=== PATIENT | female | born 1980 | race African-American/Black ===

== ENCOUNTER 2016-12-04 18:33 | Observation (INO) | payer SELFPAY ==
[~2016-12-04] VITALS: Ht 167.6 cm; Wt 74.4 kg
[~2016-12-04 18:33] MED LIST: ALPR1TAB2 PO; ARIP15TA2 PO; BUPR100T6 PO; DOXE50CA PO; Erythromycin Base PO; GABA-585 PO; GABA-587 PO; GABA400C PO; HYDR25TA PO; HYDR50TA6 PO; Oxycodone Hcl/Acetaminophen PO; PANT40TA3 PO; POTA10TA31 PO
[2016-12-04 19:22] LABS: BILIRUBIN,URINE NEGATIVE (NEG); GLUCOSE,URINE 500 mg/dL (NEG); NITRITE,URINE NEGATIVE (NEG); PROTEIN,URINE NEGATIVE (NEG-TRACE); UROBILINOGEN,URINE 0.2 mg/dL (0.2 mg/dL)
[2016-12-04 19:30] LABS: BACTERIA,URINE 0 /HPF (0-FEW); RBC,URINE 0 /HPF (0-2); SQUAMOUS EPITHELIAL CELL,UR FEW /LPF; WBC,URINE 0 /HPF (0-4)
[2016-12-04] MEDS ORDERED: HYDROMORPHONE 2 MG/ML VIAL. IM ONE (19:30)
[2016-12-04] MEDS ORDERED: FAMOTIDINE 20 MG/2 ML VIAL IVP ONE (19:30)
[2016-12-04] MEDS ORDERED: ONDANSETRON PF 4 MG/2 ML VIAL. IV ONE (19:30)
[2016-12-04] MEDS ORDERED: IV NORMAL SALINE 1000ML BAG 1,000 ML IV ONE (19:30)
[2016-12-04 19:34] LABS: NEG OBC FOB NEG; POS OBC FOB POS
--- NOTE | 2016-12-04 19:55 | RAD ---
PROCEDURE Ultrasound limited abdomen HISTORY Left upper quadrant pain and hernia TECHNIQUE Sonographic examination was performed of the area of interest in the left upper quadrant and multiple static images were obtained. FINDINGS There is a small 2.4 millimeter abdominal wall defect with herniated material that measures 7 x 7 x 5 millimeters. There is no peristalsis or air to suggest bowel. IMPRESSION Herniated small at the time of the examination. This does not appear to be a bowel containing hernia. Clinical correlation is suggested. Electronically signed by: Gilberto Moreno MD (Dec 04, 2016 19:54:14)
[2016-12-04 19:58] LABS: BASO % 1 % (0-3); EOS % 1 % (0-3); HEMATOCRIT 28.8 % (36.0-47.0); HEMOGLOBIN 9.4 g/dL (12.0-15.5); LYMPH # 2.6 x10^3/uL (1.0-4.8); LYMPH % 32 % (24-48); MEAN CORPUSCULAR HEMOGLOBIN 26 pg (25-35); MEAN CORPUSCULAR HGB CONC 33 g/dL (31-37); MEAN CORPUSCULAR VOLUME 80 fL (79-100); MONO % 8 % (0-9); NEUT % 58 % (31-73); PLATELET COUNT 241 x10^3/uL (140-400); RED BLOOD COUNT 3.58 x10^6/uL (3.50-5.40); RED CELL DISTRIBUTION WIDTH 18.2 % (11.5-14.5); WHITE BLOOD COUNT 7.9 x10^3/uL (4.0-11.0)
[2016-12-04 20:06] LABS: CALCIUM 9.5 mg/dL (8.5-10.1); CREATININE 0.8 mg/dL (0.6-1.0); GFR 98.2; POTASSIUM 4.7 mmol/L (3.5-5.1)
[2016-12-04 20:12] LABS: ALBUMIN 3.4 g/dL (3.4-5.0); ALBUMIN/GLOBULIN RATIO 0.9 (1.0-1.7); TOTAL BILIRUBIN 0.4 mg/dL (0.2-1.0); TOTAL PROTEIN 7.4 g/dL (6.4-8.2)
[2016-12-04] MEDS ORDERED: HYDROCODONE/APAP 5/325MG TABLET. PO ONE (20:15)
[2016-12-04] MEDS ORDERED: ONDANSETRON PF 4 MG/2 ML VIAL. IV PRN (20:30)
--- NOTE | 2016-12-04 22:05 | PHYS DOC ---
Past Medical History Past Medical History: CHF, GERD Additional Past Medical Histor: panic attacks, schizophrenia w/suicidal ideation, ulcer Past Surgical History: , Other Additional Past Surgical Histo: ulcer Alcohol Use: None Drug Use: None Adult General Chief Complaint Chief Complaint: ABDOMINAL PAIN HPI HPI 36-year-old female presenting to the emergency department today with left sided abdominal pain around her hernia site. She states she has a hernia from her history of a PEG tube in the past. She reports her hernia comes in and out. She describes her pain is sharp nonradiating mild to moderate and not associated with nausea or vomiting. She denies any fevers or chills. The patient's second chief complaint is black tarry stools over the past 2 days. She reports large volumes of dark black tarry stools. She reports having greater than 4 to 5 of these large bowel movements. She has a history of gastric ulcers in the past. Review of systems is negative for chest pain shortness of breath fevers chills nausea or vomiting. All other review of systems is negative unless otherwise noted in history of present illness. Review of Systems Review of Systems SEE ABOVE. Current Medications Current Medications Current Medications Medications (Trade) Dose Ordered Sig/Chung Start Time Stop Time Status Last Admin Dose Admin Acetaminophen/ Hydrocodone Bitart (Lortab 5/325) 2 tab 1X ONCE 12/04/16 20:15 12/04/16 20:47 DC 12/04/16 20:26 2 TAB Famotidine (Pepcid) 20 mg 1X ONCE 12/04/16 19:30 12/04/16 19:31 DC 12/04/16 19:57 20 MG Hydromorphone HCl (Dilaudid) 0.5 mg 1X ONCE 12/04/16 19:30 12/04/16 20:03 DC Ondansetron HCl 4 mg 4 mg 1X ONCE 12/04/16 19:30 12/04/16 19:31 DC 12/04/16 19:57 4 MG Sodium Chloride (Iv Sodium Chloride 0.9% 1000ml Bag) 1,000 ml @ 1,000 mls/hr 1X ONCE 12/04/16 19:30 12/04/16 20:29 DC 12/04/16 19:57 1,000 MLS/HR Allergies Allergies Allergies Coded Allergies Type Severity Reaction Last Updated Verified Metronidazole HCl Allergy Intermediate Hives 11/17/14 Yes codeine Allergy Intermediate 11/17/14 Yes fentanyl Allergy Intermediate itching 11/17/14 Yes ketorolac Allergy Intermediate Rash 11/17/14 Yes metronidazole Allergy Intermediate Hives 11/17/14 Yes morphine Allergy Intermediate 11/17/14 Yes ibuprofen Adverse Reaction Intermediate patient does not take due to having history of ulcers 11/17/14 Yes Physical Exam Physical Exam Constitutional: Well developed, well nourished, no acute distress, non-toxic appearance. HENT: Normocephalic, atraumatic, bilateral external ears normal, oropharynx moist, no oral exudates, nose normal. [] Eyes: PERRLA, EOMI, conjunctiva normal, no discharge. [] Neck: Normal range of motion, no tenderness, supple, no stridor. Cardiovascular:Heart rate regular rhythm, no murmur [] Lungs & Thorax: Bilateral breath sounds clear to auscultation Abdomen: Patient's abdomen is soft and mildly tender to palpation in the left upper quadrant. No rebound tenderness or guarding present. The patient's hernia is easily reducible. Not consistent with strangulation or incarceration. Rectal exam performed in the presence of a female nurse was unable to obtain stool. No stool in the rectal vault. Skin: Warm, dry, no erythema, no rash. [] Back: No tenderness, no CVA tenderness. [] Extremities: No tenderness, no cyanosis, no clubbing, ROM intact, no edema. Neurologic: Alert and oriented X 3, normal motor function, normal sensory function, no focal deficits noted. [] Psychologic: Affect normal, judgement normal, mood normal. Current Patient Data Vital Signs Vital Signs Date Time Temp Pulse Resp B/P Pulse Ox O2 Delivery O2 Flow Rate FiO2 12/04/16 18:49 98.5 82 14 111/65 99 Room Air 98.5 Lab Values Laboratory Tests Test 12/04/16 18:45 12/04/16 19:16 12/04/16 19:50 Urine Collection Type Unknown Urine Color Yellow Urine Clarity Clear Urine pH 6.0 Urine Specific [place] 1.015 Urine Protein Negativemg/dL (NEG-TRACE) Urine Glucose (UA) 500mg/dL (NEG) Urine Ketones (Stick) Negativemg/dL (NEG) Urine Blood Negative (NEG) Urine Nitrite Negative (NEG) Urine Bilirubin Negative (NEG) Urine Urobilinogen Dipstick 0.2mg/dL (0.2 mg/dL) Urine Leukocyte Esterase Negative (NEG) Urine RBC 0/HPF (0-2) Urine WBC 0/HPF (0-4) Urine Squamous Epithelial Cells Few/LPF Urine Bacteria 0/HPF (0-FEW) POC Urine HCG, Qualitative Hcg negative (Negative) Stool Occult Blood Negative (NEG) White Blood Count 7.9x10^3/uL (4.0-11.0) Red Blood Count 3.58x10^6/uL (3.50-5.40) Hemoglobin 9.4g/dL (12.0-15.5) L Hematocrit 28.8% (36.0-47.0) L Mean Corpuscular Volume 80fL (79-100) Mean Corpuscular Hemoglobin 26pg (25-35) Mean Corpuscular Hemoglobin Concent 33g/dL (31-37) Red Cell Distribution Width 18.2% (11.5-14.5) H Platelet Count 241x10^3/uL (140-400) Neutrophils (%) (Auto) 58% (31-73) Lymphocytes (%) (Auto) 32% (24-48) Monocytes (%) (Auto) 8% (0-9) Eosinophils (%) (Auto) 1% (0-3) Basophils (%) (Auto) 1% (0-3) Neutrophils # (Auto) 4.6x10^3uL (1.8-7.7) Lymphocytes # (Auto) 2.6x10^3/uL (1.0-4.8) Monocytes # (Auto) 0.6x10^3/uL (0.0-1.1) Eosinophils # (Auto) 0.1x10^3/uL (0.0-0.7) Basophils # (Auto) 0.0x10^3/uL (0.0-0.2) Sodium Level 142mmol/L (136-145) Potassium Level 4.7mmol/L (3.5-5.1) Chloride Level 106mmol/L (98-107) Carbon Dioxide Level 27mmol/L (21-32) Anion Gap 9 (6-14) Blood Urea Nitrogen 21mg/dL (7-20) H Creatinine 0.8mg/dL (0.6-1.0) Estimated GFR (Cockcroft-Gault) 98.2 BUN/Creatinine Ratio 26 (6-20) H Glucose Level 78mg/dL (70-99) Calcium Level 9.5mg/dL (8.5-10.1) Total Bilirubin 0.4mg/dL (0.2-1.0) Aspartate Amino Transferase (AST) 34U/L (15-37) Alanine Aminotransferase (ALT) 40U/L (14-59) Alkaline Phosphatase 79U/L (46-116) Total Protein 7.4g/dL (6.4-8.2) Albumin 3.4g/dL (3.4-5.0) Albumin/Globulin Ratio 0.9 (1.0-1.7) L Lipase 222U/L (73-393) Laboratory Tests 12/04/16 19:50 Laboratory Tests 12/04/16 19:50 EKG EKG [] Radiology/Procedures Radiology/Procedures [] Course & Med Decision Making Course & Med Decision Making Pertinent Labs and Imaging studies reviewed. (See chart for details) [] 36-year-old female presenting to the emergency department with left upper quadrant abdominal pain also reporting many bowel movements with black tarry stools. Her vital signs afebrile. Heart rate within normal limits. Blood pressure within normal limits. On physical exam showed a mildly tender abdomen without rebound tenderness or guarding. Nonsurgical abdomen. Hernia easily reducible and not consistent with strangulation or incarceration. Rectal exam was performed however unfortunately we're unable to get any stool. Fecal occult test likely a false negative as there was no stool in the rectal vault. The patient's hemoglobin came back at 9.4 without recent previous for comparison. Urinalysis not suggestive of infection. Hemodynamically the patient was stable. Chemistry panel showed mild uremia suggestive of an upper GI bleed. Otherwise testing negative. The patient's pain was treated with hydromorphone and Zofran fluids and famotidine. Given the amount of blood the patient reports in her stools, she was admitted for further monitoring and evaluation workup and care. GI consultation placed. [place] Disclaimer Dragon Disclaimer This electronic medical record was generated, in whole or in part, using a voice recognition dictation system. Departure Departure Impression: Primary Impression: Dark stools Additional Impressions: Abdominal pain Epigastric abdominal pain Disposition: 09 ADMITTED INPATIENT Admitting Physician: Anna Reddy Condition: STABLE Referrals: ADOLPH REDDING APRN (PCP) Problem Qualifiers SHANDRA DANIELSON MD Dec 04, 2016 22:05
[2016-12-04] MEDS ORDERED: CLON2TAB PO (22:28)
[2016-12-04] MEDS ORDERED: PANT40TA3 PO (22:28)
[2016-12-04] MEDS ORDERED: CLON1TAB PO (22:28)
[2016-12-04] MEDS ORDERED: GABA-586 PO (22:28)
[2016-12-04] MEDS ORDERED: ONDA4TAB10 PO (22:28)
[2016-12-04] MEDS ORDERED: ACETAMINOPHEN 325 MG TABLET. PO PRN (22:45)
[2016-12-04] MEDS ORDERED: ONDANSETRON ODT 4 MG TAB.RAPDIS PO PRN (22:45)
[2016-12-04] MEDS: CLONAZEPAM 1 MG TABLET PO SCH (22:56)
[2016-12-04] MEDS: GABAPENTIN 300 MG CAPSULE. PO SCH (22:57)
[2016-12-04 23:00] VITALS: BP 111/73
[2016-12-05] VITALS (12 sets, daily range): BP systolic 90–125; BP diastolic 56–79
[2016-12-05 04:53] LABS: BASO % 1 % (0-3); EOS % 2 % (0-3); HEMATOCRIT 26.4 % (36.0-47.0); HEMOGLOBIN 8.4 g/dL (12.0-15.5); LYMPH # 2.6 x10^3/uL (1.0-4.8); LYMPH % 43 % (24-48); MEAN CORPUSCULAR HEMOGLOBIN 26 pg (25-35); MEAN CORPUSCULAR HGB CONC 32 g/dL (31-37); MEAN CORPUSCULAR VOLUME 81 fL (79-100); MONO % 9 % (0-9); NEUT % 46 % (31-73); PLATELET COUNT 216 x10^3/uL (140-400); RED BLOOD COUNT 3.25 x10^6/uL (3.50-5.40); WHITE BLOOD COUNT 6.1 x10^3/uL (4.0-11.0)
[2016-12-05 05:04] LABS: CALCIUM 8.6 mg/dL (8.5-10.1); CREATININE 0.7 mg/dL (0.6-1.0); GFR 114.6; POTASSIUM 4.5 mmol/L (3.5-5.1)
[2016-12-05] MEDS ORDERED: PANTOPRAZOLE 40 MG TABLET. PO SCH (07:30)
[2016-12-05] MEDS: CLONAZEPAM 1 MG TABLET PO PRN ×2 (08:27→16:22)
[2016-12-05] MEDS: GABAPENTIN 300 MG CAPSULE. PO SCH ×3 (08:27→20:45)
--- NOTE | 2016-12-05 08:31 | PDOC2 ---
GI CONSULT Reason For Consult: Melena HPI: HPI: 36 y/o female w/ h/o PUD s/p antrectomy w/ Billroth II anastomosis and previous J-tube placement/removal (for gastroparesis/malnutrition) admitted through ER where she was evaluated for left-sided abdominal pain and hernia along w/ tarry stools. She reports pain related to hernia from previous J-tube placement x 3 months, worse x 1 month. At times it gets "stuck out" for 45 minutes at a time. Surgery asked to see re: this. Additionally, she says she has been vomiting red and black blood 4-5 times daily and has also been having black tarry stools 4 times daily. Symptoms began 4 days ago. She also has some epigastric discomfort. She reports h/o fluctuating weight w/ perhaps weight loss recently. Other records show EGD on 12/12/[address] Marshall at [facility] revealing anastomotic ulcer w/ oozing which was injected w/ epinephrine. Reports previously normal colonoscopy. Takes Protonix 40mg BID at home and denies NSAID use. Previous biopsies of esophagus, stomach, and duodenum were unrevealing. RN concerned w/ drug-seeking behavior reported overnight. Labs: Hgb 9.4 to 8.4 w/ heme neg stool, BUN 21 to 17. Last dark stool last night. Abd US as below. She ate two boiled eggs for breakfast. PMH: PMH: PUD s/p antrectomy w/ antecolic Billroth II, cholecystectomy, partial thyroidectomy for goiter, x 3, hysterectomy, eye surgery w/ plate placed, previous J-tube placement (removed), adhesiolysis, anxiety/depression, endometriosis FH: Family History: Other (father had "a colon problem") Social History: ALCOHOL: none Drugs: None ROS: GEN: Denies fevers, chills, sweats HEENT: Denies blurred vision, sore throat CV: Denies chest pain RESP: Denies shortness of air, cough GI: Per HPI : Denies hematuria, dysuria ENDO: fluctuating weight, believes had lost recently NEURO: Denies confusion, dizziness MSK: Denies weakness, joint pain/swelling SKIN: Denies jaundice, pruritus VItals: Vitals: Vital Signs Date Time Temp Pulse Resp B/P Pulse Ox O2 Delivery O2 Flow Rate FiO2 12/05/16 07:35 98.4 71 18 94/56 100 Room Air 98.4 Labs: Labs: Laboratory Tests Test 12/04/16 18:45 12/04/16 19:16 12/04/16 19:50 12/05/16 04:29 Urine Collection Type Unknown Urine Color Yellow Urine Clarity Clear Urine pH 6.0 Urine Specific [place] 1.015 Urine Protein Negativemg/dL (NEG-TRACE) Urine Glucose (UA) 500mg/dL (NEG) Urine Ketones (Stick) Negativemg/dL (NEG) Urine Blood Negative (NEG) Urine Nitrite Negative (NEG) Urine Bilirubin Negative (NEG) Urine Urobilinogen Dipstick 0.2mg/dL (0.2 mg/dL) Urine Leukocyte Esterase Negative (NEG) Urine RBC 0/HPF (0-2) Urine WBC 0/HPF (0-4) Urine Squamous Epithelial Cells Few/LPF Urine Bacteria 0/HPF (0-FEW) Bedside Urine HCG, Qualitative Hcg negative (Negative) Stool Occult Blood Negative (NEG) White Blood Count 7.9x10^3/uL (4.0-11.0) 6.1x10^3/uL (4.0-11.0) Red Blood Count 3.58x10^6/uL (3.50-5.40) 3.25x10^6/uL (3.50-5.40) Hemoglobin 9.4g/dL (12.0-15.5) 8.4g/dL (12.0-15.5) Hematocrit 28.8% (36.0-47.0) 26.4% (36.0-47.0) Mean Corpuscular Volume 80fL (79-100) 81fL (79-100) Mean Corpuscular Hemoglobin 26pg (25-35) 26pg (25-35) Mean Corpuscular Hemoglobin Concent 33g/dL (31-37) 32g/dL (31-37) Red Cell Distribution Width 18.2% (11.5-14.5) 18.0% (11.5-14.5) Platelet Count 241x10^3/uL (140-400) 216x10^3/uL (140-400) Neutrophils (%) (Auto) 58% (31-73) 46% (31-73) Lymphocytes (%) (Auto) 32% (24-48) 43% (24-48) Monocytes (%) (Auto) 8% (0-9) 9% (0-9) Eosinophils (%) (Auto) 1% (0-3) 2% (0-3) Basophils (%) (Auto) 1% (0-3) 1% (0-3) Neutrophils # (Auto) 4.6x10^3uL (1.8-7.7) 2.8x10^3uL (1.8-7.7) Lymphocytes # (Auto) 2.6x10^3/uL (1.0-4.8) 2.6x10^3/uL (1.0-4.8) Monocytes # (Auto) 0.6x10^3/uL (0.0-1.1) 0.6x10^3/uL (0.0-1.1) Eosinophils # (Auto) 0.1x10^3/uL (0.0-0.7) 0.1x10^3/uL (0.0-0.7) Basophils # (Auto) 0.0x10^3/uL (0.0-0.2) 0.0x10^3/uL (0.0-0.2) Sodium Level 142mmol/L (136-145) 147mmol/L (136-145) Potassium Level 4.7mmol/L (3.5-5.1) 4.5mmol/L (3.5-5.1) Chloride Level 106mmol/L (98-107) 112mmol/L (98-107) Carbon Dioxide Level 27mmol/L (21-32) 27mmol/L (21-32) Anion Gap 9 (6-14) 8 (6-14) Blood Urea Nitrogen 21mg/dL (7-20) 17mg/dL (7-20) Creatinine 0.8mg/dL (0.6-1.0) 0.7mg/dL (0.6-1.0) Estimated GFR (Cockcroft-Gault) 98.2 114.6 BUN/Creatinine Ratio 26 (6-20) Glucose Level 78mg/dL (70-99) 94mg/dL (70-99) Calcium Level 9.5mg/dL (8.5-10.1) 8.6mg/dL (8.5-10.1) Total Bilirubin 0.4mg/dL (0.2-1.0) Aspartate Amino Transf (AST/SGOT) 34U/L (15-37) Alanine Aminotransferase (ALT/SGPT) 40U/L (14-59) Alkaline Phosphatase 79U/L (46-116) Total Protein 7.4g/dL (6.4-8.2) Albumin 3.4g/dL (3.4-5.0) Albumin/Globulin Ratio 0.9 (1.0-1.7) Lipase 222U/L (73-393) Allergies: Coded Allergies: Metronidazole HCl (Verified Allergy, Intermediate, Hives, 11/17/14) codeine (Verified Allergy, Intermediate, 11/17/14) fentanyl (Verified Allergy, Intermediate, itching, 11/17/14) ketorolac (Verified Allergy, Intermediate, Rash, 11/17/14) hives metronidazole (Verified Allergy, Intermediate, Hives, 11/17/14) morphine (Verified Allergy, Intermediate, 11/17/14) 11/08/14 PT REPORTS TOLERATING OXYCODONE/APAP UPON LAST ADMISSION ibuprofen (Verified Adverse Reaction, Intermediate, patient does not take due to having history of ulcers, 11/17/14) Medications: Current Medications Medications (Trade) Dose Ordered Sig/Chung Route PRN Reason Start Time Stop Time Status Last Admin Dose Admin Ondansetron HCl 4 mg 4 mg 1X ONCE IV 12/04/16 19:30 12/04/16 19:31 DC 12/04/16 19:57 Sodium Chloride (Iv Sodium Chloride 0.9% 1000ml Bag) 1,000 ml @ 1,000 mls/hr 1X ONCE IV 12/04/16 19:30 12/04/16 20:29 DC 12/04/16 19:57 Famotidine (Pepcid) 20 mg 1X ONCE IVP 12/04/16 19:30 12/04/16 19:31 DC 12/04/16 19:57 Acetaminophen/ Hydrocodone Bitart (Lortab 5/325) 2 tab 1X ONCE PO 12/04/16 20:15 12/04/16 20:47 DC 12/04/16 20:26 Gabapentin (Neurontin) 300 mg TID PO 12/04/16 22:45 12/04/16 22:57 Clonazepam (Klonopin) 2 mg HS PO 12/04/16 22:45 12/04/16 22:56 Imaging: Imaging: US 12/04/16 IMPRESSION Herniated small at the time of the examination. This does not appear to be a bowel containing hernia. Clinical correlation is suggested. PE: GEN: NAD HEENT: Atraumatic, PERRL LUNGS: CTAB HEART: RRR ABD: BS+, midline and previous J tube scar, mild left-sided discomfort and epigastric tenderness EXTREMITY: No edema SKIN: No rashes, no jaundice NEURO/PSYCH: A & O 3 A/P: A/P: Hematemesis, melena, anemia -onset 4-5 days ago -red and black emesis w/ black tarry stools -Hgb 8.4 w/ normal BUN today H/o PUD w/ antrectomy, Billroth II -on PPI BID, denies NSAIDs H/o J tube placement/removal -concerned w/ hernia at this site currently -- D/w Dr. Vicente. EGD this afternoon r/o anastomotic ulcer. NPO now. D/w RN, GI lab. D/w surgery - CT planned. TYRONE JONES Dec 05, 2016 08:31
--- NOTE | 2016-12-05 08:57 | PDOC2 ---
EBONIE CARPENTER R[employer]TE [employer] DRIVER 12/05/16 0857: CONSULT Date of Consult Date of Consult DATE: 12/05/16 TIME: 08:45 Reason for Consult Reason for Consult: abdominal pain Referring Physician Referring Physician: ER Identification/Chief Complaint Chief Complaint abdominal pain Source Source: Chart review, Patient History of Present Illness Reason for Visit: Patient known to our service, history of Mick en y at in 2008 for ulcer disease. She then was evaluated by Dr Natarajan for surgical induced gastroparesis in 2014 and had a j tube placed. She had this for a short time, it was removed and currently has been eating without supplement. She reports a hernia to her previous j tube site, it has been causing pain for 3 months and worsening over the last month. Last two days has had black tarry stools and hematemesis Past Medical History GI: GERD Psych: Depression Past Surgical History Past Surgical History: Hysterectomy, Other (mick en y, j tube) Family History Family History: No Significant Social History ALCOHOL: none Drugs: None Lives: Alone Current Problem List Problem List Problems Medical Problems: (1) Dark stools Status: Acute (2) Epigastric abdominal pain Status: Acute Current Medications Current Medications Current Medications Hydromorphone HCl (Dilaudid) 0.5 mg 1X ONCE IM ; Start 12/04/16 at 19:30; Stop 12/04/16 at 20:03; Status DC Ondansetron HCl 4 mg 4 mg 1X ONCE IV Last administered on 12/04/16 19:57; Start 12/04/16 at 19:30; Stop 12/04/16 at 19:31; Status DC Sodium Chloride (Iv Sodium Chloride 0.9% 1000ml Bag) 1,000 ml @ 1,000 mls/hr 1X ONCE IV Last administered on 12/04/16 19:57; Start 12/04/16 at 19:30; Stop 12/04/16 at 20:29; Status DC Famotidine (Pepcid) 20 mg 1X ONCE IVP Last administered on 12/04/16 19:57; Start 12/04/16 at 19:30; Stop 12/04/16 at 19:31; Status DC Acetaminophen/ Hydrocodone Bitart (Lortab 5/325) 2 tab 1X ONCE PO Last administered on 12/04/16 20:26; Start 12/04/16 at 20:15; Stop 12/04/16 at 20:47 ; Status DC Ondansetron HCl (Zofran) 4 mg PRN Q8HRS PRN IV NAUSEA/VOMITING; Start 12/04/16 at 20:30; Stop 12/05/16 at 20:29 Acetaminophen (Tylenol) 650 mg PRN Q6HRS PRN PO MILD PAIN / TEMP; Start at 22:45 Clonazepam (Klonopin) 1 mg PRN TID PRN PO ANXIETY / AGITATION Last administered on 12/05/16 08:27; Start 12/04/16 at 22:45 Gabapentin (Neurontin) 300 mg TID PO Last administered on 12/05/16 08:27; Start 12/04/16 at 22:45 Ondansetron HCl (Zofran Odt) 4 mg PRN BID PRN PO NAUSEA/VOMITING; Start at 22:45 Pantoprazole Sodium (Protonix) 40 mg BIDAC PO Last administered on 12/05/16 08 :27; Start 12/05/16 at 07:30 Clonazepam (Klonopin) 2 mg HS PO Last administered on 12/04/16 22:56; Start at 22:45 Active Scripts Active Reported Klonopin (Clonazepam) 2 Mg Tablet 2 Mg PO HS Klonopin (Clonazepam) 1 Mg Tablet 1 Mg PO TID PRN Gabapentin 300 Mg Capsule 300 Mg PO TID Protonix (Pantoprazole Sodium) 40 Mg Tablet.dr 40 Mg PO BID Zofran Odt (Ondansetron) 4 Mg Tab.rapdis 4 Mg PO BID PRN Allergies Allergies: Coded Allergies: Metronidazole HCl (Verified Allergy, Intermediate, Hives, 11/17/14) codeine (Verified Allergy, Intermediate, 11/17/14) fentanyl (Verified Allergy, Intermediate, itching, 11/17/14) ketorolac (Verified Allergy, Intermediate, Rash, 11/17/14) hives metronidazole (Verified Allergy, Intermediate, Hives, 11/17/14) morphine (Verified Allergy, Intermediate, 11/17/14) 11/08/14 PT REPORTS TOLERATING OXYCODONE/APAP UPON LAST ADMISSION ibuprofen (Verified Adverse Reaction, Intermediate, patient does not take due to having history of ulcers, 11/17/14) ROS General: YES: Chills, Other (feverish) PSYCHOLOGICAL ROS: YES: Anxiety, Depression Eyes: No Blurry vision, No Double vision HEENT: No: Heacaches, Sore Throat Hematological and Lymphatic: YES: Bleeding Problems, No: Blood Clots Respiratory: YES: Cough, Shortness of breath Cardiovascular: yes Chest Pain, No Palpitations Gastrointestinal: Yes Other (see hpi) Genitourinary: No Dysuria, No Hematuria Musculoskeletal: No Joint Pain, No Muscle Pain Neurological: No Impaired Coord/balance, No Numbness/Tingling Skin: Yes Other (skin lesions to body(dark pigemented circular lesions)), No Pruritus Physical Exam General: Alert, Oriented X3, Cooperative, No acute distress HEENT: PERRLA, Mucous membr. moist/pink Lungs: Clear to auscultation, Normal air movement Heart: Regular rate, Normal S1, Normal S2, No murmurs Abdomen: Soft, Other (No palpable hernia, midline scar, mild tenderness upper abdomen ) Extremities: No clubbing, No cyanosis Skin: No breakdown, Other (circular lesions over body(dark, no drainage)) Neuro: Normal speech, Sensation intact Psych/Mental Status: Mental status NL, Mood NL Vitals VITALS Vital Signs Date Time Temp Pulse Resp B/P Pulse Ox O2 Delivery O2 Flow Rate FiO2 12/05/16 07:35 98.4 71 18 94/56 100 Room Air 98.4 Labs Labs Laboratory Tests Test 12/04/16 18:45 12/04/16 19:16 12/04/16 19:50 12/05/16 04:29 Urine Collection Type Unknown Urine Color Yellow Urine Clarity Clear Urine pH 6.0 Urine Specific [place] 1.015 Urine Protein Negativemg/dL (NEG-TRACE) Urine Glucose (UA) 500mg/dL (NEG) Urine Ketones (Stick) Negativemg/dL (NEG) Urine Blood Negative (NEG) Urine Nitrite Negative (NEG) Urine Bilirubin Negative (NEG) Urine Urobilinogen Dipstick 0.2mg/dL (0.2 mg/dL) Urine Leukocyte Esterase Negative (NEG) Urine RBC 0/HPF (0-2) Urine WBC 0/HPF (0-4) Urine Squamous Epithelial Cells Few/LPF Urine Bacteria 0/HPF (0-FEW) Bedside Urine HCG, Qualitative Hcg negative (Negative) Stool Occult Blood Negative (NEG) White Blood Count 7.9x10^3/uL (4.0-11.0) 6.1x10^3/uL (4.0-11.0) Red Blood Count 3.58x10^6/uL (3.50-5.40) 3.25x10^6/uL (3.50-5.40) Hemoglobin 9.4g/dL (12.0-15.5) 8.4g/dL (12.0-15.5) Hematocrit 28.8% (36.0-47.0) 26.4% (36.0-47.0) Mean Corpuscular Volume 80fL (79-100) 81fL (79-100) Mean Corpuscular Hemoglobin 26pg (25-35) 26pg (25-35) Mean Corpuscular Hemoglobin Concent 33g/dL (31-37) 32g/dL (31-37) Red Cell Distribution Width 18.2% (11.5-14.5) 18.0% (11.5-14.5) Platelet Count 241x10^3/uL (140-400) 216x10^3/uL (140-400) Neutrophils (%) (Auto) 58% (31-73) 46% (31-73) Lymphocytes (%) (Auto) 32% (24-48) 43% (24-48) Monocytes (%) (Auto) 8% (0-9) 9% (0-9) Eosinophils (%) (Auto) 1% (0-3) 2% (0-3) Basophils (%) (Auto) 1% (0-3) 1% (0-3) Neutrophils # (Auto) 4.6x10^3uL (1.8-7.7) 2.8x10^3uL (1.8-7.7) Lymphocytes # (Auto) 2.6x10^3/uL (1.0-4.8) 2.6x10^3/uL (1.0-4.8) Monocytes # (Auto) 0.6x10^3/uL (0.0-1.1) 0.6x10^3/uL (0.0-1.1) Eosinophils # (Auto) 0.1x10^3/uL (0.0-0.7) 0.1x10^3/uL (0.0-0.7) Basophils # (Auto) 0.0x10^3/uL (0.0-0.2) 0.0x10^3/uL (0.0-0.2) Sodium Level 142mmol/L (136-145) 147mmol/L (136-145) Potassium Level 4.7mmol/L (3.5-5.1) 4.5mmol/L (3.5-5.1) Chloride Level 106mmol/L (98-107) 112mmol/L (98-107) Carbon Dioxide Level 27mmol/L (21-32) 27mmol/L (21-32) Anion Gap 9 (6-14) 8 (6-14) Blood Urea Nitrogen 21mg/dL (7-20) 17mg/dL (7-20) Creatinine 0.8mg/dL (0.6-1.0) 0.7mg/dL (0.6-1.0) Estimated GFR (Cockcroft-Gault) 98.2 114.6 BUN/Creatinine Ratio 26 (6-20) Glucose Level 78mg/dL (70-99) 94mg/dL (70-99) Calcium Level 9.5mg/dL (8.5-10.1) 8.6mg/dL (8.5-10.1) Total Bilirubin 0.4mg/dL (0.2-1.0) Aspartate Amino Transf (AST/SGOT) 34U/L (15-37) Alanine Aminotransferase (ALT/SGPT) 40U/L (14-59) Alkaline Phosphatase 79U/L (46-116) Total Protein 7.4g/dL (6.4-8.2) Albumin 3.4g/dL (3.4-5.0) Albumin/Globulin Ratio 0.9 (1.0-1.7) Lipase 222U/L (73-393) Laboratory Tests Test 12/04/16 18:45 12/04/16 19:16 12/04/16 19:50 12/05/16 04:29 Urine Collection Type Unknown Urine Color Yellow Urine Clarity Clear Urine pH 6.0 Urine Specific [place] 1.015 Urine Protein Negativemg/dL (NEG-TRACE) Urine Glucose (UA) 500mg/dL (NEG) Urine Ketones (Stick) Negativemg/dL (NEG) Urine Blood Negative (NEG) Urine Nitrite Negative (NEG) Urine Bilirubin Negative (NEG) Urine Urobilinogen Dipstick 0.2mg/dL (0.2 mg/dL) Urine Leukocyte Esterase Negative (NEG) Urine RBC 0/HPF (0-2) Urine WBC 0/HPF (0-4) Urine Squamous Epithelial Cells Few/LPF Urine Bacteria 0/HPF (0-FEW) Bedside Urine HCG, Qualitative Hcg negative (Negative) Stool Occult Blood Negative (NEG) White Blood Count 7.9x10^3/uL (4.0-11.0) 6.1x10^3/uL (4.0-11.0) Red Blood Count 3.58x10^6/uL (3.50-5.40) 3.25x10^6/uL (3.50-5.40) Hemoglobin 9.4g/dL (12.0-15.5) 8.4g/dL (12.0-15.5) Hematocrit 28.8% (36.0-47.0) 26.4% (36.0-47.0) Mean Corpuscular Volume 80fL (79-100) 81fL (79-100) Mean Corpuscular Hemoglobin 26pg (25-35) 26pg (25-35) Mean Corpuscular Hemoglobin Concent 33g/dL (31-37) 32g/dL (31-37) Red Cell Distribution Width 18.2% (11.5-14.5) 18.0% (11.5-14.5) Platelet Count 241x10^3/uL (140-400) 216x10^3/uL (140-400) Neutrophils (%) (Auto) 58% (31-73) 46% (31-73) Lymphocytes (%) (Auto) 32% (24-48) 43% (24-48) Monocytes (%) (Auto) 8% (0-9) 9% (0-9) Eosinophils (%) (Auto) 1% (0-3) 2% (0-3) Basophils (%) (Auto) 1% (0-3) 1% (0-3) Neutrophils # (Auto) 4.6x10^3uL (1.8-7.7) 2.8x10^3uL (1.8-7.7) Lymphocytes # (Auto) 2.6x10^3/uL (1.0-4.8) 2.6x10^3/uL (1.0-4.8) Monocytes # (Auto) 0.6x10^3/uL (0.0-1.1) 0.6x10^3/uL (0.0-1.1) Eosinophils # (Auto) 0.1x10^3/uL (0.0-0.7) 0.1x10^3/uL (0.0-0.7) Basophils # (Auto) 0.0x10^3/uL (0.0-0.2) 0.0x10^3/uL (0.0-0.2) Sodium Level 142mmol/L (136-145) 147mmol/L (136-145) Potassium Level 4.7mmol/L (3.5-5.1) 4.5mmol/L (3.5-5.1) Chloride Level 106mmol/L (98-107) 112mmol/L (98-107) Carbon Dioxide Level 27mmol/L (21-32) 27mmol/L (21-32) Anion Gap 9 (6-14) 8 (6-14) Blood Urea Nitrogen 21mg/dL (7-20) 17mg/dL (7-20) Creatinine 0.8mg/dL (0.6-1.0) 0.7mg/dL (0.6-1.0) Estimated GFR (Cockcroft-Gault) 98.2 114.6 BUN/Creatinine Ratio 26 (6-20) Glucose Level 78mg/dL (70-99) 94mg/dL (70-99) Calcium Level 9.5mg/dL (8.5-10.1) 8.6mg/dL (8.5-10.1) Total Bilirubin 0.4mg/dL (0.2-1.0) Aspartate Amino Transf (AST/SGOT) 34U/L (15-37) Alanine Aminotransferase (ALT/SGPT) 40U/L (14-59) Alkaline Phosphatase 79U/L (46-116) Total Protein 7.4g/dL (6.4-8.2) Albumin 3.4g/dL (3.4-5.0) Albumin/Globulin Ratio 0.9 (1.0-1.7) Lipase 222U/L (73-393) Assessment/Plan Assessment/Plan abdominal pain, possible gi bleed, hx of ulcer disease, mick en y possible hernia to abdomen(US discusses a defect) hgb drop from 9.4 to 8.4 d/w GI plans for scope this afternoon CT once GI issues stable to evaluate for possible hernia will have ANAHI Mcqueen MD 12/05/16 1738: CONSULT Allergies Allergies: Coded Allergies: Metronidazole HCl (Verified Allergy, Intermediate, Hives, 11/17/14) codeine (Verified Allergy, Intermediate, 11/17/14) fentanyl (Verified Allergy, Intermediate, itching, 11/17/14) ketorolac (Verified Allergy, Intermediate, Rash, 11/17/14) hives metronidazole (Verified Allergy, Intermediate, Hives, 11/17/14) morphine (Verified Allergy, Intermediate, 11/17/14) 11/08/14 PT REPORTS TOLERATING OXYCODONE/APAP UPON LAST ADMISSION ibuprofen (Verified Adverse Reaction, Intermediate, patient does not take due to having history of ulcers, 11/17/14) Assessment/Plan Assessment/Plan Pt seen and examined. Agree with Ms. Carpenter's note Pt with c/o epigastric pain and melana abd TTP epigastric agree with GI w/u consider imaging of abd to consider hernia repair Thanks for consult! EBONIE CARPENTER APRN Dec 05, 2016 08:57 ANHAI NATARAJAN MD Dec 05, 2016 17:38
[2016-12-05] MEDS ORDERED: ONDANSETRON PF 4 MG/2 ML VIAL. IV PRN (09:31)
[2016-12-05] MEDS: IV NORMAL SALINE 1000ML BAG 1,000 ML IV SCH (10:50)
[2016-12-05] MEDS: HYDROMORPHONE 2 MG/ML VIAL. IVP PRN ×3 (11:32→20:45)
--- NOTE | 2016-12-05 13:26 | PDOC1 ---
History and Physical Date of Admission Date of Admission DATE: 12/05/16 TIME: 13:19 Identification/Chief Complaint Chief Complaint abd pain Source Source: Caregiver, Chart review, Patient History of Present Illness History of Present Illness 36 y./o AA female who at a young age of 36 already has had multiple past medical hx, abd sx including J tube for gastroparesis (refer to GI note and GS note for full deatils), comes in bec of abd pain on site of her left known hernia, emesis and black tarry stools, Her hgb at ER was 9, dropped today at 8 and hx of gstruc ukcers? etc so GI and GS consulted and plan for EGD later today , GS consulted for hernia but clearly is not incarcerated or strangulated, She wants sx done to her hernia but after my education and counselling hopefully she will not push the issue anymore, Lots of time discussing about her "non emergent issues" which she decided to focus on in today's visit including her post inflammatory hyperpigmentation on her face, chest, abd, extremities from what sounds like severe inflammatory type of acne,' Hgb 8 today, EGD later, requests for iV dilaudid given at ER, documented narc seeking behavior - calls last night I agreed to 0.4 mg IV dilaudid given fundings of possible ulcer (GI bleed) q4 prn Past Medical History GI: GERD Psych: Depression Past Surgical History Past Surgical History: Hysterectomy, Other (scott en y, j tube) Family History Family History: No Significant Social History Smoke: No ALCOHOL: none Drugs: None Current Problem List Problem List Problems Medical Problems: (1) Dark stools Status: Acute (2) Epigastric abdominal pain Status: Acute Problems: Current Medications Current Medications Current Medications Hydromorphone HCl (Dilaudid) 0.5 mg 1X ONCE IM ; Start 12/04/16 at 19:30; Stop 12/04/16 at 20:03; Status DC Ondansetron HCl 4 mg 4 mg 1X ONCE IV Last administered on 12/04/16 19:57; Start 12/04/16 at 19:30; Stop 12/04/16 at 19:31; Status DC Sodium Chloride (Iv Sodium Chloride 0.9% 1000ml Bag) 1,000 ml @ 1,000 mls/hr 1X ONCE IV Last administered on 12/04/16 19:57; Start 12/04/16 at 19:30; Stop 12/04/16 at 20:29; Status DC Famotidine (Pepcid) 20 mg 1X ONCE IVP Last administered on 12/04/16 19:57; Start 12/04/16 at 19:30; Stop 12/04/16 at 19:31; Status DC Acetaminophen/ Hydrocodone Bitart (Lortab 5/325) 2 tab 1X ONCE PO Last administered on 12/04/16 20:26; Start 12/04/16 at 20:15; Stop 12/04/16 at 20:47 ; Status DC Ondansetron HCl (Zofran) 4 mg PRN Q8HRS PRN IV NAUSEA/VOMITING; Start 12/04/16 at 20:30; Stop 12/05/16 at 09:32; Status DC Acetaminophen (Tylenol) 650 mg PRN Q6HRS PRN PO MILD PAIN / TEMP; Start at 22:45 Clonazepam (Klonopin) 1 mg PRN TID PRN PO ANXIETY / AGITATION Last administered on 12/05/16 08:27; Start 12/04/16 at 22:45 Gabapentin (Neurontin) 300 mg TID PO Last administered on 12/05/16 08:27; Start 12/04/16 at 22:45 Ondansetron HCl (Zofran Odt) 4 mg PRN BID PRN PO NAUSEA/VOMITING; Start at 22:45 Pantoprazole Sodium (Protonix) 40 mg BIDAC PO Last administered on 12/05/16 08 :27; Start 12/05/16 at 07:30; Stop 12/05/16 at 09:18; Status DC Clonazepam (Klonopin) 2 mg HS PO Last administered on 12/04/16 22:56; Start at 22:45 Pantoprazole Sodium (Protonix Vial) 40 mg BID IVP ; Start 12/05/16 at 21:00 Ondansetron HCl 4 mg 4 mg PRN Q6HRS PRN IV NAUSEA/VOMITING; Start 12/05/16 at 09:31 Sodium Chloride (Iv Sodium Chloride 0.9% 1000ml Bag) 1,000 ml @ 100 mls/hr Q10H IV Last administered on 12/05/16 10:50; Start 12/05/16 at 09:45 Hydromorphone HCl (Dilaudid) 0.4 mg PRN Q4HRS PRN IVP PAIN Last administered on 12/05/16 11:32; Start 12/05/16 at 11:15 Active Scripts Active Reported Klonopin (Clonazepam) 2 Mg Tablet 2 Mg PO HS Klonopin (Clonazepam) 1 Mg Tablet 1 Mg PO TID PRN Gabapentin 300 Mg Capsule 300 Mg PO TID Protonix (Pantoprazole Sodium) 40 Mg Tablet.dr 40 Mg PO BID Zofran Odt (Ondansetron) 4 Mg Tab.rapdis 4 Mg PO BID PRN Allergies Allergies: Coded Allergies: Metronidazole HCl (Verified Allergy, Intermediate, Hives, 11/17/14) codeine (Verified Allergy, Intermediate, 11/17/14) fentanyl (Verified Allergy, Intermediate, itching, 11/17/14) ketorolac (Verified Allergy, Intermediate, Rash, 11/17/14) hives metronidazole (Verified Allergy, Intermediate, Hives, 11/17/14) morphine (Verified Allergy, Intermediate, 11/17/14) 11/08/14 PT REPORTS TOLERATING OXYCODONE/APAP UPON LAST ADMISSION ibuprofen (Verified Adverse Reaction, Intermediate, patient does not take due to having history of ulcers, 11/17/14) ROS Review of System black tarry stools, abd pain, emesis Physical Exam Physical Exam multiple post inflammatory type acne on face, ext, chest, trunk, abd Tatooes on both UE General: Alert, Oriented X3, Cooperative, No acute distress HEENT: PERRLA Lungs: Clear to auscultation Heart: S1S2, RRR, no thrills, no rubs Cardiovascular: S1, S2 Breasts: Normal Rectal Exam: not examined PELVIC: Nml ext genitalia Extremities: No clubbing, No cyanosis, No edema, Normal pulses, No tenderness/ swelling Skin: No rashes, No breakdown, No significant lesion, Other (see above) Vitals Vitals Vital Signs Date Time Temp Pulse Resp B/P Pulse Ox O2 Delivery O2 Flow Rate FiO2 12/05/16 12:15 Room Air 12/05/16 10:57 98.5 71 18 96/61 100 98.5 Labs Labs Laboratory Tests Test 12/04/16 18:45 2/22/17 19:16 12/04/16 19:50 12/05/16 04:29 Urine Collection Type Unknown Urine Color Yellow Urine Clarity Clear Urine pH 6.0 Urine Specific [place] 1.015 Urine Protein Negativemg/dL (NEG-TRACE) Urine Glucose (UA) 500mg/dL (NEG) Urine Ketones (Stick) Negativemg/dL (NEG) Urine Blood Negative (NEG) Urine Nitrite Negative (NEG) Urine Bilirubin Negative (NEG) Urine Urobilinogen Dipstick 0.2mg/dL (0.2 mg/dL) Urine Leukocyte Esterase Negative (NEG) Urine RBC 0/HPF (0-2) Urine WBC 0/HPF (0-4) Urine Squamous Epithelial Cells Few/LPF Urine Bacteria 0/HPF (0-FEW) Bedside Urine HCG, Qualitative Hcg negative (Negative) Stool Occult Blood Negative (NEG) White Blood Count 7.9x10^3/uL (4.0-11.0) 6.1x10^3/uL (4.0-11.0) Red Blood Count 3.58x10^6/uL (3.50-5.40) 3.25x10^6/uL (3.50-5.40) Hemoglobin 9.4g/dL (12.0-15.5) 8.4g/dL (12.0-15.5) Hematocrit 28.8% (36.0-47.0) 26.4% (36.0-47.0) Mean Corpuscular Volume 80fL (79-100) 81fL (79-100) Mean Corpuscular Hemoglobin 26pg (25-35) 26pg (25-35) Mean Corpuscular Hemoglobin Concent 33g/dL (31-37) 32g/dL (31-37) Red Cell Distribution Width 18.2% (11.5-14.5) 18.0% (11.5-14.5) Platelet Count 241x10^3/uL (140-400) 216x10^3/uL (140-400) Neutrophils (%) (Auto) 58% (31-73) 46% (31-73) Lymphocytes (%) (Auto) 32% (24-48) 43% (24-48) Monocytes (%) (Auto) 8% (0-9) 9% (0-9) Eosinophils (%) (Auto) 1% (0-3) 2% (0-3) Basophils (%) (Auto) 1% (0-3) 1% (0-3) Neutrophils # (Auto) 4.6x10^3uL (1.8-7.7) 2.8x10^3uL (1.8-7.7) Lymphocytes # (Auto) 2.6x10^3/uL (1.0-4.8) 2.6x10^3/uL (1.0-4.8) Monocytes # (Auto) 0.6x10^3/uL (0.0-1.1) 0.6x10^3/uL (0.0-1.1) Eosinophils # (Auto) 0.1x10^3/uL (0.0-0.7) 0.1x10^3/uL (0.0-0.7) Basophils # (Auto) 0.0x10^3/uL (0.0-0.2) 0.0x10^3/uL (0.0-0.2) Sodium Level 142mmol/L (136-145) 147mmol/L (136-145) Potassium Level 4.7mmol/L (3.5-5.1) 4.5mmol/L (3.5-5.1) Chloride Level 106mmol/L (98-107) 112mmol/L (98-107) Carbon Dioxide Level 27mmol/L (21-32) 27mmol/L (21-32) Anion Gap 9 (6-14) 8 (6-14) Blood Urea Nitrogen 21mg/dL (7-20) 17mg/dL (7-20) Creatinine 0.8mg/dL (0.6-1.0) 0.7mg/dL (0.6-1.0) Estimated GFR (Cockcroft-Gault) 98.2 114.6 BUN/Creatinine Ratio 26 (6-20) Glucose Level 78mg/dL (70-99) 94mg/dL (70-99) Calcium Level 9.5mg/dL (8.5-10.1) 8.6mg/dL (8.5-10.1) Total Bilirubin 0.4mg/dL (0.2-1.0) Aspartate Amino Transf (AST/SGOT) 34U/L (15-37) Alanine Aminotransferase (ALT/SGPT) 40U/L (14-59) Alkaline Phosphatase 79U/L (46-116) Total Protein 7.4g/dL (6.4-8.2) Albumin 3.4g/dL (3.4-5.0) Albumin/Globulin Ratio 0.9 (1.0-1.7) Lipase 222U/L (73-393) Laboratory Tests Test 12/04/16 18:45 12/04/16 19:16 12/04/16 19:50 12/05/16 04:29 Urine Collection Type Unknown Urine Color Yellow Urine Clarity Clear Urine pH 6.0 Urine Specific [place] 1.015 Urine Protein Negativemg/dL (NEG-TRACE) Urine Glucose (UA) 500mg/dL (NEG) Urine Ketones (Stick) Negativemg/dL (NEG) Urine Blood Negative (NEG) Urine Nitrite Negative (NEG) Urine Bilirubin Negative (NEG) Urine Urobilinogen Dipstick 0.2mg/dL (0.2 mg/dL) Urine Leukocyte Esterase Negative (NEG) Urine RBC 0/HPF (0-2) Urine WBC 0/HPF (0-4) Urine Squamous Epithelial Cells Few/LPF Urine Bacteria 0/HPF (0-FEW) Bedside Urine HCG, Qualitative Hcg negative (Negative) Stool Occult Blood Negative (NEG) White Blood Count 7.9x10^3/uL (4.0-11.0) 6.1x10^3/uL (4.0-11.0) Red Blood Count 3.58x10^6/uL (3.50-5.40) 3.25x10^6/uL (3.50-5.40) Hemoglobin 9.4g/dL (12.0-15.5) 8.4g/dL (12.0-15.5) Hematocrit 28.8% (36.0-47.0) 26.4% (36.0-47.0) Mean Corpuscular Volume 80fL (79-100) 81fL (79-100) Mean Corpuscular Hemoglobin 26pg (25-35) 26pg (25-35) Mean Corpuscular Hemoglobin Concent 33g/dL (31-37) 32g/dL (31-37) Red Cell Distribution Width 18.2% (11.5-14.5) 18.0% (11.5-14.5) Platelet Count 241x10^3/uL (140-400) 216x10^3/uL (140-400) Neutrophils (%) (Auto) 58% (31-73) 46% (31-73) Lymphocytes (%) (Auto) 32% (24-48) 43% (24-48) Monocytes (%) (Auto) 8% (0-9) 9% (0-9) Eosinophils (%) (Auto) 1% (0-3) 2% (0-3) Basophils (%) (Auto) 1% (0-3) 1% (0-3) Neutrophils # (Auto) 4.6x10^3uL (1.8-7.7) 2.8x10^3uL (1.8-7.7) Lymphocytes # (Auto) 2.6x10^3/uL (1.0-4.8) 2.6x10^3/uL (1.0-4.8) Monocytes # (Auto) 0.6x10^3/uL (0.0-1.1) 0.6x10^3/uL (0.0-1.1) Eosinophils # (Auto) 0.1x10^3/uL (0.0-0.7) 0.1x10^3/uL (0.0-0.7) Basophils # (Auto) 0.0x10^3/uL (0.0-0.2) 0.0x10^3/uL (0.0-0.2) Sodium Level 142mmol/L (136-145) 147mmol/L (136-145) Potassium Level 4.7mmol/L (3.5-5.1) 4.5mmol/L (3.5-5.1) Chloride Level 106mmol/L (98-107) 112mmol/L (98-107) Carbon Dioxide Level 27mmol/L (21-32) 27mmol/L (21-32) Anion Gap 9 (6-14) 8 (6-14) Blood Urea Nitrogen 21mg/dL (7-20) 17mg/dL (7-20) Creatinine 0.8mg/dL (0.6-1.0) 0.7mg/dL (0.6-1.0) Estimated GFR (Cockcroft-Gault) 98.2 114.6 BUN/Creatinine Ratio 26 (6-20) Glucose Level 78mg/dL (70-99) 94mg/dL (70-99) Calcium Level 9.5mg/dL (8.5-10.1) 8.6mg/dL (8.5-10.1) Total Bilirubin 0.4mg/dL (0.2-1.0) Aspartate Amino Transf (AST/SGOT) 34U/L (15-37) Alanine Aminotransferase (ALT/SGPT) 40U/L (14-59) Alkaline Phosphatase 79U/L (46-116) Total Protein 7.4g/dL (6.4-8.2) Albumin 3.4g/dL (3.4-5.0) Albumin/Globulin Ratio 0.9 (1.0-1.7) Lipase 222U/L (73-393) VTE Prophylaxis Ordered VTE Prophylaxis Devices: Contraindicated VTE Pharmacological Prophylaxi: Contraindicated Assessment/Plan Assessment/Plan 1. Acute blood loss anemia/acute precipitous drop in hgb 2. Hx PUD? GERD 3. Hx multiple abd sx including J tube for gastroparesis 4. Multiple tattoes 5. NArc seeking behavior 6. MIld PCM 7. Post inflammatory hyperpigmentation face, neck, chest, trunk, ext PLAn: EGD later Resume hoem meds Low dose dilaudid If EGD neg and HH gali stable, home gali - I DISCUSSED THAT WITH HER MARCIE MICHELLE MD Dec 05, 2016 13:26
[2016-12-05] MEDS: IV RINGERS,LACTATED 1000ML 1,000 ML IV SCH ×2 (15:09→23:07)
[2016-12-05] MEDS ORDERED: LIDOCAINE 2% PF Vial for OR 5 ML VIAL. ONE (15:13)
[2016-12-05] MEDS ORDERED: PROPOFOL 20 ML IV ONE (15:13)
--- NOTE | 2016-12-05 15:34 | PDOC4 ---
PROCEDURE Procedure EGD Ind: "melena" Meds: per anesthesia Findings: E--normal; gej at 40cm. G--s/p subtotal gastrectomy with relatively small pouch and BII anastomosis. D--Both A and E limbs inspected, A limb to it's origin. No lesions noted. Papilla seen. Tolerated well. IMP: no lesions seen to account for any bleeding. S/p vagotomy, subtotal gastrectomy with BII anastomosis. REC: OK to feed. Will check gastrin re: retained antrum, but doubtful this is the issue. Some of the anemia may be iron malabsorption due to post-op anatomy, excluding the duodenum from the nutrient stream. Would give iron chronically. DARION GUSMAN MD Dec 05, 2016 15:34
[2016-12-05] MEDS: PANTOPRAZOLE IV PUSH 40 MG VIAL. IVP SCH (20:44)
[2016-12-05] MEDS: CLONAZEPAM 1 MG TABLET PO SCH (20:45)
[2016-12-06] MEDS: IV NORMAL SALINE 1000ML BAG 1,000 ML IV SCH ×3 (00:28→21:13)
[2016-12-06] MEDS: HYDROMORPHONE 2 MG/ML VIAL. IVP PRN ×6 (00:50→21:11)
[2016-12-06 03:00] VITALS: BP 107/69
[2016-12-06] MEDS: CLONAZEPAM 1 MG TABLET PO PRN ×3 (04:37→17:00)
[2016-12-06 05:30] LABS: HEMATOCRIT 28.6 % (36.0-47.0)
[2016-12-06 07:30] VITALS: BP 94/63
--- NOTE | 2016-12-06 08:33 | PDOC ---
EBONIE SEALS SALES LEADER 12/06/16 0833: SURGICAL PROGRESS NOTE Subjective continued abdominal pain, could not sleep last night concerned about hernia, asking about surgery had three breakfast trays this AM nausea at times Vital Signs Vital Signs Date Time Temp Pulse Resp B/P Pulse Ox O2 Delivery O2 Flow Rate FiO2 12/06/16 04:37 20 Room Air 12/06/16 03:00 98.2 75 107/69 100 98.2 12/05/16 15:32 2 I&O Intake and Output 12/06/16 07:00 Intake Total 1020 ml Balance 1020 ml Intake Oral 820 ml IV Total 200 ml # Voids 3 General: Alert, Oriented X3, Cooperative, No acute distress Abdomen: Soft, Other (tender to upper abdomen , no hernia palpated ) Labs Laboratory Tests Test 12/04/16 18:45 12/04/16 19:16 12/04/16 19:50 12/05/16 04:29 Urine Collection Type Unknown Urine Color Yellow Urine Clarity Clear Urine pH 6.0 Urine Specific Roxie 1.015 Urine Protein Negativemg/dL (NEG-TRACE) Urine Glucose (UA) 500mg/dL (NEG) Urine Ketones (Stick) Negativemg/dL (NEG) Urine Blood Negative (NEG) Urine Nitrite Negative (NEG) Urine Bilirubin Negative (NEG) Urine Urobilinogen Dipstick 0.2mg/dL (0.2 mg/dL) Urine Leukocyte Esterase Negative (NEG) Urine RBC 0/HPF (0-2) Urine WBC 0/HPF (0-4) Urine Squamous Epithelial Cells Few/LPF Urine Bacteria 0/HPF (0-FEW) Bedside Urine HCG, Qualitative Hcg negative (Negative) Stool Occult Blood Negative (NEG) White Blood Count 7.9x10^3/uL (4.0-11.0) 6.1x10^3/uL (4.0-11.0) Red Blood Count 3.58x10^6/uL (3.50-5.40) 3.25x10^6/uL (3.50-5.40) Hemoglobin 9.4g/dL (12.0-15.5) 8.4g/dL (12.0-15.5) Hematocrit 28.8% (36.0-47.0) 26.4% (36.0-47.0) Mean Corpuscular Volume 80fL (79-100) 81fL (79-100) Mean Corpuscular Hemoglobin 26pg (25-35) 26pg (25-35) Mean Corpuscular Hemoglobin Concent 33g/dL (31-37) 32g/dL (31-37) Red Cell Distribution Width 18.2% (11.5-14.5) 18.0% (11.5-14.5) Platelet Count 241x10^3/uL (140-400) 216x10^3/uL (140-400) Neutrophils (%) (Auto) 58% (31-73) 46% (31-73) Lymphocytes (%) (Auto) 32% (24-48) 43% (24-48) Monocytes (%) (Auto) 8% (0-9) 9% (0-9) Eosinophils (%) (Auto) 1% (0-3) 2% (0-3) Basophils (%) (Auto) 1% (0-3) 1% (0-3) Neutrophils # (Auto) 4.6x10^3uL (1.8-7.7) 2.8x10^3uL (1.8-7.7) Lymphocytes # (Auto) 2.6x10^3/uL (1.0-4.8) 2.6x10^3/uL (1.0-4.8) Monocytes # (Auto) 0.6x10^3/uL (0.0-1.1) 0.6x10^3/uL (0.0-1.1) Eosinophils # (Auto) 0.1x10^3/uL (0.0-0.7) 0.1x10^3/uL (0.0-0.7) Basophils # (Auto) 0.0x10^3/uL (0.0-0.2) 0.0x10^3/uL (0.0-0.2) Sodium Level 142mmol/L (136-145) 147mmol/L (136-145) Potassium Level 4.7mmol/L (3.5-5.1) 4.5mmol/L (3.5-5.1) Chloride Level 106mmol/L (98-107) 112mmol/L (98-107) Carbon Dioxide Level 27mmol/L (21-32) 27mmol/L (21-32) Anion Gap 9 (6-14) 8 (6-14) Blood Urea Nitrogen 21mg/dL (7-20) 17mg/dL (7-20) Creatinine 0.8mg/dL (0.6-1.0) 0.7mg/dL (0.6-1.0) Estimated GFR (Cockcroft-Gault) 98.2 114.6 BUN/Creatinine Ratio 26 (6-20) Glucose Level 78mg/dL (70-99) 94mg/dL (70-99) Calcium Level 9.5mg/dL (8.5-10.1) 8.6mg/dL (8.5-10.1) Total Bilirubin 0.4mg/dL (0.2-1.0) Aspartate Amino Transf (AST/SGOT) 34U/L (15-37) Alanine Aminotransferase (ALT/SGPT) 40U/L (14-59) Alkaline Phosphatase 79U/L (46-116) Total Protein 7.4g/dL (6.4-8.2) Albumin 3.4g/dL (3.4-5.0) Albumin/Globulin Ratio 0.9 (1.0-1.7) Lipase 222U/L (73-393) Test 12/06/16 04:50 Hemoglobin 9.0g/dL (12.0-15.5) Hematocrit 28.6% (36.0-47.0) Mean Corpuscular Hemoglobin Concent 32g/dL (31-37) Laboratory Tests Test 12/06/16 04:50 Hemoglobin 9.0g/dL (12.0-15.5) Hematocrit 28.6% (36.0-47.0) Mean Corpuscular Hemoglobin Concent 32g/dL (31-37) Problem List Problems Medical Problems: (1) Dark stools Status: Acute (2) Epigastric abdominal pain Status: Acute Assessment/Plan EGD no acute findings , no bleeding hgb stable will check CT Problems: ANAHI HERNANDES MD 12/06/16 9129: SURGICAL PROGRESS NOTE Subjective Pt seen and examined. Agree with Ms. Seals's note Pt with c/o bulge in LUQ that she is concerned will cause her mild TTP LUQ CT unremarkable will plan lap exploration to eval pain R/B/A d/w pt including risk of not finding issues EBONIE SEALS APRN Dec 06, 2016 08:33 ANAHI HERNANDES MD Dec 06, 2016 17:52
[2016-12-06] MEDS: GABAPENTIN 300 MG CAPSULE. PO SCH ×3 (08:45→21:12)
[2016-12-06] MEDS ORDERED: IOHEXOL 300 MG/ML 75 ML VIAL IV ONE (08:45)
[2016-12-06] MEDS ORDERED: CONTRAST GIVEN MC PRN (08:45)
[2016-12-06] MEDS ORDERED: IOHEXOL 240 MG/ML 50ML VIAL. PO ONE (08:45)
[2016-12-06] MEDS: PANTOPRAZOLE IV PUSH 40 MG VIAL. IVP SCH (08:46)
--- NOTE | 2016-12-06 10:25 | PDOC ---
PROGRESS NOTES Chief Complaint Chief Complaint Abd pain ASSESSMENT AND PLAN: 1. Abd Pain: unclear etiology. not affecting PO intake... 2. 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 IV iron here, chronic PO repletion 3. Melena: EGD on 12/[address] Vicente. no evidence on recent or ongoing bleed. S/p vagotomy, subtotal gastrectomy with BII anastomosis. 4. Hernia: <1 cm, not containing bowel. surgery following. CT abd pending for eval. 5. Dispo: home once cleared by surgery Vitals Vitals Vital Signs Date Time Temp Pulse Resp B/P Pulse Ox O2 Delivery O2 Flow Rate FiO2 12/06/16 08:45 20 93 Room Air 12/06/16 07:30 98.1 71 94/63 98.1 12/05/16 15:32 2 Physical Exam General: Alert, Oriented X3, Cooperative, No acute distress Heart: Regular rate, Normal S1, Normal S2, No murmurs Abdomen: Soft, Other (tender to upper abdomen , no hernia palpated ) Extremities: No clubbing, No cyanosis, No edema, Normal pulses, No tenderness/ swelling Skin: No rashes, No breakdown, No significant lesion, Other (see above) Labs LABS Laboratory Tests Test 12/06/16 04:50 Hemoglobin 9.0g/dL (12.0-15.5) Hematocrit 28.6% (36.0-47.0) Mean Corpuscular Hemoglobin Concent 32g/dL (31-37) Review of Systems Review of Systems LUQ pain, mild, able to move w/o difficulties SHIRLEY SINGH MD Dec 06, 2016 10:25
[2016-12-06 11:10] VITALS: BP 90/51
--- NOTE | 2016-12-06 11:36 | RAD ---
CT of the abdomen and pelvis with contrast, 12/06/2016: History: Abdominal pain Multidetector CT imaging was performed following oral and IV administration of contrast. Comparison is made to a study from 09/04/2015. There appears to be a trace amount of pleural fluid in the posterior gutters bilaterally. The gallbladder is surgically absent. No hepatic abnormality is detected. The pancreas is unremarkable. The spleen is within normal limits in size. No renal abnormality is detected. The abdominal aorta is of normal caliber. No abdominal or pelvic adenopathy is seen. The uterus appears to be surgically absent. There are multiple surgical clips and sutures in the upper abdomen. There is a moderate amount of stool throughout the colon. The small bowel loops are unremarkable. No free fluid or free air is evident in the abdomen or pelvis. IMPRESSION: 1. Postsurgical changes in the upper abdomen. 2. Increased stool throughout the colon. 3. Otherwise no acute abdominal or pelvic abnormality is detected. PQRS Compliance Statement: One or more of the following individualized dose reduction techniques were utilized for this examination: 1. Automated exposure control 2. Adjustment of the mA and/or kV according to patient size 3. Use of iterative reconstruction technique
--- NOTE | 2016-12-06 14:48 | PDOC ---
Subjective: Subjective: Tolerating diet. Reports dark emesis and dark stools. Objective: Vital Signs: Vital Signs Date Time Temp Pulse Resp B/P Pulse Ox O2 Delivery O2 Flow Rate FiO2 12/06/16 12:38 20 93 Room Air 12/06/16 11:10 98.7 88 90/51 98.7 12/05/16 15:32 2 Labs: Laboratory Tests Test 12/06/16 04:50 Hemoglobin 9.0g/dL Hematocrit 28.6% Mean Corpuscular Hemoglobin Concent 32g/dL Imaging: CT A/P 12/06/16 IMPRESSION: 1. Postsurgical changes in the upper abdomen. 2. Increased stool throughout the colon. 3. Otherwise no acute abdominal or pelvic abnormality is detected. EGD 12/05/16 E--normal; gej at 40cm. G--s/p subtotal gastrectomy with relatively small pouch and BII anastomosis. D--Both A and E limbs inspected, A limb to it's origin. No lesions noted. Papilla seen. IMP: no lesions seen to account for any bleeding. S/p vagotomy, subtotal gastrectomy with BII anastomosis. PE: GEN: NAD LUNGS: CTAB HEART: RRR ABD: BS+, tender LUQ and LLQ NEURO/PSYCH: A & O 3 A/P: Hematemesis, melena, anemia -continues to report dark emesis and dark stool, Hgb stable -notes indicate eating well Abd pain -CT as above CRC screen -reports previous exam at [facility] -- Will change to PO PPI and add iron. Gastrin pending. Requested records from [facility]. TYRONE JONES Dec 06, 2016 14:48
[2016-12-06 15:00] VITALS: BP 107/69
[2016-12-06] MEDS: FERROUS SULFATE ORAL 300 MG/5 ML SOLUTION. PO SCH (17:00)
[2016-12-06] MEDS ORDERED: CEFAZOLIN 2GM PREMIX 50 ML IV SCH (18:00)
[2016-12-06] MEDS: CLONAZEPAM 1 MG TABLET PO SCH (21:11)
[2016-12-06 23:59] VITALS: BP 114/77
[2016-12-07] VITALS (13 sets, daily range): BP systolic 86–114; BP diastolic 50–84
[2016-12-07] MEDS: IV NORMAL SALINE 1000ML BAG 1,000 ML IV SCH ×3 (01:09→21:45)
[2016-12-07] MEDS: CLONAZEPAM 1 MG TABLET PO PRN ×2 (01:13→13:04)
[2016-12-07] MEDS: HYDROMORPHONE 2 MG/ML VIAL. IVP PRN ×5 (01:15→21:36)
[2016-12-07] MEDS ORDERED: BUPIVAC MPF-EPI 0.5%-1:200000 30 ML VIAL. ONE (07:19)
[2016-12-07] MEDS ORDERED: ROCURONIUM 50 MG/5 ML VIAL. ONE (07:29)
[2016-12-07] MEDS ORDERED: ONDANSETRON PF 4 MG/2 ML VIAL. ONE (07:30)
[2016-12-07] MEDS ORDERED: LIDOCAINE 2% PF Vial for OR 5 ML VIAL. ONE (07:30)
[2016-12-07] MEDS ORDERED: PROPOFOL 20 ML IV ONE (07:30)
[2016-12-07] MEDS ORDERED: DEXAMETHASONE SOD PHOS 20 MG/5 ML VIAL. ONE (07:30)
[2016-12-07] MEDS ORDERED: FENTANYL PF 100 MCG/2 ML VIAL. ONE (07:33)
[2016-12-07] MEDS ORDERED: SUCCINYLCHOLINE 200 MG/10 ML VIAL. ONE (07:48)
--- NOTE | 2016-12-07 08:00 | PDOC ---
SURGICAL PROGRESS NOTE Subjective Pre-Op Note 36 yo F with LUQ pain TO OR for Lap vs open exploration R/B/A d/w pt Vital Signs Vital Signs Date Time Temp Pulse Resp B/P Pulse Ox O2 Delivery O2 Flow Rate FiO2 12/07/16 07:46 18 99 Room Air 12/07/16 03:59 98.2 75 91/54 98.2 I&O Intake and Output 12/07/16 07:00 Intake Total 2110 ml Balance 2110 ml Intake Oral 910 ml IV Total 1200 ml # Voids 2 Labs Laboratory Tests Test 12/06/16 04:50 Hemoglobin 9.0g/dL (12.0-15.5) Hematocrit 28.6% (36.0-47.0) Mean Corpuscular Hemoglobin Concent 32g/dL (31-37) Problem List Problems Medical Problems: (1) Dark stools Status: Acute (2) Epigastric abdominal pain Status: Acute Problems: ANAHI HERNANDES MD Dec 07, 2016 08:00
[2016-12-07] MEDS ORDERED: IV RINGERS,LACTATED 1000ML 1,000 ML IV SCH (08:04)
[2016-12-07] MEDS ORDERED: PROCHLORPERAZINE 10 MG/2 ML VIAL. IV PRN (08:15)
[2016-12-07] MEDS ORDERED: FENTANYL PF 100 MCG/2 ML VIAL. IV PRN ×2 (08:15)
[2016-12-07] MEDS ORDERED: HYDROMORPHONE 2 MG/ML VIAL. IV PRN (08:15)
[2016-12-07] MEDS ORDERED: ONDANSETRON PF 4 MG/2 ML VIAL. IV PRN ×2 (08:15→09:00)
[2016-12-07] MEDS ORDERED: LIDOCAINE 1% 1 ML SYRINGE. ID PRN (08:15)
[2016-12-07] MEDS ORDERED: DESFLURANE 31 TO 60 MINUTES IH ONE (08:29)
[2016-12-07] MEDS ORDERED: PHENYLEPHRINE in 0.9% NACL PF 1 MG/10 ML DISP.SYRIN. IV ONE (08:29)
[2016-12-07] MEDS ORDERED: GLYCOPYRROLATE 1 MG/5 ML VIAL. ONE (08:37)
[2016-12-07] MEDS ORDERED: NEOSTIGMINE METHYLSULFATE 5 MG/5 ML SYRINGE. ONE (08:37)
[2016-12-07] MEDS: GABAPENTIN 300 MG CAPSULE. PO SCH ×3 (09:00→19:59)
[2016-12-07] MEDS ORDERED: ENOXAPARIN 40 MG/0.4 ML DISP.SYRIN. SQ SCH (09:00)
[2016-12-07] MEDS ORDERED: 0.9 % SODIUM CHLORIDE 10 ML DISP.SYRIN. IV PRN (09:00)
--- NOTE | 2016-12-07 09:01 | PDOC ---
BRIEF OPERATIVE NOTE Pre-Op Diagnosis LUQ pain Post-Op Diagnosis same Procedure Performed Lap exploration Surgeon Delgado Anesthesia Type: General, Local Blood Loss 10 IV Fluid 300 Specimens Obtained none Findings benign adhesions, no pathology identified Complications none Additional Remarks [id number] ANAHI HERNANDES MD Dec 07, 2016 09:01
[2016-12-07] MEDS: IV RINGERS,LACTATED 1000ML 1,000 ML IV SCH ×2 (10:53→21:37)
--- NOTE | 2016-12-07 12:55 | OP ---
DATE OF SURGERY: 12/07/2016 REFERRING PHYSICIANS: Dr. Freedom Brewster; Dr. Anna Reddy; Dr. Brad Ramirez; Ms. Adolph Campbell. Thank you for the consult. PREOPERATIVE DIAGNOSIS: Left upper quadrant epigastric pain. POSTOPERATIVE DIAGNOSIS: Left upper quadrant epigastric pain. PROCEDURE: Laparoscopic exploration. SURGEON: Preston Natarajan MD ESTIMATED BLOOD LOSS: 5 mL. FLUIDS: 300 mL. COMPLICATIONS: None. INDICATIONS: A 36-year-old female who has previous antrectomy and J-tube placement with complaints of left upper quadrant pain and bulge. Endoscopic workup has been unremarkable. Imaging has been unremarkable. Subsequently, it was felt patient best be served by laparoscopic exploration. The patient was informed of the risks, benefits, alternatives to procedure, risks including but not limited to bleeding, infection, damage to surrounding structures, risk of anesthesia, risk of an open procedure. She is also mainly informed of the significant risks of not being able to identify any source of her pain; however, she remains adamantly interested in surgical exploration. She appears to understand and her questions were answered and she agrees to proceed. DESCRIPTION OF PROCEDURE: After obtaining informed consent, the patient was taken to the operating room, induced under general endotracheal anesthetic. The patient was prepped and draped in usual fashion in the anterior abdominal wall. A 0.5% Marcaine with epinephrine was injected in left lower quadrant abdominal wall. Incision was made using 15 blade scalpel. A 5 mm nonbladed trocar was introduced in the abdominal cavity under direct vision of laparoscope. Pneumoperitoneum was established. Additional 5 mm port was placed in the left upper quadrant under direct laparoscopic guidance. The abdominal cavity was laparoscopically explored and there was extensive adhesions in the upper abdomen consistent with the patient's history of partial gastrectomy and J-tube placement, but these were all benign adhesions, no evidence of hernia or abdominal wall abnormality. Multiple pictures were obtained. The stomach was seen in the upper abdomen and appeared to be unremarkable. The right edge of the liver was visualized and found to be unremarkable. Visualized portion of small bowel were normal in appearance throughout. No evidence of obstruction. She hernia or compromise of the bowel. Gynecological structures were surgically absent without evidence of complication. The abdominal wall was extensively reviewed, no evidence of hernia was identified or other abdominal wall pathology. Given these negative findings, it was felt that the procedure could be terminated. All ports removed under direct vision of laparoscope. There was no evidence of port site bleeding. All skin incisions were approximated using multiple interrupted 4-0 Monocryl in subcuticular fashion. Sterile dressing was placed over all wounds. The patient tolerated procedure well and was discharged to recovery room in stable condition. All counts correct. There were no immediate complications. PRESTON NATARAJAN MD DR: FAN/bud JOB#: [id number] / [id number] ADOLPH Casarez APRN, [place] MD PROPECK, SCOTT MD TERMULO, CHERRIE MD
[2016-12-07] MEDS: FERROUS SULFATE ORAL 300 MG/5 ML SOLUTION. PO SCH ×2 (13:04→16:55)
[2016-12-07] MEDS: PANTOPRAZOLE 40 MG TABLET. PO SCH (13:04)
[2016-12-07] MEDS: DOCUSATE SODIUM 100 MG CAPSULE PO SCH ×2 (13:04→20:00)
--- NOTE | 2016-12-07 15:53 | PDOC ---
PROGRESS NOTES Chief Complaint Chief Complaint Abd pain ASSESSMENT AND PLAN: 1. Abd Pain: unclear etiology. s/p ex lap today by Dr Natarajan w/o significant pathology. 2. 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 IV iron here, chronic PO repletion 3. Melena: EGD on 12/[address] Vicente. no evidence on recent or ongoing bleed. S/p vagotomy, subtotal gastrectomy with BII anastomosis. 4. Hernia: <1 cm, not containing bowel. CT a/p with evidence of previous UGI surgeries, FOS 5. Dispo: home once cleared by surgery Vitals Vitals Vital Signs Date Time Temp Pulse Resp B/P Pulse Ox O2 Delivery O2 Flow Rate FiO2 12/07/16 15:14 98.1 62 16 94/57 96 Room Air 98.1 12/07/16 13:40 2.0 Physical Exam General: Alert, Oriented X3, Cooperative, No acute distress Heart: Regular rate, Normal S1, Normal S2, No murmurs Abdomen: Soft, Other (tender to upper abdomen , no hernia palpated ) Extremities: No clubbing, No cyanosis, No edema, Normal pulses, No tenderness/ swelling Skin: No rashes, No breakdown, No significant lesion, Other (see above) Review of Systems Review of Systems post op with mild nausea, not hungry. no pain currently SHIRLEY SINGH MD Dec 07, 2016 15:53
[2016-12-07] MEDS: CLONAZEPAM 1 MG TABLET PO SCH (20:00)
[2016-12-07] MEDS: ENOXAPARIN 40 MG/0.4 ML DISP.SYRIN. SQ SCH (21:00)
[2016-12-07] MEDS ORDERED: HYDROMORPHONE 2 MG/ML VIAL. IV ONE (23:30)
[2016-12-08] MEDS: HYDROMORPHONE 2 MG/ML VIAL. IVP PRN ×5 (02:43→20:19)
[2016-12-08 03:00] VITALS: BP 119/75
[2016-12-08] MEDS: CLONAZEPAM 1 MG TABLET PO PRN ×2 (04:18→11:10)
[2016-12-08 05:24] LABS: BASO % 0 % (0-3); EOS % 0 % (0-3); HEMATOCRIT 29.3 % (36.0-47.0); HEMOGLOBIN 9.4 g/dL (12.0-15.5); LYMPH # 2.2 x10^3/uL (1.0-4.8); LYMPH % 22 % (24-48); MEAN CORPUSCULAR HEMOGLOBIN 26 pg (25-35); MEAN CORPUSCULAR HGB CONC 32 g/dL (31-37); MEAN CORPUSCULAR VOLUME 80 fL (79-100); MONO % 8 % (0-9); NEUT % 69 % (31-73); PLATELET COUNT 244 x10^3/uL (140-400); RED BLOOD COUNT 3.65 x10^6/uL (3.50-5.40); RED CELL DISTRIBUTION WIDTH 18.2 % (11.5-14.5)
[2016-12-08 05:48] LABS: ALBUMIN 3.6 g/dL (3.4-5.0); ALBUMIN/GLOBULIN RATIO 0.8 (1.0-1.7); CALCIUM 9.3 mg/dL (8.5-10.1); CREATININE 0.7 mg/dL (0.6-1.0); GFR 114.6; POTASSIUM 4.4 mmol/L (3.5-5.1); TOTAL BILIRUBIN 0.5 mg/dL (0.2-1.0)
[2016-12-08 07:00] VITALS: BP 91/47
[2016-12-08] MEDS: IV NORMAL SALINE 1000ML BAG 1,000 ML IV SCH (07:37)
[2016-12-08] MEDS: IV RINGERS,LACTATED 1000ML 1,000 ML IV SCH (07:43)
[2016-12-08] MEDS: FERROUS SULFATE ORAL 300 MG/5 ML SOLUTION. PO SCH ×2 (07:43→16:41)
[2016-12-08] MEDS: PANTOPRAZOLE 40 MG TABLET. PO SCH (07:43)
[2016-12-08] MEDS: DOCUSATE SODIUM 100 MG CAPSULE PO SCH ×3 (07:44→20:20)
[2016-12-08] MEDS: GABAPENTIN 300 MG CAPSULE. PO SCH ×3 (07:44→20:20)
--- NOTE | 2016-12-08 09:24 | PDOC ---
EBONIE SEALS TOUR DIRECTOR 12/08/16 0924: SURGICAL PROGRESS NOTE Subjective tolerating diet no nausea pain continues to abdomen Vital Signs Vital Signs Date Time Temp Pulse Resp B/P Pulse Ox O2 Delivery O2 Flow Rate FiO2 12/08/16 07:52 Room Air 12/08/16 07:00 97.7 89 18 91/47 100 97.7 12/07/16 20:00 2.0 I&O Intake and Output 12/08/16 07:00 Intake Total 1990 ml Output Total 105 ml Balance 1885 ml Intake Oral 1540 ml IV Total 450 ml Output Urine Total 100 ml Estimated Blood Loss 5 ml # Voids 6 General: Alert, Oriented X3, Cooperative, No acute distress Abdomen: Soft, Other (lap sites dry ) Labs Laboratory Tests Test 12/08/16 04:00 White Blood Count 10.0x10^3/uL (4.0-11.0) Red Blood Count 3.65x10^6/uL (3.50-5.40) Hemoglobin 9.4g/dL (12.0-15.5) Hematocrit 29.3% (36.0-47.0) Mean Corpuscular Volume 80fL (79-100) Mean Corpuscular Hemoglobin 26pg (25-35) Mean Corpuscular Hemoglobin Concent 32g/dL (31-37) Red Cell Distribution Width 18.2% (11.5-14.5) Platelet Count 244x10^3/uL (140-400) Neutrophils (%) (Auto) 69% (31-73) Lymphocytes (%) (Auto) 22% (24-48) Monocytes (%) (Auto) 8% (0-9) Eosinophils (%) (Auto) 0% (0-3) Basophils (%) (Auto) 0% (0-3) Neutrophils # (Auto) 6.9x10^3uL (1.8-7.7) Lymphocytes # (Auto) 2.2x10^3/uL (1.0-4.8) Monocytes # (Auto) 0.8x10^3/uL (0.0-1.1) Eosinophils # (Auto) 0.0x10^3/uL (0.0-0.7) Basophils # (Auto) 0.0x10^3/uL (0.0-0.2) Sodium Level 143mmol/L (136-145) Potassium Level 4.4mmol/L (3.5-5.1) Chloride Level 106mmol/L (98-107) Carbon Dioxide Level 30mmol/L (21-32) Anion Gap 7 (6-14) Blood Urea Nitrogen 19mg/dL (7-20) Creatinine 0.7mg/dL (0.6-1.0) Estimated GFR (Cockcroft-Gault) 114.6 BUN/Creatinine Ratio 27 (6-20) Glucose Level 105mg/dL (70-99) Calcium Level 9.3mg/dL (8.5-10.1) Total Bilirubin 0.5mg/dL (0.2-1.0) Aspartate Amino Transf (AST/SGOT) 92U/L (15-37) Alanine Aminotransferase (ALT/SGPT) 95U/L (14-59) Alkaline Phosphatase 83U/L (46-116) Total Protein 8.0g/dL (6.4-8.2) Albumin 3.6g/dL (3.4-5.0) Albumin/Globulin Ratio 0.8 (1.0-1.7) Laboratory Tests Test 12/08/16 04:00 White Blood Count 10.0x10^3/uL (4.0-11.0) Red Blood Count 3.65x10^6/uL (3.50-5.40) Hemoglobin 9.4g/dL (12.0-15.5) Hematocrit 29.3% (36.0-47.0) Mean Corpuscular Volume 80fL (79-100) Mean Corpuscular Hemoglobin 26pg (25-35) Mean Corpuscular Hemoglobin Concent 32g/dL (31-37) Red Cell Distribution Width 18.2% (11.5-14.5) Platelet Count 244x10^3/uL (140-400) Neutrophils (%) (Auto) 69% (31-73) Lymphocytes (%) (Auto) 22% (24-48) Monocytes (%) (Auto) 8% (0-9) Eosinophils (%) (Auto) 0% (0-3) Basophils (%) (Auto) 0% (0-3) Neutrophils # (Auto) 6.9x10^3uL (1.8-7.7) Lymphocytes # (Auto) 2.2x10^3/uL (1.0-4.8) Monocytes # (Auto) 0.8x10^3/uL (0.0-1.1) Eosinophils # (Auto) 0.0x10^3/uL (0.0-0.7) Basophils # (Auto) 0.0x10^3/uL (0.0-0.2) Sodium Level 143mmol/L (136-145) Potassium Level 4.4mmol/L (3.5-5.1) Chloride Level 106mmol/L (98-107) Carbon Dioxide Level 30mmol/L (21-32) Anion Gap 7 (6-14) Blood Urea Nitrogen 19mg/dL (7-20) Creatinine 0.7mg/dL (0.6-1.0) Estimated GFR (Cockcroft-Gault) 114.6 BUN/Creatinine Ratio 27 (6-20) Glucose Level 105mg/dL (70-99) Calcium Level 9.3mg/dL (8.5-10.1) Total Bilirubin 0.5mg/dL (0.2-1.0) Aspartate Amino Transf (AST/SGOT) 92U/L (15-37) Alanine Aminotransferase (ALT/SGPT) 95U/L (14-59) Alkaline Phosphatase 83U/L (46-116) Total Protein 8.0g/dL (6.4-8.2) Albumin 3.6g/dL (3.4-5.0) Albumin/Globulin Ratio 0.8 (1.0-1.7) Problem List Problems Medical Problems: (1) Dark stools Status: Acute (2) Epigastric abdominal pain Status: Acute Assessment/Plan s/p lap exploration, only findings adhesions pain control work toward dc Problems: ANAHI HERNANDES MD 12/08/16 1152: SURGICAL PROGRESS NOTE Assessment/Plan pt interested in colonoscopy will defer timing to GI Problems: EBONIE SEALS APRN Dec 08, 2016 09:24 ANAHI HERNANDES MD Dec 08, 2016 11:52
[2016-12-08 11:14] VITALS: BP 102/67
--- NOTE | 2016-12-08 14:36 | PDOC ---
PROGRESS NOTES Chief Complaint Chief Complaint Abd pain ASSESSMENT AND PLAN: 1. Abd Pain: unclear etiology, most likely related to previous surgeries (see below). s/p ex lap 12/[address] Natarajan w/o significant pathology. sanjana Veliz scope - had done in 2011 for bleeding, thinks there were polyps found. GI following 2. 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 IV iron here, chronic PO repletion 3. Melena: EGD on 12/[address] Vicente. no evidence on recent or ongoing bleed. S/p vagotomy, subtotal gastrectomy with BII anastomosis. 4. Hernia: <1 cm, not containing bowel. CT a/p with evidence of previous UGI surgeries, FOS 5. Anxiety/Depression: under care of Gerald Eisenberg . suspect bipolar. gigi discussion about choice of benzo: prefers Xanax for sleep, klonopin for day anxiety. on latter as per Psych. trial of Xanax 1x tonight instead of klonopin. will not change home regimen 6. Urinary incontinence: has been getting worse in past few months, bud at night. check UA to r/o UTI. start detrol, stop IFV while not NPO 7. Dispo: home once cleared by surgery, GI Vitals Vitals Vital Signs Date Time Temp Pulse Resp B/P Pulse Ox O2 Delivery O2 Flow Rate FiO2 12/08/16 11:17 18 100 Room Air 12/08/16 11:14 97.7 81 102/67 97.7 12/08/16 10:47 2.0 Physical Exam General: Alert, Oriented X3, Cooperative, No acute distress Heart: Regular rate, Normal S1, Normal S2, No murmurs Abdomen: Soft, Other (lap sites dry ) Extremities: No edema, No tenderness/swelling Skin: No rashes, Other (see above) Labs LABS Laboratory Tests Test 12/08/16 04:00 White Blood Count 10.0x10^3/uL (4.0-11.0) Red Blood Count 3.65x10^6/uL (3.50-5.40) Hemoglobin 9.4g/dL (12.0-15.5) Hematocrit 29.3% (36.0-47.0) Mean Corpuscular Volume 80fL (79-100) Mean Corpuscular Hemoglobin 26pg (25-35) Mean Corpuscular Hemoglobin Concent 32g/dL (31-37) Red Cell Distribution Width 18.2% (11.5-14.5) Platelet Count 244x10^3/uL (140-400) Neutrophils (%) (Auto) 69% (31-73) Lymphocytes (%) (Auto) 22% (24-48) Monocytes (%) (Auto) 8% (0-9) Eosinophils (%) (Auto) 0% (0-3) Basophils (%) (Auto) 0% (0-3) Neutrophils # (Auto) 6.9x10^3uL (1.8-7.7) Lymphocytes # (Auto) 2.2x10^3/uL (1.0-4.8) Monocytes # (Auto) 0.8x10^3/uL (0.0-1.1) Eosinophils # (Auto) 0.0x10^3/uL (0.0-0.7) Basophils # (Auto) 0.0x10^3/uL (0.0-0.2) Sodium Level 143mmol/L (136-145) Potassium Level 4.4mmol/L (3.5-5.1) Chloride Level 106mmol/L (98-107) Carbon Dioxide Level 30mmol/L (21-32) Anion Gap 7 (6-14) Blood Urea Nitrogen 19mg/dL (7-20) Creatinine 0.7mg/dL (0.6-1.0) Estimated GFR (Cockcroft-Gault) 114.6 BUN/Creatinine Ratio 27 (6-20) Glucose Level 105mg/dL (70-99) Calcium Level 9.3mg/dL (8.5-10.1) Total Bilirubin 0.5mg/dL (0.2-1.0) Aspartate Amino Transf (AST/SGOT) 92U/L (15-37) Alanine Aminotransferase (ALT/SGPT) 95U/L (14-59) Alkaline Phosphatase 83U/L (46-116) Total Protein 8.0g/dL (6.4-8.2) Albumin 3.6g/dL (3.4-5.0) Albumin/Globulin Ratio 0.8 (1.0-1.7) Review of Systems Review of Systems discomfort in LUQ persisting. c/o urinary incontinence. c/o insomnia, requesting xanax Comment Review of Relevant SHIRLEY SINGH MD Dec 08, 2016 14:36
[2016-12-08 15:13] VITALS: BP 104/65
[2016-12-08] MEDS: OXYBUTYNIN CHLORIDE 5 MG TABLET PO SCH ×2 (15:19→20:20)
[2016-12-08 19:00] VITALS: BP 111/70
[2016-12-08] MEDS: ENOXAPARIN 40 MG/0.4 ML DISP.SYRIN. SQ SCH (20:21)
[2016-12-08] MEDS ORDERED: ALPRAZOLAM 1 MG TABLET PO ONE (21:00)
[2016-12-08 23:00] VITALS: BP 112/77
[2016-12-09] MEDS: HYDROMORPHONE 2 MG/ML VIAL. IVP PRN ×6 (01:37→20:52)
[2016-12-09] MEDS: CLONAZEPAM 1 MG TABLET PO PRN ×3 (01:38→12:30)
[2016-12-09 03:00] VITALS: BP 99/67
[2016-12-09 07:00] VITALS: BP 91/60
[2016-12-09] MEDS: FERROUS SULFATE ORAL 300 MG/5 ML SOLUTION. PO SCH ×2 (08:00→17:00)
--- NOTE | 2016-12-09 08:22 | PDOC ---
SURGICAL PROGRESS NOTE Subjective tolerating breakfast on the phone reports left sided pain + stools Vital Signs Vital Signs Date Time Temp Pulse Resp B/P Pulse Ox O2 Delivery O2 Flow Rate FiO2 12/09/16 07:00 97.7 78 18 91/60 99 Room Air 97.7 12/09/16 05:21 2.0 I&O Intake and Output 12/09/16 07:00 Intake Total 1730 ml Balance 1730 ml Intake Oral 1730 ml # Voids 7 General: Alert, Oriented X3, Cooperative, No acute distress Abdomen: Soft, Other (abdominal pain, LUQ) Labs Laboratory Tests Test 12/08/16 04:00 White Blood Count 10.0x10^3/uL (4.0-11.0) Red Blood Count 3.65x10^6/uL (3.50-5.40) Hemoglobin 9.4g/dL (12.0-15.5) Hematocrit 29.3% (36.0-47.0) Mean Corpuscular Volume 80fL (79-100) Mean Corpuscular Hemoglobin 26pg (25-35) Mean Corpuscular Hemoglobin Concent 32g/dL (31-37) Red Cell Distribution Width 18.2% (11.5-14.5) Platelet Count 244x10^3/uL (140-400) Neutrophils (%) (Auto) 69% (31-73) Lymphocytes (%) (Auto) 22% (24-48) Monocytes (%) (Auto) 8% (0-9) Eosinophils (%) (Auto) 0% (0-3) Basophils (%) (Auto) 0% (0-3) Neutrophils # (Auto) 6.9x10^3uL (1.8-7.7) Lymphocytes # (Auto) 2.2x10^3/uL (1.0-4.8) Monocytes # (Auto) 0.8x10^3/uL (0.0-1.1) Eosinophils # (Auto) 0.0x10^3/uL (0.0-0.7) Basophils # (Auto) 0.0x10^3/uL (0.0-0.2) Sodium Level 143mmol/L (136-145) Potassium Level 4.4mmol/L (3.5-5.1) Chloride Level 106mmol/L (98-107) Carbon Dioxide Level 30mmol/L (21-32) Anion Gap 7 (6-14) Blood Urea Nitrogen 19mg/dL (7-20) Creatinine 0.7mg/dL (0.6-1.0) Estimated GFR (Cockcroft-Gault) 114.6 BUN/Creatinine Ratio 27 (6-20) Glucose Level 105mg/dL (70-99) Calcium Level 9.3mg/dL (8.5-10.1) Total Bilirubin 0.5mg/dL (0.2-1.0) Aspartate Amino Transf (AST/SGOT) 92U/L (15-37) Alanine Aminotransferase (ALT/SGPT) 95U/L (14-59) Alkaline Phosphatase 83U/L (46-116) Total Protein 8.0g/dL (6.4-8.2) Albumin 3.6g/dL (3.4-5.0) Albumin/Globulin Ratio 0.8 (1.0-1.7) Problem List Problems Medical Problems: (1) Dark stools Status: Acute (2) Epigastric abdominal pain Status: Acute Assessment/Plan s/p lap exploration, no pathology interested in colonoscopy--defer timing to GI Problems: EBONIE SEALS APRN Dec 09, 2016 08:22
[2016-12-09] MEDS: GABAPENTIN 300 MG CAPSULE. PO SCH ×3 (08:47→20:53)
[2016-12-09] MEDS: PANTOPRAZOLE 40 MG TABLET. PO SCH (08:48)
[2016-12-09] MEDS: DOCUSATE SODIUM 100 MG CAPSULE PO SCH ×2 (08:49→19:55)
[2016-12-09 11:05] VITALS: BP 107/66
--- NOTE | 2016-12-09 11:29 | PDOC3 ---
Discharge Summary Visit Information Date of Admission: Dec 04, 2016 Date of Discharge: Dec 09, 2016 Admitting Diagnosis Comment: 1. Acute blood loss anemia/acute precipitous drop in hgb 2. Hx PUD? GERD 3. Hx multiple abd sx including J tube for gastroparesis 4. Multiple tattoes 5. NArc seeking behavior 6. MIld PCM 7. Post inflammatory hyperpigmentation face, neck, chest, trunk, ext Final Diagnosis Problems Medical Problems: (1) Abdominal pain Status: Acute (2) Dark stools Status: Acute (3) Epigastric abdominal pain Status: Acute Brief Hospital Course Allergies Allergies Coded Allergies Type Severity Reaction Last Updated Verified Metronidazole HCl Allergy Intermediate Hives 12/07/16 Yes codeine Allergy Intermediate 12/07/16 Yes fentanyl Allergy Intermediate itching 12/07/16 Yes ketorolac Allergy Intermediate Rash 12/07/16 Yes metronidazole Allergy Intermediate Hives 12/07/16 Yes morphine Allergy Intermediate 12/07/16 Yes ibuprofen Adverse Reaction Intermediate patient does not take due to having history of ulcers 12/07/16 Yes Vital Signs Vital Signs Date Time Temp Pulse Resp B/P Pulse Ox O2 Delivery O2 Flow Rate FiO2 12/09/16 11:05 97.7 90 18 107/66 98 Room Air 97.7 12/09/16 05:21 2.0 Lab Results Laboratory Tests Test 12/08/16 04:00 White Blood Count 10.0x10^3/uL (4.0-11.0) Red Blood Count 3.65x10^6/uL (3.50-5.40) Hemoglobin 9.4g/dL (12.0-15.5) Hematocrit 29.3% (36.0-47.0) Mean Corpuscular Volume 80fL (79-100) Mean Corpuscular Hemoglobin 26pg (25-35) Mean Corpuscular Hemoglobin Concent 32g/dL (31-37) Red Cell Distribution Width 18.2% (11.5-14.5) Platelet Count 244x10^3/uL (140-400) Neutrophils (%) (Auto) 69% (31-73) Lymphocytes (%) (Auto) 22% (24-48) Monocytes (%) (Auto) 8% (0-9) Eosinophils (%) (Auto) 0% (0-3) Basophils (%) (Auto) 0% (0-3) Neutrophils # (Auto) 6.9x10^3uL (1.8-7.7) Lymphocytes # (Auto) 2.2x10^3/uL (1.0-4.8) Monocytes # (Auto) 0.8x10^3/uL (0.0-1.1) Eosinophils # (Auto) 0.0x10^3/uL (0.0-0.7) Basophils # (Auto) 0.0x10^3/uL (0.0-0.2) Sodium Level 143mmol/L (136-145) Potassium Level 4.4mmol/L (3.5-5.1) Chloride Level 106mmol/L (98-107) Carbon Dioxide Level 30mmol/L (21-32) Anion Gap 7 (6-14) Blood Urea Nitrogen 19mg/dL (7-20) Creatinine 0.7mg/dL (0.6-1.0) Estimated GFR (Cockcroft-Gault) 114.6 BUN/Creatinine Ratio 27 (6-20) Glucose Level 105mg/dL (70-99) Calcium Level 9.3mg/dL (8.5-10.1) Total Bilirubin 0.5mg/dL (0.2-1.0) Aspartate Amino Transf (AST/SGOT) 92U/L (15-37) Alanine Aminotransferase (ALT/SGPT) 95U/L (14-59) Alkaline Phosphatase 83U/L (46-116) Total Protein 8.0g/dL (6.4-8.2) Albumin 3.6g/dL (3.4-5.0) Albumin/Globulin Ratio 0.8 (1.0-1.7) Brief Hospital Course Ms. Ghosh is a 36 old AA female who was admitted for melena, GI consulted, hgb stable. Pt cont to complain of pain, eventually underwent exlap which showed benign adhesions. Pt loves her narcs. Requested anxiety and pain Rx - gave some, Wants a EGD but GI not planning on that, Pt dcd to home, eventful dc Dw RN COnsulst; GS and GI Proc: exlap, benign adhesions Discharge Information Condition at Discharge: Improved, Stable Disposition/Orders: D/C to Home Scheduled Clonazepam (Klonopin) 2 MG PO HS (Reported) Gabapentin (Gabapentin) 300 MG PO TID (Reported) Pantoprazole Sodium (Protonix) 40 MG PO BID (Reported) Scheduled PRN Clonazepam (Klonopin) 1 MG PO TID PRN PRN ANXIETY / AGITATION (Reported) Ondansetron (Zofran Odt) 4 MG PO BID PRN PRN NAUSEA/VOMITING (Reported) Discontinued Medications Alprazolam (Xanax) 1 TAB PO TID (Reported) MARCIE MICHELLE MD Dec 09, 2016 11:29
[2016-12-09] MEDS: OXYBUTYNIN CHLORIDE 5 MG TABLET PO SCH ×2 (12:30→20:53)
--- NOTE | 2016-12-09 14:22 | PDOC ---
Subjective: Subjective: Really wants a colonoscopy due to transportation issues. Still pain. Reports dark stools. Objective: Objective: D/w RN earlier - ok to DC. Vital Signs: Vital Signs Date Time Temp Pulse Resp B/P Pulse Ox O2 Delivery O2 Flow Rate FiO2 12/09/16 12:31 94 Room Air 12/09/16 11:05 97.7 90 18 107/66 97.7 12/09/16 05:21 2.0 PE: GEN: NAD, sitting up in bed LUNGS: clear anteriorly HEART: RRR ABD: tender - mostly incisional it seems NEURO/PSYCH: A & O 3 OTHER: family/friends present A/P: Dark stool, anemia, abd pain -Hgb stable (last checked 12/08), on iron -EGD last week unrevealing for bleeding (s/p vagotomy, subtotal gastrectomy with BII anastomosis), exp lap unrevealing CRC screen -reports previous exam at [facility] [place] -- Discharge orders in, pt asking about inpt colonoscopy. TYRONE JONES Dec 09, 2016 14:22
[2016-12-09 14:45] VITALS: BP 116/73
[2016-12-09 19:00] VITALS: BP 111/69
[2016-12-09] MEDS ORDERED: ALPRAZOLAM 1 MG TABLET PO ONE (20:30)
[2016-12-09 23:00] VITALS: BP 118/78
[2016-12-10] MEDS: CLONAZEPAM 1 MG TABLET PO PRN ×4 (00:38→22:33)
[2016-12-10] MEDS: HYDROMORPHONE 2 MG/ML VIAL. IVP PRN ×6 (00:40→22:34)
[2016-12-10 03:00] VITALS: BP 114/76
[2016-12-10 07:00] VITALS: BP 97/68
[2016-12-10] MEDS: FERROUS SULFATE ORAL 300 MG/5 ML SOLUTION. PO SCH ×2 (07:42→17:00)
[2016-12-10] MEDS: GABAPENTIN 300 MG CAPSULE. PO SCH ×3 (07:43→22:33)
[2016-12-10] MEDS: PANTOPRAZOLE 40 MG TABLET. PO SCH (07:43)
[2016-12-10] MEDS: OXYBUTYNIN CHLORIDE 5 MG TABLET PO SCH ×3 (07:43→22:33)
[2016-12-10] MEDS: DOCUSATE SODIUM 100 MG CAPSULE PO SCH ×2 (07:44→07:48)
--- NOTE | 2016-12-10 10:06 | PDOC ---
SURGICAL PROGRESS NOTE Subjective she is asking for a higher strength of pain medication and more tablets at discharge--she was given a percocet 5mg/325 mg script with 10 tabs by IPC yesterday waiting to talk with Dr Vicente Vital Signs Vital Signs Date Time Temp Pulse Resp B/P Pulse Ox O2 Delivery O2 Flow Rate FiO2 12/10/16 08:03 Room Air 12/10/16 07:00 97.7 79 97/68 100 97.7 12/10/16 05:18 18 12/09/16 08:10 2.0 I&O Intake and Output 12/10/16 07:00 Intake Total 1920 ml Balance 1920 ml Intake Oral 1920 ml # Voids 8 # Bowel Movements 1 General: Alert, Oriented X3, Cooperative, No acute distress Abdomen: Soft, Other (tender upper abdomen ) Problem List Problems Medical Problems: (1) Abdominal pain Status: Acute (2) Dark stools Status: Acute (3) Epigastric abdominal pain Status: Acute Assessment/Plan s/p lap exploration I am not comfortable giving her an increased dose or amount of pain medication-- I will defer to what IPC has already given her DC when ok with GI and IPC FU [address] Natarajan Problems: EBONIE SEALS APRN Dec 10, 2016 10:06
--- NOTE | 2016-12-10 10:17 | PDOC ---
G I PROGRESS NOTE Subjective Now relates h/o "polyps" and last colonoscopy in 2008 at . Objective I'm unable to confirm this quickly. Physical Exam Lungs clear. RRR Abdomen soft, not distended. Review of Relevant I have reviewed the following items vero (where applicable) has been applied. Medications Current Medications Hydromorphone HCl (Dilaudid) 0.5 mg 1X ONCE IM ; Start 12/04/16 at 19:30; Stop 12/04/16 at 20:03; Status DC Ondansetron HCl 4 mg 4 mg 1X ONCE IV Last administered on 12/04/16 19:57; Start 12/04/16 at 19:30; Stop 12/04/16 at 19:31; Status DC Sodium Chloride (Iv Sodium Chloride 0.9% 1000ml Bag) 1,000 ml @ 1,000 mls/hr 1X ONCE IV Last administered on 12/04/16 19:57; Start 12/04/16 at 19:30; Stop 12/04/16 at 20:29; Status DC Famotidine (Pepcid) 20 mg 1X ONCE IVP Last administered on 12/04/16 19:57; Start 12/04/16 at 19:30; Stop 12/04/16 at 19:31; Status DC Acetaminophen/ Hydrocodone Bitart (Lortab 5/325) 2 tab 1X ONCE PO Last administered on 12/04/16 20:26; Start 12/04/16 at 20:15; Stop 12/04/16 at 20:47 ; Status DC Ondansetron HCl (Zofran) 4 mg PRN Q8HRS PRN IV NAUSEA/VOMITING; Start 12/04/16 at 20:30; Stop 12/05/16 at 09:32; Status DC Acetaminophen (Tylenol) 650 mg PRN Q6HRS PRN PO MILD PAIN / TEMP; Start at 22:45 Clonazepam (Klonopin) 1 mg PRN TID PRN PO ANXIETY / AGITATION Last administered on 12/10/16 09:18; Start 12/04/16 at 22:45 Gabapentin (Neurontin) 300 mg TID PO Last administered on 12/10/16 07:43; Start 12/04/16 at 22:45 Ondansetron HCl (Zofran Odt) 4 mg PRN BID PRN PO NAUSEA/VOMITING; Start at 22:45 Pantoprazole Sodium (Protonix) 40 mg BIDAC PO Last administered on 12/05/16 08 :27; Start 12/05/16 at 07:30; Stop 12/05/16 at 09:18; Status DC Clonazepam (Klonopin) 2 mg HS PO Last administered on 12/07/16 20:00; Start at 22:45; Stop 12/08/16 at 14:38; Status DC Pantoprazole Sodium (Protonix Vial) 40 mg BID IVP Last administered on 08:46; Start 12/05/16 at 21:00; Stop 12/06/16 at 14:44; Status DC Ondansetron HCl 4 mg 4 mg PRN Q6HRS PRN IV NAUSEA/VOMITING; Start 12/05/16 at 09:31 Sodium Chloride (Iv Sodium Chloride 0.9% 1000ml Bag) 1,000 ml @ 100 mls/hr Q10H IV Last administered on 12/07/16 01:09; Start 12/05/16 at 09:45; Stop at 15:53; Status DC Hydromorphone HCl 0.4 mg 0.4 mg PRN Q4HRS PRN IVP PAIN Last administered on 04:43; Start 12/05/16 at 11:15 Lactated Ringer's 1,000 ml @ 125 mls/hr Q8H IV Last administered on 12/05/16 15:09; Start 12/05/16 at 15:07; Stop 12/06/16 at 03:06; Status DC Propofol (Diprivan) 20 ml @ As Directed STK-MED ONCE IV ; Start 12/05/16 at 15: 13; Stop 12/05/16 at 15:14; Status DC Lidocaine HCl (Lidocaine Pf 2% Vial) 5 ml STK-MED ONCE .ROUTE ; Start 12/05/16 at 15:13; Stop 12/05/16 at 15:14; Status DC Iohexol (Omnipaque 300 Mg/ml) 75 ml 1X ONCE IV Last administered on 12/06/16 10:47; Start 12/06/16 at 08:45; Stop 12/06/16 at 08:46; Status DC Iohexol (Omnipaque 240 Mg/ml) 50 ml 1X ONCE PO Last administered on 12/06/16 08:45; Start 12/06/16 at 08:45; Stop 12/06/16 at 08:46; Status DC Info (Do NOT chart on this entry -- for MONITORING) 1 each PRN DAILY PRN MC SEE COMMENTS; Start 12/06/16 at 08:45; Stop 12/08/16 at 08:44; Status DC Pantoprazole Sodium (Protonix) 40 mg DAILYAC PO Last administered on 12/10/16 07:43; Start 12/07/16 at 07:30 Ferrous Sulfate 300 mg 300 mg BIDWMEALS PO Last administered on 12/10/16 07:42 ; Start 12/06/16 at 17:00 Cefazolin Sodium/ Dextrose (Ancef 2gm Premix) 50 ml @ 100 mls/hr 1X PREOP IV Last administered on 12/07/16 08:27; Start 12/06/16 at 18:00; Stop 12/07/16 at 18:00; Status DC Bupivacaine HCl/ Epinephrine Bitart (Sensorcain-Mpf Epi 0.5%-[id number]) 30 ml STK -MED ONCE .ROUTE Last administered on 12/07/16 08:43; Start 12/07/16 at 07:19 ; Stop 12/07/16 at 07:20; Status DC Rocuronium [place] (Zemuron) 50 mg STK-MED ONCE .ROUTE ; Start 12/07/16 at 07:29 ; Stop 12/07/16 at 07:30; Status DC Dexamethasone Sodium Phosphate (Decadron) 20 mg STK-MED ONCE .ROUTE ; Start at 07:30; Stop 12/07/16 at 07:31; Status DC Ondansetron HCl 4 mg 4 mg STK-MED ONCE .ROUTE ; Start 12/07/16 at 07:30; Stop at 07:31; Status DC Propofol (Diprivan) 20 ml @ As Directed STK-MED ONCE IV ; Start 12/07/16 at 07: 30; Stop 12/07/16 at 07:31; Status DC Lidocaine HCl (Lidocaine Pf 2% Vial) 5 ml STK-MED ONCE .ROUTE ; Start 12/07/16 at 07:30; Stop 12/07/16 at 07:31; Status DC Fentanyl Citrate (Fentanyl 2ml Vial) 100 mcg STK-MED ONCE .ROUTE ; Start at 07:33; Stop 12/07/16 at 07:34; Status DC Succinylcholine Chloride (Anectine) 200 mg STK-MED ONCE .ROUTE ; Start 12/07/16 at 07:48; Stop 12/07/16 at 07:49; Status DC Ondansetron HCl (Zofran) 4 mg PRN Q6HRS PRN IV Nausea; Start 12/07/16 at 08:15 ; Stop 12/07/16 at 18:00; Status DC Fentanyl Citrate (Fentanyl 2ml Vial) 25 mcg PRN Q5MIN PRN IV MILD PAIN; Start 12/07/16 at 08:15; Stop 12/07/16 at 18:00; Status DC Fentanyl Citrate 50 mcg 50 mcg PRN Q5MIN PRN IV MODERATE PAIN; Start 12/07/16 at 08:15; Stop 12/07/16 at 18:00; Status DC Lactated Ringer's (Iv Lactated Ringers) 1,000 ml @ 30 mls/hr Q24H IV Last administered on 12/07/16 09:07; Start 12/07/16 at 08:04; Stop 12/07/16 at 20:03 ; Status DC Lidocaine HCl 2 ml 1X PRN PRN ID IV START; Start 12/07/16 at 08:15; Stop at 18:00; Status DC Hydromorphone HCl (Dilaudid) 0.5 mg PRN Q10MIN PRN IV SEV PAIN,Second choice Last administered on 12/07/16 09:30; Start 12/07/16 at 08:15; Stop 12/07/16 at 18:00; Status DC Prochlorperazine Edisylate (Compazine) 5 mg PACU PRN PRN IV NAUSEA Last administered on 12/07/16 09:29; Start 12/07/16 at 08:15; Stop 12/07/16 at 18:00 ; Status DC Phenylephrine HCl 1 mg STK-MED ONCE IV ; Start 12/07/16 at 08:29; Stop 12/07/16 at 08:30; Status DC Desflurane (Suprane) 30 ml STK-MED ONCE IH ; Start 12/07/16 at 08:29; Stop 12/07 at 08:30; Status DC Glycopyrrolate (Robinul) 1 mg STK-MED ONCE .ROUTE ; Start 12/07/16 at 08:37; Stop 12/07/16 at 08:38; Status DC Neostigmine Methylsulfate 5 mg STK-MED ONCE .ROUTE ; Start 12/07/16 at 08:37; Stop 12/07/16 at 08:38; Status DC Enoxaparin Sodium (Lovenox 40mg Syringe) 40 mg Q24H SQ ; Start 12/07/16 at 09:00 ; Stop 12/07/16 at 10:09; Status DC Sodium Chloride 3 ml 3 ml QSHIFT PRN IV AFTER MEDS AND BLOOD DRAWS; Start 12/07 at 09:00 Lactated Ringer's (Iv Lactated Ringers) 1,000 ml @ 100 mls/hr Q10H IV Last administered on 12/08/16 07:43; Start 12/07/16 at 08:53; Stop 12/08/16 at 14:38 ; Status DC Docusate Sodium (Colace) 100 mg BID PO Last administered on 12/10/16 07:44; Start 12/07/16 at 09:00 Ondansetron HCl (Zofran) 4 mg PRN Q6HRS PRN IV NAUESA, 1ST CHOICE; Start at 09:00 Enoxaparin Sodium (Lovenox 40mg Syringe) 40 mg Q24H SQ ; Start 12/07/16 at 21:00 ; Stop 12/09/16 at 09:04; Status DC Hydromorphone HCl (Dilaudid) 0.4 mg 1X ONCE IV Last administered on 12/07/16 23:41; Start 12/07/16 at 23:30; Stop 12/07/16 at 23:35; Status DC Alprazolam (Xanax) 2 mg 1X ONCE PO Last administered on 12/08/16 20:19; Start 12/08/16 at 21:00; Stop 12/08/16 at 21:01; Status DC Oxybutynin Chloride (Ditropan) 5 mg BID PO Last administered on 12/10/16 07:49 ; Start 12/08/16 at 15:00 Alprazolam (Xanax) 2 mg 1X ONCE PO Last administered on 12/09/16 20:53; Start 12/09/16 at 20:30; Stop 12/09/16 at 20:31; Status DC Active Scripts Active Reported Klonopin (Clonazepam) 2 Mg Tablet 2 Mg PO HS Klonopin (Clonazepam) 1 Mg Tablet 1 Mg PO TID PRN Gabapentin 300 Mg Capsule 300 Mg PO TID Protonix (Pantoprazole Sodium) 40 Mg Tablet.dr 40 Mg PO BID Zofran Odt (Ondansetron) 4 Mg Tab.rapdis 4 Mg PO BID PRN Vitals/I & O Vital Sign - Last 24 Hours 12/09/16 12/09/16 12/09/16 12/09/16 11:05 12:31 14:45 16:31 Temp 97.7 97.7 97.7 97.7 Pulse 90 93 Resp 18 18 20 B/P 107/66 116/73 Pulse Ox 98 94 100 94 O2 Delivery Room Air Room Air Room Air Room Air 12/09/16 12/09/16 12/09/16 12/09/16 19:00 20:02 20:52 23:00 Temp 98.5 98.6 98.5 98.6 Pulse 107 81 Resp 20 18 20 B/P 111/69 118/78 Pulse Ox 98 98 100 O2 Delivery Room Air Room Air Room Air Room Air 12/10/16 12/10/16 12/10/16 12/10/16 00:40 03:00 04:43 05:18 Temp 97.4 97.4 Pulse 72 Resp 18 20 18 18 B/P 114/76 Pulse Ox 100 99 99 99 O2 Delivery Room Air Room Air Room Air Room Air 12/10/16 12/10/16 07:00 08:03 Temp 97.7 97.7 Pulse 79 B/P 97/68 Pulse Ox 100 O2 Delivery Room Air Room Air Intake and Output 12/09/16 12/09/16 12/10/16 15:00 23:00 07:00 Intake Total 240 ml 1080 ml 600 ml Balance 240 ml 1080 ml 600 ml Problem List Problems Medical Problems: (1) Abdominal pain Status: Acute (2) Dark stools Status: Acute (3) Epigastric abdominal pain Status: Acute Assessment "Pseudomelena" with negative EGD. H/o polyps??? If so, is due for colonoscopy and difficult social issues. Plan of Care Note Will schedule colonoscopy tomorrow if you will be so kind as to delay discharge one more day. Thank you. DARION GUSMAN MD Dec 10, 2016 10:16
[2016-12-10 10:49] VITALS: BP 109/73
--- NOTE | 2016-12-10 12:24 | PDOC ---
PROGRESS NOTES Chief Complaint Chief Complaint Abd pain ASSESSMENT AND PLAN: 1. Abd Pain: unclear etiology, most likely related to previous surgeries (see below). s/p ex lap 12/[address] Natarajan w/o significant pathology. wants C scope - had done in 2011 for bleeding, thinks there were polyps found. GI following 2. 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 IV iron here, chronic PO repletion 3. Melena: EGD on 12/[address] Vicente. no evidence on recent or ongoing bleed. S/p vagotomy, subtotal gastrectomy with BII anastomosis. 4. Hernia: <1 cm, not containing bowel. CT a/p with evidence of previous UGI surgeries, FOS 5. Anxiety/Depression: under care of Gerald Eisenberg . suspect bipolar. gigi discussion about choice of benzo: prefers Xanax for sleep, klonopin for day anxiety. on latter as per Psych. trial of Xanax 1x tonight instead of klonopin. will not change home regimen 6. Urinary incontinence: has been getting worse in past few months, bud at night. check UA to r/o UTI. start detrol, stop IFV while not NPO 7. Dispo: home once cleared by surgery, GI History of Present Illness History of Present Illness CAlls for xanax last night No more melena per staff Pt adamant about getting c scope while her Dw GI - they will scope her gali, then home gali if nothing worrisome PLAN: Xanax again tonight C scope gali then home gali if c scope ok Vitals Vitals Vital Signs Date Time Temp Pulse Resp B/P Pulse Ox O2 Delivery O2 Flow Rate FiO2 12/10/16 11:00 20 93 Room Air 12/10/16 10:49 97.7 82 109/73 97.7 12/09/16 08:10 2.0 Physical Exam General: Alert, Oriented X3, Cooperative, No acute distress Heart: Regular rate, Normal S1, Normal S2, No murmurs Abdomen: Soft, Other (tender upper abdomen ) Extremities: No edema, No tenderness/swelling Skin: No rashes, Other (see above) Review of Systems Review of Systems pain, melena, abd pain Assessment and Plan Assessmemt and Plan Problems Medical Problems: (1) Abdominal pain Status: Acute (2) Dark stools Status: Acute (3) Epigastric abdominal pain Status: Acute Problems: Comment Review of Relevant I have reviewed the following items vero (where applicable) has been applied. Medications Current Medications Hydromorphone HCl (Dilaudid) 0.5 mg 1X ONCE IM ; Start 12/04/16 at 19:30; Stop 12/04/16 at 20:03; Status DC Ondansetron HCl 4 mg 4 mg 1X ONCE IV Last administered on 12/04/16 19:57; Start 12/04/16 at 19:30; Stop 12/04/16 at 19:31; Status DC Sodium Chloride (Iv Sodium Chloride 0.9% 1000ml Bag) 1,000 ml @ 1,000 mls/hr 1X ONCE IV Last administered on 12/04/16 19:57; Start 12/04/16 at 19:30; Stop 12/04/16 at 20:29; Status DC Famotidine (Pepcid) 20 mg 1X ONCE IVP Last administered on 12/04/16 19:57; Start 12/04/16 at 19:30; Stop 12/04/16 at 19:31; Status DC Acetaminophen/ Hydrocodone Bitart (Lortab 5/325) 2 tab 1X ONCE PO Last administered on 12/04/16 20:26; Start 12/04/16 at 20:15; Stop 12/04/16 at 20:47 ; Status DC Ondansetron HCl (Zofran) 4 mg PRN Q8HRS PRN IV NAUSEA/VOMITING; Start 12/04/16 at 20:30; Stop 12/05/16 at 09:32; Status DC Acetaminophen (Tylenol) 650 mg PRN Q6HRS PRN PO MILD PAIN / TEMP; Start at 22:45 Clonazepam (Klonopin) 1 mg PRN TID PRN PO ANXIETY / AGITATION Last administered on 12/10/16 09:18; Start 12/04/16 at 22:45 Gabapentin (Neurontin) 300 mg TID PO Last administered on 12/10/16 07:43; Start 12/04/16 at 22:45 Ondansetron HCl (Zofran Odt) 4 mg PRN BID PRN PO NAUSEA/VOMITING; Start at 22:45 Pantoprazole Sodium (Protonix) 40 mg BIDAC PO Last administered on 12/05/16 08 :27; Start 12/05/16 at 07:30; Stop 12/05/16 at 09:18; Status DC Clonazepam (Klonopin) 2 mg HS PO Last administered on 12/07/16 20:00; Start at 22:45; Stop 12/08/16 at 14:38; Status DC Pantoprazole Sodium (Protonix Vial) 40 mg BID IVP Last administered on 08:46; Start 12/05/16 at 21:00; Stop 12/06/16 at 14:44; Status DC Ondansetron HCl 4 mg 4 mg PRN Q6HRS PRN IV NAUSEA/VOMITING; Start 12/05/16 at 09:31 Sodium Chloride (Iv Sodium Chloride 0.9% 1000ml Bag) 1,000 ml @ 100 mls/hr Q10H IV Last administered on 12/07/16 01:09; Start 12/05/16 at 09:45; Stop at 15:53; Status DC Hydromorphone HCl 0.4 mg 0.4 mg PRN Q4HRS PRN IVP PAIN Last administered on 10:12; Start 12/05/16 at 11:15 Lactated Ringer's 1,000 ml @ 125 mls/hr Q8H IV Last administered on 12/05/16 15:09; Start 12/05/16 at 15:07; Stop 12/06/16 at 03:06; Status DC Propofol (Diprivan) 20 ml @ As Directed STK-MED ONCE IV ; Start 12/05/16 at 15: 13; Stop 12/05/16 at 15:14; Status DC Lidocaine HCl (Lidocaine Pf 2% Vial) 5 ml STK-MED ONCE .ROUTE ; Start 12/05/16 at 15:13; Stop 12/05/16 at 15:14; Status DC Iohexol (Omnipaque 300 Mg/ml) 75 ml 1X ONCE IV Last administered on 12/06/16 10:47; Start 12/06/16 at 08:45; Stop 12/06/16 at 08:46; Status DC Iohexol (Omnipaque 240 Mg/ml) 50 ml 1X ONCE PO Last administered on 12/06/16 08:45; Start 12/06/16 at 08:45; Stop 12/06/16 at 08:46; Status DC Info (Do NOT chart on this entry -- for MONITORING) 1 each PRN DAILY PRN MC SEE COMMENTS; Start 12/06/16 at 08:45; Stop 12/08/16 at 08:44; Status DC Pantoprazole Sodium (Protonix) 40 mg DAILYAC PO Last administered on 12/10/16 07:43; Start 12/07/16 at 07:30 Ferrous Sulfate 300 mg 300 mg BIDWMEALS PO Last administered on 12/10/16 07:42 ; Start 12/06/16 at 17:00 Cefazolin Sodium/ Dextrose (Ancef 2gm Premix) 50 ml @ 100 mls/hr 1X PREOP IV Last administered on 12/07/16 08:27; Start 12/06/16 at 18:00; Stop 12/07/16 at 18:00; Status DC Bupivacaine HCl/ Epinephrine Bitart (Sensorcain-Mpf Epi 0.5%-1:372288) 30 ml STK -MED ONCE .ROUTE Last administered on 12/07/16 08:43; Start 12/07/16 at 07:19 ; Stop 12/07/16 at 07:20; Status DC Rocuronium [place] (Zemuron) 50 mg STK-MED ONCE .ROUTE ; Start 12/07/16 at 07:29 ; Stop 12/07/16 at 07:30; Status DC Dexamethasone Sodium Phosphate (Decadron) 20 mg STK-MED ONCE .ROUTE ; Start at 07:30; Stop 12/07/16 at 07:31; Status DC Ondansetron HCl 4 mg 4 mg STK-MED ONCE .ROUTE ; Start 12/07/16 at 07:30; Stop at 07:31; Status DC Propofol (Diprivan) 20 ml @ As Directed STK-MED ONCE IV ; Start 12/07/16 at 07: 30; Stop 12/07/16 at 07:31; Status DC Lidocaine HCl (Lidocaine Pf 2% Vial) 5 ml STK-MED ONCE .ROUTE ; Start 12/07/16 at 07:30; Stop 12/07/16 at 07:31; Status DC Fentanyl Citrate (Fentanyl 2ml Vial) 100 mcg STK-MED ONCE .ROUTE ; Start at 07:33; Stop 12/07/16 at 07:34; Status DC Succinylcholine Chloride (Anectine) 200 mg STK-MED ONCE .ROUTE ; Start 12/07/16 at 07:48; Stop 12/07/16 at 07:49; Status DC Ondansetron HCl (Zofran) 4 mg PRN Q6HRS PRN IV Nausea; Start 12/07/16 at 08:15 ; Stop 12/07/16 at 18:00; Status DC Fentanyl Citrate (Fentanyl 2ml Vial) 25 mcg PRN Q5MIN PRN IV MILD PAIN; Start 12/07/16 at 08:15; Stop 12/07/16 at 18:00; Status DC Fentanyl Citrate 50 mcg 50 mcg PRN Q5MIN PRN IV MODERATE PAIN; Start 12/07/16 at 08:15; Stop 12/07/16 at 18:00; Status DC Lactated Ringer's (Iv Lactated Ringers) 1,000 ml @ 30 mls/hr Q24H IV Last administered on 12/07/16 09:07; Start 12/07/16 at 08:04; Stop 12/07/16 at 20:03 ; Status DC Lidocaine HCl 2 ml 1X PRN PRN ID IV START; Start 12/07/16 at 08:15; Stop at 18:00; Status DC Hydromorphone HCl (Dilaudid) 0.5 mg PRN Q10MIN PRN IV SEV PAIN,Second choice Last administered on 12/07/16 09:30; Start 12/07/16 at 08:15; Stop 12/07/16 at 18:00; Status DC Prochlorperazine Edisylate (Compazine) 5 mg PACU PRN PRN IV NAUSEA Last administered on 12/07/16 09:29; Start 12/07/16 at 08:15; Stop 12/07/16 at 18:00 ; Status DC Phenylephrine HCl 1 mg STK-MED ONCE IV ; Start 12/07/16 at 08:29; Stop 12/07/16 at 08:30; Status DC Desflurane (Suprane) 30 ml STK-MED ONCE IH ; Start 12/07/16 at 08:29; Stop 12/07 at 08:30; Status DC Glycopyrrolate (Robinul) 1 mg STK-MED ONCE .ROUTE ; Start 12/07/16 at 08:37; Stop 12/07/16 at 08:38; Status DC Neostigmine Methylsulfate 5 mg STK-MED ONCE .ROUTE ; Start 12/07/16 at 08:37; Stop 12/07/16 at 08:38; Status DC Enoxaparin Sodium (Lovenox 40mg Syringe) 40 mg Q24H SQ ; Start 12/07/16 at 09:00 ; Stop 12/07/16 at 10:09; Status DC Sodium Chloride 3 ml 3 ml QSHIFT PRN IV AFTER MEDS AND BLOOD DRAWS; Start 12/07 at 09:00 Lactated Ringer's (Iv Lactated Ringers) 1,000 ml @ 100 mls/hr Q10H IV Last administered on 12/08/16 07:43; Start 12/07/16 at 08:53; Stop 12/08/16 at 14:38 ; Status DC Docusate Sodium (Colace) 100 mg BID PO Last administered on 12/10/16 07:44; Start 12/07/16 at 09:00 Ondansetron HCl (Zofran) 4 mg PRN Q6HRS PRN IV NAUESA, 1ST CHOICE; Start at 09:00 Enoxaparin Sodium (Lovenox 40mg Syringe) 40 mg Q24H SQ ; Start 12/07/16 at 21:00 ; Stop 12/09/16 at 09:04; Status DC Hydromorphone HCl (Dilaudid) 0.4 mg 1X ONCE IV Last administered on 12/07/16 23:41; Start 12/07/16 at 23:30; Stop 12/07/16 at 23:35; Status DC Alprazolam (Xanax) 2 mg 1X ONCE PO Last administered on 12/08/16 20:19; Start 12/08/16 at 21:00; Stop 12/08/16 at 21:01; Status DC Oxybutynin Chloride (Ditropan) 5 mg BID PO Last administered on 12/10/16 07:49 ; Start 12/08/16 at 15:00 Alprazolam (Xanax) 2 mg 1X ONCE PO Last administered on 12/09/16t 20:53; Start 12/09/16 at 20:30; Stop 12/09/16 at 20:31; Status DC Active Scripts Active Reported Klonopin (Clonazepam) 2 Mg Tablet 2 Mg PO HS Klonopin (Clonazepam) 1 Mg Tablet 1 Mg PO TID PRN Gabapentin 300 Mg Capsule 300 Mg PO TID Protonix (Pantoprazole Sodium) 40 Mg Tablet.dr 40 Mg PO BID Zofran Odt (Ondansetron) 4 Mg Tab.rapdis 4 Mg PO BID PRN Vitals/I & O Vital Sign - Last 24 Hours 12/09/16 12/09/16 12/09/16 12/09/16 12:31 14:45 16:31 19:00 Temp 97.7 98.5 97.7 98.5 Pulse 93 107 Resp 18 20 20 B/P 116/73 111/69 Pulse Ox 94 100 94 98 O2 Delivery Room Air Room Air Room Air Room Air 12/09/16 12/09/16 12/09/16 12/10/16 20:02 20:52 23:00 00:40 Temp 98.6 98.6 Pulse 81 Resp 18 20 18 B/P 118/78 Pulse Ox 98 100 100 O2 Delivery Room Air Room Air Room Air Room Air 12/10/16 12/10/16 12/10/16 12/10/16 03:00 04:43 07:00 08:03 Temp 97.4 97.7 97.4 97.7 Pulse 72 79 Resp 20 18 B/P 114/76 97/68 Pulse Ox 99 99 100 O2 Delivery Room Air Room Air Room Air Room Air 12/10/16 12/10/16 12/10/16 10:12 10:49 11:00 Temp 97.7 97.7 Pulse 82 Resp 20 18 20 B/P 109/73 Pulse Ox 93 100 93 O2 Delivery Room Air Room Air Room Air Intake and Output 12/09/16 12/09/16 12/10/16 15:00 23:00 07:00 Intake Total 240 ml 1080 ml 600 ml Balance 240 ml 1080 ml 600 ml MARCIE MICHELLE MD Dec 10, 2016 12:24
[2016-12-10] MEDS ORDERED: ALPRAZOLAM 0.25 MG TABLET PO PRN (12:30)
[2016-12-10 15:00] VITALS: BP 110/70
[2016-12-10] MEDS ORDERED: BISACODYL 5 MG TABLET.DR. PO ONE (16:00)
[2016-12-10] MEDS ORDERED: POLYETHYLENE GLYCOL 3350 238 GM POWDER PO ONE ×2 (16:00)
[2016-12-10] MEDS ORDERED: MAGNESIUM CITRATE 296 ML SOLUTION. PO ONE (16:00)
[2016-12-10 19:00] VITALS: BP 119/81
[2016-12-10 23:00] VITALS: BP 111/69
[2016-12-11] MEDS: HYDROMORPHONE 2 MG/ML VIAL. IVP PRN ×4 (02:52→16:04)
[2016-12-11 07:00] VITALS: BP 122/79
[2016-12-11] MEDS ORDERED: LIDOCAINE 1% 1 ML SYRINGE. ID PRN (07:00)
[2016-12-11] MEDS ORDERED: IV RINGERS,LACTATED 1000ML 1,000 ML IV SCH (07:00)
[2016-12-11] MEDS ORDERED: PROCHLORPERAZINE 10 MG/2 ML VIAL. IV PRN (07:00)
[2016-12-11] MEDS ORDERED: ONDANSETRON PF 4 MG/2 ML VIAL. IV PRN (07:00)
[2016-12-11] MEDS: CLONAZEPAM 1 MG TABLET PO PRN ×3 (07:02→16:04)
[2016-12-11] MEDS: FERROUS SULFATE ORAL 300 MG/5 ML SOLUTION. PO SCH ×2 (07:24→16:04)
[2016-12-11] MEDS: DOCUSATE SODIUM 100 MG CAPSULE PO SCH (07:24)
[2016-12-11] MEDS: PANTOPRAZOLE 40 MG TABLET. PO SCH (07:24)
[2016-12-11] MEDS: OXYBUTYNIN CHLORIDE 5 MG TABLET PO SCH (07:24)
[2016-12-11] MEDS: GABAPENTIN 300 MG CAPSULE. PO SCH ×2 (07:24→11:50)
[2016-12-11] MEDS ORDERED: LIDOCAINE 2% PF Vial for OR 5 ML VIAL. ONE (09:38)
[2016-12-11] MEDS ORDERED: PROPOFOL 60 ML IV ONE (09:38)
--- NOTE | 2016-12-11 11:19 | PDOC4 ---
PROCEDURE Procedure Colonoscopy Indication: H/o polyps/>5 years since last colon? Med: per anesthesia Findings: RASHMI normal. Scattered stool thoughout the colon, mostly transverse and descending. Able to wash some and got fair visualization. Normal mucosa seen throughout w/o polyps , tics, etc. Normal retroflex. Tolerated well. IMP: normal exam w/in limits of prep. REC: Home at your discretion. PPI at home. F/u with me prn. Consider repeat exam in 5-10 years. DARION GUSMAN MD Dec 11, 2016 11:19
[2016-12-11 11:34] VITALS: BP 106/73
--- NOTE | 2016-12-11 12:52 | PDOC ---
PROGRESS NOTES Chief Complaint Chief Complaint Abd pain ASSESSMENT AND PLAN: 1. Abdominal Pain: unclear etiology, most likely related to previous surgeries (see below). s/p ex lap 12/[address] Natarjaan w/o significant pathology. s/p EGD 2. 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 IV iron here, chronic PO repletion 3. Melena: EGD on 12/[address] Vicente. no evidence on recent or ongoing bleed. S/p vagotomy, subtotal gastrectomy with BII anastomosis. 4. Hernia: <1 cm, not containing bowel. CT a/p with evidence of previous UGI surgeries, FOS 5. Anxiety/Depression: under care of Gerald Eisenberg . suspect bipolar. 6. Urinary incontinence: has been getting worse in past few months, bud at night. check UA to r/o UTI. start detrol, stop IFV while not NPO 7. Leg swellings: Pt thinks she has heart failure, exam not support any of her diagnosis, consulted cardiology, cxr ordered, d/w cardiology, spoke with pt in details, time spent total 35 min. anticipated dc today if CXR AND ECHO is normal. History of Present Illness History of Present Illness no new complaints she thinks she has CHF Vitals Vitals Vital Signs Date Time Temp Pulse Resp B/P Pulse Ox O2 Delivery O2 Flow Rate FiO2 12/11/16 12:10 20 95 Room Air 2.0 12/11/16 11:34 62 106/73 12/11/16 11:09 97.7 97.7 Physical Exam General: Alert, Oriented X3, Cooperative, No acute distress Heart: Regular rate, Normal S1, Normal S2, No murmurs Lungs: Clear Abdomen: Normal bowel sounds, Soft, Other Extremities: No edema, No tenderness/swelling Skin: Other (see above) Assessment and Plan Assessmemt and Plan Problems Medical Problems: (1) Abdominal pain Status: Acute (2) Dark stools Status: Acute (3) Epigastric abdominal pain Status: Acute Problems: Comment Review of Relevant I have reviewed the following items vero (where applicable) has been applied. Medications Current Medications Hydromorphone HCl (Dilaudid) 0.5 mg 1X ONCE IM ; Start 12/04/16 at 19:30; Stop 12/04/16 at 20:03; Status DC Ondansetron HCl 4 mg 4 mg 1X ONCE IV Last administered on 12/04/16 19:57; Start 12/04/16 at 19:30; Stop 12/04/16 at 19:31; Status DC Sodium Chloride (Iv Sodium Chloride 0.9% 1000ml Bag) 1,000 ml @ 1,000 mls/hr 1X ONCE IV Last administered on 12/04/16 19:57; Start 12/04/16 at 19:30; Stop 12/04/16 at 20:29; Status DC Famotidine (Pepcid) 20 mg 1X ONCE IVP Last administered on 12/04/16 19:57; Start 12/04/16 at 19:30; Stop 12/04/16 at 19:31; Status DC Acetaminophen/ Hydrocodone Bitart (Lortab 5/325) 2 tab 1X ONCE PO Last administered on 12/04/16 20:26; Start 12/04/16 at 20:15; Stop 12/04/16 at 20:47 ; Status DC Ondansetron HCl (Zofran) 4 mg PRN Q8HRS PRN IV NAUSEA/VOMITING; Start 12/04/16 at 20:30; Stop 12/05/16 at 09:32; Status DC Acetaminophen (Tylenol) 650 mg PRN Q6HRS PRN PO MILD PAIN / TEMP; Start at 22:45 Clonazepam (Klonopin) 1 mg PRN TID PRN PO ANXIETY / AGITATION Last administered on 12/11/16 11:50; Start 12/04/16 at 22:45 Gabapentin (Neurontin) 300 mg TID PO Last administered on 12/11/16 11:50; Start 12/04/16 at 22:45 Ondansetron HCl (Zofran Odt) 4 mg PRN BID PRN PO NAUSEA/VOMITING; Start at 22:45 Pantoprazole Sodium (Protonix) 40 mg BIDAC PO Last administered on 12/05/16 08 :27; Start 12/05/16 at 07:30; Stop 12/05/16 at 09:18; Status DC Clonazepam (Klonopin) 2 mg HS PO Last administered on 12/07/16 20:00; Start at 22:45; Stop 12/08/16 at 14:38; Status DC Pantoprazole Sodium (Protonix Vial) 40 mg BID IVP Last administered on 08:46; Start 12/05/16 at 21:00; Stop 12/06/16 at 14:44; Status DC Ondansetron HCl 4 mg 4 mg PRN Q6HRS PRN IV NAUSEA/VOMITING; Start 12/05/16 at 09:31; Status Cancel Sodium Chloride (Iv Sodium Chloride 0.9% 1000ml Bag) 1,000 ml @ 100 mls/hr Q10H IV Last administered on 12/07/16 01:09; Start 12/05/16 at 09:45; Stop at 15:53; Status DC Hydromorphone HCl 0.4 mg 0.4 mg PRN Q4HRS PRN IVP PAIN Last administered on 12/11 11:50; Start 12/05/16 at 11:15 Lactated Ringer's 1,000 ml @ 125 mls/hr Q8H IV Last administered on 12/05/16 15:09; Start 12/05/16 at 15:07; Stop 12/06/16 at 03:06; Status DC Propofol (Diprivan) 20 ml @ As Directed STK-MED ONCE IV ; Start 12/05/16 at 15: 13; Stop 12/05/16 at 15:14; Status DC Lidocaine HCl (Lidocaine Pf 2% Vial) 5 ml STK-MED ONCE .ROUTE ; Start 12/05/16 at 15:13; Stop 12/05/16 at 15:14; Status DC Iohexol (Omnipaque 300 Mg/ml) 75 ml 1X ONCE IV Last administered on 12/06/16 10:47; Start 12/06/16 at 08:45; Stop 12/06/16 at 08:46; Status DC Iohexol (Omnipaque 240 Mg/ml) 50 ml 1X ONCE PO Last administered on 12/06/16 08:45; Start 12/06/16 at 08:45; Stop 12/06/16 at 08:46; Status DC Info (Do NOT chart on this entry -- for MONITORING) 1 each PRN DAILY PRN MC SEE COMMENTS; Start 12/06/16 at 08:45; Stop 12/08/16 at 08:44; Status DC Pantoprazole Sodium (Protonix) 40 mg DAILYAC PO Last administered on 12/10/16 07:43; Start 12/07/16 at 07:30 Ferrous Sulfate 300 mg 300 mg BIDWMEALS PO Last administered on 12/10/16 07:42 ; Start 12/06/16 at 17:00 Cefazolin Sodium/ Dextrose (Ancef 2gm Premix) 50 ml @ 100 mls/hr 1X PREOP IV Last administered on 12/07/16 08:27; Start 12/06/16 at 18:00; Stop 12/07/16 at 18:00; Status DC Bupivacaine HCl/ Epinephrine Bitart (Sensorcain-Mpf Epi 0.5%-1:722873) 30 ml STK -MED ONCE .ROUTE Last administered on 12/07/16 08:43; Start 12/07/16 at 07:19 ; Stop 12/07/16 at 07:20; Status DC Rocuronium [place] (Zemuron) 50 mg STK-MED ONCE .ROUTE ; Start 12/07/16 at 07:29 ; Stop 12/07/16 at 07:30; Status DC Dexamethasone Sodium Phosphate (Decadron) 20 mg STK-MED ONCE .ROUTE ; Start at 07:30; Stop 12/07/16 at 07:31; Status DC Ondansetron HCl 4 mg 4 mg STK-MED ONCE .ROUTE ; Start 12/07/16 at 07:30; Stop at 07:31; Status DC Propofol (Diprivan) 20 ml @ As Directed STK-MED ONCE IV ; Start 12/07/16 at 07: 30; Stop 12/07/16 at 07:31; Status DC Lidocaine HCl (Lidocaine Pf 2% Vial) 5 ml STK-MED ONCE .ROUTE ; Start 12/07/16 at 07:30; Stop 12/07/16 at 07:31; Status DC Fentanyl Citrate (Fentanyl 2ml Vial) 100 mcg STK-MED ONCE .ROUTE ; Start at 07:33; Stop 12/07/16 at 07:34; Status DC Succinylcholine Chloride (Anectine) 200 mg STK-MED ONCE .ROUTE ; Start 12/07/16 at 07:48; Stop 12/07/16 at 07:49; Status DC Ondansetron HCl (Zofran) 4 mg PRN Q6HRS PRN IV Nausea; Start 12/07/16 at 08:15 ; Stop 12/07/16 at 18:00; Status DC Fentanyl Citrate (Fentanyl 2ml Vial) 25 mcg PRN Q5MIN PRN IV MILD PAIN; Start 12/07/16 at 08:15; Stop 12/07/16 at 18:00; Status DC Fentanyl Citrate 50 mcg 50 mcg PRN Q5MIN PRN IV MODERATE PAIN; Start 12/07/16 at 08:15; Stop 12/07/16 at 18:00; Status DC Lactated Ringer's (Iv Lactated Ringers) 1,000 ml @ 30 mls/hr Q24H IV Last administered on 12/07/16 09:07; Start 12/07/16 at 08:04; Stop 12/07/16 at 20:03 ; Status DC Lidocaine HCl 2 ml 1X PRN PRN ID IV START; Start 12/07/16 at 08:15; Stop at 18:00; Status DC Hydromorphone HCl (Dilaudid) 0.5 mg PRN Q10MIN PRN IV SEV PAIN,Second choice Last administered on 12/07/16 09:30; Start 12/07/16 at 08:15; Stop 12/07/16 at 18:00; Status DC Prochlorperazine Edisylate (Compazine) 5 mg PACU PRN PRN IV NAUSEA Last administered on 12/07/16 09:29; Start 12/07/16 at 08:15; Stop 12/07/16 at 18:00 ; Status DC Phenylephrine HCl 1 mg STK-MED ONCE IV ; Start 12/07/16 at 08:29; Stop 12/07/16 at 08:30; Status DC Desflurane (Suprane) 30 ml STK-MED ONCE IH ; Start 12/07/16 at 08:29; Stop 12/07 at 08:30; Status DC Glycopyrrolate (Robinul) 1 mg STK-MED ONCE .ROUTE ; Start 12/07/16 at 08:37; Stop 12/07/16 at 08:38; Status DC Neostigmine Methylsulfate 5 mg STK-MED ONCE .ROUTE ; Start 12/07/16 at 08:37; Stop 12/07/16 at 08:38; Status DC Enoxaparin Sodium (Lovenox 40mg Syringe) 40 mg Q24H SQ ; Start 12/07/16 at 09:00 ; Stop 12/07/16 at 10:09; Status DC Sodium Chloride 3 ml 3 ml QSHIFT PRN IV AFTER MEDS AND BLOOD DRAWS Last administered on 12/10/16 14:30; Start 12/07/16 at 09:00 Lactated Ringer's (Iv Lactated Ringers) 1,000 ml @ 100 mls/hr Q10H IV Last administered on 12/08/16 07:43; Start 12/07/16 at 08:53; Stop 12/08/16 at 14:38 ; Status DC Docusate Sodium (Colace) 100 mg BID PO Last administered on 12/10/16 07:44; Start 12/07/16 at 09:00 Ondansetron HCl (Zofran) 4 mg PRN Q6HRS PRN IV NAUESA, 1ST CHOICE; Start at 09:00 Enoxaparin Sodium (Lovenox 40mg Syringe) 40 mg Q24H SQ ; Start 12/07/16 at 21:00 ; Stop 12/09/16 at 09:04; Status DC Hydromorphone HCl (Dilaudid) 0.4 mg 1X ONCE IV Last administered on 12/07/16 23:41; Start 12/07/16 at 23:30; Stop 12/07/16 at 23:35; Status DC Alprazolam (Xanax) 2 mg 1X ONCE PO Last administered on 12/08/16 20:19; Start 12/08/16 at 21:00; Stop 12/08/16 at 21:01; Status DC Oxybutynin Chloride (Ditropan) 5 mg BID PO Last administered on 12/10/16 22:33 ; Start 12/08/16 at 15:00 Alprazolam (Xanax) 2 mg 1X ONCE PO Last administered on 12/09/16 20:53; Start 12/09/16 at 20:30; Stop 12/09/16 at 20:31; Status DC Alprazolam (Xanax) 2 mg PRN QHS PRN PO ANXIETY / AGITATION Last administered on 12/10/16 19:43; Start 12/10/16 at 12:30 Magnesium Citrate (Citroma) 296 ml 1X ONCE PO Last administered on 12/10/16 16:35; Start 12/10/16 at 16:00; Stop 12/10/16 at 16:01; Status DC Polyethylene Glycol (miraLAX Powder BULK BOTTLE) 238 gm 1X ONCE PO ; Start at 16:00; Stop 12/10/16 at 16:01; Status UNV Bisacodyl (Dulcolax Tab) 5 mg 1X ONCE PO Last administered on 12/10/16 18:45 ; Start 12/10/16 at 16:00; Stop 12/10/16 at 16:01; Status DC Polyethylene Glycol (miraLAX Powder BULK BOTTLE) 238 gm 1X ONCE PO Last administered on 12/10/16 17:11; Start 12/10/16 at 16:00; Stop 12/10/16 at 16:02 ; Status DC Ondansetron HCl 4 mg 4 mg PRN Q6HRS PRN IV Nausea; Start 12/11/16 at 07:00; Stop 12/12/16 at 06:59 Lactated Ringer's (Iv Lactated Ringers) 1,000 ml @ 0 mls/hr Q0M IV Last administered on 12/11/16 10:37; Start 12/11/16 at 07:00; Stop 12/11/16 at 18:59 Lidocaine HCl 2 ml 1X PRN PRN ID IV START; Start 12/11/16 at 07:00; Stop at 06:59 Prochlorperazine Edisylate 5 mg 5 mg PACU PRN PRN IV NAUSEA; Start 12/11/16 at 07:00; Stop 12/12/16 at 06:59 Propofol (Diprivan) 60 ml @ As Directed STK-MED ONCE IV ; Start 12/11/16 at 09:38 ; Stop 12/11/16 at 09:39; Status DC Lidocaine HCl (Lidocaine Pf 2% Vial) 5 ml STK-MED ONCE .ROUTE ; Start 12/11/16 at 09:38; Stop 12/11/16 at 09:39; Status DC Active Scripts Active Reported Klonopin (Clonazepam) 2 Mg Tablet 2 Mg PO HS Klonopin (Clonazepam) 1 Mg Tablet 1 Mg PO TID PRN Gabapentin 300 Mg Capsule 300 Mg PO TID Protonix (Pantoprazole Sodium) 40 Mg Tablet.dr 40 Mg PO BID Zofran Odt (Ondansetron) 4 Mg Tab.rapdis 4 Mg PO BID PRN Vitals/I & O Vital Sign - Last 24 Hours 12/10/16 12/10/16 12/10/16 12/10/16 15:00 18:46 19:00 19:15 Temp 97.7 99.3 97.7 99.3 Pulse 83 89 Resp 18 20 18 B/P 110/70 119/81 Pulse Ox 100 93 100 O2 Delivery Room Air Room Air Room Air 12/10/16 12/10/16 12/11/16 12/11/16 22:34 23:00 02:52 03:00 Temp 98.7 98.7 Pulse 75 Resp 16 16 16 B/P 111/69 Pulse Ox 93 98 93 O2 Delivery Room Air Room Air 12/11/16 12/11/16 12/11/16 12/11/16 07:00 07:02 08:00 10:34 Temp 97.7 97.6 97.7 97.6 Pulse 76 71 Resp 18 14 18 B/P 122/79 Pulse Ox 98 93 100 O2 Delivery Room Air Room Air Room Air O2 Flow Rate 2.0 12/11/16 12/11/16 12/11/16 12/11/16 11:09 11:24 11:34 11:50 Temp 97.7 97.7 Pulse 73 58 62 Resp 18 20 20 18 B/P 100/66 108/73 106/73 Pulse Ox 99 99 95 95 O2 Delivery Room Air Room Air Room Air Room Air 12/11/16 12:10 Resp 20 Pulse Ox 95 O2 Delivery Room Air O2 Flow Rate 2.0 Intake and Output 12/10/16 12/10/16 12/11/16 15:00 23:00 07:00 Intake Total 240 ml 1947 ml 180 ml Balance 240 ml 1947 ml 180 ml SALLY MARIA MD Dec 11, 2016 12:52
--- NOTE | 2016-12-11 13:56 | PDOC ---
SURGICAL PROGRESS NOTE Subjective Pt with persistent pain Vital Signs Vital Signs Date Time Temp Pulse Resp B/P Pulse Ox O2 Delivery O2 Flow Rate FiO2 12/11/16 12:10 20 95 Room Air 2.0 12/11/16 11:34 62 106/73 12/11/16 11:09 97.7 97.7 I&O Intake and Output 12/11/16 07:00 Intake Total 2367 ml Balance 2367 ml Intake Oral 2367 ml # Voids 8 General: Alert, Oriented X3, Cooperative, mild distress Abdomen: Soft Problem List Problems Medical Problems: (1) Abdominal pain Status: Acute (2) Dark stools Status: Acute (3) Epigastric abdominal pain Status: Acute Assessment/Plan s/p lap exploration script given for protonix Problems: ANAHI HERNANDES MD Dec 11, 2016 13:56
--- NOTE | 2016-12-11 15:16 | PDOC2 ---
CARDIAC CONSULT DATE OF CONSULT Date of Consult DATE: 12/11/16 TIME: 14:57 REASON FOR CONSULT Reason for Consult: ? CHF REFERRING PHYSICIAN Referring Physician: Dr. Lynch SOURCE Source: Chart review, Patient HISTORY OF PRESENT ILLNESS HISTORY OF PRESENT ILLNESS This is a 36 yo female, with a history of PUD and multiple abdominal surgeries including J tube for gastroparesis, who presented with complaints of left sided abdominal pain. Abdominal CT with no acute findings. Underwent exploratory lap; no pathology. Underwent upper and lower GI scope; no acute findings. Was scheduled to be discharged today. Patient with complaints of LE edema that began this morning; insisted to hospitalist she was in CHF, which prompted this consult. Patient reports swelling began this morning upon awakening. Reports she has been very acitve throughout hospitalization. Additionally reports being diagnosed with CHF during previous hospitalization at [facility] approximately 2 years ago. No previous echocardiogram on file. Reports history of intermittent swelling. Two months ago, leg were "leaking fluid out". Refused to take water pill because she "pees all over herself". Expresses she is not willing to take. Denies any CP, palpitations, dizziness, diaphoresis. Reports orthopnea for the last 2 months; worse recently. PAST MEDICAL HISTORY Cardiovascular: CHF (?) Pulmonary: No pertinent hx GI: GERD, Peptic Ulcer disease, Other (gastroparesis ) Heme/Onc: Anemia NOS Hepatobiliary: No pertinent hx Psych: Anxiety, Depression, Schizophrenia Rheumatologic: No pertinent hx Infectious disease: No pertinent hx ENT: No pertinent hx Renal/: No pertinent hx Endocrine: No pertinent hx Dermatology: No pertinent hx PAST SURGICAL HISTORY Past Surgical History: Other (J tube placement with removal, partial thyroidectomy ) SOCIAL HISTORY ALCOHOL: none Lives: with Family CURRENT MEDICATIONS CURRENT MEDICATIONS Current Medications Medications (Trade) Dose Ordered Sig/Chung Route PRN Reason Start Time Stop Time Status Last Admin Dose Admin Magnesium Citrate (Citroma) 296 ml 1X ONCE PO 12/10/16 16:00 12/10/16 16:01 DC 12/10/16 16:35 Bisacodyl (Dulcolax Tab) 5 mg 1X ONCE PO 12/10/16 16:00 12/10/16 16:01 DC 12/10/16 18:45 Polyethylene Glycol 238 gm 238 gm 1X ONCE PO 12/10/16 16:00 12/10/16 16:02 DC 2/28/17 17:11 Lactated Ringer's (Iv Lactated Ringers) 1,000 ml @ 0 mls/hr Q0M IV 12/11/16 07:00 12/11/16 18:59 12/11/16 10:37 ALLERGIES ALLERGIES: Coded Allergies: Metronidazole HCl (Verified Allergy, Intermediate, Hives, 12/11/16) codeine (Verified Allergy, Intermediate, 12/11/16) fentanyl (Verified Allergy, Intermediate, itching, 12/11/16) ketorolac (Verified Allergy, Intermediate, Rash, 12/11/16) hives metronidazole (Verified Allergy, Intermediate, Hives, 12/11/16) morphine (Verified Allergy, Intermediate, 12/11/16) 11/08/14 PT REPORTS TOLERATING OXYCODONE/APAP UPON LAST ADMISSION ibuprofen (Verified Adverse Reaction, Intermediate, patient does not take due to having history of ulcers, 12/11/16) ROS Review of System 14 point ROS conducted with pertinent positives noted above in HPI PHYSICAL EXAM General: Alert, Oriented X3, Cooperative, No acute distress HEENT: Atraumatic, Mucous membr. moist/pink Lungs: Clear to auscultation, Normal air movement Heart: Regular rate, Normal S1, Normal S2 Abdomen: Soft, Other (left sided tenderness upon palpation) Extremities: Normal pulses, Other (trace LE edema ) Skin: No breakdown, No significant lesion Neuro: Normal speech, Sensation intact Psych/Mental Status: Other (anxious ) MUSCULOSKELETAL: Full range of motion without pain VITALS VITALS Vital Signs Date Time Temp Pulse Resp B/P Pulse Ox O2 Delivery O2 Flow Rate FiO2 12/11/16 12:10 20 95 Room Air 2.0 12/11/16 11:34 62 106/73 12/11/16 11:09 97.7 97.7 ASSESSMENT/PLAN ASSESSMENT/PLAN 1. LE edema clinical suspicion for acute CHF low will check echo to assess LV function obtain CXR if above WNL, may discharge from a CV standpoint 2. abdominal pain 3. PUD/GERD 4. depression/anxiety Problems: ADARSH RUBIN APRN Dec 11, 2016 15:16
--- NOTE | 2016-12-11 16:07 | RAD ---
Chest, 2 views, 12/11/2016: History: Leg swelling Comparison is made to a study from 09/04/2015. The heart is at the upper limits of normal in size. The pulmonary vascularity is normal. No pulmonary infiltrates are seen. There is no evidence of pleural fluid. Surgical clips are evident in the upper abdomen. IMPRESSION: No acute cardiopulmonary abnormality is detected.
--- NOTE | 2016-12-11 16:38 | CARD ---
APPROVED REPORT EXAM: Two-dimensional and M-mode echocardiogram with Doppler and color Doppler. Other Information Quality : Good Rhythm : NSR INDICATION Peripheral Edema Congestive Heart Failure 2D DIMENSIONS Left Atrium(2D)3.5 (1.6-4.0cm)IVSd1.0 (0.7-1.1cm) Aortic Root(2D)2.2 (2.0-3.7cm)LVDd4.6 (3.9-5.9cm) LVOT Diameter1.9 (1.8-2.4cm)PWd1.0 (0.7-1.1cm) LVDs2.7 (2.5-4.0cm)FS (%) 40.5 % SV69.3 mlLVEF(%)70.3 (>50%) Aortic Valve AoV Peak Rogelio.214.5cm/sAoV VTI42.9cm AO Peak GR.18.4mmHgLVOT Peak Rogelio.155.9cm/s AO Mean GR.10mmHgAVA (VMAX)2.00cm2 GIANNI (VTI)2.00cm2 Mitral Valve MV E Jurqxgpy769.3cm/sMV E Peak Gr.9mmHg MV DECEL IJJA311rmLT A Jfkxnkfe40.8cm/s MV E Mean Gr.4mmHgMV LNG12jb E/A Ratio1.7MV A Snzpryvu546qm MVA (PHT)5.96cm2 Tricuspid Valve TR P. Idydggoz641pm/sRAP FDYVPUSX1riPz TR Peak Gr.10teKtOYLD98aePw Pulmonary Vein S1 Vdhshmvg570.9cm/sD2 Hyvhvzyh66.6cm/s LEFT VENTRICLE The left ventricle is normal size. There is normal left ventricular wall thickness. Left ventricle sy stolic function is normal. The Ejection Fraction is 65-70%. There is normal LV segmental wall motion. The left ventricular diastolic function and filling is normal for age. RIGHT VENTRICLE The right ventricle is normal size. The right ventricular systolic function is normal. ATRIA The left atrium size is normal. The right atrium size is normal. The interatrial septum is intact wit h no evidence for an atrial septal defect or patent foramen ovale as noted on 2-D or Doppler imaging. AORTIC VALVE The aortic valve is normal in structure and function. The aortic valve is trileaflet. Doppler and Col or Flow revealed no significant aortic regurgitation. There is no significant aortic valvular stenosi s. MITRAL VALVE The mitral valve is normal in structure and function. There is no mitral valve stenosis. Doppler and Color Flow revealed trace mitral regurgitation. TRICUSPID VALVE The tricuspid valve is normal in structure. Doppler and Color Flow revealed mild tricuspid regurgitat ion. The PA pressure was estimated at 38 mmHg. There is no tricuspid valve stenosis. PULMONIC VALVE The pulmonic valve is not well visualized. Doppler and Color Flow revealed no pulmonic valvular regur gitation. There is no pulmonic valvular stenosis. GREAT VESSELS The aortic root is normal in size. Normal pulmonary venous flow (Doppler). The IVC is normal in size and collapses >50% with inspiration. PERICARDIAL EFFUSION There is no evidence of significant pericardial effusion. Critical Notification Critical Value: No <Conclusion> Left ventricle systolic function is normal. The Ejection Fraction is 65-70%. There is normal LV segmental wall motion. Trace mitral regurgitation. Mild tricuspid regurgitation. The PA pressure was estimated at 38 mmHg. There is no evidence of significant pericardial effusion.
--- NOTE | 2016-12-18 20:26 | DS ---
DATE OF DISCHARGE: 12/11/2016 DISCHARGE DIAGNOSES: 1. Abdominal pain, unclear etiology, possibly due to previous surgeries, status post exploratory laparotomy on 12/07/[address] Natarajan without any significant pathology, status post esophagogastroduodenoscopy. 2. Anemia, l 3. Melena, status post esophagogastroduodenoscopy, no evidence of acute bleeding, status post vagotomy and subtotal gastrectomy with anastomosis. 4. Anxiety, depression, currently on treatments at [facility]. 5. Urinary incontinence, resolved. 6. Questionable leg swelling, suspected by the patient, no evidence seen. Echocardiogram and chest x-ray clear. BRIEF HOSPITAL COURSE: This is a 36-year-old female patient admitted to the hospital on 12/05/2016 for acute blood loss anemia. She was evaluated by Gastroenterology and General Surgery. During hospitalization, she had several procedures such as exploratory laparotomy for left upper quadrant pain, no acute pathology found and also she had EGD by Dr. Vicente. No suspected lesion seen and also she had a colonoscopy with Dr. Vicente and reported normal exam. Echocardiogram showed normal LV ejection fraction. The patient has bipolar disorder, which made her hospital course complicated and her symptomatology is very vague and not able to find evidence for her symptoms. Today, she deemed clinically stable enough to go home and follow up with primary care doctor and [facility] for further workup and treatment. DISCHARGE EXAMINATION: Please see my progress note. DISCHARGE CONDITION: Stable. DISCHARGE MEDICATIONS: Reviewed and reconciled. Please see MRAD. Total time spent for discharge is 35 minutes for patient education, counseling, and coordination of care. Plan discussed with several pension consultant physicians and the patient and family members at bedside and also nursing staff. SALLY MARIA MD DR: MIMI/bud JOB#: [id number] / [id number] DANIEL
== END 2016-12-11 18:10 | disposition home or self-care (01) ==
LOC: ER 18:33 → 5 SOUTH 20:25
PROVIDERS: ADMIT Internal Medicine; ATTEND Internal Medicine
DX: K31.84 Gastroparesis (principal); D62 Acute posthemorrhagic anemia; E04.9 Nontoxic goiter, unspecified; E44.1 Mild protein-calorie malnutrition; F20.9 Schizophrenia, unspecified; F31.9 Bipolar disorder, unspecified; F41.0 Panic disorder [episodic paroxysmal anxiety]; I50.9 Heart failure, unspecified; K21.9 Gastro-esophageal reflux disease without esophagitis; K27.9 Peptic ulcer, site unspecified, unspecified as acute or chronic, without hemorrhage or perforation; K28.9 Gastrojejunal ulcer, unspecified as acute or chronic, without hemorrhage or perforation; K66.0 Peritoneal adhesions (postprocedural) (postinfection); K90.9 Intestinal malabsorption, unspecified; K92.0 Hematemesis; L81.0 Postinflammatory hyperpigmentation; R32 Unspecified urinary incontinence; Z72.89 Other problems related to lifestyle; Z90.3 Acquired absence of stomach [part of]
CPT/HCPCS: 36415; 43235; 45378; 49320; 71020; 74177; 76705; 80048; 80053; 81001; 81025; 82274; 83690; 85014; 85018; 85027; 93306; 96374; 96375; 96376; 99285; C9113; G0378; J0330; J0690; J0780; J1100; J1170; J2370; J2405; J2704; J2710; J3490; J7030; J7120; Q9966; Q9967; S0028; G0379; J3010

== ENCOUNTER 2016-12-27 10:29 | Emergency (ER) | payer SELFPAY ==
[~2016-12-27] VITALS: Ht 167.6 cm; Wt 61.2 kg
[~2016-12-27 10:29] MED LIST changes: +CLON1TAB PO; +CLON2TAB PO; +GABA-586 PO; +ONDA4TAB10 PO
[2016-12-27 11:01] VITALS: BP 128/78
[2016-12-27 12:55] LABS: BILIRUBIN,URINE NEGATIVE (NEG); GLUCOSE,URINE >=1000 mg/dL (NEG); NITRITE,URINE NEGATIVE (NEG); PROTEIN,URINE NEGATIVE (NEG-TRACE); UROBILINOGEN,URINE 0.2 mg/dL (0.2 mg/dL)
[2016-12-27] MEDS ORDERED: ONDANSETRON PF 4 MG/2 ML VIAL. IV ONE (13:00)
[2016-12-27] MEDS ORDERED: LORAZEPAM 2 MG/ML VIAL IV ONE (13:00)
[2016-12-27] MEDS ORDERED: IV NORMAL SALINE 1000ML BAG 1,000 ML IV SCH (13:00)
--- NOTE | 2016-12-27 13:08 | PHYS DOC ---
Past Medical History Past Medical History: CHF, GERD, P.U.D., Other Additional Past Medical Histor: panic attacks, schizophrenia w/suicidal ideation, ulcer Past Surgical History: , Hysterectomy, Other Additional Past Surgical Histo: ulcer,GOITER REMOVED FROM NECK Alcohol Use: None Drug Use: None Adult General Chief Complaint Chief Complaint: ABDOMINAL PAIN HPI HPI Patient is a 36 year old female who presents with complaint of abdominal pain for the past 3 days. Patient states that the pain is in the upper portion of her abdomen. The patient has history of bipolar disorder. The patient was admitted to the hospital last month for evaluation of GI bleeding. The patient underwent exploratory laparoscopy, EGD, and colonoscopy while in the hospital with no evidence of active bleeding. The patient states that she takes Xanax and gabapentin for treatment of anxiety and chronic pain. Patient states she ran out of her gabapentin 3 days ago. Patient states this took place prior to onset of symptoms. A shunt has not had any fevers. The patient states that she does have dark stools currently. Patient rates her pain currently is 10 out of 10. Patient states that she has not been able to eat or drink anything Review of Systems Review of Systems Constitutional: Denies fever or chills [] Eyes: Denies change in visual acuity, redness, or eye pain [] HENT: Denies nasal congestion or sore throat [] Respiratory: Denies cough or shortness of breath [] Cardiovascular: Denies chest pain or edema [] GI: Abdominal pain, nausea, vomiting, dark stools [] : Denies dysuria or hematuria [] Musculoskeletal: Denies back pain or joint pain [] Integument: Denies rash or skin lesions [] Neurologic: Denies headache, focal weakness or sensory changes [] Current Medications Current Medications Current Medications Medications (Trade) Dose Ordered Sig/Chung Start Time Stop Time Status Last Admin Dose Admin Lorazepam (Ativan) 2 mg 1X ONCE 12/27/16 13:00 12/27/16 13:01 DC Ondansetron HCl (Zofran) 4 mg 1X ONCE 12/27/16 13:00 12/27/16 13:01 DC Sodium Chloride (Iv Sodium Chloride 0.9% 1000ml Bag) 1,000 ml @ 1,000 mls/hr Q1H 12/27/16 13:00 12/27/16 13:59 Allergies Allergies Allergies Coded Allergies Type Severity Reaction Last Updated Verified Metronidazole HCl Allergy Intermediate Hives 12/11/16 Yes codeine Allergy Intermediate 12/11/16 Yes fentanyl Allergy Intermediate itching 12/11/16 Yes ketorolac Allergy Intermediate Rash 12/11/16 Yes metronidazole Allergy Intermediate Hives 12/11/16 Yes morphine Allergy Intermediate 12/11/16 Yes ibuprofen Adverse Reaction Intermediate patient does not take due to having history of ulcers 12/11/16 Yes Physical Exam Physical Exam Constitutional: Alert, afebrile, no acute distress. [] HENT: Normocephalic, atraumatic, bilateral external ears normal, oropharynx moist, no oral exudates, nose normal. [] Eyes: PERRLA, EOMI, conjunctiva normal, no discharge. [] Neck: Normal range of motion, no tenderness, supple, no stridor. [] Cardiovascular:Heart rate regular rhythm, no murmur [] Lungs & Thorax: Bilateral breath sounds clear to auscultation [] Abdomen: Bowel sounds normal, soft, epigastric tenderness to palpation with mild guarding, no rebound tenderness, no masses, no pulsatile masses. [] Skin: Warm, dry, no erythema, no rash. [] Back: No tenderness, no CVA tenderness. [] Extremities: No tenderness, no cyanosis, no clubbing, ROM intact, no edema. [] Neurologic: Alert and oriented X 3, normal motor function, normal sensory function, no focal deficits noted. [] Current Patient Data Vital Signs Vital Signs Date Time Temp Pulse Resp B/P Pulse Ox O2 Delivery O2 Flow Rate FiO2 12/27/16 11:01 98.3 82 18 128/78 99 Room Air 98.3 EKG EKG Not performed [] Radiology/Procedures Radiology/Procedures Not performed [] Course & Med Decision Making Course & Med Decision Making Pertinent Labs and Imaging studies reviewed. (See chart for details) Patient's vital signs are normal at this time. Recommended starting an IV to treat patient with IV fluids, Valium, and Zofran and recommended drawing blood and urine to check for any evidence of acute process. I was informed later by the patient's nurse that the patient was not present in her room and did not receive any treatments and no blood or urine was collected. The patient apparently eloped from the emergency department after my exam. Dragon Disclaimer Dragon Disclaimer This electronic medical record was generated, in whole or in part, using a voice recognition dictation system. Departure Departure Impression: Primary Impression: Abdominal pain Disposition: 07 AGAINST MEDICAL ADVICE Condition: STABLE Referrals: ADOLPH REDDING APRN (PCP) Problem Qualifiers Primary Impression: Abdominal pain Abdominal location: upper abdomen, unspecified Qualified Code: R10.10 - Upper abdominal pain, unspecified PAOLA GRESHAM MD Dec 27, 2016 13:08
[2016-12-27 13:32] LABS: BACTERIA,URINE 0 /HPF (0-FEW); RBC,URINE 0 /HPF (0-2); SQUAMOUS EPITHELIAL CELL,UR OCC /LPF; WBC,URINE 0 /HPF (0-4)
== END 2016-12-27 12:46 | disposition left against medical advice (07) ==
LOC: ER 10:29
DX: R10.10 Upper abdominal pain, unspecified (principal); K21.9 Gastro-esophageal reflux disease without esophagitis; F20.9 Schizophrenia, unspecified; F31.9 Bipolar disorder, unspecified; G89.29 Other chronic pain; I50.9 Heart failure, unspecified; F41.9 Anxiety disorder, unspecified; Z87.11 Personal history of peptic ulcer disease; Z90.710 Acquired absence of both cervix and uterus; Z88.5 Allergy status to narcotic agent; Z88.6 Allergy status to analgesic agent; Z88.8 Allergy status to other drugs, medicaments and biological substances
CPT/HCPCS: 81001; 99283

== ENCOUNTER 2017-03-05 16:45 | Observation (INO) | payer SELFPAY ==
[~2017-03-05] VITALS: Ht 167.6 cm; Wt 68.0 kg
[2017-03-05 17:29] LABS: BASO % 0 % (0-3); EOS % 1 % (0-3); HEMATOCRIT 27.4 % (36.0-47.0); HEMOGLOBIN 8.7 g/dL (12.0-15.5); LYMPH # 1.6 x10^3/uL (1.0-4.8); LYMPH % 26 % (24-48); MEAN CORPUSCULAR HEMOGLOBIN 24 pg (25-35); MEAN CORPUSCULAR HGB CONC 32 g/dL (31-37); MEAN CORPUSCULAR VOLUME 76 fL (79-100); MONO % 7 % (0-9); NEUT % 66 % (31-73); PLATELET COUNT 391 x10^3/uL (140-400); RED BLOOD COUNT 3.62 x10^6/uL (3.50-5.40); RED CELL DISTRIBUTION WIDTH 18.1 % (11.5-14.5); WHITE BLOOD COUNT 6.3 x10^3/uL (4.0-11.0)
[2017-03-05 17:29] LABS: BILIRUBIN,URINE NEGATIVE (NEG); GLUCOSE,URINE NEGATIVE (NEG); NITRITE,URINE NEGATIVE (NEG); PROTEIN,URINE NEGATIVE (NEG-TRACE); UROBILINOGEN,URINE 0.2 mg/dL (0.2 mg/dL)
[2017-03-05] MEDS ORDERED: ONDANSETRON PF 4 MG/2 ML VIAL. IV ONE (17:30)
[2017-03-05] MEDS ORDERED: HYDROmorphone 2 MG/ML VIAL IV ONE ×3 (17:30→20:00)
[2017-03-05] MEDS ORDERED: PANTOPRAZOLE IV PUSH 40 MG VIAL. IVP ONE (17:30)
[2017-03-05 17:37] LABS: NEG OBC FOB NEG; POS OBC FOB POS
--- NOTE | 2017-03-05 17:38 | PHYS DOC ---
Past Medical History Past Medical History: CHF, GERD, P.U.D., Other Additional Past Medical Histor: panic attacks, schizophrenia w/suicidal ideation, ulcer, GASTROPERESIS Past Surgical History: Cholecystectomy, , Hysterectomy, Other Additional Past Surgical Histo: ulcer,GOITER REMOVED FROM NECK Past Surgical History Partial gastrectomy with vagotomy, J-tube placement at one point in time. Alcohol Use: None Drug Use: None Adult General Chief Complaint Chief Complaint: RECTAL BLEED HPI HPI Patient is a 36 year old female who presents with three-day history of hematemesis intermittently and bloody stools and moderate epigastric pain. Pain is dull in the epigastric area does not radiate anywhere and is not worse with food. Patient reports history of bleeding ulcers, or shortness checked to me followed by a J-tube placement, and is supposed to be on Protonix but is questionably compliant. Denies history of NSAIDs, aspirin, or alcohol. Review of the previous medical record demonstrates patient was admitted to this hospital in November for the exact same symptoms she had an EGD and colonoscopy which showed no evidence of bleeding. She was readmitted several days after that and had an exploratory laparotomy done with the only finding of benign adhesions. There was discussion and suspicion that perhaps patient was drug- seeking on some level. Patient did not appear to require any blood transfusions and her hemoglobin baseline is around 9. Review of Systems Review of Systems Constitutional: Denies fever or chills [] Eyes: Denies change in visual acuity, redness, or eye pain [] HENT: Denies nasal congestion or sore throat [] Respiratory: Denies cough or shortness of breath [] Cardiovascular: No additional information not addressed in HPI [] GI: Denies abdominal pain, nausea, vomiting, bloody stools or diarrhea [] : Denies dysuria or hematuria [] Musculoskeletal: Denies back pain or joint pain [] Integument: Denies rash or skin lesions [] Neurologic: Denies headache, focal weakness or sensory changes [] Endocrine: Denies polyuria or polydipsia [] All review systems negative except as mentioned in history present illness. Current Medications Current Medications Current Medications Medications (Trade) Dose Ordered Sig/Chung Start Time Stop Time Status Last Admin Dose Admin Hydromorphone HCl (Dilaudid) 0.5 mg 1X ONCE 03/05/17 18:45 03/05/17 18:46 UNV Info (Do NOT chart on this entry -- for MONITORING) 1 each PRN DAILY PRN 03/05/17 18:00 03/07/17 17:59 Iohexol (Omnipaque 300 Mg/ml) 75 ml 1X ONCE 03/05/17 18:00 03/05/17 18:01 DC 03/05/17 18:01 75 ML Ondansetron HCl (Zofran) 4 mg 1X ONCE 03/05/17 17:30 03/05/17 17:33 DC 03/05/17 17:50 4 MG Pantoprazole Sodium (Protonix Vial) 40 mg 1X ONCE 03/05/17 17:30 03/05/17 17:33 DC 03/05/17 17:50 40 MG Allergies Allergies Allergies Coded Allergies Type Severity Reaction Last Updated Verified Metronidazole HCl Allergy Intermediate Hives 12/11/16 Yes codeine Allergy Intermediate 12/11/16 Yes fentanyl Allergy Intermediate itching 12/11/16 Yes ketorolac Allergy Intermediate Rash 12/11/16 Yes metronidazole Allergy Intermediate Hives 12/11/16 Yes morphine Allergy Intermediate 12/11/16 Yes ibuprofen Adverse Reaction Intermediate patient does not take due to having history of ulcers 12/11/16 Yes Physical Exam Physical Exam Constitutional: Well developed, well nourished, no acute distress, non-toxic appearance. [] HENT: Normocephalic, atraumatic, bilateral external ears normal, oropharynx moist, no oral exudates, nose normal. [] Eyes: PERRLA, EOMI, conjunctiva normal, no discharge. [] Neck: Normal range of motion, no tenderness, supple, no stridor. [] Cardiovascular:Heart rate regular rhythm, no murmur [] Lungs & Thorax: Bilateral breath sounds clear to auscultation [] Abdomen: Bowel sounds normal, soft, epigastric mild tenderness, no masses, no pulsatile masses. [] Skin: Warm, dry, no erythema, no rash. [] Back: No tenderness, no CVA tenderness. [ Rectal exam: Normal tone no masses palpable not grossly bloody guaiac pending] Extremities: No tenderness, no cyanosis, no clubbing, ROM intact, no edema. [] Neurologic: Alert and oriented X 3, normal motor function, normal sensory function, no focal deficits noted. [] Psychologic: Affect normal, judgement normal, mood normal. [] Current Patient Data Vital Signs Vital Signs Date Time Temp Pulse Resp B/P (MAP) Pulse Ox O2 Delivery O2 Flow Rate FiO2 03/05/17 17:14 98.5 65 16 147/82 (103) 100 Room Air 98.5 Lab Values Laboratory Tests Test 03/05/17 16:55 03/05/17 17:13 03/05/17 17:25 Urine Collection Type Unknown Urine Color Yellow Urine Clarity Clear Urine pH 7.0 Urine Specific Carman <=1.005 Urine Protein Negative mg/dL (NEG-TRACE) Urine Glucose (UA) Negative mg/dL (NEG) Urine Ketones (Stick) Negative mg/dL (NEG) Urine Blood Negative (NEG) Urine Nitrite Negative (NEG) Urine Bilirubin Negative (NEG) Urine Urobilinogen Dipstick 0.2 mg/dL (0.2 mg/dL) Urine Leukocyte Esterase Negative (NEG) Urine RBC 0 /HPF (0-2) Urine WBC 0 /HPF (0-4) Urine Squamous Epithelial Cells None /LPF Urine Bacteria 0 /HPF (0-FEW) White Blood Count 6.3 x10^3/uL (4.0-11.0) Red Blood Count 3.62 x10^6/uL (3.50-5.40) Hemoglobin 8.7 g/dL (12.0-15.5) L Hematocrit 27.4 % (36.0-47.0) L Mean Corpuscular Volume 76 fL (79-100) L Mean Corpuscular Hemoglobin 24 pg (25-35) L Mean Corpuscular Hemoglobin Concent 32 g/dL (31-37) Red Cell Distribution Width 18.1 % (11.5-14.5) H Platelet Count 391 x10^3/uL (140-400) Neutrophils (%) (Auto) 66 % (31-73) Lymphocytes (%) (Auto) 26 % (24-48) Monocytes (%) (Auto) 7 % (0-9) Eosinophils (%) (Auto) 1 % (0-3) Basophils (%) (Auto) 0 % (0-3) Neutrophils # (Auto) 4.2 x10^3uL (1.8-7.7) Lymphocytes # (Auto) 1.6 x10^3/uL (1.0-4.8) Monocytes # (Auto) 0.4 x10^3/uL (0.0-1.1) Eosinophils # (Auto) 0.1 x10^3/uL (0.0-0.7) Basophils # (Auto) 0.0 x10^3/uL (0.0-0.2) Prothrombin Time 13.1 SEC (11.7-14.0) Prothrombin Time INR 1.1 (0.8-1.1) PTT 29 SEC (24-38) Sodium Level 143 mmol/L (136-145) Potassium Level 4.1 mmol/L (3.5-5.1) Chloride Level 105 mmol/L (98-107) Carbon Dioxide Level 27 mmol/L (21-32) Anion Gap 11 (6-14) Blood Urea Nitrogen 7 mg/dL (7-20) Creatinine 0.8 mg/dL (0.6-1.0) Estimated GFR (Cockcroft-Gault) 98.2 BUN/Creatinine Ratio 9 (6-20) Glucose Level 102 mg/dL (70-99) H Calcium Level 9.5 mg/dL (8.5-10.1) Total Bilirubin 0.6 mg/dL (0.2-1.0) Aspartate Amino Transferase (AST) 32 U/L (15-37) Alanine Aminotransferase (ALT) 46 U/L (14-59) Alkaline Phosphatase 101 U/L (46-116) Total Protein 8.0 g/dL (6.4-8.2) Albumin 3.6 g/dL (3.4-5.0) Albumin/Globulin Ratio 0.8 (1.0-1.7) L Lipase 122 U/L (73-393) Stool Occult Blood Positive (NEG) Laboratory Tests 03/05/17 17:13 Laboratory Tests 03/05/17 17:13 EKG EKG [] Radiology/Procedures Radiology/Procedures CT scan of abdomen and pelvis negative per radiology report which I reviewed [] Course & Med Decision Making Course & Med Decision Making Pertinent Labs and Imaging studies reviewed. (See chart for details) [Plan of care will include symptomatic treatment with IV fluids Protonix Zofran and Dilaudid. Multiple abdominal labs will be obtained and a CT scan of the abdomen and pelvis are pending at this time. Dragon Disclaimer Dragon Disclaimer This electronic medical record was generated, in whole or in part, using a voice recognition dictation system. Departure Departure Referrals: UNKNOWN PCP NAME (PCP) PAOLA BURNETT MD March 05, 2017 17:38
[2017-03-05 17:39] LABS: BACTERIA,URINE 0 /HPF (0-FEW); RBC,URINE 0 /HPF (0-2); WBC,URINE 0 /HPF (0-4)
[2017-03-05 17:40] LABS: INR 1.1 (0.8-1.1); PROTHROMBIN TIME PATIENT 13.1 SEC (11.7-14.0)
[2017-03-05 17:43] LABS: CALCIUM 9.5 mg/dL (8.5-10.1); CREATININE 0.8 mg/dL (0.6-1.0); GFR 98.2; POTASSIUM 4.1 mmol/L (3.5-5.1)
[2017-03-05 17:50] LABS: ALBUMIN 3.6 g/dL (3.4-5.0); ALBUMIN/GLOBULIN RATIO 0.8 (1.0-1.7); TOTAL BILIRUBIN 0.6 mg/dL (0.2-1.0)
[2017-03-05] MEDS ORDERED: CONTRAST GIVEN MC PRN (18:00)
[2017-03-05] MEDS ORDERED: IOHEXOL 300 MG/ML 75 ML VIAL IV ONE (18:00)
--- NOTE | 2017-03-05 18:33 | RAD ---
Exam performed: CT scan of the abdomen and pelvis with contrast Indication: Epigastric pain and rectal bleeding. History of hysterectomy, partial thyroidectomy and stomach surgery Date of Service: 03/05/2017. Comparison: CT abdomen and pelvis from 12/06/2016 Technique: Contiguous helical acquisitions are obtained through the abdomen and pelvis during intravenous administration of 75 cc of Omnipaque 300. In addition sagittal and coronal reformatted images are obtained and reviewed. CT scan abdomen and pelvis findings: The lung bases are clear. Visualized heart is normal. The liver, spleen and pancreas appear normal. Tiny subcentimeter cyst in the subdiaphragmatic right hepatic lobe. Sutures around the stomach from previous gastric surgery. Cholecystectomy. Dilation of the common bile duct may be related to reservoir effect secondary to previous cholecystectomy. Both adrenal glands and bilateral kidneys appear normal with symmetric excretion of contrast via both kidneys. No hydronephrosis or nephrolithiasis The aorta is normal in caliber without aneurysm. No retroperitoneal or mesenteric lymphadenopathy seen.. No retroperitoneal lymphadenopathy is identified. The small bowel loops are nondilated and unremarkable . Scattered stool in the colon. No bowel related stranding or mesenteric lymphadenopathy seen. The pelvic small bowel loops are nondilated and unremarkable .The urinary bladder is well distended and unremarkable. Hysterectomy. No adnexal masses are identified. No pelvic side wall lymphadenopathy or free fluid seen. Bones unremarkable. Impression CT Abdomen and pelvis: 1. No acute findings seen in the abdomen and pelvis. 2. Scattered stool in the colon. Correlate clinically for constipation. Electronically signed by: Kendal Martinez MD (03/05/2017 6:29 PM)
[2017-03-05] MEDS ORDERED: ONDANSETRON PF 4 MG/2 ML VIAL. IV PRN (19:30)
[2017-03-05 21:10] VITALS: BP 138/85
[2017-03-05] MEDS ORDERED: ACETAMINOPHEN 325 MG TABLET. PO PRN (22:00)
[2017-03-05] MEDS ORDERED: hydrALAZINE 20 MG/ML VIAL. IVP PRN (22:00)
[2017-03-05] MEDS ORDERED: ALBUTEROL SULFATE 2.5 MG/3 ML NEBU. NEB PRN (22:00)
[2017-03-05] MEDS: IV NORMAL SALINE 1000ML BAG 1,000 ML IV SCH (22:18)
[2017-03-05] MEDS: HYDROmorphone 2 MG/ML VIAL IVP PRN (22:19)
[2017-03-05] MEDS: TEMAZEPAM 15 MG CAPSULE PO PRN (22:30)
[2017-03-05 23:00] VITALS: BP 126/91
[2017-03-06] MEDS: HYDROmorphone 2 MG/ML VIAL IVP PRN ×3 (01:29→08:19)
[2017-03-06 03:00] VITALS: BP 132/83
[2017-03-06 05:25] LABS: BASO % 1 % (0-3); EOS % 2 % (0-3); HEMATOCRIT 29.4 % (36.0-47.0); HEMOGLOBIN 9.5 g/dL (12.0-15.5); LYMPH # 2.2 x10^3/uL (1.0-4.8); LYMPH % 33 % (24-48); MEAN CORPUSCULAR HEMOGLOBIN 24 pg (25-35); MEAN CORPUSCULAR HGB CONC 32 g/dL (31-37); MEAN CORPUSCULAR VOLUME 75 fL (79-100); MONO % 6 % (0-9); NEUT % 59 % (31-73); PLATELET COUNT 414 x10^3/uL (140-400); RED BLOOD COUNT 3.92 x10^6/uL (3.50-5.40); RED CELL DISTRIBUTION WIDTH 18.2 % (11.5-14.5); WHITE BLOOD COUNT 6.5 x10^3/uL (4.0-11.0)
[2017-03-06] MEDS: ONDANSETRON PF 4 MG/2 ML VIAL. IV PRN ×2 (05:35→15:24)
[2017-03-06 05:41] LABS: CALCIUM 9.9 mg/dL (8.5-10.1); CREATININE 0.8 mg/dL (0.6-1.0); GFR 98.2; POTASSIUM 4.1 mmol/L (3.5-5.1)
[2017-03-06 07:00] VITALS: BP 115/70
[2017-03-06] MEDS: PANTOPRAZOLE 40 MG TABLET.DR. PO SCH ×2 (08:00→16:55)
[2017-03-06] MEDS: GABAPENTIN 400 MG CAPSULE. PO SCH ×2 (08:51→13:10)
[2017-03-06] MEDS: DULoxetine HCL 20 MG CAPSULE.DR PO SCH (08:51)
--- NOTE | 2017-03-06 09:28 | PDOC2 ---
GI CONSULT Reason For Consult: GI Bleed HPI: HPI: 36 y/o female admitted through ER for hematemesis, abd pain, and hematochezia which she says started 3 days ago. She was admitted here in 11/2016 for same and underwent the following workup: EGD: s/p vagotomy, subtotal gastrectomy, BII anastomosis. Colonoscopy: stool throughout the colon w/ fair visualization, normal mucosa. Expl lap: adhesions. H/o anastomotic ulcer (inj. w/ epi) on EGD by Dr. Marshall at [facility] in 12/2014. Able to view more recent records from [facility] where she was recently evaluated by GI for anemia, hematemesis, abdominal pain, and rectal bleeding. She had an EGD w/ Dr. Ej Saucedo on 02/27/17 which showed normal esophagus and BII gastrojejunostomy; suggestion was made that symptoms are likely related to drug and alcohol abuse. Last admission here, concern for drug-seeking behavior voiced by staff. She has told the nurse she had bloody stools overnight; unfortunately, this was not witnessed by staff. Hgb is 9.5 today, which is actually better than it has been. Takes PPI BID, denies NSAIDs. She would like to have an EGD and a colonoscopy and has concerns re: bleeding. I asked her about her recent EGD at [facility]; she denied this. I showed her the EGD report/date; she said this was a mistake and voiced her dissatisfaction with me, saying I wasn't listening to her. I was asked to leave her room. PMH: PMH: PUD s/p vagotomy, subtotal gastrectomy, Billroth II; cholecystectomy, partial thyroidectomy for goiter, x 3, hysterectomy, eye surgery w/ plate placed, previous J-tube placement (removed), adhesiolysis, anxiety/depression, endometriosis FH: Family History: Other ("colon problem" - father) Social History: Drugs: Cocaine (+ here in the past) ROS: GEN: Denies fevers, chills, sweats HEENT: Denies blurred vision, sore throat CV: Denies chest pain RESP: Denies shortness of air, cough GI: Per HPI : Denies hematuria, dysuria ENDO: Denies weight changes NEURO: Denies confusion, dizziness MSK: Denies weakness, joint pain/swelling SKIN: Denies jaundice, pruritus Vitals: Vitals: Vital Signs Date Time Temp Pulse Resp B/P (MAP) Pulse Ox O2 Delivery O2 Flow Rate FiO2 03/06/17 08:50 Room Air 03/06/17 07:00 97.7 65 18 115/70 (85) 100 97.7 Labs: Labs: Laboratory Tests Test 03/05/17 16:55 03/05/17 17:13 03/05/17 17:25 03/06/17 04:35 Urine Collection Type Unknown Urine Color Yellow Urine Clarity Clear Urine pH 7.0 Urine Specific [place] <=1.005 Urine Protein Negative mg/dL (NEG-TRACE) Urine Glucose (UA) Negative mg/dL (NEG) Urine Ketones (Stick) Negative mg/dL (NEG) Urine Blood Negative (NEG) Urine Nitrite Negative (NEG) Urine Bilirubin Negative (NEG) Urine Urobilinogen Dipstick 0.2 mg/dL (0.2 mg/dL) Urine Leukocyte Esterase Negative (NEG) Urine RBC 0 /HPF (0-2) Urine WBC 0 /HPF (0-4) Urine Squamous Epithelial Cells None /LPF Urine Bacteria 0 /HPF (0-FEW) White Blood Count 6.3 x10^3/uL (4.0-11.0) 6.5 x10^3/uL (4.0-11.0) Red Blood Count 3.62 x10^6/uL (3.50-5.40) 3.92 x10^6/uL (3.50-5.40) Hemoglobin 8.7 g/dL (12.0-15.5) 9.5 g/dL (12.0-15.5) Hematocrit 27.4 % (36.0-47.0) 29.4 % (36.0-47.0) Mean Corpuscular Volume 76 fL (79-100) 75 fL (79-100) Mean Corpuscular Hemoglobin 24 pg (25-35) 24 pg (25-35) Mean Corpuscular Hemoglobin Concent 32 g/dL (31-37) 32 g/dL (31-37) Red Cell Distribution Width 18.1 % (11.5-14.5) 18.2 % (11.5-14.5) Platelet Count 391 x10^3/uL (140-400) 414 x10^3/uL (140-400) Neutrophils (%) (Auto) 66 % (31-73) 59 % (31-73) Lymphocytes (%) (Auto) 26 % (24-48) 33 % (24-48) Monocytes (%) (Auto) 7 % (0-9) 6 % (0-9) Eosinophils (%) (Auto) 1 % (0-3) 2 % (0-3) Basophils (%) (Auto) 0 % (0-3) 1 % (0-3) Neutrophils # (Auto) 4.2 x10^3uL (1.8-7.7) 3.9 x10^3uL (1.8-7.7) Lymphocytes # (Auto) 1.6 x10^3/uL (1.0-4.8) 2.2 x10^3/uL (1.0-4.8) Monocytes # (Auto) 0.4 x10^3/uL (0.0-1.1) 0.4 x10^3/uL (0.0-1.1) Eosinophils # (Auto) 0.1 x10^3/uL (0.0-0.7) 0.1 x10^3/uL (0.0-0.7) Basophils # (Auto) 0.0 x10^3/uL (0.0-0.2) 0.0 x10^3/uL (0.0-0.2) Prothrombin Time 13.1 SEC (11.7-14.0) Prothromb Time International Ratio 1.1 (0.8-1.1) Activated Partial Thromboplast Time 29 SEC (24-38) Sodium Level 143 mmol/L (136-145) 141 mmol/L (136-145) Potassium Level 4.1 mmol/L (3.5-5.1) 4.1 mmol/L (3.5-5.1) Chloride Level 105 mmol/L (98-107) 102 mmol/L (98-107) Carbon Dioxide Level 27 mmol/L (21-32) 27 mmol/L (21-32) Anion Gap 11 (6-14) 12 (6-14) Blood Urea Nitrogen 7 mg/dL (7-20) 8 mg/dL (7-20) Creatinine 0.8 mg/dL (0.6-1.0) 0.8 mg/dL (0.6-1.0) Estimated GFR (Cockcroft-Gault) 98.2 98.2 BUN/Creatinine Ratio 9 (6-20) Glucose Level 102 mg/dL (70-99) 88 mg/dL (70-99) Calcium Level 9.5 mg/dL (8.5-10.1) 9.9 mg/dL (8.5-10.1) Total Bilirubin 0.6 mg/dL (0.2-1.0) Aspartate Amino Transf (AST/SGOT) 32 U/L (15-37) Alanine Aminotransferase (ALT/SGPT) 46 U/L (14-59) Alkaline Phosphatase 101 U/L (46-116) Total Protein 8.0 g/dL (6.4-8.2) Albumin 3.6 g/dL (3.4-5.0) Albumin/Globulin Ratio 0.8 (1.0-1.7) Lipase 122 U/L (73-393) Stool Occult Blood Positive (NEG) Allergies: Coded Allergies: Metronidazole HCl (Verified Allergy, Intermediate, Hives, 12/11/16) codeine (Verified Allergy, Intermediate, 12/11/16) fentanyl (Verified Allergy, Intermediate, itching, 12/11/16) ketorolac (Verified Allergy, Intermediate, Rash, 12/11/16) hives metronidazole (Verified Allergy, Intermediate, Hives, 12/11/16) morphine (Verified Allergy, Intermediate, 12/11/16) 11/08/14 PT REPORTS TOLERATING OXYCODONE/APAP UPON LAST ADMISSION ibuprofen (Verified Adverse Reaction, Intermediate, patient does not take due to having history of ulcers, 12/11/16) Medications: Current Medications Medications (Trade) Dose Ordered Sig/Chung Route PRN Reason Start Time Stop Time Status Last Admin Dose Admin Hydromorphone HCl (Dilaudid) 0.5 mg 1X ONCE IV 03/05/17 17:30 03/05/17 17:44 DC 03/05/17 17:50 Ondansetron HCl (Zofran) 4 mg 1X ONCE IV 03/05/17 17:30 03/05/17 17:33 DC 03/05/17 17:50 Pantoprazole Sodium (Protonix Vial) 40 mg 1X ONCE IVP 03/05/17 17:30 03/05/17 17:33 DC 03/05/17 17:50 Iohexol (Omnipaque 300 Mg/ml) 75 ml 1X ONCE IV 03/05/17 18:00 03/05/17 18:01 DC 03/05/17 18:01 Hydromorphone HCl (Dilaudid) 0.5 mg 1X ONCE IV 03/05/17 18:45 03/05/17 18:46 DC 03/05/17 18:45 Ondansetron HCl (Zofran) 4 mg PRN Q8HRS PRN IV NAUSEA/VOMITING 03/05/17 19:30 03/05/17 22:02 DC 03/05/17 20:08 Sodium Chloride 1,000 ml @ 50 mls/hr Q20H IV 03/05/17 19:30 03/06/17 19:29 03/05/17 22:18 Hydromorphone HCl (Dilaudid) 0.5 mg 1X ONCE IV 03/05/17 20:00 03/05/17 20:03 DC 03/05/17 20:08 Ondansetron HCl (Zofran) 4 mg PRN Q8HRS PRN IV NAUSEA/VOMITING 03/05/17 22:00 03/06/17 05:35 Temazepam (Restoril) 30 mg PRN QHS PRN PO INSOMNIA 03/05/17 22:00 03/05/17 22:30 Hydromorphone HCl (Dilaudid) 0.5 mg PRN Q3HRS PRN IVP severe pain 03/05/17 22:00 03/06/17 08:19 PE: GEN: NAD HEENT: Atraumatic, PERRL LUNGS: CTAB HEART: RRR ABD: NABS, S/ND, actually doesn't seem too tender EXTREMITY: No edema SKIN: No rashes, no jaundice NEURO/PSYCH: A & O 3 A/P: A/P: Hematemesis, hematochezia, abdominal pain -had EGD, colonoscopy, and exp lap here in 11/2016 Anemia, hemoccult positive stool H/o PUD s/p vagotomy, subtotal gastrectomy, BII anastomosis -anastomotic ulcer in 2014 at [facility] -last EGD on 02/27/17 at [facility], normal -on PPI BID at home -- D/w RN. Hgb is better than is has been, no bleeding witnessed by staff. Considering this, along w/ recent EGD (1 week ago) at [facility], probably no reason to consider repeating 'scopes at this point. Other per Dr. Vicente. TYRONE JONES March 06, 2017 09:28
[2017-03-06] MEDS: ALPRAZolam 1 MG TABLET PO PRN ×2 (09:52→18:07)
[2017-03-06] MEDS: IV NORMAL SALINE 1000ML BAG 1,000 ML IV SCH (10:30)
[2017-03-06 11:00] VITALS: BP 113/77
[2017-03-06] MEDS ORDERED: BUTORPHANOL 2 MG/ML VIAL. IV PRN (12:00)
[2017-03-06] MEDS ORDERED: diphenhydrAMINE 50 MG/ML VIAL IVP PRN (12:45)
[2017-03-06] MEDS ORDERED: fentaNYL PF VIAL 100 MCG/2 ML VIAL IV PRN (12:45)
--- NOTE | 2017-03-06 14:34 | HP ---
ADMIT DATE: 03/06/2017 CHIEF COMPLAINT: Rectal bleeding. HISTORY OF PRESENT ILLNESS: The patient is a pleasant 36-year-old female with multiple medical issues. Basically, she presented with hematochezia and some hematemesis as well. It has been occurring for several days. She has got epigastric pain. She rates it 7 out of 10. Pain medications seemed to make it worse. I discussed the case with ER physician. We are admitting her for consultation with Gastroenterology. PAST MEDICAL HISTORY: GERD, CHF, and peptic ulcer disease. She has had several surgeries on her abdomen at . Panic attacks, schizophrenia, suicidal ideation and suicidal attempt, and respiratory failure. She states she was on the ventilator at ____, gastroparesis, cholecystectomy, , hysterectomy, ____ excision and vagotomy, partial gastrectomy, and J-tube placement, but that has been removed. ALLERGIES: METRONIDAZOLE, CODEINE, AND IBUPROFEN, CHICORIC ACID, AND MORPHINE. FAMILY HISTORY: Diabetes. SOCIAL HISTORY: She does not drink, smoke, or take drugs at this time. MEDICATIONS: Reviewed. Please refer to the MRAD. REVIEW OF SYSTEMS: GENERAL: No history of weight change, weakness, or fevers. SKIN: No bruising, hair changes, or rashes. EYES: No blurred, double, or loss of vision. NOSE AND THROAT: No history of nosebleeds, hoarseness, or sore throat. HEART: No history of palpitations, chest pain, or shortness of breath on exertion. LUNGS: Denies cough, hemoptysis, wheezing, or shortness of breath. GASTROINTESTINAL: She complains of abdominal pain. GENITOURINARY: No history of frequency, urgency, hesitancy, or nocturia. NEUROLOGIC: Denies history of numbness, tingling, tremor, or weakness. PSYCHIATRIC: No history of panic, anxiety, or depression. ENDOCRINE: No history of heat or cold intolerance, polyuria, or polydipsia. EXTREMITIES: Denies muscle weakness, joint pain, pain on walking, or stiffness. PHYSICAL EXAMINATION: VITAL SIGNS: Temperature afebrile, pulse 92, respirations 18, and blood pressure 144/90. GENERAL: She is alert, cooperative. HEART: Normal S1, S2. LUNGS: Clear. ABDOMEN: Soft, tender. EXTREMITIES: Trace edema. SKIN: She got multiple tattoos and some hyperpigmented spots. ENDOCRINE: No thyromegaly. LYMPHATICS: No cervical nodes. HEMATOPOIETIC: No bruising. LABORATORY DATA: White count 6, hemoglobin 8.7, and platelets 391. Electrolytes are normal. INR is 1.1. Urinalysis is negative. ASSESSMENT AND PLAN: Gastrointestinal bleed. The patient has been admitted. We are checking serial hemoglobin levels. We will transfuse if less than 8. IV proton pump inhibitors. Consult Dr. Brewster. Continue home medicines, avoid nonsteroidal antiinflammatory drugs. PT, OT, and p.r.n. narcotics. MARTHA FOY DO DR: LUIS ANTONIO/bud JOB#: [id number] / [id number]
[2017-03-06 15:00] VITALS: BP 119/79
[2017-03-06] MEDS: FERROUS SULFATE ORAL 300 MG/5 ML SOLUTION. PO SCH (16:58)
[2017-03-06] MEDS ORDERED: clonazePAM 1 MG TABLET PO PRN (17:30)
[2017-03-06] MEDS ORDERED: ONDANSETRON ODT 4 MG TAB.RAPDIS. PO PRN (17:30)
[2017-03-06] MEDS: fentaNYL PF VIAL 100 MCG/2 ML VIAL IV PRN ×2 (18:07→21:12)
[2017-03-06 19:00] VITALS: BP 110/71
[2017-03-06] MEDS ORDERED: clonazePAM 1 MG TABLET PO SCH (21:00)
[2017-03-06] MEDS: GABAPENTIN 300 MG CAPSULE. PO SCH (21:16)
[2017-03-06] MEDS: TEMAZEPAM 15 MG CAPSULE PO PRN (22:32)
[2017-03-06 23:00] VITALS: BP 110/72
[2017-03-07] MEDS: fentaNYL PF VIAL 100 MCG/2 ML VIAL IV PRN ×3 (00:48→08:07)
[2017-03-07 03:00] VITALS: BP 100/66
[2017-03-07 04:34] LABS: CALCIUM 8.9 mg/dL (8.5-10.1); CREATININE 0.8 mg/dL (0.6-1.0); GFR 98.2; POTASSIUM 4.5 mmol/L (3.5-5.1)
[2017-03-07] MEDS: ALPRAZolam 1 MG TABLET PO PRN (05:11)
[2017-03-07 07:00] VITALS: BP 98/60
[2017-03-07] MEDS: DULoxetine HCL 20 MG CAPSULE.DR PO SCH (07:58)
[2017-03-07] MEDS: PANTOPRAZOLE 40 MG TABLET.DR. PO SCH (07:58)
[2017-03-07] MEDS: FERROUS SULFATE ORAL 300 MG/5 ML SOLUTION. PO SCH (07:58)
[2017-03-07] MEDS: GABAPENTIN 300 MG CAPSULE. PO SCH (07:58)
[2017-03-07 09:07] LABS: HEMATOCRIT 26.8 % (36.0-47.0); HEMOGLOBIN 8.8 g/dL (12.0-15.5)
--- NOTE | 2017-03-07 10:02 | PDOC3 ---
Discharge Summary Visit Information Date of Admission: March 05, 2017 Date of Discharge: March 07, 2017 Admitting Diagnosis Comment: Hematemesis, hematochezia, abdominal pain -had EGD, colonoscopy, and exp lap here in 11/2016 Anemia, hemoccult positive stool H/o PUD s/p vagotomy, subtotal gastrectomy, BII anastomosis -anastomotic ulcer in 2014 at [facility] -last EGD on 02/27/17 at [facility], normal Final Diagnosis Problems Medical Problems: (1) GI bleed Status: Acute Brief Hospital Course Allergies Allergies Coded Allergies Type Severity Reaction Last Updated Verified Metronidazole HCl Allergy Intermediate Hives 12/11/16 Yes butorphanol Allergy Intermediate Itching 03/06/17 No codeine Allergy Intermediate 12/11/16 Yes ketorolac Allergy Intermediate Rash 12/11/16 Yes metronidazole Allergy Intermediate Hives 12/11/16 Yes morphine Allergy Intermediate 12/11/16 Yes ibuprofen Adverse Reaction Intermediate patient does not take due to having history of ulcers 12/11/16 Yes Vital Signs Vital Signs Date Time Temp Pulse Resp B/P (MAP) Pulse Ox O2 Delivery O2 Flow Rate FiO2 03/07/17 08:40 Room Air 03/07/17 07:00 98.5 73 20 98/60 (73) 95 98.5 Lab Results Laboratory Tests Test 03/05/17 16:55 03/05/17 17:13 03/05/17 17:25 03/06/17 04:35 Urine Collection Type Unknown Urine Color Yellow Urine Clarity Clear Urine pH 7.0 Urine Specific [place] <=1.005 Urine Protein Negative mg/dL (NEG-TRACE) Urine Glucose (UA) Negative mg/dL (NEG) Urine Ketones (Stick) Negative mg/dL (NEG) Urine Blood Negative (NEG) Urine Nitrite Negative (NEG) Urine Bilirubin Negative (NEG) Urine Urobilinogen Dipstick 0.2 mg/dL (0.2 mg/dL) Urine Leukocyte Esterase Negative (NEG) Urine RBC 0 /HPF (0-2) Urine WBC 0 /HPF (0-4) Urine Squamous Epithelial Cells None /LPF Urine Bacteria 0 /HPF (0-FEW) White Blood Count 6.3 x10^3/uL (4.0-11.0) 6.5 x10^3/uL (4.0-11.0) Red Blood Count 3.62 x10^6/uL (3.50-5.40) 3.92 x10^6/uL (3.50-5.40) Hemoglobin 8.7 g/dL (12.0-15.5) 9.5 g/dL (12.0-15.5) Hematocrit 27.4 % (36.0-47.0) 29.4 % (36.0-47.0) Mean Corpuscular Volume 76 fL (79-100) 75 fL (79-100) Mean Corpuscular Hemoglobin 24 pg (25-35) 24 pg (25-35) Mean Corpuscular Hemoglobin Concent 32 g/dL (31-37) 32 g/dL (31-37) Red Cell Distribution Width 18.1 % (11.5-14.5) 18.2 % (11.5-14.5) Platelet Count 391 x10^3/uL (140-400) 414 x10^3/uL (140-400) Neutrophils (%) (Auto) 66 % (31-73) 59 % (31-73) Lymphocytes (%) (Auto) 26 % (24-48) 33 % (24-48) Monocytes (%) (Auto) 7 % (0-9) 6 % (0-9) Eosinophils (%) (Auto) 1 % (0-3) 2 % (0-3) Basophils (%) (Auto) 0 % (0-3) 1 % (0-3) Neutrophils # (Auto) 4.2 x10^3uL (1.8-7.7) 3.9 x10^3uL (1.8-7.7) Lymphocytes # (Auto) 1.6 x10^3/uL (1.0-4.8) 2.2 x10^3/uL (1.0-4.8) Monocytes # (Auto) 0.4 x10^3/uL (0.0-1.1) 0.4 x10^3/uL (0.0-1.1) Eosinophils # (Auto) 0.1 x10^3/uL (0.0-0.7) 0.1 x10^3/uL (0.0-0.7) Basophils # (Auto) 0.0 x10^3/uL (0.0-0.2) 0.0 x10^3/uL (0.0-0.2) Prothrombin Time 13.1 SEC (11.7-14.0) Prothromb Time International Ratio 1.1 (0.8-1.1) Activated Partial Thromboplast Time 29 SEC (24-38) Sodium Level 143 mmol/L (136-145) 141 mmol/L (136-145) Potassium Level 4.1 mmol/L (3.5-5.1) 4.1 mmol/L (3.5-5.1) Chloride Level 105 mmol/L (98-107) 102 mmol/L (98-107) Carbon Dioxide Level 27 mmol/L (21-32) 27 mmol/L (21-32) Anion Gap 11 (6-14) 12 (6-14) Blood Urea Nitrogen 7 mg/dL (7-20) 8 mg/dL (7-20) Creatinine 0.8 mg/dL (0.6-1.0) 0.8 mg/dL (0.6-1.0) Estimated GFR (Cockcroft-Gault) 98.2 98.2 BUN/Creatinine Ratio 9 (6-20) Glucose Level 102 mg/dL (70-99) 88 mg/dL (70-99) Calcium Level 9.5 mg/dL (8.5-10.1) 9.9 mg/dL (8.5-10.1) Total Bilirubin 0.6 mg/dL (0.2-1.0) Aspartate Amino Transf (AST/SGOT) 32 U/L (15-37) Alanine Aminotransferase (ALT/SGPT) 46 U/L (14-59) Alkaline Phosphatase 101 U/L (46-116) Total Protein 8.0 g/dL (6.4-8.2) Albumin 3.6 g/dL (3.4-5.0) Albumin/Globulin Ratio 0.8 (1.0-1.7) Lipase 122 U/L (73-393) Stool Occult Blood Positive (NEG) Test 03/07/17 03:12 Hemoglobin 8.8 g/dL (12.0-15.5) Hematocrit 26.8 % (36.0-47.0) Mean Corpuscular Hemoglobin Concent 33 g/dL (31-37) Sodium Level 143 mmol/L (136-145) Potassium Level 4.5 mmol/L (3.5-5.1) Chloride Level 106 mmol/L (98-107) Carbon Dioxide Level 30 mmol/L (21-32) Anion Gap 7 (6-14) Blood Urea Nitrogen 21 mg/dL (7-20) Creatinine 0.8 mg/dL (0.6-1.0) Estimated GFR (Cockcroft-Gault) 98.2 Glucose Level 95 mg/dL (70-99) Calcium Level 8.9 mg/dL (8.5-10.1) Laboratory Tests Test 03/07/17 03:12 Hemoglobin 8.8 g/dL (12.0-15.5) Hematocrit 26.8 % (36.0-47.0) Mean Corpuscular Hemoglobin Concent 33 g/dL (31-37) Sodium Level 143 mmol/L (136-145) Potassium Level 4.5 mmol/L (3.5-5.1) Chloride Level 106 mmol/L (98-107) Carbon Dioxide Level 30 mmol/L (21-32) Anion Gap 7 (6-14) Blood Urea Nitrogen 21 mg/dL (7-20) Creatinine 0.8 mg/dL (0.6-1.0) Estimated GFR (Cockcroft-Gault) 98.2 Glucose Level 95 mg/dL (70-99) Calcium Level 8.9 mg/dL (8.5-10.1) Brief Hospital Course Ms. Ghosh is a 36 old AA female known to me, likes to be admitted, always claims abd pain, GI bleed but none that staff could see. Likes narcs, KNown to GI. Does have exetensive abd/GI hx but previous recent work ups including C scope etc here and at [facility] all neg, FOBT positive but not actively bleeding. Dc to home [facility] no reason to stay. She fired GI service [facility] did not like to hear her normal test results. Requested pain meds and anxiolytics from me PT seen and examined DispO; home COnsults; gi Proc: none time 32 mins Discharge Information Condition at Discharge: Improved, Stable Disposition/Orders: D/C to Home Scheduled Clonazepam (Klonopin), 2 MG PO HS, (Reported) Gabapentin (Gabapentin), 300 MG PO TID, (Reported) Pantoprazole Sodium (Protonix), 40 MG PO BID, (Reported) Scheduled PRN Clonazepam (Klonopin), 1 MG PO TID PRN for ANXIETY / AGITATION, (Reported) Ondansetron (Zofran Odt), 4 MG PO BID PRN for NAUSEA/VOMITING, (Reported) MARCIE MICHELLE MD March 07, 2017 10:02
[2017-03-07 11:00] VITALS: BP 104/66
[2017-03-07] MEDS ORDERED: oxyCODONE IR 5 MG TABLET PO PRN (11:00)
[2017-03-07] MEDS ORDERED: HYDROcodone/APAP 5/325MG 1 TAB TABLET PO PRN (11:15)
[2017-03-07] MEDS ORDERED: fentaNYL PF VIAL 100 MCG/2 ML VIAL IV PRN (12:45)
== END 2017-03-07 11:35 | disposition home or self-care (01) ==
LOC: ER 16:45 → ED HOLD 19:17 → 4 NORTH 21:28
PROVIDERS: ADMIT Internal Medicine; ATTEND Internal Medicine
DX: K92.2 Gastrointestinal hemorrhage, unspecified (principal); K92.1 Melena; K21.9 Gastro-esophageal reflux disease without esophagitis; I50.9 Heart failure, unspecified; F20.9 Schizophrenia, unspecified; Q05.9 Spina bifida, unspecified; D64.9 Anemia, unspecified; F41.0 Panic disorder [episodic paroxysmal anxiety]; Z90.3 Acquired absence of stomach [part of]; Z87.11 Personal history of peptic ulcer disease; Z83.3 Family history of diabetes mellitus
CPT/HCPCS: 36415; 74177; 80048; 80053; 81001; 82274; 83690; 85014; 85018; 85027; 85610; 85730; 86850; 86900; 86901; 96361; 96374; 96375; 96376; 99285; C9113; G0378; J0595; J1170; J1200; J2405; J3010; J7030; Q9967; G0379

== ENCOUNTER 2017-03-22 10:06 | Inpatient (IN) | payer SELFPAY ==
[~2017-03-22] VITALS: Ht 167.6 cm; Wt 68.0 kg
[~2017-03-22 10:06] MED LIST changes: -ARIP15TA2 PO; +ARIP15TA3 PO
--- NOTE | 2017-03-22 10:22 | PHYS DOC ---
Past Medical History Past Medical History: CHF, GERD, P.U.D., Other Additional Past Medical Histor: panic attacks, schizophrenia w/suicidal ideation, ulcer, GASTROPERESIS Past Surgical History: Cholecystectomy, , Hysterectomy, Other Additional Past Surgical Histo: ulcer,GOITER REMOVED FROM NECK Alcohol Use: None Drug Use: None Adult General Chief Complaint Chief Complaint: CHEST PAIN-CARDIAC NATURE HPI HPI Patient is a 36 year old female presenting to the emergency department for evaluation of multiple symptoms including chest pain abdominal pain back pain nausea vomiting and diarrhea and she says she has not been able to hold anything down for 2 days. Patient says the chest pain is in the center of her chest sharp stabbing and associated with the nausea and vomiting. She says that it feels similar to her peptic ulcer disease as she has had multiple endoscopes and GI consultations. She says that she has not been taking her Protonix recently. She says that she feels slight shortness of breath and wheezing and has a history of asthma but is not using any inhalers. She denies any cough or diaphoresis. The abdominal pain is diffuse and sharp and associated with nausea vomiting and diarrhea for the past 2 days. Patient has been seen multiple times here and gets admitted frequently and there has been some concern of opioid and benzodiazepine abuse. Patient says that she does not have a primary care provider despite having multiple medical problems and she says that she has congestive heart failure although I do not see a definitive diagnosis of that on quick chart review. Review of Systems Review of Systems Constitutional: Denies fever or chills [] Eyes: Denies change in visual acuity, redness, or eye pain [] HENT: Denies nasal congestion or sore throat [] Respiratory: Denies cough. + shortness of breath [] Cardiovascular: +CP GI: + abdominal pain, nausea, vomiting, diarrhea [] : Denies dysuria or hematuria [] Musculoskeletal: + back pain. No joint pain [] Integument: Denies rash or skin lesions [] Neurologic: Denies headache, focal weakness or sensory changes [] Current Medications Current Medications Current Medications Medications (Trade) Dose Ordered Sig/Chung Start Time Stop Time Status Last Admin Dose Admin Albuterol/ Ipratropium (Duoneb) 3 ml 1X ONCE 03/22/17 10:30 03/22/17 10:33 DC 03/22/17 10:49 3 ML Fentanyl Citrate (Fentanyl 2ml Vial) 100 mcg 1X ONCE 03/22/17 11:45 03/22/17 11:46 DC Multi-Ingredient Mouthwash/Gargle (Gi Cocktail Single Dose) 15 ml 1X ONCE 03/22/17 10:30 03/22/17 10:33 DC 03/22/17 10:48 15 ML Ondansetron HCl (Zofran) 8 mg 1X ONCE 03/22/17 10:30 03/22/17 10:33 DC 03/22/17 10:49 8 MG Pantoprazole Sodium (Protonix Vial) 40 mg 1X ONCE 03/22/17 10:30 03/22/17 10:33 DC 03/22/17 10:49 40 MG Sodium Chloride 1,000 ml @ 1,000 mls/hr 1X ONCE 03/22/17 10:30 03/22/17 11:29 DC 03/22/17 10:47 1,000 MLS/HR Allergies Allergies Allergies Coded Allergies Type Severity Reaction Last Updated Verified Metronidazole HCl Allergy Intermediate Hives 12/11/16 Yes butorphanol Allergy Intermediate Itching 03/06/17 No codeine Allergy Intermediate 12/11/16 Yes ketorolac Allergy Intermediate Rash 12/11/16 Yes metronidazole Allergy Intermediate Hives 12/11/16 Yes morphine Allergy Intermediate 12/11/16 Yes ibuprofen Adverse Reaction Intermediate patient does not take due to having history of ulcers 12/11/16 Yes Physical Exam Physical Exam Constitutional: Well developed, well nourished, no acute distress, non-toxic appearance. [] HENT: Normocephalic, atraumatic, bilateral external ears normal, oropharynx moist, no oral exudates, nose normal. [] Eyes: PERRLA, EOMI, conjunctiva normal, no discharge. [] Neck: Normal range of motion, no tenderness, supple, no stridor. [] Cardiovascular:Heart rate regular rhythm, no murmur [] Lungs & Thorax: Bilateral breath sounds with good aeration. Few wheezes in R lung field. Abdomen: Bowel sounds normal, soft, no tenderness, no masses, no pulsatile masses. [] Skin: Warm, dry, no erythema, no rash. [] Back: No tenderness, no CVA tenderness. [] Extremities: No tenderness, no cyanosis, no clubbing, ROM intact, no edema. [] Neurologic: Alert and oriented X 3, normal motor function, normal sensory function, no focal deficits noted. [] Current Patient Data Vital Signs Vital Signs Date Time Temp Pulse Resp B/P (MAP) Pulse Ox O2 Delivery O2 Flow Rate FiO2 03/22/17 11:19 18 96 Room Air 03/22/17 11:09 76 115/71 (86) 03/22/17 10:06 98.9 98.9 Lab Values Laboratory Tests Test 03/22/17 10:40 03/22/17 10:45 White Blood Count 6.2 x10^3/uL (4.0-11.0) Red Blood Count 3.81 x10^6/uL (3.50-5.40) Hemoglobin 9.6 g/dL (12.0-15.5) L Hematocrit 28.9 % (36.0-47.0) L Mean Corpuscular Volume 76 fL (79-100) L Mean Corpuscular Hemoglobin 25 pg (25-35) Mean Corpuscular Hemoglobin Concent 33 g/dL (31-37) Red Cell Distribution Width 21.5 % (11.5-14.5) H Platelet Count 385 x10^3/uL (140-400) Neutrophils (%) (Auto) 61 % (31-73) Lymphocytes (%) (Auto) 29 % (24-48) Monocytes (%) (Auto) 8 % (0-9) Eosinophils (%) (Auto) 2 % (0-3) Basophils (%) (Auto) 1 % (0-3) Neutrophils # (Auto) 3.8 x10^3uL (1.8-7.7) Lymphocytes # (Auto) 1.8 x10^3/uL (1.0-4.8) Monocytes # (Auto) 0.5 x10^3/uL (0.0-1.1) Eosinophils # (Auto) 0.1 x10^3/uL (0.0-0.7) Basophils # (Auto) 0.0 x10^3/uL (0.0-0.2) Platelet Estimate Pending Prothrombin Time 14.1 SEC (11.7-14.0) H Prothrombin Time INR 1.2 (0.8-1.1) H PTT 29 SEC (24-38) Sodium Level 143 mmol/L (136-145) Potassium Level 4.4 mmol/L (3.5-5.1) Chloride Level 105 mmol/L (98-107) Carbon Dioxide Level 26 mmol/L (21-32) Anion Gap 12 (6-14) Blood Urea Nitrogen 15 mg/dL (7-20) Creatinine 0.9 mg/dL (0.6-1.0) Estimated GFR (Cockcroft-Gault) 85.7 BUN/Creatinine Ratio 17 (6-20) Glucose Level 99 mg/dL (70-99) Calcium Level 9.5 mg/dL (8.5-10.1) Magnesium Level 2.3 mg/dL (1.8-2.4) Total Bilirubin 0.4 mg/dL (0.2-1.0) Aspartate Amino Transferase (AST) 26 U/L (15-37) Alanine Aminotransferase (ALT) 37 U/L (14-59) Alkaline Phosphatase 110 U/L (46-116) Creatine Kinase 45 U/L (26-192) Troponin I Quantitative < 0.017 ng/mL (0.000-0.055) XI-Wli-V-Type Natriuretic Peptide 6 pg/mL (0-124) Total Protein 8.2 g/dL (6.4-8.2) Albumin 3.4 g/dL (3.4-5.0) Albumin/Globulin Ratio 0.7 (1.0-1.7) L Lipase 852 U/L (73-393) H Ethyl Alcohol Level < 10 mg/dL (0-10) Urine Collection Type Unknown Urine Color Yellow Urine Clarity Clear Urine pH 7.0 Urine Specific [place] <=1.005 Urine Protein Negative mg/dL (NEG-TRACE) Urine Glucose (UA) 250 mg/dL (NEG) Urine Ketones (Stick) Negative mg/dL (NEG) Urine Blood Negative (NEG) Urine Nitrite Negative (NEG) Urine Bilirubin Negative (NEG) Urine Urobilinogen Dipstick 0.2 mg/dL (0.2 mg/dL) Urine Leukocyte Esterase Negative (NEG) Urine RBC 0 /HPF (0-2) Urine WBC 0 /HPF (0-4) Urine Squamous Epithelial Cells Occ /LPF Urine Bacteria 0 /HPF (0-FEW) Urine Opiates Screen Neg (NEG) Urine Methadone Screen Neg (NEG) Urine Barbiturates Neg (NEG) Urine Phencyclidine Screen Neg (NEG) Urine Amphetamine/Methamphetamine Neg (NEG) Urine Benzodiazepines Screen Neg (NEG) Urine Cocaine Screen Neg (NEG) Urine Cannabinoids Screen Neg (NEG) Urine Ethyl Alcohol Neg (NEG) Laboratory Tests 03/22/17 10:40 Laboratory Tests 03/22/17 10:40 EKG EKG Normal sinus rhythm with a 79 bpm with normal axis no obvious ST elevation or depression and normal T waves. Radiology/Procedures Radiology/Procedures Indication nausea vomiting diarrhea shortness of air wheezing mid sternal chest pain. Duration of symptoms 2 days. A single view of the chest was obtained and is compared to an examination 12/11/2016. The heart and pulmonary vessels appear normal. The lungs are clear. There is no pleural fluid or pneumothorax. There has not been significant change relative to the previous exam. IMPRESSION: No acute or focal process. No significant change DICTATED and SIGNED BY: YESI DOVE MD DATE: 03/22/17 1058 Course & Med Decision Making Course & Med Decision Making Will check screening labs treat symptoms and reassess. Patient with moderate lipase elevation which likely accounts for her pain given the location. She says that her pain is no better and she feels nauseated so will admit for pancreatitis with nothing by mouth status and IV hydration. Dragon Disclaimer Dragon Disclaimer This electronic medical record was generated, in whole or in part, using a voice recognition dictation system. Departure Departure Impression: Primary Impression: Pancreatitis Additional Impressions: Abdominal pain Nausea & vomiting Disposition: ADMITTED INPATIENT Admitting Physician: Daryn Lynch Condition: STABLE Referrals: UNKNOWN PCP NAME (PCP) Problem Qualifiers Primary Impression: Pancreatitis Chronicity: acute Pancreatitis type: unspecified pancreatitis type Acute pancreatitis complication: no infection or necrosis Qualified Codes: K85.90 - Acute pancreatitis without necrosis or infection, unspecified BRAVO DOBBINS DO Mar 22, 2017 10:22
[2017-03-22] MEDS ORDERED: PANTOPRAZOLE IV PUSH 40 MG VIAL. IVP ONE ×2 (10:30→18:00)
[2017-03-22] MEDS ORDERED: ONDANSETRON PF 4 MG/2 ML VIAL. IV ONE (10:30)
[2017-03-22] MEDS ORDERED: LIDO:MAALOX:DONNATAL 1:1:1 15 ML SINGLE DOSE SWSW ONE (10:30)
[2017-03-22] MEDS ORDERED: IPRATRPIUM/ALBUTEROL 0.5/2.5MG 3 ML NEBU. NEB ONE (10:30)
[2017-03-22] MEDS ORDERED: fentaNYL PF VIAL 100 MCG/2 ML VIAL IV ONE ×2 (10:30→11:45)
[2017-03-22] MEDS ORDERED: IV NORMAL SALINE 1000ML BAG 1,000 ML IV ONE (10:30)
[2017-03-22 10:56] LABS: BASO % 1 % (0-3); EOS % 2 % (0-3); HEMATOCRIT 28.9 % (36.0-47.0); HEMOGLOBIN 9.6 g/dL (12.0-15.5); LYMPH # 1.8 x10^3/uL (1.0-4.8); LYMPH % 29 % (24-48); MEAN CORPUSCULAR HEMOGLOBIN 25 pg (25-35); MEAN CORPUSCULAR HGB CONC 33 g/dL (31-37); MEAN CORPUSCULAR VOLUME 76 fL (79-100); MONO % 8 % (0-9); NEUT % 61 % (31-73); PLATELET COUNT 385 x10^3/uL (140-400); RED BLOOD COUNT 3.81 x10^6/uL (3.50-5.40); RED CELL DISTRIBUTION WIDTH 21.5 % (11.5-14.5); WHITE BLOOD COUNT 6.2 x10^3/uL (4.0-11.0)
--- NOTE | 2017-03-22 10:57 | EKG ---
[facility] [address] [place] [address] Test Date: 2017-03-22 Test Time: 10:14:26 Pat Name: JHONNY VILA Department: Room: Gender: F [employer]aptop [employer]ician: : 1980 Requested By: BRAVO DOBBINS Order Number: [id number] Reading MD: Marilin Boyle Measurements Intervals [place] Rate: 79 P: 0 ID: [id number] QRS: 26 QRSD: 80 T: 28 QT: 356 QTc: 409 Interpretive Statements SINUS RHYTHM NON SPECIFIC ST-T ABNORMALITY (ELEVATION) OTHERWISE NORMAL ECG Electronically Signed On 03-22-2017 19:46:23 CDT by Marilin Boyle
--- NOTE | 2017-03-22 11:02 | RAD ---
Indication nausea vomiting diarrhea shortness of air wheezing mid sternal chest pain. Duration of symptoms 2 days. A single view of the chest was obtained and is compared to an examination 12/11/2016. The heart and pulmonary vessels appear normal. The lungs are clear. There is no pleural fluid or pneumothorax. There has not been significant change relative to the previous exam. IMPRESSION: No acute or focal process. No significant change
[2017-03-22 11:14] LABS: BILIRUBIN,URINE NEGATIVE (NEG); GLUCOSE,URINE 250 mg/dL (NEG); NITRITE,URINE NEGATIVE (NEG); PROTEIN,URINE NEGATIVE (NEG-TRACE); UROBILINOGEN,URINE 0.2 mg/dL (0.2 mg/dL)
[2017-03-22 11:17] LABS: INR 1.2 (0.8-1.1); PROTHROMBIN TIME PATIENT 14.1 SEC (11.7-14.0)
[2017-03-22 11:22] LABS: CALCIUM 9.5 mg/dL (8.5-10.1); CREATININE 0.9 mg/dL (0.6-1.0); GFR 85.7; POTASSIUM 4.4 mmol/L (3.5-5.1)
[2017-03-22 11:22] LABS: BARBITURATES NEG (NEG); BENZODIAZEPINES NEG (NEG); CANNABINOIDS NEG (NEG); COCAINE NEG (NEG); METHADONE NEG (NEG); OPIATES NEG (NEG); PHENCYCLIDINE NEG (NEG)
[2017-03-22 11:28] LABS: ALBUMIN 3.4 g/dL (3.4-5.0); ALBUMIN/GLOBULIN RATIO 0.7 (1.0-1.7); MAGNESIUM 2.3 mg/dL (1.8-2.4); TOTAL BILIRUBIN 0.4 mg/dL (0.2-1.0); TOTAL PROTEIN 8.2 g/dL (6.4-8.2)
[2017-03-22 11:32] LABS: BACTERIA,URINE 0 /HPF (0-FEW); RBC,URINE 0 /HPF (0-2); SQUAMOUS EPITHELIAL CELL,UR OCC /LPF; WBC,URINE 0 /HPF (0-4)
[2017-03-22] MEDS ORDERED: ONDANSETRON PF 4 MG/2 ML VIAL. IV PRN ×2 (12:00→17:00)
[2017-03-22 12:14] LABS: ANISOCYTOSIS MOD; PLT ESTIMATE ADEQUATE (ADEQUATE)
--- NOTE | 2017-03-22 12:20 | ACF ---
Admission Forms Criteria ABDOMINAL PAIN Clinical Indications for Admission to Inpatient Care (Place 'X' for any and all applicable criteria): Admission is indicated for ANY ONE of the following(1)(2)(3)(4)(5): [X]I. Inpatient admission required rather than observation care (Also use Abdominal Pain: Observation Care, as appropriate) because of ANY ONE of the following: [ ]a) Severe pain requiring acute inpatient management [X]b) Identification of etiology/finding that requires inpatient care (eg, aortic dissection, free air) [ ]c) Absent bowel sounds with complete ileus(6) [ ]d) Suspected toxic megacolon [ ]e) Severe electrolyte abnormalities requiring inpatient care [ ]f) High fever or infection requiring inpatient admission as indicated by ANY ONE of following(7)(8): [ ] i) Appropriate outpatient or observational care antimicrobial treatment unavailable, not effective, or not feasible [ ] ii) Documented bacteremia [ ] iii) Temperature > 104.9 degrees F (oral) [ ] iv) T >103.1 F (oral) or < 96.8 F(rectal) that does not respond to all emergency treatment measures [ ]g) Signs of intestinal obstruction [B] [ ]h) Hemodynamic instability [ ]i) IV fluid to replace significant ongoing losses (greater than 3 L/m2 per day) (12)(13) [ ]j) Percutaneous or open drainage (eg, abscess, biliary tract ) procedures [ ]k) Parenteral nutrition regimen that must be implemented on inpatient basis [ ]l) Other condition,treatment or monitoring requiring inpatient admission. [ ]II. Peritoneal signs present [ ]III. Surgery needed that cannot be performed on an ambulatory basis. [ ]IV. Evaluation requires patient to not eat or drink for extended period ( eg, more than 24 hours). [ ]V. Contraindications and/or Inappropriate clinical situations for Observational Care in patients with abdominal pain, when ANY ONE of the following is required: [ ]a) Thorough evaluation is required to prevent catastrophic events due to delays in diagnosing (e.g.Mesenteric ischemia) 1,3 [ ]b) Patient with severe pathology or with chronic symptoms unlikely to improve in the ED stay (3) [ ]. General contraindications and/or Inappropriate clinical situations for Observational Care in patients with abdominal pain, when ANY ONE of the following is required: [ ]a) Prediction of prolongation of LOS based on ANY ONE of the following may be considered as a contraindication for observational care 2, 3, 4, 5, 6, 7, 8, 9, 10, 11 [ ]i) Age > 65 yrs. [ ]ii) Patient arriving by ambulance [ ]iii) Patient with high acuity [ ]iv) Patient requiring vital sign monitoring [ ]v) Patient on IV medication [ ]b) Systolic blood pressures 180mmHg 3,12 [ ]c) Patient with altered mental status including delirium and other alteration of consciousness, (3) [ ]d) Patient whose discharge disposition will be to a detention home or rehabilitation home should not be managed in Emergency Department Observation Unit. CMS rule requires 3 days hospital stay before such placement.3,13 [ ]e) Patient with failure to thrive due to broad array of etiologies 3,16,17 [ ]f) Inability to ambulate 3,14 Extended stay beyond goal length of stay may be needed for(2)(3): [ ]a) Persistent abdominal pain with suspected intra-abdominal process [ ]b) Diagnosed condition requiring continued stay (e.g., pancreatitis, complicated diverticulitis) [ ]c) Surgery (e.g., colectomy) The original [employer] [facility] [facility] [employer] content created by [employer] has been revised. The portions of the content which have been revised are identified through the use of italic text or in bold, and [employer] has neither reviewed nor approved the modified material.All other unmodified content is copyright [employer] [facility] [employer]. Please see references footnoted in the original [employer] [facility] [employer] edition 2016 Admission Criteria Met?: Yes PAUL ESCUDERO Mar 22, 2017 12:20
[2017-03-22] MEDS: fentaNYL PF VIAL 100 MCG/2 ML VIAL IV PRN ×4 (14:11→20:28)
[2017-03-22 14:54] VITALS: BP 121/75
--- NOTE | 2017-03-22 16:54 | PDOC1 ---
History and Physical Past Medical History Cardiovascular: CHF Pulmonary: No pertinent hx GI: GERD, Peptic Ulcer disease, Other Heme/Onc: Anemia NOS Hepatobiliary: No pertinent hx Psych: Anxiety, Depression, Schizophrenia Rheumatologic: No pertinent hx Infectious disease: No pertinent hx Renal/: No pertinent hx Endocrine: No pertinent hx Past Surgical History Past Surgical History: Other Family History Family History: No Significant Social History Drugs: Cocaine Current Problem List Problem List Problems Medical Problems: (1) Abdominal pain Status: Acute (2) Nausea & vomiting Status: Acute (3) Pancreatitis Status: Acute Current Medications Current Medications Current Medications Medications (Trade) Dose Ordered Sig/Chung Start Time Stop Time Status Last Admin Dose Admin Albuterol/ Ipratropium (Duoneb) 3 ml 1X ONCE 03/22/17 10:30 03/22/17 10:33 DC 03/22/17 10:49 3 ML Fentanyl Citrate (Fentanyl 2ml Vial) 50 mcg PRN Q2HR PRN 03/22/17 12:00 03/23/17 11:59 03/22/17 16:20 50 MCG Multi-Ingredient Mouthwash/Gargle (Gi Cocktail Single Dose) 15 ml 1X ONCE 03/22/17 10:30 03/22/17 10:33 DC 03/22/17 10:48 15 ML Ondansetron HCl (Zofran) 4 mg PRN Q8HRS PRN 03/22/17 12:00 03/23/17 11:59 Pantoprazole Sodium (Protonix Vial) 40 mg 1X ONCE 03/22/17 10:30 03/22/17 10:33 DC 03/22/17 10:49 40 MG Sodium Chloride 1,000 ml @ 1,000 mls/hr 1X ONCE 03/22/17 10:30 03/22/17 11:29 DC 03/22/17 10:47 1,000 MLS/HR Allergies Allergies Allergies Coded Allergies Type Severity Reaction Last Updated Verified Metronidazole HCl Allergy Intermediate Hives 12/11/16 Yes butorphanol Allergy Intermediate Itching 03/06/17 No codeine Allergy Intermediate 12/11/16 Yes ketorolac Allergy Intermediate Rash 12/11/16 Yes metronidazole Allergy Intermediate Hives 12/11/16 Yes morphine Allergy Intermediate 12/11/16 Yes ibuprofen Adverse Reaction Intermediate patient does not take due to having history of ulcers 12/11/16 Yes ROS Review of System CONSTITUTIONAL: No fever or chills EYES: No recent changes SKIN: No rash or itching CARDIOVASCULAR: No chest pain, syncope, palpitations, or edema RESPIRATORY: No SOB or cough GASTROINTESTINAL: No nausea, vomiting or abdominal pain NEUROLOGICAL: No headaches or weakness ENDOCRINE: No cold or heat intolerance GENITOURINARY: No urgency or frequency of urination MUSCULOSKELETAL: No back pain or joint pain LYMPHATICS: No enlarged lymph nodes PSYCHIATRIC: No anxiety or depression Physical Exam Physical Exam GEN.: No apparent distress. Alert and oriented. HEENT: Head is normocephalic, atraumatic NECK: Supple. LUNGS: Clear to auscultation. HEART: RRR, S1, S2 present. Peripheral pulses intact ABDOMEN: Soft, nontender. Positive bowel sounds. EXTREMITIES: Without any cyanosis. NEUROLOGIC: Normal speech, normal tone PSYCHIATRIC: Normal affect, normal mood. SKIN: No ulcerations Vitals Vitals Vital Signs Date Time Temp Pulse Resp B/P (MAP) Pulse Ox O2 Delivery O2 Flow Rate FiO2 03/22/17 16:20 Room Air 03/22/17 14:54 97.5 60 18 121/75 (90) 100 97.5 Labs Labs Laboratory Tests Test 03/22/17 10:40 03/22/17 10:45 White Blood Count 6.2 x10^3/uL (4.0-11.0) Red Blood Count 3.81 x10^6/uL (3.50-5.40) Hemoglobin 9.6 g/dL (12.0-15.5) Hematocrit 28.9 % (36.0-47.0) Mean Corpuscular Volume 76 fL (79-100) Mean Corpuscular Hemoglobin 25 pg (25-35) Mean Corpuscular Hemoglobin Concent 33 g/dL (31-37) Red Cell Distribution Width 21.5 % (11.5-14.5) Platelet Count 385 x10^3/uL (140-400) Neutrophils (%) (Auto) 61 % (31-73) Lymphocytes (%) (Auto) 29 % (24-48) Monocytes (%) (Auto) 8 % (0-9) Eosinophils (%) (Auto) 2 % (0-3) Basophils (%) (Auto) 1 % (0-3) Neutrophils # (Auto) 3.8 x10^3uL (1.8-7.7) Lymphocytes # (Auto) 1.8 x10^3/uL (1.0-4.8) Monocytes # (Auto) 0.5 x10^3/uL (0.0-1.1) Eosinophils # (Auto) 0.1 x10^3/uL (0.0-0.7) Basophils # (Auto) 0.0 x10^3/uL (0.0-0.2) Platelet Estimate Adequate (ADEQUATE) Anisocytosis Mod Prothrombin Time 14.1 SEC (11.7-14.0) Prothromb Time International Ratio 1.2 (0.8-1.1) Activated Partial Thromboplast Time 29 SEC (24-38) Sodium Level 143 mmol/L (136-145) Potassium Level 4.4 mmol/L (3.5-5.1) Chloride Level 105 mmol/L (98-107) Carbon Dioxide Level 26 mmol/L (21-32) Anion Gap 12 (6-14) Blood Urea Nitrogen 15 mg/dL (7-20) Creatinine 0.9 mg/dL (0.6-1.0) Estimated GFR (Cockcroft-Gault) 85.7 BUN/Creatinine Ratio 17 (6-20) Glucose Level 99 mg/dL (70-99) Calcium Level 9.5 mg/dL (8.5-10.1) Magnesium Level 2.3 mg/dL (1.8-2.4) Total Bilirubin 0.4 mg/dL (0.2-1.0) Aspartate Amino Transf (AST/SGOT) 26 U/L (15-37) Alanine Aminotransferase (ALT/SGPT) 37 U/L (14-59) Alkaline Phosphatase 110 U/L (46-116) Creatine Kinase 45 U/L (26-192) Troponin I Quantitative < 0.017 ng/mL (0.000-0.055) YM-Ydd-A-Type Natriuretic Peptide 6 pg/mL (0-124) Total Protein 8.2 g/dL (6.4-8.2) Albumin 3.4 g/dL (3.4-5.0) Albumin/Globulin Ratio 0.7 (1.0-1.7) Lipase 852 U/L (73-393) Ethyl Alcohol Level < 10 mg/dL (0-10) Urine Collection Type Unknown Urine Color Yellow Urine Clarity Clear Urine pH 7.0 Urine Specific [place] <=1.005 Urine Protein Negative mg/dL (NEG-TRACE) Urine Glucose (UA) 250 mg/dL (NEG) Urine Ketones (Stick) Negative mg/dL (NEG) Urine Blood Negative (NEG) Urine Nitrite Negative (NEG) Urine Bilirubin Negative (NEG) Urine Urobilinogen Dipstick 0.2 mg/dL (0.2 mg/dL) Urine Leukocyte Esterase Negative (NEG) Urine RBC 0 /HPF (0-2) Urine WBC 0 /HPF (0-4) Urine Squamous Epithelial Cells Occ /LPF Urine Bacteria 0 /HPF (0-FEW) Urine Opiates Screen Neg (NEG) Urine Methadone Screen Neg (NEG) Urine Barbiturates Neg (NEG) Urine Phencyclidine Screen Neg (NEG) Urine Amphetamine/Methamphetamine Neg (NEG) Urine Benzodiazepines Screen Neg (NEG) Urine Cocaine Screen Neg (NEG) Urine Cannabinoids Screen Neg (NEG) Urine Ethyl Alcohol Neg (NEG) Laboratory Tests Test 03/22/17 10:40 03/22/17 10:45 White Blood Count 6.2 x10^3/uL (4.0-11.0) Red Blood Count 3.81 x10^6/uL (3.50-5.40) Hemoglobin 9.6 g/dL (12.0-15.5) Hematocrit 28.9 % (36.0-47.0) Mean Corpuscular Volume 76 fL (79-100) Mean Corpuscular Hemoglobin 25 pg (25-35) Mean Corpuscular Hemoglobin Concent 33 g/dL (31-37) Red Cell Distribution Width 21.5 % (11.5-14.5) Platelet Count 385 x10^3/uL (140-400) Neutrophils (%) (Auto) 61 % (31-73) Lymphocytes (%) (Auto) 29 % (24-48) Monocytes (%) (Auto) 8 % (0-9) Eosinophils (%) (Auto) 2 % (0-3) Basophils (%) (Auto) 1 % (0-3) Neutrophils # (Auto) 3.8 x10^3uL (1.8-7.7) Lymphocytes # (Auto) 1.8 x10^3/uL (1.0-4.8) Monocytes # (Auto) 0.5 x10^3/uL (0.0-1.1) Eosinophils # (Auto) 0.1 x10^3/uL (0.0-0.7) Basophils # (Auto) 0.0 x10^3/uL (0.0-0.2) Platelet Estimate Adequate (ADEQUATE) Anisocytosis Mod Prothrombin Time 14.1 SEC (11.7-14.0) Prothromb Time International Ratio 1.2 (0.8-1.1) Activated Partial Thromboplast Time 29 SEC (24-38) Sodium Level 143 mmol/L (136-145) Potassium Level 4.4 mmol/L (3.5-5.1) Chloride Level 105 mmol/L (98-107) Carbon Dioxide Level 26 mmol/L (21-32) Anion Gap 12 (6-14) Blood Urea Nitrogen 15 mg/dL (7-20) Creatinine 0.9 mg/dL (0.6-1.0) Estimated GFR (Cockcroft-Gault) 85.7 BUN/Creatinine Ratio 17 (6-20) Glucose Level 99 mg/dL (70-99) Calcium Level 9.5 mg/dL (8.5-10.1) Magnesium Level 2.3 mg/dL (1.8-2.4) Total Bilirubin 0.4 mg/dL (0.2-1.0) Aspartate Amino Transf (AST/SGOT) 26 U/L (15-37) Alanine Aminotransferase (ALT/SGPT) 37 U/L (14-59) Alkaline Phosphatase 110 U/L (46-116) Creatine Kinase 45 U/L (26-192) Troponin I Quantitative < 0.017 ng/mL (0.000-0.055) FR-Ikk-B-Type Natriuretic Peptide 6 pg/mL (0-124) Total Protein 8.2 g/dL (6.4-8.2) Albumin 3.4 g/dL (3.4-5.0) Albumin/Globulin Ratio 0.7 (1.0-1.7) Lipase 852 U/L (73-393) Ethyl Alcohol Level < 10 mg/dL (0-10) Urine Collection Type Unknown Urine Color Yellow Urine Clarity Clear Urine pH 7.0 Urine Specific [place] <=1.005 Urine Protein Negative mg/dL (NEG-TRACE) Urine Glucose (UA) 250 mg/dL (NEG) Urine Ketones (Stick) Negative mg/dL (NEG) Urine Blood Negative (NEG) Urine Nitrite Negative (NEG) Urine Bilirubin Negative (NEG) Urine Urobilinogen Dipstick 0.2 mg/dL (0.2 mg/dL) Urine Leukocyte Esterase Negative (NEG) Urine RBC 0 /HPF (0-2) Urine WBC 0 /HPF (0-4) Urine Squamous Epithelial Cells Occ /LPF Urine Bacteria 0 /HPF (0-FEW) Urine Opiates Screen Neg (NEG) Urine Methadone Screen Neg (NEG) Urine Barbiturates Neg (NEG) Urine Phencyclidine Screen Neg (NEG) Urine Amphetamine/Methamphetamine Neg (NEG) Urine Benzodiazepines Screen Neg (NEG) Urine Cocaine Screen Neg (NEG) Urine Cannabinoids Screen Neg (NEG) Urine Ethyl Alcohol Neg (NEG) VTE Prophylaxis Ordered VTE Prophylaxis Devices: Contraindicated VTE Pharmacological Prophylaxi: Contraindicated SALLY MARIA MD Mar 22, 2017 16:54
[2017-03-22] MEDS ORDERED: ACETAMINOPHEN 325 MG TABLET. PO PRN (17:00)
[2017-03-22] MEDS ORDERED: hydrALAZINE 20 MG/ML VIAL. IVP PRN (17:00)
[2017-03-22] MEDS ORDERED: ALBUTEROL SULFATE 2.5 MG/3 ML NEBU. NEB PRN (17:00)
[2017-03-22] MEDS ORDERED: TEMA30CA PO (17:01)
[2017-03-22] MEDS ORDERED: ALPR1TAB2 PO (17:02)
[2017-03-22] MEDS: IV NORMAL SALINE 1000ML BAG 1,000 ML IV SCH (17:47)
[2017-03-22 19:00] VITALS: BP 113/72
[2017-03-22] MEDS: ALPRAZolam 1 MG TABLET PO SCH (20:28)
[2017-03-22] MEDS: TEMAZEPAM 15 MG CAPSULE PO SCH (20:28)
[2017-03-22 23:00] VITALS: BP 99/62
[2017-03-23] MEDS: IV NORMAL SALINE 1000ML BAG 1,000 ML IV SCH ×2 (00:32→08:07)
[2017-03-23] MEDS: fentaNYL PF VIAL 100 MCG/2 ML VIAL IV PRN ×11 (00:33→22:35)
[2017-03-23 05:40] LABS: BASO % 1 % (0-3); EOS % 3 % (0-3); HEMATOCRIT 25.2 % (36.0-47.0); HEMOGLOBIN 8.6 g/dL (12.0-15.5); LYMPH # 2.9 x10^3/uL (1.0-4.8); LYMPH % 46 % (24-48); MEAN CORPUSCULAR HEMOGLOBIN 26 pg (25-35); MEAN CORPUSCULAR HGB CONC 34 g/dL (31-37); MEAN CORPUSCULAR VOLUME 78 fL (79-100); MONO % 9 % (0-9); NEUT % 42 % (31-73); PLATELET COUNT 328 x10^3/uL (140-400); RED BLOOD COUNT 3.26 x10^6/uL (3.50-5.40); RED CELL DISTRIBUTION WIDTH 21.8 % (11.5-14.5); WHITE BLOOD COUNT 6.2 x10^3/uL (4.0-11.0)
[2017-03-23 06:05] LABS: ALBUMIN/GLOBULIN RATIO 0.7 (1.0-1.7); CREATININE 0.7 mg/dL (0.6-1.0); GFR 114.6; POTASSIUM 3.5 mmol/L (3.5-5.1); TOTAL BILIRUBIN 0.4 mg/dL (0.2-1.0); TOTAL PROTEIN 7.4 g/dL (6.4-8.2)
--- NOTE | 2017-03-23 06:22 | HP ---
ADMIT DATE: 03/22/2017 CHIEF COMPLAINT: Abdominal pain, chest pain. HISTORY OF PRESENT ILLNESS: A 36-year-old female patient with prior history of several comorbid conditions present to the ER with complaints of abdominal pain, nausea, vomiting and diarrhea for nearly 2 days. The patient also complains of some chest pain located in the center of the chest associated with nausea, vomiting and she states she has had major surgeries in the past such as peptic ulcer disease and EGD. Her symptoms are intractable in nature and she is not able to keep anything down for which she needs to be admitted to the hospital for symptomatic relief and consultations from Gastroenterology. The patient states the pain has been controlled with current medications; however, she is requesting more frequent pain medications. PAST MEDICAL HISTORY: CHF, GERD, PUD, panic attack, schizophrenia with suicidal ideation, ulcers, gastroparesis. PAST SURGICAL HISTORY: Cholecystectomy, , hysterectomy and gastric ulcer __ SOCIAL HISTORY: No smoking, no alcohol, no drug abuse. ALLERGIES: IBUPROFEN, KETOROLAC, MORPHINE, METRONIDAZOLE, CODEINE, BUTORPHANOL. REVIEW OF SYSTEMS AND PHYSICAL EXAMINATION: Please see my electronic H and P. LABORATORY FINDINGS: Hemoglobin 9.6, MCV 76, platelet 385. Chemistry: Sodium 143, potassium 4.3, chloride 105, carbon dioxide 23, ____. Troponin is less than 0.01. Toxicology negative. Urine, nitrites negative, leukoesterase negative. IMAGING STUDIES: Chest x-ray, no acute process seen. Abdomen and pelvis CT from 03/05/2017, no acute findings seen. ASSESSMENT AND PLAN: 1. Intractable abdominal pain with prior history of peptic ulcer disease and surgeries. 2. Chest pain, unclear etiology. EKG was personally reviewed. No acute ST-T wave elevation seen and normal sinus rhythm. 3. Prior history of peptic ulcer disease. 4. History of congestive heart failure. 5. History of anxiety and depression and schizophrenia. PLAN: 1. The patient has been admitted to the surgical floor. Currently, we will keep her n.p.o. and continue IV hydration 75 mL per hour and pain control with IV fentanyl 25 q. 2 hours. 2. Consult gastroenterology for further recommendation. 3. We will order two more sets of troponins for chest pain if the patient's symptoms are consistent with I will also consult Cardiology. 4. IV Protonix for suspected ulcer disease. 5. Home medications reviewed and reconciled. 6. Overall, prognosis is guarded. The patient does have a history of narcotic seeking behaviour. SALLY MARIA MD DR: MIMI/bud JOB#: [id number] / [id number] DANIEL
[2017-03-23 07:00] VITALS: BP 99/61
[2017-03-23] MEDS: ALPRAZolam 1 MG TABLET PO SCH ×2 (08:07→20:30)
[2017-03-23] MEDS: PANTOPRAZOLE 40 MG TABLET.DR. PO SCH ×2 (08:07→16:08)
[2017-03-23 11:00] VITALS: BP 110/64
--- NOTE | 2017-03-23 12:58 | PDOC ---
G I PROGRESS NOTE Reason for Follow-up Acute pancreatitis/hx pud Subjective Pain unchanged Physical Exam Lungs clear CV S1 S2 ABd +BS, soft, +epigastric tenderness to palpation Review of Relevant I have reviewed the following items vero (where applicable) has been applied. Labs Laboratory Tests Test 03/22/17 10:40 03/22/17 10:45 03/22/17 19:00 03/23/17 02:00 White Blood Count 6.2 x10^3/uL (4.0-11.0) 6.2 x10^3/uL (4.0-11.0) Red Blood Count 3.81 x10^6/uL (3.50-5.40) 3.26 x10^6/uL (3.50-5.40) Hemoglobin 9.6 g/dL (12.0-15.5) 8.6 g/dL (12.0-15.5) Hematocrit 28.9 % (36.0-47.0) 25.2 % (36.0-47.0) Mean Corpuscular Volume 76 fL (79-100) 78 fL (79-100) Mean Corpuscular Hemoglobin 25 pg (25-35) 26 pg (25-35) Mean Corpuscular Hemoglobin Concent 33 g/dL (31-37) 34 g/dL (31-37) Red Cell Distribution Width 21.5 % (11.5-14.5) 21.8 % (11.5-14.5) Platelet Count 385 x10^3/uL (140-400) 328 x10^3/uL (140-400) Neutrophils (%) (Auto) 61 % (31-73) 42 % (31-73) Lymphocytes (%) (Auto) 29 % (24-48) 46 % (24-48) Monocytes (%) (Auto) 8 % (0-9) 9 % (0-9) Eosinophils (%) (Auto) 2 % (0-3) 3 % (0-3) Basophils (%) (Auto) 1 % (0-3) 1 % (0-3) Neutrophils # (Auto) 3.8 x10^3uL (1.8-7.7) 2.6 x10^3uL (1.8-7.7) Lymphocytes # (Auto) 1.8 x10^3/uL (1.0-4.8) 2.9 x10^3/uL (1.0-4.8) Monocytes # (Auto) 0.5 x10^3/uL (0.0-1.1) 0.5 x10^3/uL (0.0-1.1) Eosinophils # (Auto) 0.1 x10^3/uL (0.0-0.7) 0.2 x10^3/uL (0.0-0.7) Basophils # (Auto) 0.0 x10^3/uL (0.0-0.2) 0.0 x10^3/uL (0.0-0.2) Platelet Estimate Adequate (ADEQUATE) Anisocytosis Mod Prothrombin Time 14.1 SEC (11.7-14.0) Prothromb Time International Ratio 1.2 (0.8-1.1) Activated Partial Thromboplast Time 29 SEC (24-38) Sodium Level 143 mmol/L (136-145) 144 mmol/L (136-145) Potassium Level 4.4 mmol/L (3.5-5.1) 3.5 mmol/L (3.5-5.1) Chloride Level 105 mmol/L (98-107) 108 mmol/L (98-107) Carbon Dioxide Level 26 mmol/L (21-32) 25 mmol/L (21-32) Anion Gap 12 (6-14) 11 (6-14) Blood Urea Nitrogen 15 mg/dL (7-20) 12 mg/dL (7-20) Creatinine 0.9 mg/dL (0.6-1.0) 0.7 mg/dL (0.6-1.0) Estimated GFR (Cockcroft-Gault) 85.7 114.6 BUN/Creatinine Ratio 17 (6-20) 17 (6-20) Glucose Level 99 mg/dL (70-99) 53 mg/dL (70-99) Calcium Level 9.5 mg/dL (8.5-10.1) 9.0 mg/dL (8.5-10.1) Magnesium Level 2.3 mg/dL (1.8-2.4) Total Bilirubin 0.4 mg/dL (0.2-1.0) 0.4 mg/dL (0.2-1.0) Aspartate Amino Transf (AST/SGOT) 26 U/L (15-37) 21 U/L (15-37) Alanine Aminotransferase (ALT/SGPT) 37 U/L (14-59) 31 U/L (14-59) Alkaline Phosphatase 110 U/L (46-116) 90 U/L (46-116) Creatine Kinase 45 U/L (26-192) Troponin I Quantitative < 0.017 ng/mL (0.000-0.055) < 0.017 ng/mL (0.000-0.055) < 0.017 ng/mL (0.000-0.055) LL-Qpw-S-Type Natriuretic Peptide 6 pg/mL (0-124) Total Protein 8.2 g/dL (6.4-8.2) 7.4 g/dL (6.4-8.2) Albumin 3.4 g/dL (3.4-5.0) 3.0 g/dL (3.4-5.0) Albumin/Globulin Ratio 0.7 (1.0-1.7) 0.7 (1.0-1.7) Lipase 852 U/L (73-393) 704 U/L (73-393) Ethyl Alcohol Level < 10 mg/dL (0-10) Urine Collection Type Unknown Urine Color Yellow Urine Clarity Clear Urine pH 7.0 Urine Specific [place] <=1.005 Urine Protein Negative mg/dL (NEG-TRACE) Urine Glucose (UA) 250 mg/dL (NEG) Urine Ketones (Stick) Negative mg/dL (NEG) Urine Blood Negative (NEG) Urine Nitrite Negative (NEG) Urine Bilirubin Negative (NEG) Urine Urobilinogen Dipstick 0.2 mg/dL (0.2 mg/dL) Urine Leukocyte Esterase Negative (NEG) Urine RBC 0 /HPF (0-2) Urine WBC 0 /HPF (0-4) Urine Squamous Epithelial Cells Occ /LPF Urine Bacteria 0 /HPF (0-FEW) Urine Opiates Screen Neg (NEG) Urine Methadone Screen Neg (NEG) Urine Barbiturates Neg (NEG) Urine Phencyclidine Screen Neg (NEG) Urine Amphetamine/Methamphetamine Neg (NEG) Urine Benzodiazepines Screen Neg (NEG) Urine Cocaine Screen Neg (NEG) Urine Cannabinoids Screen Neg (NEG) Urine Ethyl Alcohol Neg (NEG) Laboratory Tests Test 03/22/17 19:00 03/23/17 02:00 Troponin I Quantitative < 0.017 ng/mL (0.000-0.055) < 0.017 ng/mL (0.000-0.055) White Blood Count 6.2 x10^3/uL (4.0-11.0) Red Blood Count 3.26 x10^6/uL (3.50-5.40) Hemoglobin 8.6 g/dL (12.0-15.5) Hematocrit 25.2 % (36.0-47.0) Mean Corpuscular Volume 78 fL (79-100) Mean Corpuscular Hemoglobin 26 pg (25-35) Mean Corpuscular Hemoglobin Concent 34 g/dL (31-37) Red Cell Distribution Width 21.8 % (11.5-14.5) Platelet Count 328 x10^3/uL (140-400) Neutrophils (%) (Auto) 42 % (31-73) Lymphocytes (%) (Auto) 46 % (24-48) Monocytes (%) (Auto) 9 % (0-9) Eosinophils (%) (Auto) 3 % (0-3) Basophils (%) (Auto) 1 % (0-3) Neutrophils # (Auto) 2.6 x10^3uL (1.8-7.7) Lymphocytes # (Auto) 2.9 x10^3/uL (1.0-4.8) Monocytes # (Auto) 0.5 x10^3/uL (0.0-1.1) Eosinophils # (Auto) 0.2 x10^3/uL (0.0-0.7) Basophils # (Auto) 0.0 x10^3/uL (0.0-0.2) Sodium Level 144 mmol/L (136-145) Potassium Level 3.5 mmol/L (3.5-5.1) Chloride Level 108 mmol/L (98-107) Carbon Dioxide Level 25 mmol/L (21-32) Anion Gap 11 (6-14) Blood Urea Nitrogen 12 mg/dL (7-20) Creatinine 0.7 mg/dL (0.6-1.0) Estimated GFR (Cockcroft-Gault) 114.6 BUN/Creatinine Ratio 17 (6-20) Glucose Level 53 mg/dL (70-99) Calcium Level 9.0 mg/dL (8.5-10.1) Total Bilirubin 0.4 mg/dL (0.2-1.0) Aspartate Amino Transf (AST/SGOT) 21 U/L (15-37) Alanine Aminotransferase (ALT/SGPT) 31 U/L (14-59) Alkaline Phosphatase 90 U/L (46-116) Total Protein 7.4 g/dL (6.4-8.2) Albumin 3.0 g/dL (3.4-5.0) Albumin/Globulin Ratio 0.7 (1.0-1.7) Lipase 704 U/L (73-393) Medications Current Medications Albuterol/ Ipratropium (Duoneb) 3 ml 1X ONCE NEB Last administered on 10:49; Start 03/22/17 at 10:30; Stop 03/22/17 at 10:33; Status DC Fentanyl Citrate (Fentanyl 2ml Vial) 100 mcg 1X ONCE IV Last administered on 10:49; Start 03/22/17 at 10:30; Stop 03/22/17 at 10:33; Status DC Ondansetron HCl (Zofran) 8 mg 1X ONCE IV Last administered on 03/22/17 10:49 ; Start 03/22/17 at 10:30; Stop 03/22/17 at 10:33; Status DC Pantoprazole Sodium (Protonix Vial) 40 mg 1X ONCE IVP Last administered on 10:49; Start 03/22/17 at 10:30; Stop 03/22/17 at 10:33; Status DC Sodium Chloride 1,000 ml @ 1,000 mls/hr 1X ONCE IV Last administered on 10:47; Start 03/22/17 at 10:30; Stop 03/22/17 at 11:29; Status DC Multi-Ingredient Mouthwash/Gargle (Gi Cocktail Single Dose) 15 ml 1X ONCE SWSW Last administered on 03/22/17 10:48; Start 03/22/17 at 10:30; Stop 03/22/17 at 10:33; Status DC Fentanyl Citrate (Fentanyl 2ml Vial) 100 mcg 1X ONCE IV Last administered on 12:02; Start 03/22/17 at 11:45; Stop 03/22/17 at 11:46; Status DC Ondansetron HCl (Zofran) 4 mg PRN Q8HRS PRN IV NAUSEA/VOMITING; Start 03/22/17 at 12:00; Stop 03/22/17 at 17:36; Status DC Fentanyl Citrate (Fentanyl 2ml Vial) 50 mcg PRN Q2HR PRN IV PAIN Last administered on 03/22/17 16:20; Start 03/22/17 at 12:00; Stop 03/22/17 at 17:27 ; Status DC Acetaminophen (Tylenol) 325 mg PRN Q6HRS PRN PO MILD PAIN / TEMP; Start at 17:00 Hydralazine HCl (Apresoline) 10 mg PRN Q4HRS PRN IVP ELEVATED BP, SEE COMMENTS ; Start 03/22/17 at 17:00 Ondansetron HCl (Zofran) 4 mg PRN Q8HRS PRN IV NAUSEA/VOMITING; Start 03/22/17 at 17:00 Albuterol Sulfate (Ventolin Neb Soln) 2.5 mg PRN Q4HRS PRN NEB SHORTNESS OF BREATH Last administered on 03/22/17 18:58; Start 03/22/17 at 17:00 Sodium Chloride 1,000 ml @ 125 mls/hr Q8H IV Last administered on 03/23/17 08 :07; Start 03/22/17 at 17:00 Fentanyl Citrate (Fentanyl 2ml Vial) 25 mcg PRN Q2HR PRN IV PAIN Last administered on 03/23/17 11:25; Start 03/22/17 at 17:30 Alprazolam (Xanax) 1 mg BID PO Last administered on 03/23/17 08:07; Start 07/29 at 21:00 Pantoprazole Sodium (Protonix) 40 mg BIDAC PO Last administered on 03/23/17 08 :07; Start 03/23/17 at 07:30 Temazepam (Restoril) 30 mg QHS PO Last administered on 03/22/17 20:28; Start 03/22/17 at 21:00 Pantoprazole Sodium (Protonix Vial) 40 mg 1X ONCE IVP Last administered on 17:46; Start 03/22/17 at 18:00; Stop 03/22/17 at 18:01; Status DC Active Scripts Active Reported Xanax (Alprazolam) 1 Mg Tablet 1 Tab PO BID Temazepam 30 Mg Capsule 1 Cap PO QHS Gabapentin 300 Mg Capsule 300 Mg PO TID Protonix (Pantoprazole Sodium) 40 Mg Tablet.dr 40 Mg PO BID Zofran Odt (Ondansetron) 4 Mg Tab.rapdis 4 Mg PO BID PRN Vitals/I & O Vital Sign - Last 24 Hours 03/22/17 03/22/17 03/22/17 03/22/17 14:11 14:54 16:20 16:42 Temp 97.5 97.5 Pulse 60 Resp 18 B/P (MAP) 121/75 (90) Pulse Ox 100 O2 Delivery Room Air Room Air Room Air Room Air 03/22/17 03/22/17 03/22/17 03/22/17 17:00 18:22 19:00 19:40 Temp 98.9 98.9 Pulse 72 Resp 18 B/P (MAP) 113/72 (86) Pulse Ox 99 O2 Delivery Room Air Room Air Room Air Room Air 03/22/17 03/22/17 03/23/17 03/23/17 20:28 23:00 00:33 02:46 Temp 97.6 97.6 Pulse 75 Resp 18 B/P (MAP) 99/62 (74) Pulse Ox 99 95 95 95 O2 Delivery Room Air Room Air Room Air Room Air 03/23/17 03/23/17 03/23/17 03/23/17 04:44 05:14 07:00 07:16 Temp 97.8 97.8 Pulse 71 Resp 16 B/P (MAP) 99/61 (74) Pulse Ox 95 95 98 O2 Delivery Room Air Room Air Room Air 03/23/17 03/23/17 03/23/17 03/23/17 08:00 09:20 11:00 11:25 Temp 97.7 97.7 Pulse 62 Resp 18 B/P (MAP) 110/64 (79) Pulse Ox 98 O2 Delivery Room Air Room Air Room Air Room Air 03/23/17 12:00 O2 Delivery Room Air Intake and Output 03/22/17 03/22/17 03/23/17 15:00 23:00 07:00 Intake Total 550 ml 1000 ml Output Total 2 ml Balance 550 ml 998 ml Problem List Problems Medical Problems: (1) Abdominal pain Status: Acute (2) Nausea & vomiting Status: Acute (3) Pancreatitis Status: Acute Assessment Abd pain- with acute pancreatitis, etiology to be determined. Await us, medical therapy in interim LINH MILLER MD Mar 23, 2017 12:58
[2017-03-23 15:00] VITALS: BP 107/71
--- NOTE | 2017-03-23 15:12 | PDOC ---
PROGRESS NOTES Chief Complaint Chief Complaint Abd pain ASSESSMENT AND PLAN: 1. Pancreatitis: lipase remains elevated. cont bowel rest, IVF. appreciate Dr Brewster's input. obtain US RUQ to r/o GB dz (trying to minimize frequent CTs ) 2. Pain control: fentanyl PRN "allergic" to many pain meds 3. Chest pain: ruled out by enzymes/EKG. suspect related to GERD 4. 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 IV protonix 5. Diarrhea: chronic episodic. C.diff PCR pending 6. Anemia: microcytic, moderate. obtain anemia profile. 7. Anxiety/depression and schizophrenia: cont home regimen 8. Hx narcotic seeking behavior: limit as much as possible 9. Prophylaxis: lovenox. History of Present Illness History of Present Illness pain persisting. mild nausea. no vomiting Vitals Vitals Vital Signs Date Time Temp Pulse Resp B/P (MAP) Pulse Ox O2 Delivery O2 Flow Rate FiO2 03/23/17 14:30 Room Air 03/23/17 11:00 97.7 62 18 110/64 (79) 98 97.7 Physical Exam General: Alert, Oriented X3, Cooperative, No acute distress Heart: Regular rate Lungs: Clear Abdomen: Other (RUQ/periumbilical pain) Extremities: No edema Skin: No rashes Labs LABS Laboratory Tests Test 03/22/17 19:00 03/23/17 02:00 Troponin I Quantitative < 0.017 ng/mL (0.000-0.055) < 0.017 ng/mL (0.000-0.055) White Blood Count 6.2 x10^3/uL (4.0-11.0) Red Blood Count 3.26 x10^6/uL (3.50-5.40) Hemoglobin 8.6 g/dL (12.0-15.5) Hematocrit 25.2 % (36.0-47.0) Mean Corpuscular Volume 78 fL (79-100) Mean Corpuscular Hemoglobin 26 pg (25-35) Mean Corpuscular Hemoglobin Concent 34 g/dL (31-37) Red Cell Distribution Width 21.8 % (11.5-14.5) Platelet Count 328 x10^3/uL (140-400) Neutrophils (%) (Auto) 42 % (31-73) Lymphocytes (%) (Auto) 46 % (24-48) Monocytes (%) (Auto) 9 % (0-9) Eosinophils (%) (Auto) 3 % (0-3) Basophils (%) (Auto) 1 % (0-3) Neutrophils # (Auto) 2.6 x10^3uL (1.8-7.7) Lymphocytes # (Auto) 2.9 x10^3/uL (1.0-4.8) Monocytes # (Auto) 0.5 x10^3/uL (0.0-1.1) Eosinophils # (Auto) 0.2 x10^3/uL (0.0-0.7) Basophils # (Auto) 0.0 x10^3/uL (0.0-0.2) Sodium Level 144 mmol/L (136-145) Potassium Level 3.5 mmol/L (3.5-5.1) Chloride Level 108 mmol/L (98-107) Carbon Dioxide Level 25 mmol/L (21-32) Anion Gap 11 (6-14) Blood Urea Nitrogen 12 mg/dL (7-20) Creatinine 0.7 mg/dL (0.6-1.0) Estimated GFR (Cockcroft-Gault) 114.6 BUN/Creatinine Ratio 17 (6-20) Glucose Level 53 mg/dL (70-99) Calcium Level 9.0 mg/dL (8.5-10.1) Total Bilirubin 0.4 mg/dL (0.2-1.0) Aspartate Amino Transf (AST/SGOT) 21 U/L (15-37) Alanine Aminotransferase (ALT/SGPT) 31 U/L (14-59) Alkaline Phosphatase 90 U/L (46-116) Total Protein 7.4 g/dL (6.4-8.2) Albumin 3.0 g/dL (3.4-5.0) Albumin/Globulin Ratio 0.7 (1.0-1.7) Lipase 704 U/L (73-393) SHIRLEY SINGH MD Mar 23, 2017 15:12
[2017-03-23] MEDS: POTASSIUM CHLORIDE 30 MEQ in IV 1/2 NORMAL SALINE 1,000 ML IV SCH (16:02)
[2017-03-23 19:00] VITALS: BP 99/75
[2017-03-23] MEDS: TEMAZEPAM 15 MG CAPSULE PO SCH (20:31)
[2017-03-23 22:57] VITALS: BP 114/61
[2017-03-24] MEDS: fentaNYL PF VIAL 100 MCG/2 ML VIAL IV PRN ×10 (00:59→23:13)
[2017-03-24 03:00] VITALS: BP 105/70
[2017-03-24 05:05] LABS: CALCIUM 9.2 mg/dL (8.5-10.1); CREATININE 0.7 mg/dL (0.6-1.0); GFR 114.6; POTASSIUM 3.8 mmol/L (3.5-5.1)
[2017-03-24] MEDS: POTASSIUM CHLORIDE 30 MEQ in IV 1/2 NORMAL SALINE 1,000 ML IV SCH ×2 (05:35→20:03)
[2017-03-24 07:00] VITALS: BP 118/82
--- NOTE | 2017-03-24 08:46 | RAD ---
EXAM: Right upper quadrant ultrasound. HISTORY: Right upper quadrant pain. COMPARISON: None. FINDINGS: Sonographic evaluation of the right upper quadrant was performed. The liver appears normal in parenchymal echotexture. There are no focal lesions. The gallbladder is surgically absent. There is no sonographic Burgess sign. The common duct measures 7 mm. The visualized portions of the head and body of the pancreas reveal no abnormality. The right kidney measures 11.6 cm. Cortical thickness and echogenicity are preserved. There is no hydronephrosis. The visualized portions of the abdominal aorta and inferior vena cava are grossly patent and normal in caliber. IMPRESSION: 1. Common duct at upper limits of normal caliber status post cholecystectomy. No cause for acute pain is identified.
[2017-03-24] MEDS: ALPRAZolam 1 MG TABLET PO SCH ×2 (09:15→20:04)
[2017-03-24] MEDS: PANTOPRAZOLE 40 MG TABLET.DR. PO SCH ×2 (09:15→16:38)
[2017-03-24 10:30] VITALS: BP 114/71
--- NOTE | 2017-03-24 12:43 | PDOC ---
Subjective: Subjective: Pain is not controlled. Doesn't want to eat. Objective: Objective: Per RN - asked to eat earlier, needing scheduled Fentanyl. Vital Signs: Vital Signs Date Time Temp Pulse Resp B/P (MAP) Pulse Ox O2 Delivery O2 Flow Rate FiO2 03/24/17 10:30 96.6 73 18 114/71 (85) 92 Room Air 96.6 Labs: Laboratory Tests Test 03/24/17 03:10 Sodium Level 139 mmol/L Potassium Level 3.8 mmol/L Chloride Level 105 mmol/L Carbon Dioxide Level 25 mmol/L Anion Gap 9 Blood Urea Nitrogen 6 mg/dL Creatinine 0.7 mg/dL Estimated GFR (Cockcroft-Gault) 114.6 Glucose Level 82 mg/dL Calcium Level 9.2 mg/dL Lipase 530 U/L Imaging: Abd US 03/24/17 IMPRESSION: 1. Common duct at upper limits of normal caliber status post cholecystectomy. No cause for acute pain is identified. Normal pancreas on CT 03/05/17. PE: GEN: NAD, seen in room and walking halls, stopping at nursing desk ABD: RUQ and epigastric pain NEURO/PSYCH: A & O 3 A/P: Elevated lipase, abd pain -lipase improving, pain persists, ?drug seeking behavior -US as above -had EGD, colonoscopy, and exp lap here in 11/2016, EGD 02/1817 at [facility] normal -h/o PUD s/p vagotomy, subtotal gastrectomy, BII anastomosis; h/o anemia -on PPI BID at home -- Wants to remain NPO for now. Wants more pain meds. TYRONE JONES Mar 24, 2017 12:43
--- NOTE | 2017-03-24 14:26 | PDOC ---
PROGRESS NOTES Chief Complaint Chief Complaint Abd pain ASSESSMENT AND PLAN: 1. Pancreatitis: lipase better. cont bowel rest, IVF. appreciate Dr Brewster' s input. obtain US RUQ to r/o GB dz (trying to minimize frequent CTs) 2. Pain control: fentanyl PRN "allergic" to many pain meds 3. Chest pain: ruled out by enzymes/EKG. suspect related to GERD 4. 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 IV protonix 5. Diarrhea: chronic episodic. C.diff PCR pending 6. Anemia: microcytic, moderate. obtain anemia profile. 7. Anxiety/depression and schizophrenia: cont home regimen 8. Hx narcotic seeking behavior: limit as much as possible 9. Prophylaxis: lovenox. pt has done many test in the past including EGD and neg. possible pain seeker. still want NPO, cont IVF add po pain meds check anemia tests fu with GI lipase daily check lipid panel History of Present Illness History of Present Illness pain persisting. mild nausea. no vomiting Vitals Vitals Vital Signs Date Time Temp Pulse Resp B/P (MAP) Pulse Ox O2 Delivery O2 Flow Rate FiO2 03/24/17 10:30 96.6 73 18 114/71 (85) 92 Room Air 96.6 Physical Exam General: Alert, Oriented X3, Cooperative, No acute distress Heart: Regular rate Lungs: Clear Abdomen: Other (RUQ/periumbilical pain) Extremities: No edema Skin: No rashes Labs LABS Laboratory Tests Test 03/24/17 03:10 Sodium Level 139 mmol/L (136-145) Potassium Level 3.8 mmol/L (3.5-5.1) Chloride Level 105 mmol/L (98-107) Carbon Dioxide Level 25 mmol/L (21-32) Anion Gap 9 (6-14) Blood Urea Nitrogen 6 mg/dL (7-20) Creatinine 0.7 mg/dL (0.6-1.0) Estimated GFR (Cockcroft-Gault) 114.6 Glucose Level 82 mg/dL (70-99) Calcium Level 9.2 mg/dL (8.5-10.1) Lipase 530 U/L (73-393) Review of Systems Review of Systems no fever, chills, sob or chest pain Assessment and Plan Assessmemt and Plan Problems Medical Problems: (1) Abdominal pain Status: Acute (2) Nausea & vomiting Status: Acute (3) Pancreatitis Status: Acute Problems: Comment Review of Relevant I have reviewed the following items vero (where applicable) has been applied. Labs Laboratory Tests Test 03/22/17 19:00 03/23/17 02:00 03/23/17 08:50 03/24/17 03:10 Troponin I Quantitative < 0.017 ng/mL (0.000-0.055) < 0.017 ng/mL (0.000-0.055) White Blood Count 6.2 x10^3/uL (4.0-11.0) Red Blood Count 3.26 x10^6/uL (3.50-5.40) Hemoglobin 8.6 g/dL (12.0-15.5) Hematocrit 25.2 % (36.0-47.0) Mean Corpuscular Volume 78 fL (79-100) Mean Corpuscular Hemoglobin 26 pg (25-35) Mean Corpuscular Hemoglobin Concent 34 g/dL (31-37) Red Cell Distribution Width 21.8 % (11.5-14.5) Platelet Count 328 x10^3/uL (140-400) Neutrophils (%) (Auto) 42 % (31-73) Lymphocytes (%) (Auto) 46 % (24-48) Monocytes (%) (Auto) 9 % (0-9) Eosinophils (%) (Auto) 3 % (0-3) Basophils (%) (Auto) 1 % (0-3) Neutrophils # (Auto) 2.6 x10^3uL (1.8-7.7) Lymphocytes # (Auto) 2.9 x10^3/uL (1.0-4.8) Monocytes # (Auto) 0.5 x10^3/uL (0.0-1.1) Eosinophils # (Auto) 0.2 x10^3/uL (0.0-0.7) Basophils # (Auto) 0.0 x10^3/uL (0.0-0.2) Sodium Level 144 mmol/L (136-145) 139 mmol/L (136-145) Potassium Level 3.5 mmol/L (3.5-5.1) 3.8 mmol/L (3.5-5.1) Chloride Level 108 mmol/L (98-107) 105 mmol/L (98-107) Carbon Dioxide Level 25 mmol/L (21-32) 25 mmol/L (21-32) Anion Gap 11 (6-14) 9 (6-14) Blood Urea Nitrogen 12 mg/dL (7-20) 6 mg/dL (7-20) Creatinine 0.7 mg/dL (0.6-1.0) 0.7 mg/dL (0.6-1.0) Estimated GFR (Cockcroft-Gault) 114.6 114.6 BUN/Creatinine Ratio 17 (6-20) Glucose Level 53 mg/dL (70-99) 82 mg/dL (70-99) Calcium Level 9.0 mg/dL (8.5-10.1) 9.2 mg/dL (8.5-10.1) Total Bilirubin 0.4 mg/dL (0.2-1.0) Aspartate Amino Transf (AST/SGOT) 21 U/L (15-37) Alanine Aminotransferase (ALT/SGPT) 31 U/L (14-59) Alkaline Phosphatase 90 U/L (46-116) Total Protein 7.4 g/dL (6.4-8.2) Albumin 3.0 g/dL (3.4-5.0) Albumin/Globulin Ratio 0.7 (1.0-1.7) Lipase 704 U/L (73-393) 530 U/L (73-393) Clostridium difficile Toxin (PCR) Negative (Negative) Laboratory Tests Test 03/24/17 03:10 Sodium Level 139 mmol/L (136-145) Potassium Level 3.8 mmol/L (3.5-5.1) Chloride Level 105 mmol/L (98-107) Carbon Dioxide Level 25 mmol/L (21-32) Anion Gap 9 (6-14) Blood Urea Nitrogen 6 mg/dL (7-20) Creatinine 0.7 mg/dL (0.6-1.0) Estimated GFR (Cockcroft-Gault) 114.6 Glucose Level 82 mg/dL (70-99) Calcium Level 9.2 mg/dL (8.5-10.1) Lipase 530 U/L (73-393) Medications Current Medications Albuterol/ Ipratropium (Duoneb) 3 ml 1X ONCE NEB Last administered on 10:49; Start 03/22/17 at 10:30; Stop 03/22/17 at 10:33; Status DC Fentanyl Citrate (Fentanyl 2ml Vial) 100 mcg 1X ONCE IV Last administered on 10:49; Start 03/22/17 at 10:30; Stop 03/22/17 at 10:33; Status DC Ondansetron HCl (Zofran) 8 mg 1X ONCE IV Last administered on 03/22/17 10:49 ; Start 03/22/17 at 10:30; Stop 03/22/17 at 10:33; Status DC Pantoprazole Sodium (Protonix Vial) 40 mg 1X ONCE IVP Last administered on 10:49; Start 03/22/17 at 10:30; Stop 03/22/17 at 10:33; Status DC Sodium Chloride 1,000 ml @ 1,000 mls/hr 1X ONCE IV Last administered on 10:47; Start 03/22/17 at 10:30; Stop 03/22/17 at 11:29; Status DC Multi-Ingredient Mouthwash/Gargle (Gi Cocktail Single Dose) 15 ml 1X ONCE SWSW Last administered on 03/22/17 10:48; Start 03/22/17 at 10:30; Stop 03/22/17 at 10:33; Status DC Fentanyl Citrate (Fentanyl 2ml Vial) 100 mcg 1X ONCE IV Last administered on 12:02; Start 03/22/17 at 11:45; Stop 03/22/17 at 11:46; Status DC Ondansetron HCl (Zofran) 4 mg PRN Q8HRS PRN IV NAUSEA/VOMITING; Start 03/22/17 at 12:00; Stop 03/22/17 at 17:36; Status DC Fentanyl Citrate (Fentanyl 2ml Vial) 50 mcg PRN Q2HR PRN IV PAIN Last administered on 03/22/17 16:20; Start 03/22/17 at 12:00; Stop 03/22/17 at 17:27 ; Status DC Acetaminophen (Tylenol) 325 mg PRN Q6HRS PRN PO MILD PAIN / TEMP; Start at 17:00 Hydralazine HCl (Apresoline) 10 mg PRN Q4HRS PRN IVP ELEVATED BP, SEE COMMENTS ; Start 03/22/17 at 17:00 Ondansetron HCl (Zofran) 4 mg PRN Q8HRS PRN IV NAUSEA/VOMITING; Start 03/22/17 at 17:00 Albuterol Sulfate (Ventolin Neb Soln) 2.5 mg PRN Q4HRS PRN NEB SHORTNESS OF BREATH Last administered on 03/22/17 18:58; Start 03/22/17 at 17:00 Sodium Chloride 1,000 ml @ 125 mls/hr Q8H IV Last administered on 03/23/17 08 :07; Start 03/22/17 at 17:00; Stop 03/23/17 at 15:14; Status DC Fentanyl Citrate (Fentanyl 2ml Vial) 25 mcg PRN Q2HR PRN IV PAIN Last administered on 03/24/17 14:20; Start 03/22/17 at 17:30 Alprazolam (Xanax) 1 mg BID PO Last administered on 03/24/17 09:15; Start 07/29 at 21:00 Pantoprazole Sodium (Protonix) 40 mg BIDAC PO Last administered on 03/24/17 09 :15; Start 03/23/17 at 07:30 Temazepam (Restoril) 30 mg QHS PO Last administered on 03/23/17 20:31; Start 03/22/17 at 21:00 Pantoprazole Sodium (Protonix Vial) 40 mg 1X ONCE IVP Last administered on 17:46; Start 03/22/17 at 18:00; Stop 03/22/17 at 18:01; Status DC Potassium Chloride 30 meq/ Sodium Chloride 1,015 ml @ 75 mls/hr [id number] IV Last administered on 03/24/17 05:35; Start 03/23/17 at 16:00 Active Scripts Active Reported Xanax (Alprazolam) 1 Mg Tablet 1 Tab PO BID Temazepam 30 Mg Capsule 1 Cap PO QHS Gabapentin 300 Mg Capsule 300 Mg PO TID Protonix (Pantoprazole Sodium) 40 Mg Tablet.dr 40 Mg PO BID Zofran Odt (Ondansetron) 4 Mg Tab.rapdis 4 Mg PO BID PRN Vitals/I & O Vital Sign - Last 24 Hours 03/23/17 03/23/17 03/23/17 03/23/17 15:00 16:03 18:17 19:00 Temp 98.6 98.4 98.6 98.4 Pulse 69 65 Resp 16 18 B/P (MAP) 107/71 (83) 99/75 (83) Pulse Ox 98 95 O2 Delivery Room Air Room Air Room Air Room Air 03/23/17 03/23/17 03/23/17 03/23/17 20:00 20:30 22:35 22:57 Temp 98.0 98.0 Pulse 73 Resp 20 B/P (MAP) 114/61 (78) Pulse Ox 98 98 97 O2 Delivery Room Air Room Air Room Air Room Air 03/24/17 03/24/17 03/24/17 03/24/17 00:59 03:00 03:11 05:35 Temp 98.5 98.5 Pulse 66 Resp 20 B/P (MAP) 105/70 (82) Pulse Ox 97 95 97 97 O2 Delivery Room Air Room Air Room Air Room Air 03/24/17 03/24/17 03/24/17 03/24/17 06:05 07:00 08:00 10:30 Temp 96.8 96.6 96.8 96.6 Pulse 69 73 Resp 18 18 B/P (MAP) 118/82 (94) 114/71 (85) Pulse Ox 97 100 92 O2 Delivery Room Air Room Air Room Air Room Air Intake and Output 03/23/17 03/23/17 03/24/17 15:00 23:00 07:00 Intake Total 1190 ml 1000 ml Balance 1190 ml 1000 ml SATISH BRANHAM MD Mar 24, 2017 14:26
[2017-03-24] MEDS ORDERED: traMADol 50 MG TABLET PO PRN (14:30)
[2017-03-24 15:00] VITALS: BP 117/82
[2017-03-24] MEDS ORDERED: oxyCODONE/APAP 5/325 1 TAB TABLET PO PRN (17:30)
[2017-03-24 19:00] VITALS: BP 122/78
[2017-03-24] MEDS: TEMAZEPAM 15 MG CAPSULE PO SCH (20:05)
[2017-03-24 21:54] LABS: NEG OBC FOB NEG; POS OBC FOB POS
[2017-03-24 23:00] VITALS: BP 103/60
[2017-03-24] MEDS: oxyCODONE/APAP 5/325 1 TAB TABLET PO PRN (23:16)
[2017-03-25] MEDS: fentaNYL PF VIAL 100 MCG/2 ML VIAL IV PRN ×10 (01:15→21:38)
[2017-03-25 06:41] LABS: BASO # 0.1 x10^3/uL (0.0-0.2); BASO % 1 % (0-3); EOS % 7 % (0-3); HEMATOCRIT 26.7 % (36.0-47.0); HEMOGLOBIN 8.6 g/dL (12.0-15.5); LYMPH # 1.7 x10^3/uL (1.0-4.8); LYMPH % 38 % (24-48); MEAN CORPUSCULAR HEMOGLOBIN 25 pg (25-35); MEAN CORPUSCULAR HGB CONC 32 g/dL (31-37); MEAN CORPUSCULAR VOLUME 78 fL (79-100); MONO % 7 % (0-9); NEUT % 48 % (31-73); PLATELET COUNT 393 x10^3/uL (140-400); RED BLOOD COUNT 3.41 x10^6/uL (3.50-5.40); RED CELL DISTRIBUTION WIDTH 22.4 % (11.5-14.5); WHITE BLOOD COUNT 4.6 x10^3/uL (4.0-11.0)
[2017-03-25 07:01] LABS: CALCIUM 9.4 mg/dL (8.5-10.1); CREATININE 0.7 mg/dL (0.6-1.0); GFR 114.6; POTASSIUM 4.1 mmol/L (3.5-5.1)
[2017-03-25 07:08] LABS: % SAT IRON 5 % (15-34); IRON,SERUM 19 ug/dL (50-170)
[2017-03-25 07:22] LABS: CHOLESTEROL/HDL RATIO 3.5
[2017-03-25 07:30] VITALS: BP 121/87
[2017-03-25] MEDS: PANTOPRAZOLE 40 MG TABLET.DR. PO SCH ×2 (08:05→16:51)
[2017-03-25] MEDS: ALPRAZolam 1 MG TABLET PO SCH ×2 (08:05→20:42)
[2017-03-25] MEDS: oxyCODONE/APAP 5/325 1 TAB TABLET PO PRN ×4 (08:06→21:35)
[2017-03-25 08:44] LABS: VITAMIN-B12 519 pg/mL (247-911)
[2017-03-25 08:49] LABS: FOLATE > 20.00 ng/ml (3.2-20.0)
[2017-03-25] MEDS: POTASSIUM CHLORIDE 30 MEQ in IV 1/2 NORMAL SALINE 1,000 ML IV SCH ×2 (09:01→19:50)
[2017-03-25 10:30] VITALS: BP 116/75
--- NOTE | 2017-03-25 10:47 | PDOC ---
G I PROGRESS NOTE Subjective RUQ pain/not eating. Says increases pain. Physical Exam Lungs clear. RRR Abdomen soft, not distended. Tender RUQ, but seems maybe M/S component. Review of Relevant I have reviewed the following items vero (where applicable) has been applied. Labs Laboratory Tests Test 03/24/17 03:10 03/24/17 17:48 03/25/17 06:30 Sodium Level 139 mmol/L (136-145) 139 mmol/L (136-145) Potassium Level 3.8 mmol/L (3.5-5.1) 4.1 mmol/L (3.5-5.1) Chloride Level 105 mmol/L (98-107) 105 mmol/L (98-107) Carbon Dioxide Level 25 mmol/L (21-32) 26 mmol/L (21-32) Anion Gap 9 (6-14) 8 (6-14) Blood Urea Nitrogen 6 mg/dL (7-20) 7 mg/dL (7-20) Creatinine 0.7 mg/dL (0.6-1.0) 0.7 mg/dL (0.6-1.0) Estimated GFR (Cockcroft-Gault) 114.6 114.6 Glucose Level 82 mg/dL (70-99) 92 mg/dL (70-99) Calcium Level 9.2 mg/dL (8.5-10.1) 9.4 mg/dL (8.5-10.1) Lipase 530 U/L (73-393) 499 U/L (73-393) Stool Occult Blood Positive (NEG) White Blood Count 4.6 x10^3/uL (4.0-11.0) Red Blood Count 3.41 x10^6/uL (3.50-5.40) Hemoglobin 8.6 g/dL (12.0-15.5) Hematocrit 26.7 % (36.0-47.0) Mean Corpuscular Volume 78 fL (79-100) Mean Corpuscular Hemoglobin 25 pg (25-35) Mean Corpuscular Hemoglobin Concent 32 g/dL (31-37) Red Cell Distribution Width 22.4 % (11.5-14.5) Platelet Count 393 x10^3/uL (140-400) Neutrophils (%) (Auto) 48 % (31-73) Lymphocytes (%) (Auto) 38 % (24-48) Monocytes (%) (Auto) 7 % (0-9) Eosinophils (%) (Auto) 7 % (0-3) Basophils (%) (Auto) 1 % (0-3) Neutrophils # (Auto) 2.2 x10^3uL (1.8-7.7) Lymphocytes # (Auto) 1.7 x10^3/uL (1.0-4.8) Monocytes # (Auto) 0.3 x10^3/uL (0.0-1.1) Eosinophils # (Auto) 0.3 x10^3/uL (0.0-0.7) Basophils # (Auto) 0.1 x10^3/uL (0.0-0.2) Iron Level 19 ug/dL (50-170) Total Iron Binding Capacity 379 ug/dL (250-450) Iron Saturation 5 % (15-34) Ferritin 27 ng/mL (8-252) Triglycerides Level 53 mg/dL (0-150) Cholesterol Level 166 mg/dL (0-200) LDL Cholesterol, Calculated 107 mg/dL (0-100) VLDL Cholesterol, Calculated 11 mg/dL (0-40) Non-HDL Cholesterol Calculated 118 mg/dL (0-129) HDL Cholesterol 48 mg/dL (40-60) Cholesterol/HDL Ratio 3.5 Vitamin B12 Level 519 pg/mL (247-911) Serum Folate > 20.00 ng/ml (3.2-20.0) Laboratory Tests Test 03/24/17 17:48 03/25/17 06:30 Stool Occult Blood Positive (NEG) White Blood Count 4.6 x10^3/uL (4.0-11.0) Red Blood Count 3.41 x10^6/uL (3.50-5.40) Hemoglobin 8.6 g/dL (12.0-15.5) Hematocrit 26.7 % (36.0-47.0) Mean Corpuscular Volume 78 fL (79-100) Mean Corpuscular Hemoglobin 25 pg (25-35) Mean Corpuscular Hemoglobin Concent 32 g/dL (31-37) Red Cell Distribution Width 22.4 % (11.5-14.5) Platelet Count 393 x10^3/uL (140-400) Neutrophils (%) (Auto) 48 % (31-73) Lymphocytes (%) (Auto) 38 % (24-48) Monocytes (%) (Auto) 7 % (0-9) Eosinophils (%) (Auto) 7 % (0-3) Basophils (%) (Auto) 1 % (0-3) Neutrophils # (Auto) 2.2 x10^3uL (1.8-7.7) Lymphocytes # (Auto) 1.7 x10^3/uL (1.0-4.8) Monocytes # (Auto) 0.3 x10^3/uL (0.0-1.1) Eosinophils # (Auto) 0.3 x10^3/uL (0.0-0.7) Basophils # (Auto) 0.1 x10^3/uL (0.0-0.2) Sodium Level 139 mmol/L (136-145) Potassium Level 4.1 mmol/L (3.5-5.1) Chloride Level 105 mmol/L (98-107) Carbon Dioxide Level 26 mmol/L (21-32) Anion Gap 8 (6-14) Blood Urea Nitrogen 7 mg/dL (7-20) Creatinine 0.7 mg/dL (0.6-1.0) Estimated GFR (Cockcroft-Gault) 114.6 Glucose Level 92 mg/dL (70-99) Calcium Level 9.4 mg/dL (8.5-10.1) Iron Level 19 ug/dL (50-170) Total Iron Binding Capacity 379 ug/dL (250-450) Iron Saturation 5 % (15-34) Ferritin 27 ng/mL (8-252) Triglycerides Level 53 mg/dL (0-150) Cholesterol Level 166 mg/dL (0-200) LDL Cholesterol, Calculated 107 mg/dL (0-100) VLDL Cholesterol, Calculated 11 mg/dL (0-40) Non-HDL Cholesterol Calculated 118 mg/dL (0-129) HDL Cholesterol 48 mg/dL (40-60) Cholesterol/HDL Ratio 3.5 Lipase 499 U/L (73-393) Vitamin B12 Level 519 pg/mL (247-911) Serum Folate > 20.00 ng/ml (3.2-20.0) Note heme positive stool/no overt bleeding. Lipase falling some. As always, iron deficient. Medications Current Medications Albuterol/ Ipratropium (Duoneb) 3 ml 1X ONCE NEB Last administered on 10:49; Start 03/22/17 at 10:30; Stop 03/22/17 at 10:33; Status DC Fentanyl Citrate (Fentanyl 2ml Vial) 100 mcg 1X ONCE IV Last administered on 10:49; Start 03/22/17 at 10:30; Stop 03/22/17 at 10:33; Status DC Ondansetron HCl (Zofran) 8 mg 1X ONCE IV Last administered on 03/22/17 10:49 ; Start 03/22/17 at 10:30; Stop 03/22/17 at 10:33; Status DC Pantoprazole Sodium (Protonix Vial) 40 mg 1X ONCE IVP Last administered on 10:49; Start 03/22/17 at 10:30; Stop 03/22/17 at 10:33; Status DC Sodium Chloride 1,000 ml @ 1,000 mls/hr 1X ONCE IV Last administered on 10:47; Start 03/22/17 at 10:30; Stop 03/22/17 at 11:29; Status DC Multi-Ingredient Mouthwash/Gargle (Gi Cocktail Single Dose) 15 ml 1X ONCE SWSW Last administered on 03/22/17 10:48; Start 03/22/17 at 10:30; Stop 03/22/17 at 10:33; Status DC Fentanyl Citrate (Fentanyl 2ml Vial) 100 mcg 1X ONCE IV Last administered on 12:02; Start 03/22/17 at 11:45; Stop 03/22/17 at 11:46; Status DC Ondansetron HCl (Zofran) 4 mg PRN Q8HRS PRN IV NAUSEA/VOMITING; Start 03/22/17 at 12:00; Stop 03/22/17 at 17:36; Status DC Fentanyl Citrate (Fentanyl 2ml Vial) 50 mcg PRN Q2HR PRN IV PAIN Last administered on 03/22/17 16:20; Start 03/22/17 at 12:00; Stop 03/22/17 at 17:27 ; Status DC Acetaminophen (Tylenol) 325 mg PRN Q6HRS PRN PO MILD PAIN / TEMP; Start at 17:00 Hydralazine HCl (Apresoline) 10 mg PRN Q4HRS PRN IVP ELEVATED BP, SEE COMMENTS ; Start 03/22/17 at 17:00 Ondansetron HCl (Zofran) 4 mg PRN Q8HRS PRN IV NAUSEA/VOMITING; Start 03/22/17 at 17:00 Albuterol Sulfate (Ventolin Neb Soln) 2.5 mg PRN Q4HRS PRN NEB SHORTNESS OF BREATH Last administered on 03/22/17 18:58; Start 03/22/17 at 17:00 Sodium Chloride 1,000 ml @ 125 mls/hr Q8H IV Last administered on 03/23/17 08 :07; Start 03/22/17 at 17:00; Stop 03/23/17 at 15:14; Status DC Fentanyl Citrate (Fentanyl 2ml Vial) 25 mcg PRN Q2HR PRN IV PAIN Last administered on 03/25/17 08:09; Start 03/22/17 at 17:30 Alprazolam (Xanax) 1 mg BID PO Last administered on 03/25/17 08:05; Start 07/29 at 21:00 Pantoprazole Sodium (Protonix) 40 mg BIDAC PO Last administered on 03/25/17 08 :05; Start 03/23/17 at 07:30 Temazepam (Restoril) 30 mg QHS PO Last administered on 03/24/17 20:05; Start 03/22/17 at 21:00 Pantoprazole Sodium (Protonix Vial) 40 mg 1X ONCE IVP Last administered on 17:46; Start 03/22/17 at 18:00; Stop 03/22/17 at 18:01; Status DC Potassium Chloride 30 meq/ Sodium Chloride 1,015 ml @ 75 mls/hr [id number] IV Last administered on 03/25/17 09:01; Start 03/23/17 at 16:00 Tramadol HCl (Ultram) 50 mg PRN Q6HRS PRN PO PAIN; Start 03/24/17 at 14:30 Oxycodone/ Acetaminophen (Percocet 5/325) 1 tab PRN Q6HRS PRN PO PAIN Last administered on 03/24/17 18:37; Start 03/24/17 at 17:30; Stop 03/24/17 at 19:53 ; Status DC Oxycodone/ Acetaminophen (Percocet 5/325) 1 tab PRN Q4HRS PRN PO PAIN Last administered on 03/25/17t 08:06; Start 03/24/17 at 20:00 Active Scripts Active Reported Xanax (Alprazolam) 1 Mg Tablet 1 Tab PO BID Temazepam 30 Mg Capsule 1 Cap PO QHS Gabapentin 300 Mg Capsule 300 Mg PO TID Protonix (Pantoprazole Sodium) 40 Mg Tablet.dr 40 Mg PO BID Zofran Odt (Ondansetron) 4 Mg Tab.rapdis 4 Mg PO BID PRN Vitals/I & O Vital Sign - Last 24 Hours 03/24/17 03/24/17 03/24/17 03/24/17 15:00 19:00 20:00 20:04 Temp 98.4 97.8 98.4 97.8 Pulse 55 60 Resp 18 19 18 B/P (MAP) 117/82 (94) 122/78 (93) Pulse Ox 100 97 100 O2 Delivery Room Air Room Air Room Air Room Air 03/24/17 03/24/17 03/24/17 03/25/17 23:00 23:13 23:16 00:44 Temp 97.8 97.8 Pulse 69 Resp 19 18 18 B/P (MAP) 103/60 (74) Pulse Ox 99 100 100 100 O2 Delivery Room Air Room Air Room Air Room Air 03/25/17 03/25/17 03/25/17 03/25/17 01:15 03:43 06:07 07:30 Temp 97.9 97.9 Pulse 68 Resp 18 18 18 18 B/P (MAP) 121/87 (98) Pulse Ox 100 100 100 100 O2 Delivery Room Air Room Air Room Air Room Air 03/25/17 03/25/17 03/25/17 03/25/17 08:00 08:06 08:09 08:39 Resp 20 20 20 Pulse Ox 100 100 99 O2 Delivery Room Air Room Air Room Air Room Air Intake and Output 03/24/17 03/24/17 03/25/17 15:00 23:00 07:00 Intake Total 0 ml 120 ml Balance 0 ml 120 ml Problem List Problems Medical Problems: (1) Abdominal pain Status: Acute (2) Nausea & vomiting Status: Acute (3) Pancreatitis Status: Acute Assessment Pancreatitis? Unclear etiology if so. Heme positive; not the most reliable test and has had colonoscopy and EGD this year. SANDRA in part likely from post-op anatomy. Plan of Care: Continue current Tx, Mgmt Plan of Care Note Await improvement in pain. If small bowel capsule was available here, could do. DARION GUSMAN MD Mar 25, 2017 10:47
--- NOTE | 2017-03-25 13:43 | PDOC ---
PROGRESS NOTES Chief Complaint Chief Complaint Abd pain ASSESSMENT AND PLAN: 1. Pancreatitis: lipase better. cont bowel rest, IVF. appreciate Dr Brewster' s input. obtain US RUQ to r/o GB dz (trying to minimize frequent CTs) 2. Pain control: fentanyl PRN "allergic" to many pain meds 3. Chest pain: ruled out by enzymes/EKG. suspect related to GERD 4. 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 IV protonix 5. Diarrhea: chronic episodic. C.diff PCR pending 6. Anemia: microcytic, moderate. obtain anemia profile. 7. Anxiety/depression and schizophrenia: cont home regimen 8. Hx narcotic seeking behavior: limit as much as possible 9.h/o + FOBT pt has done many test in the past including EGD, colonscopy 11/2016 and all neg. possible pain seeker. advance to clear liquid, increase IVF add po pain meds check anemia tests fu with GI lipase daily check lipid panel pt refused po iron dc tmr if ok with gi History of Present Illness History of Present Illness pain persisting. mild nausea. no vomiting no melena was reported, but pt said so when asked. then pt got mad when i talked to nurse out of her room, asking the nurse to take a picture of her BM because not sure the pt said was true since according to previous note, pt is likely a pain meds seeker. Pt is very upset saying i dont trust her and cont threaten to me although after i explained to her i would do this to all other patients to make sure we have evidence and everyone on the same page. Pt told me that she didnot get colonoscopy done this year, but actually she got it in 11/2016. pt got EGD, Colonoscopy in 11/2016, all neg. Vitals Vitals Vital Signs Date Time Temp Pulse Resp B/P (MAP) Pulse Ox O2 Delivery O2 Flow Rate FiO2 03/25/17 13:04 20 99 Room Air 03/25/17 10:30 97.7 67 116/75 (89) 97.7 Physical Exam General: Alert, Oriented X3, Cooperative, No acute distress Heart: Regular rate Lungs: Clear Abdomen: Other (RUQ/periumbilical pain) Extremities: No edema Skin: No rashes Labs LABS Laboratory Tests Test 03/24/17 17:48 03/25/17 06:30 Stool Occult Blood Positive (NEG) White Blood Count 4.6 x10^3/uL (4.0-11.0) Red Blood Count 3.41 x10^6/uL (3.50-5.40) Hemoglobin 8.6 g/dL (12.0-15.5) Hematocrit 26.7 % (36.0-47.0) Mean Corpuscular Volume 78 fL (79-100) Mean Corpuscular Hemoglobin 25 pg (25-35) Mean Corpuscular Hemoglobin Concent 32 g/dL (31-37) Red Cell Distribution Width 22.4 % (11.5-14.5) Platelet Count 393 x10^3/uL (140-400) Neutrophils (%) (Auto) 48 % (31-73) Lymphocytes (%) (Auto) 38 % (24-48) Monocytes (%) (Auto) 7 % (0-9) Eosinophils (%) (Auto) 7 % (0-3) Basophils (%) (Auto) 1 % (0-3) Neutrophils # (Auto) 2.2 x10^3uL (1.8-7.7) Lymphocytes # (Auto) 1.7 x10^3/uL (1.0-4.8) Monocytes # (Auto) 0.3 x10^3/uL (0.0-1.1) Eosinophils # (Auto) 0.3 x10^3/uL (0.0-0.7) Basophils # (Auto) 0.1 x10^3/uL (0.0-0.2) Sodium Level 139 mmol/L (136-145) Potassium Level 4.1 mmol/L (3.5-5.1) Chloride Level 105 mmol/L (98-107) Carbon Dioxide Level 26 mmol/L (21-32) Anion Gap 8 (6-14) Blood Urea Nitrogen 7 mg/dL (7-20) Creatinine 0.7 mg/dL (0.6-1.0) Estimated GFR (Cockcroft-Gault) 114.6 Glucose Level 92 mg/dL (70-99) Calcium Level 9.4 mg/dL (8.5-10.1) Iron Level 19 ug/dL (50-170) Total Iron Binding Capacity 379 ug/dL (250-450) Iron Saturation 5 % (15-34) Ferritin 27 ng/mL (8-252) Triglycerides Level 53 mg/dL (0-150) Cholesterol Level 166 mg/dL (0-200) LDL Cholesterol, Calculated 107 mg/dL (0-100) VLDL Cholesterol, Calculated 11 mg/dL (0-40) Non-HDL Cholesterol Calculated 118 mg/dL (0-129) HDL Cholesterol 48 mg/dL (40-60) Cholesterol/HDL Ratio 3.5 Lipase 499 U/L (73-393) Vitamin B12 Level 519 pg/mL (247-911) Serum Folate > 20.00 ng/ml (3.2-20.0) Review of Systems Review of Systems no fever, chills, sob or chest pain Assessment and Plan Assessmemt and Plan Problems Medical Problems: (1) Abdominal pain Status: Acute (2) Nausea & vomiting Status: Acute (3) Pancreatitis Status: Acute Problems: Comment Review of Relevant I have reviewed the following items vero (where applicable) has been applied. Labs Laboratory Tests Test 03/24/17 03:10 03/24/17 17:48 03/25/17 06:30 Sodium Level 139 mmol/L (136-145) 139 mmol/L (136-145) Potassium Level 3.8 mmol/L (3.5-5.1) 4.1 mmol/L (3.5-5.1) Chloride Level 105 mmol/L (98-107) 105 mmol/L (98-107) Carbon Dioxide Level 25 mmol/L (21-32) 26 mmol/L (21-32) Anion Gap 9 (6-14) 8 (6-14) Blood Urea Nitrogen 6 mg/dL (7-20) 7 mg/dL (7-20) Creatinine 0.7 mg/dL (0.6-1.0) 0.7 mg/dL (0.6-1.0) Estimated GFR (Cockcroft-Gault) 114.6 114.6 Glucose Level 82 mg/dL (70-99) 92 mg/dL (70-99) Calcium Level 9.2 mg/dL (8.5-10.1) 9.4 mg/dL (8.5-10.1) Lipase 530 U/L (73-393) 499 U/L (73-393) Stool Occult Blood Positive (NEG) White Blood Count 4.6 x10^3/uL (4.0-11.0) Red Blood Count 3.41 x10^6/uL (3.50-5.40) Hemoglobin 8.6 g/dL (12.0-15.5) Hematocrit 26.7 % (36.0-47.0) Mean Corpuscular Volume 78 fL (79-100) Mean Corpuscular Hemoglobin 25 pg (25-35) Mean Corpuscular Hemoglobin Concent 32 g/dL (31-37) Red Cell Distribution Width 22.4 % (11.5-14.5) Platelet Count 393 x10^3/uL (140-400) Neutrophils (%) (Auto) 48 % (31-73) Lymphocytes (%) (Auto) 38 % (24-48) Monocytes (%) (Auto) 7 % (0-9) Eosinophils (%) (Auto) 7 % (0-3) Basophils (%) (Auto) 1 % (0-3) Neutrophils # (Auto) 2.2 x10^3uL (1.8-7.7) Lymphocytes # (Auto) 1.7 x10^3/uL (1.0-4.8) Monocytes # (Auto) 0.3 x10^3/uL (0.0-1.1) Eosinophils # (Auto) 0.3 x10^3/uL (0.0-0.7) Basophils # (Auto) 0.1 x10^3/uL (0.0-0.2) Iron Level 19 ug/dL (50-170) Total Iron Binding Capacity 379 ug/dL (250-450) Iron Saturation 5 % (15-34) Ferritin 27 ng/mL (8-252) Triglycerides Level 53 mg/dL (0-150) Cholesterol Level 166 mg/dL (0-200) LDL Cholesterol, Calculated 107 mg/dL (0-100) VLDL Cholesterol, Calculated 11 mg/dL (0-40) Non-HDL Cholesterol Calculated 118 mg/dL (0-129) HDL Cholesterol 48 mg/dL (40-60) Cholesterol/HDL Ratio 3.5 Vitamin B12 Level 519 pg/mL (247-911) Serum Folate > 20.00 ng/ml (3.2-20.0) Laboratory Tests Test 03/24/17 17:48 03/25/17 06:30 Stool Occult Blood Positive (NEG) White Blood Count 4.6 x10^3/uL (4.0-11.0) Red Blood Count 3.41 x10^6/uL (3.50-5.40) Hemoglobin 8.6 g/dL (12.0-15.5) Hematocrit 26.7 % (36.0-47.0) Mean Corpuscular Volume 78 fL (79-100) Mean Corpuscular Hemoglobin 25 pg (25-35) Mean Corpuscular Hemoglobin Concent 32 g/dL (31-37) Red Cell Distribution Width 22.4 % (11.5-14.5) Platelet Count 393 x10^3/uL (140-400) Neutrophils (%) (Auto) 48 % (31-73) Lymphocytes (%) (Auto) 38 % (24-48) Monocytes (%) (Auto) 7 % (0-9) Eosinophils (%) (Auto) 7 % (0-3) Basophils (%) (Auto) 1 % (0-3) Neutrophils # (Auto) 2.2 x10^3uL (1.8-7.7) Lymphocytes # (Auto) 1.7 x10^3/uL (1.0-4.8) Monocytes # (Auto) 0.3 x10^3/uL (0.0-1.1) Eosinophils # (Auto) 0.3 x10^3/uL (0.0-0.7) Basophils # (Auto) 0.1 x10^3/uL (0.0-0.2) Sodium Level 139 mmol/L (136-145) Potassium Level 4.1 mmol/L (3.5-5.1) Chloride Level 105 mmol/L (98-107) Carbon Dioxide Level 26 mmol/L (21-32) Anion Gap 8 (6-14) Blood Urea Nitrogen 7 mg/dL (7-20) Creatinine 0.7 mg/dL (0.6-1.0) Estimated GFR (Cockcroft-Gault) 114.6 Glucose Level 92 mg/dL (70-99) Calcium Level 9.4 mg/dL (8.5-10.1) Iron Level 19 ug/dL (50-170) Total Iron Binding Capacity 379 ug/dL (250-450) Iron Saturation 5 % (15-34) Ferritin 27 ng/mL (8-252) Triglycerides Level 53 mg/dL (0-150) Cholesterol Level 166 mg/dL (0-200) LDL Cholesterol, Calculated 107 mg/dL (0-100) VLDL Cholesterol, Calculated 11 mg/dL (0-40) Non-HDL Cholesterol Calculated 118 mg/dL (0-129) HDL Cholesterol 48 mg/dL (40-60) Cholesterol/HDL Ratio 3.5 Lipase 499 U/L (73-393) Vitamin B12 Level 519 pg/mL (247-911) Serum Folate > 20.00 ng/ml (3.2-20.0) Medications Current Medications Albuterol/ Ipratropium (Duoneb) 3 ml 1X ONCE NEB Last administered on 10:49; Start 03/22/17 at 10:30; Stop 03/22/17 at 10:33; Status DC Fentanyl Citrate (Fentanyl 2ml Vial) 100 mcg 1X ONCE IV Last administered on 10:49; Start 03/22/17 at 10:30; Stop 03/22/17 at 10:33; Status DC Ondansetron HCl (Zofran) 8 mg 1X ONCE IV Last administered on 03/22/17 10:49 ; Start 03/22/17 at 10:30; Stop 03/22/17 at 10:33; Status DC Pantoprazole Sodium (Protonix Vial) 40 mg 1X ONCE IVP Last administered on 10:49; Start 03/22/17 at 10:30; Stop 03/22/17 at 10:33; Status DC Sodium Chloride 1,000 ml @ 1,000 mls/hr 1X ONCE IV Last administered on 10:47; Start 03/22/17 at 10:30; Stop 03/22/17 at 11:29; Status DC Multi-Ingredient Mouthwash/Gargle (Gi Cocktail Single Dose) 15 ml 1X ONCE SWSW Last administered on 03/22/17 10:48; Start 03/22/17 at 10:30; Stop 03/22/17 at 10:33; Status DC Fentanyl Citrate (Fentanyl 2ml Vial) 100 mcg 1X ONCE IV Last administered on 12:02; Start 03/22/17 at 11:45; Stop 03/22/17 at 11:46; Status DC Ondansetron HCl (Zofran) 4 mg PRN Q8HRS PRN IV NAUSEA/VOMITING; Start 03/22/17 at 12:00; Stop 03/22/17 at 17:36; Status DC Fentanyl Citrate (Fentanyl 2ml Vial) 50 mcg PRN Q2HR PRN IV PAIN Last administered on 03/22/17 16:20; Start 03/22/17 at 12:00; Stop 03/22/17 at 17:27 ; Status DC Acetaminophen (Tylenol) 325 mg PRN Q6HRS PRN PO MILD PAIN / TEMP; Start at 17:00 Hydralazine HCl (Apresoline) 10 mg PRN Q4HRS PRN IVP ELEVATED BP, SEE COMMENTS ; Start 03/22/17 at 17:00 Ondansetron HCl (Zofran) 4 mg PRN Q8HRS PRN IV NAUSEA/VOMITING; Start 03/22/17 at 17:00 Albuterol Sulfate (Ventolin Neb Soln) 2.5 mg PRN Q4HRS PRN NEB SHORTNESS OF BREATH Last administered on 03/22/17 18:58; Start 03/22/17 at 17:00 Sodium Chloride 1,000 ml @ 125 mls/hr Q8H IV Last administered on 03/23/17 08 :07; Start 03/22/17 at 17:00; Stop 03/23/17 at 15:14; Status DC Fentanyl Citrate (Fentanyl 2ml Vial) 25 mcg PRN Q2HR PRN IV PAIN Last administered on 03/25/17 13:04; Start 03/22/17 at 17:30 Alprazolam (Xanax) 1 mg BID PO Last administered on 03/25/17 08:05; Start 07/29 at 21:00 Pantoprazole Sodium (Protonix) 40 mg BIDAC PO Last administered on 03/25/17 08 :05; Start 03/23/17 at 07:30 Temazepam (Restoril) 30 mg QHS PO Last administered on 03/24/17 20:05; Start 03/22/17 at 21:00 Pantoprazole Sodium (Protonix Vial) 40 mg 1X ONCE IVP Last administered on 17:46; Start 03/22/17 at 18:00; Stop 03/22/17 at 18:01; Status DC Potassium Chloride 30 meq/ Sodium Chloride 1,015 ml @ 75 mls/hr [id number] IV Last administered on 03/25/17 09:01; Start 03/23/17 at 16:00 Tramadol HCl (Ultram) 50 mg PRN Q6HRS PRN PO PAIN; Start 03/24/17 at 14:30 Oxycodone/ Acetaminophen (Percocet 5/325) 1 tab PRN Q6HRS PRN PO PAIN Last administered on 03/24/17 18:37; Start 03/24/17 at 17:30; Stop 03/24/17 at 19:53 ; Status DC Oxycodone/ Acetaminophen (Percocet 5/325) 1 tab PRN Q4HRS PRN PO PAIN Last administered on 03/25/17 13:03; Start 03/24/17 at 20:00 Active Scripts Active Reported Xanax (Alprazolam) 1 Mg Tablet 1 Tab PO BID Temazepam 30 Mg Capsule 1 Cap PO QHS Gabapentin 300 Mg Capsule 300 Mg PO TID Protonix (Pantoprazole Sodium) 40 Mg Tablet.dr 40 Mg PO BID Zofran Odt (Ondansetron) 4 Mg Tab.rapdis 4 Mg PO BID PRN Vitals/I & O Vital Sign - Last 24 Hours 03/24/17 03/24/17 03/24/17 03/24/17 15:00 19:00 20:00 20:04 Temp 98.4 97.8 98.4 97.8 Pulse 55 60 Resp 18 19 18 B/P (MAP) 117/82 (94) 122/78 (93) Pulse Ox 100 97 100 O2 Delivery Room Air Room Air Room Air Room Air 03/24/17 03/24/17 03/24/17 03/25/17 23:00 23:13 23:16 01:15 Temp 97.8 97.8 Pulse 69 Resp 19 18 18 18 B/P (MAP) 103/60 (74) Pulse Ox 99 100 100 100 O2 Delivery Room Air Room Air Room Air Room Air 03/25/17 03/25/17 03/25/17 03/25/17 03:43 06:07 07:30 08:00 Temp 97.9 97.9 Pulse 68 Resp 18 18 18 B/P (MAP) 121/87 (98) Pulse Ox 100 100 100 O2 Delivery Room Air Room Air Room Air Room Air 03/25/17 03/25/17 03/25/17 03/25/17 08:06 08:09 09:06 10:30 Temp 97.7 97.7 Pulse 67 Resp 20 20 20 18 B/P (MAP) 116/75 (89) Pulse Ox 100 100 99 100 O2 Delivery Room Air Room Air Room Air Room Air 03/25/17 03/25/17 03/25/17 03/25/17 11:03 11:33 13:03 13:04 Resp 20 20 20 20 Pulse Ox 99 99 99 99 O2 Delivery Room Air Room Air Room Air Room Air Intake and Output 03/24/17 03/24/17 03/25/17 15:00 23:00 07:00 Intake Total 0 ml 120 ml Balance 0 ml 120 ml SATISH BRANHAM MD Mar 25, 2017 13:43
[2017-03-25 14:30] VITALS: BP 135/97
[2017-03-25 19:00] VITALS: BP 153/92
[2017-03-25] MEDS: TEMAZEPAM 15 MG CAPSULE PO SCH (20:43)
[2017-03-25 22:49] VITALS: BP 100/48
[2017-03-26] MEDS: fentaNYL PF VIAL 100 MCG/2 ML VIAL IV PRN ×5 (01:04→11:52)
[2017-03-26 03:00] VITALS: BP 89/61
[2017-03-26] MEDS: oxyCODONE/APAP 5/325 1 TAB TABLET PO PRN ×3 (03:29→12:36)
[2017-03-26 04:00] VITALS: BP 116/80
[2017-03-26 07:00] VITALS: BP 125/72
[2017-03-26] MEDS: POTASSIUM CHLORIDE 30 MEQ in IV 1/2 NORMAL SALINE 1,000 ML IV SCH (08:29)
[2017-03-26] MEDS: PANTOPRAZOLE 40 MG TABLET.DR. PO SCH (08:31)
[2017-03-26] MEDS: ALPRAZolam 1 MG TABLET PO SCH (08:32)
--- NOTE | 2017-03-26 10:29 | PDOC ---
Subjective: Subjective: Still has pain. Feels she could try eating more and might be able to go home today. Objective: Objective: Reviewed nursing notes. Vital Signs: Vital Signs Date Time Temp Pulse Resp B/P (MAP) Pulse Ox O2 Delivery O2 Flow Rate FiO2 03/26/17 09:43 20 99 Room Air 03/26/17 07:00 97.9 90 125/72 (89) 97.9 Labs: Laboratory Tests Test 03/26/17 03:20 Lipase 396 U/L PE: GEN: NAD, was asleep ABD: asks me not to touch her NEURO/PSYCH: A & O 3 A/P: Elevated lipase - improving Abd pain SANDRA, hemoccult positive stool -had EGD, colonoscopy, and exp lap here in 11/2016, EGD 02/[address] [facility] normal -h/o PUD s/p vagotomy, subtotal gastrectomy, BII anastomosis; h/o anemia -- ADAT, DC per primary. ?SBCE as outpatient re: TYRONE CARNEY Mar 26, 2017 10:29
[2017-03-26] MEDS ORDERED: OXYC1TAB7 PO (10:53)
[2017-03-26 11:00] VITALS: BP 114/78
--- NOTE | 2017-03-26 13:01 | PDOC3 ---
Discharge Summary [facility] Date of Admission: Mar 22, 2017 Discharge Date: Mar 26, 2017 Admitting Diagnosis 1. Pancreatitis: lipase better. 2. Pain control: 3. Chest pain: ruled out by enzymes/EKG. suspect related to GERD 4. 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 IV protonix 5. Diarrhea: chronic episodic. 6. Anemia: microcytic, moderate. iron deficiency 7. Anxiety/depression and schizophrenia 8. narcotic seeking behavior 9.h/o + FOBT Problems: Final Diagnosis CONSULTS GI Brief Hospital Course Ms. Ghosh is a 36 old F, likely pain meds seeker, was here a few times this year for abd pain. H/O mick en Y reconstruction sx for ulcer in 2008, got exp lap, EGD, COlonoscopy 11/2016 all neg, EGD in [facility] 02/2017 also neg. As per previous notes, pt is likely seeking amato meds, although lipase was slightly high. US neg this time. she eats with chear liquid, advance to gi soft , dc home if tolerate well. FOBT still +, but no intervention done. pt refused po iron. Pt has been agitated sometimes, likely 2/2 bipolar and schizo. percocet 10pills. dc time 35in. General: Alert, Oriented X3, Cooperative, No acute distress Heart: Regular rate Lungs: Clear Abdomen: Other (RUQ/periumbilical pain) Extremities: No edema Skin: No rashes Patient History: Family history: Diabetes mellitus (situation) Problems: Disposition home CONDITION AT DISCHARGE: Improved Diet gi soft Scheduled Alprazolam (Xanax), 1 TAB PO BID, (Reported) Gabapentin (Gabapentin), 300 MG PO TID, (Reported) Pantoprazole Sodium (Protonix), 40 MG PO BID, (Reported) Temazepam (Temazepam), 1 CAP PO QHS, (Reported) Scheduled PRN Ondansetron (Zofran Odt), 4 MG PO BID PRN for NAUSEA/VOMITING, (Reported) Oxycodone Hcl/Acetaminophen (Oxycodone-Acetaminophen 5-325), 1 TAB PO PRN Q4HRS PRN for PAIN Discontinued Medications Clonazepam (Klonopin), 1 MG PO TID PRN for ANXIETY / AGITATION, (Reported) Clonazepam (Klonopin), 2 MG PO HS, (Reported) Follow Up pcp SATISH Poon MD Mar 26, 2017 13:01
== END 2017-03-26 13:00 | disposition home or self-care (01) | DRG 440 ==
LOC: ER 10:06 → 5 NORTH 11:49
PROVIDERS: ADMIT Internal Medicine; ATTEND Internal Medicine
DX: K85.90 Acute pancreatitis without necrosis or infection, unspecified (principal); K21.9 Gastro-esophageal reflux disease without esophagitis; E04.9 Nontoxic goiter, unspecified; F20.9 Schizophrenia, unspecified; F32.9 Major depressive disorder, single episode, unspecified; F41.0 Panic disorder [episodic paroxysmal anxiety]; I50.9 Heart failure, unspecified; J45.909 Unspecified asthma, uncomplicated; K27.9 Peptic ulcer, site unspecified, unspecified as acute or chronic, without hemorrhage or perforation; Z76.5 Malingerer [conscious simulation]; Z83.3 Family history of diabetes mellitus; Z87.11 Personal history of peptic ulcer disease; Z90.49 Acquired absence of other specified parts of digestive tract; D50.0 Iron deficiency anemia secondary to blood loss (chronic)
CPT/HCPCS: 36415; 71010; 76705; 80048; 80053; 80061; 81001; 82274; 82550; 82607; 82728; 82746; 83540; 83550; 83690; 83735; 83880; 84484; 85007; 85027; 85610; 85730; 87324; 93005; 94250; 94640; 96361; 96374; 96375; 96376; C9113; G0480; G0481; J2405; J3010; J7030; J7620; 99285-25

== ENCOUNTER 2018-04-25 20:03 | Emergency (ER) | payer SELFPAY ==
[2018-04-25 20:37] LABS: ADD MAN DIFF? NO
[2018-04-25] MEDS: fentaNYL PF VIAL 100 MCG/2 ML VIAL IV ×2 (20:39→21:41)
[2018-04-25 20:45] LABS: BILIRUBIN,URINE NEGATIVE (NEG); CLARITY,URINE CLEAR; GLUCOSE,URINE 500 mg/dL (NEG); NITRITE,URINE NEGATIVE (NEG); PROTEIN,URINE NEGATIVE (NEG-TRACE); UROBILINOGEN,URINE 0.2 mg/dL (0.2 mg/dL)
[2018-04-25 20:49] LABS: BASO # 0.1 x10^3/uL (0.0-0.2); BASO % 1 % (0-3); EOS # 0.2 x10^3/uL (0.0-0.7); EOS % 2 % (0-3); HEMATOCRIT 28.1 % (36.0-47.0); HEMOGLOBIN 9.1 g/dL (12.0-15.5); LYMPH # 2.6 x10^3/uL (1.0-4.8); LYMPH % 29 % (24-48); MEAN CORPUSCULAR HEMOGLOBIN 24 pg (25-35); MEAN CORPUSCULAR HGB CONC 32 g/dL (31-37); MEAN CORPUSCULAR VOLUME 75 fL (79-100); MONO # 0.8 x10^3/uL (0.0-1.1); MONO % 9 % (0-9); NEUT # 5.3 x10^3uL (1.8-7.7); NEUT % 60 % (31-73); PLATELET COUNT 358 x10^3/uL (140-400); RED BLOOD COUNT 3.73 x10^6/uL (3.50-5.40); RED CELL DISTRIBUTION WIDTH 18.9 % (11.5-14.5); WHITE BLOOD COUNT 8.9 x10^3/uL (4.0-11.0)
[2018-04-25 20:52] LABS: BACTERIA,URINE 0 /HPF (0-FEW); RBC,URINE 0 /HPF (0-2); SQUAMOUS EPITHELIAL CELL,UR OCC /LPF; WBC,URINE 0 /HPF (0-4)
[2018-04-25 20:53] LABS: COLOR,URINE STRAW
[2018-04-25 20:54] LABS: ANION GAP 12 (6-14); BLOOD UREA NITROGEN 19 mg/dL (7-20); BUN/CREATININE RATIO 24 (6-20); CALCIUM 9.4 mg/dL (8.5-10.1); CARBON DIOXIDE 25 mmol/L (21-32); CHLORIDE 101 mmol/L (98-107); CREATININE 0.8 mg/dL (0.6-1.0); GFR 97.7; GLUCOSE 94 mg/dL (70-99); POTASSIUM 3.8 mmol/L (3.5-5.1); SODIUM 138 mmol/L (136-145)
[2018-04-25 21:00] LABS: ALBUMIN 3.9 g/dL (3.4-5.0); ALBUMIN/GLOBULIN RATIO 0.8 (1.0-1.7); ALK PHOS 93 U/L (46-116); ALT (SGPT) 44 U/L (14-59); AST (SGOT) 47 U/L (15-37); LIPASE 210 U/L (73-393); TOTAL BILIRUBIN 0.4 mg/dL (0.2-1.0); TOTAL PROTEIN 8.7 g/dL (6.4-8.2)
[2018-04-25] MEDS: ONDANSETRON PF 4 MG/2 ML VIAL. IV (21:41)
[2018-04-25 21:45] LABS: NEG OBC UR NEG; POS OBC UR POS; U PREG PATIENT NEGATIVE (NEG)
[2018-04-25] MEDS ORDERED: CONTRAST GIVEN. MC (22:30)
[2018-04-25] MEDS: IOHEXOL 300 MG/ML 100ML VIAL. IV (22:35)
[2018-04-26] MEDS ORDERED: ONDANSETRON PF 4 MG/2 ML VIAL. (02:50)
[2018-04-26] MEDS: ONDANSETRON PF 4 MG/2 ML VIAL. IV (02:52)
[2018-04-26] MEDS ORDERED: METOCLOPRAMIDE HCL 10 MG/2 ML VIAL. IV (12:00)
[2018-04-26] MEDS ORDERED: SUCRALFATE 1 GM/10 ML ORAL.SUSP. PO (13:00)
== END 2018-04-26 02:55 | disposition home or self-care (01) ==
LOC: ER 04-26 02:55
DX: R10.84 Generalized abdominal pain (principal); R11.2 Nausea with vomiting, unspecified; K21.9 Gastro-esophageal reflux disease without esophagitis; I50.9 Heart failure, unspecified; Z90.49 Acquired absence of other specified parts of digestive tract; Z90.710 Acquired absence of both cervix and uterus; Z88.5 Allergy status to narcotic agent; Z88.6 Allergy status to analgesic agent; Z88.8 Allergy status to other drugs, medicaments and biological substances
CPT/HCPCS: 36415; 74177; 80053; 81001; 81025; 83690; 85025; 96374; 96375; 96376; 99285-25; J2405; J3010; Q9967

== ENCOUNTER 2018-05-29 12:06 | Inpatient (IN) | payer SELFPAY ==
[~2018-05-29] VITALS: Ht 165.1 cm; Wt 67.6 kg
[~2018-05-29 12:06] MED LIST changes: +CITA10TA8 PO; +CYAN1TAB19 PO; +DICY10CA3 PO; +FERR325T14 PO; +ONDA4TAB7 PO; +OXYC1TAB7 PO; +PANT20TA2 PO; +PROAIR HFA8.5 GM INH; +PROM6.257 PO; +SUCR1ORA5 PO; +TEMA15CA PO; +TEMA30CA PO
[2018-05-29 13:00] LABS: BILIRUBIN,URINE NEGATIVE (NEG); CLARITY,URINE CLOUDY; COLOR,URINE YELLOW; NITRITE,URINE NEGATIVE (NEG); PROTEIN,URINE NEGATIVE (NEG-TRACE); UROBILINOGEN,URINE 0.2 mg/dL (0.2 mg/dL)
[2018-05-29] MEDS ORDERED: IV NORMAL SALINE 1000ML BAG 1,000 ML IV SCH (13:05)
[2018-05-29 13:09] LABS: RBC,URINE RARE /HPF (0-2); WBC,URINE OCC /HPF (0-4)
[2018-05-29 13:10] LABS: BACTERIA,URINE FEW /HPF (0-FEW)
[2018-05-29] MEDS ORDERED: ONDANSETRON PF 4 MG/2 ML VIAL. IV ONE (13:15)
[2018-05-29] MEDS: fentaNYL PF VIAL 100 MCG/2 ML VIAL IV PRN ×4 (13:29→20:56)
[2018-05-29 13:36] LABS: BASO % 0 % (0-3); EOS % 0 % (0-3); HEMATOCRIT 34.2 % (36.0-47.0); HEMOGLOBIN 11.2 g/dL (12.0-15.5); LYMPH % 22 % (24-48); MEAN CORPUSCULAR HEMOGLOBIN 26 pg (25-35); MEAN CORPUSCULAR HGB CONC 33 g/dL (31-37); MEAN CORPUSCULAR VOLUME 78 fL (79-100); MONO # 0.6 x10^3/uL (0.0-1.1); MONO % 7 % (0-9); NEUT # 6.2 x10^3uL (1.8-7.7); NEUT % 70 % (31-73); PLATELET COUNT 244 x10^3/uL (140-400); RED BLOOD COUNT 4.38 x10^6/uL (3.50-5.40); RED CELL DISTRIBUTION WIDTH 22.1 % (11.5-14.5); WHITE BLOOD COUNT 8.9 x10^3/uL (4.0-11.0)
--- NOTE | 2018-05-29 13:50 | PHYS DOC ---
Past Medical History Past Medical History: CHF, GERD, P.U.D., Other Additional Past Medical Histor: panic attacks, schizophrenia w/suicidal ideation, ulcer, GASTROPERESIS Past Surgical History: Cholecystectomy, , Hysterectomy, Other Additional Past Surgical Histo: ulcer,GOITER REMOVED FROM NECK Alcohol Use: None Drug Use: None Adult General Chief Complaint Chief Complaint: ABDOMINAL PAIN HPI HPI 37-year-old female presenting the emergency room with abdominal pain with nausea and vomiting. She reports blood in her vomit and stool. She describes it as dark red color. She has had a few episodes of vomiting. She has a history of ulcers and gastroparesis. She denies fevers or chills. This all started within the last 2 days. She describes her pain is 8 out of 10. Chest pain shortness of breath fevers chills. Positive for nausea and vomiting. She denies being lightheaded or passing out. All other review of systems is negative unless otherwise noted in history of present illness. ED course: 37-year-old female presenting with abdominal pain with nausea vomiting and reporting blood in her stool. Here the patient is afebrile with a normal heart rate. Blood pressure within normal limits. Patient is well- appearing. Abdomen is soft and nontender nondistended without rebound tenderness or guarding. Negative McBurney's point. Negative Burgess sign. Otherwise exam is unremarkable. Rectal exam performed in the presence of the patient's female nurse shows no blood. Stool sent for fecal occult testing which was negative. Hemoglobin is actually increased from previous. CT the abdomen pelvis performed. CT abdomen pelvis shows no acute findings. Patient continues to have pain after IV fluids and pain medications. Given the patient' s continued pain and not feeling better we will place the patient in the hospital for medical monitoring and further evaluation treatment and care. Dr. Reddy excepted the patient for admission. Basic bridge orders placed. Review of Systems Review of Systems SEE ABOVE. Current Medications Current Medications Current Medications Medications (Trade) Dose Ordered Sig/Chung Start Time Stop Time Status Last Admin Dose Admin Fentanyl Citrate (Fentanyl 2ml Vial) 50 mcg PRN Q30MIN PRN 05/29/18 13:15 05/29/18 14:43 50 MCG Info (CONTRAST GIVEN -- Rx MONITORING) 1 each PRN DAILY PRN 05/29/18 14:30 05/31/18 14:29 Iohexol (Omnipaque 300 Mg/ml) 75 ml 1X ONCE 05/29/18 14:30 05/29/18 14:31 DC 05/29/18 14:37 75 ML Ondansetron HCl (Zofran) 4 mg 1X ONCE 05/29/18 13:15 05/29/18 13:16 DC 05/29/18 13:28 4 MG Sodium Chloride 1,000 ml @ 1,000 mls/hr Q1H 05/29/18 13:05 05/29/18 14:04 DC 05/29/18 13:30 1,000 MLS/HR Allergies Allergies Allergies Coded Allergies Type Severity Reaction Last Updated Verified Metronidazole HCl Allergy Intermediate Hives 04/28/18 Yes butorphanol Allergy Intermediate Itching 04/28/18 Yes codeine Allergy Intermediate 04/28/18 Yes ketorolac Allergy Intermediate Rash 04/28/18 Yes metronidazole Allergy Intermediate Hives 04/28/18 Yes morphine Allergy Intermediate 04/28/18 Yes tramadol Allergy Intermediate Itching 04/28/18 Yes ibuprofen Adverse Reaction Intermediate patient does not take due to having history of ulcers 04/28/18 Yes Physical Exam Physical Exam SEE ABOVE Constitutional: Well developed, well nourished, no acute distress, non-toxic appearance. [] HENT: Normocephalic, atraumatic, bilateral external ears normal, oropharynx moist, no oral exudates, nose normal. [] Eyes: PERRLA, EOMI, conjunctiva normal, no discharge. [] Neck: Normal range of motion, no tenderness, supple, no stridor. [] Cardiovascular:Heart rate regular rhythm, no murmur [] Lungs & Thorax: Bilateral breath sounds clear to auscultation [] Abdomen: Bowel sounds normal, soft, no tenderness, no masses, no pulsatile masses. [] Skin: Warm, dry, no erythema, no rash. [] Back: No tenderness, no CVA tenderness. [] Extremities: No tenderness, no cyanosis, no clubbing, ROM intact, no edema. [] Neurologic: Alert and oriented X 3, normal motor function, normal sensory function, no focal deficits noted. [] Psychologic: Affect normal, judgement normal, mood normal. [] Current Patient Data Vital Signs Vital Signs Date Time Temp Pulse Resp B/P (MAP) Pulse Ox O2 Delivery O2 Flow Rate FiO2 05/29/18 14:45 63 16 134/85 (101) 99 05/29/18 13:29 Room Air 05/29/18 12:25 99.0 99.0 Lab Values Laboratory Tests Test 05/29/18 12:20 05/29/18 13:20 05/29/18 13:44 Urine Collection Type Unknown Urine Color Yellow Urine Clarity Cloudy Urine pH 5.0 Urine Specific [place] <=1.005 Urine Protein Negative mg/dL (NEG-TRACE) Urine Glucose (UA) Negative mg/dL (NEG) Urine Ketones (Stick) Negative mg/dL (NEG) Urine Blood Negative (NEG) Urine Nitrite Negative (NEG) Urine Bilirubin Negative (NEG) Urine Urobilinogen Dipstick 0.2 mg/dL (0.2 mg/dL) Urine Leukocyte Esterase Negative (NEG) Urine RBC Rare /HPF (0-2) Urine WBC Occ /HPF (0-4) Urine Squamous Epithelial Cells None /LPF Urine Bacteria Few /HPF (0-FEW) White Blood Count 8.9 x10^3/uL (4.0-11.0) Red Blood Count 4.38 x10^6/uL (3.50-5.40) Hemoglobin 11.2 g/dL (12.0-15.5) L Hematocrit 34.2 % (36.0-47.0) L Mean Corpuscular Volume 78 fL (79-100) L Mean Corpuscular Hemoglobin 26 pg (25-35) Mean Corpuscular Hemoglobin Concent 33 g/dL (31-37) Red Cell Distribution Width 22.1 % (11.5-14.5) H Platelet Count 244 x10^3/uL (140-400) Neutrophils (%) (Auto) 70 % (31-73) Lymphocytes (%) (Auto) 22 % (24-48) L Monocytes (%) (Auto) 7 % (0-9) Eosinophils (%) (Auto) 0 % (0-3) Basophils (%) (Auto) 0 % (0-3) Neutrophils # (Auto) 6.2 x10^3uL (1.8-7.7) Lymphocytes # (Auto) 2.0 x10^3/uL (1.0-4.8) Monocytes # (Auto) 0.6 x10^3/uL (0.0-1.1) Eosinophils # (Auto) 0.0 x10^3/uL (0.0-0.7) Basophils # (Auto) 0.0 x10^3/uL (0.0-0.2) Platelet Estimate Adequate (ADEQUATE) Hypochromasia Slight Anisocytosis Mod Ovalocytes Few Sodium Level 138 mmol/L (136-145) Potassium Level 3.7 mmol/L (3.5-5.1) Chloride Level 103 mmol/L (98-107) Carbon Dioxide Level 24 mmol/L (21-32) Anion Gap 11 (6-14) Blood Urea Nitrogen 14 mg/dL (7-20) Creatinine 0.8 mg/dL (0.6-1.0) Estimated GFR (Cockcroft-Gault) 97.7 BUN/Creatinine Ratio 18 (6-20) Glucose Level 92 mg/dL (70-99) Calcium Level 10.3 mg/dL (8.5-10.1) H Total Bilirubin 0.7 mg/dL (0.2-1.0) Aspartate Amino Transferase (AST) 22 U/L (15-37) Alanine Aminotransferase (ALT) 83 U/L (14-59) H Alkaline Phosphatase 118 U/L (46-116) H Total Protein 9.0 g/dL (6.4-8.2) H Albumin 4.3 g/dL (3.4-5.0) Albumin/Globulin Ratio 0.9 (1.0-1.7) L Lipase 171 U/L (73-393) Stool Occult Blood Negative (NEG) Laboratory Tests 05/29/18 13:20 Laboratory Tests 05/29/18 13:20 EKG EKG [] Radiology/Procedures Radiology/Procedures [] Course & Med Decision Making Course & Med Decision Making Pertinent Labs and Imaging studies reviewed. (See chart for details) [] Dragon Disclaimer Dragon Disclaimer This electronic medical record was generated, in whole or in part, using a voice recognition dictation system. Departure Departure Impression: Primary Impression: Abdominal pain Disposition: ADMITTED INPATIENT Admitting Physician: Anna Reddy Condition: STABLE Referrals: UNKNOWN PCP NAME (PCP) Patient Instructions: Abdominal Pain Additional Instructions: Thank you for allowing us to participate in your care today. Return to the emergency department you have any new or worsening symptoms, or if you are concerned for any reason. Return to emergency department if you have any new or concerning symptoms including but not limited to fever, chills, nausea, vomiting, intractable pain, any new rashes, chest pain, shortness of air , uncontrolled bleeding, difficulty breathing, and/or vision loss. Follow up with your primary care physician within 3 days. Call your Primary Doctor tomorrow and inform them of your visit today. If you do not have a primary care provider we are happy to provide you with a list of our primary care providers contact information. This condition should be evaluated by your primary care physician and any recommended consulting services for continued management within 2-3 days after discharge. If at any time, you are having difficulty getting into your primary care doctor or a specialist, return to the emergency department. You may have been prescribed medication or given medication in the emergency department that can change in your level of thinking and ability to operate machinery. Many prescribed medications can cause this. Some commonly prescribed medications include hydrocodone, ativan, and benadryl. Be sure to check with your pharmacist and ask if the medications you've prescribed can affect your level of consciousness. I recommend not operating heavy machinery or driving while on medication such as these. SHANDRA DANIELSON MD May 29, 2018 13:50
[2018-05-29 13:53] LABS: CALCIUM 10.3 mg/dL (8.5-10.1); CREATININE 0.8 mg/dL (0.6-1.0); GFR 97.7; POTASSIUM 3.7 mmol/L (3.5-5.1)
[2018-05-29 13:58] LABS: ALBUMIN 4.3 g/dL (3.4-5.0); ALBUMIN/GLOBULIN RATIO 0.9 (1.0-1.7); TOTAL BILIRUBIN 0.7 mg/dL (0.2-1.0)
[2018-05-29 14:09] LABS: FECAL OB PT NEGATIVE (NEG)
[2018-05-29] MEDS ORDERED: CONTRAST GIVEN. MC PRN (14:30)
[2018-05-29] MEDS ORDERED: IOHEXOL 300 MG/ML 100ML VIAL. IV ONE (14:30)
[2018-05-29 14:47] LABS: ANISOCYTOSIS MOD; HYPOCHROMIA SLIGHT; OVALOCYTES FEW; PLT ESTIMATE ADEQUATE (ADEQUATE)
--- NOTE | 2018-05-29 14:59 | RAD ---
CT Abdomen and Pelvis With Intravenous Contrast: History: Abdominal pain with bloody stools for 1 to 2 weeks. Comparison: CT abdomen pelvis April 25, 2018. Technique: After administration of intravenous contrast, 75 mL Omnipaque-300, CT of the abdomen and pelvis was performed. Exposure: One or more of the following individualized dose reduction techniques were utilized for this examination: 1. Automated exposure control 2. Adjustment of the mA and/or kV according to patient size 3. Use of iterative reconstruction technique Findings: Evaluation of enteric structures may be limited by lack of oral contrast. Motion artifact is seen at multiple levels, which could obscure subtle abnormalities. Liver, spleen, pancreas, and bilateral adrenal glands are unremarkable. Bilateral kidneys enhance symmetrically. Gallbladder is absent. No bowel obstruction or inflammation is seen. Appendix is without evidence of inflammation. No bowel obstruction or inflammation is appreciated. No free air or free fluid is seen in the abdomen or pelvis. Uterus is absent. Urinary bladder is unremarkable. Impression: 1. No acute abnormality identified in the abdomen or pelvis. Electronically signed by: Stephen Walls MD (05/29/2018 2:55 PM) [place] [id number]
[2018-05-29] MEDS ORDERED: ZOLPIDEM 5 MG TABLET. PO PRN (16:30)
[2018-05-29] MEDS ORDERED: fentaNYL PF VIAL 100 MCG/2 ML VIAL IV PRN ×2 (16:30→16:45)
[2018-05-29] MEDS ORDERED: ONDANSETRON PF 4 MG/2 ML VIAL. IV PRN (16:30)
[2018-05-29] MEDS ORDERED: ONDANSETRON ODT 4 MG TAB.RAPDIS. PO PRN (16:30)
[2018-05-29] MEDS ORDERED: PROMETHAZINE 6.25 MG/5 ML SYRUP. PO PRN (16:30)
[2018-05-29] MEDS ORDERED: oxyCODONE/APAP 10/325 1 TAB TABLET PO PRN (16:30)
[2018-05-29] MEDS ORDERED: ALBUTEROL SULFATE 2.5 MG/3 ML NEBU. NEB PRN (16:45)
--- NOTE | 2018-05-29 16:46 | PDOC1 ---
History and Physical Date of Admission Date of Admission DATE: 05/29/18 TIME: 16:40 Identification/Chief Complaint Chief Complaint Abdominal pain not helped by by mouth pain meds Source Source: Caregiver, Chart review, Patient History of Present Illness History of Present Illness 37-year-old female history of pancreatitis in the past admissions, but she is unable to tell me if it's alcohol-related. She has cholecystectomy based on CAT scan. Basically her workup is negative for the cause of abdominal pain but is admitted because is requiring IV narcotics. She does appear dehydrated, calcium is elevated 10.3. Has not been eating anything because of abdominal pain. AST okay but ALT elevated at 83 and alkaline phosphatase mildly elevated 118. Urine is clean, FOBT negative. Hemoglobin is 11 , no WBC. GI is consulted. She is asleep and I had to wake her up couple times. As soon as I leave the door she is acting for pain meds. I did deputy chief counsel her that she might end up on the vent if she does not watch her narcotics. She agrees to this. I am decreasing her fentanyl dose and by mouth pain meds. I have resume her home meds including temazepam and some Xanax twice a day when necessary. GI consulted. Okay for liquid diet then ADA T. Past Medical History Cardiovascular: CHF Pulmonary: No pertinent hx GI: GERD, Peptic Ulcer disease, Other Heme/Onc: Anemia NOS Hepatobiliary: No pertinent hx Psych: Anxiety, Depression, Schizophrenia Rheumatologic: No pertinent hx Infectious disease: No pertinent hx Renal/: No pertinent hx Endocrine: No pertinent hx Past Surgical History Past Surgical History: Other Family History Family History: No Significant Social History Smoke: No ALCOHOL: occassional Drugs: Cocaine Current Problem List Problem List Problems Medical Problems: (1) Abdominal pain Status: Acute Current Medications Current Medications Current Medications Fentanyl Citrate (Fentanyl 2ml Vial) 50 mcg PRN Q30MIN PRN IV SEVERE PAIN Last administered on 05/29/18at 14:43; Start 05/29/18 at 13:15; Stop 05/29/18 at 21:00 Sodium Chloride 1,000 ml @ 1,000 mls/hr Q1H IV Last administered on 05/29/18at 13:30; Start 05/29/18 at 13:05; Stop 05/29/18 at 14:04; Status DC Ondansetron HCl (Zofran) 4 mg 1X ONCE IV Last administered on 05/29/18at 13:28 ; Start 05/29/18 at 13:15; Stop 05/29/18 at 13:16; Status DC Iohexol (Omnipaque 300 Mg/ml) 75 ml 1X ONCE IV Last administered on 05/29/18at 14:37; Start 05/29/18 at 14:30; Stop 05/29/18 at 14:31; Status DC Info (CONTRAST GIVEN -- Rx MONITORING) 1 each PRN DAILY PRN MC SEE COMMENTS; Start 05/29/18 at 14:30; Stop 05/31/18 at 14:29 Sodium Chloride 1,000 ml @ 100 mls/hr Q10H IV ; Start 05/29/18 at 15:37; Stop 05/30/18 at 15:36 Fentanyl Citrate (Fentanyl 2ml Vial) 50 mcg PRN Q2HR PRN IV PAIN; Start at 16:30 Zolpidem Tartrate (Ambien) 5 mg PRN QHS PRN PO INSOMNIA; Start 05/29/18 at 16: 30 Ondansetron HCl (Zofran) 4 mg PRN Q6HRS PRN IV NAUSEA/VOMITING; Start 05/29/18 at 16:30 Ondansetron HCl (Zofran Odt) 4 mg PRN Q6HRS PRN PO NAUSEA/VOMITING 1ST CHOICE; Start 05/29/18 at 16:30 Oxycodone/ Acetaminophen (Percocet 5/325) 1 tab PRN Q4HRS PRN PO MILD-MODERATE PAIN; Start 05/29/18 at 16:30 Oxycodone/ Acetaminophen (Percocet 10/325) 1 tab PRN Q4HRS PRN PO SEVERE pain; Start 05/29/18 at 16:30 Alprazolam (Xanax) 1 mg PRN BID PRN PO ANXIETY / AGITATION; Start 05/29/18 at 16:30 Citalopram Hydrobromide (CeleXA) 10 mg DAILY PO ; Start 05/30/18 at 09:00 Vitamin B Complex (Folbic Tablet) 1 tab DAILY PO ; Start 05/30/18 at 09:00 Ferrous Sulfate (Feosol) 325 mg DAILY PO ; Start 05/30/18 at 09:00 Promethazine HCl (Phenergan Syrup) 6.25 mg PRN TID PRN PO NAUSEA 2ND CHOICE; Start 05/29/18 at 16:30 Temazepam (Restoril) 30 mg PRN QHS PRN PO SLEEP; Start 05/29/18 at 21:00 Albuterol Sulfate (Ventolin Neb Soln) 2.5 mg PRN Q6HRS PRN NEB SHORTNESS OF BREATH; Start 05/29/18 at 16:45 Gabapentin (Neurontin) 300 mg TID PO ; Start 05/29/18 at 21:00 Pantoprazole Sodium (Protonix) 40 mg DAILYAC PO ; Start 05/30/18 at 07:30 Sucralfate (Carafate) 1 gm BID PO ; Start 05/29/18 at 21:00 Active Scripts Active Proair Hfa Inhaler (Albuterol Sulfate) 8.5 Gm Hfa.aer.ad 1 Puff INH PRN Q6HRS PRN Promethazine Hcl 6.25 Mg/5 Ml Syrup 5 Ml PO TID PRN Temazepam 15 Mg Capsule 1 Cap PO QHS Xanax (Alprazolam) 1 Mg Tablet 1 Tab PO BID PRN Gabapentin 300 Mg Capsule 300 Mg PO TID Ferrous Sulfate 325 Mg Tablet 1 Tab PO DAILY Folbic Tablet (Cyanocobalamin/Fa/Pyridoxine) 1 Each Tablet 1 Tab PO DAILY Carafate (Sucralfate) 1 Gm/10 Ml Oral.susp 1 Gm PO BID Reported Celexa (Citalopram Hydrobromide) 10 Mg Tablet 1 Tab PO DAILY Protonix (Pantoprazole Sodium) 20 Mg Tablet.dr 80 Mg PO DAILY Temazepam 30 Mg Capsule 1 Cap PO QHS Allergies Allergies: Coded Allergies: Metronidazole HCl (Verified Allergy, Intermediate, Hives, 04/28/18) butorphanol (Verified Allergy, Intermediate, Itching, 04/28/18) codeine (Verified Allergy, Intermediate, 04/28/18) ketorolac (Verified Allergy, Intermediate, Rash, 04/28/18) hives metronidazole (Verified Allergy, Intermediate, Hives, 04/28/18) morphine (Verified Allergy, Intermediate, 04/28/18) 11/08/14 PT REPORTS TOLERATING OXYCODONE/APAP UPON LAST ADMISSION tramadol (Verified Allergy, Intermediate, Itching, 04/28/18) ibuprofen (Verified Adverse Reaction, Intermediate, patient does not take due to having history of ulcers, 04/28/18) ROS Review of System As per history of present illness, the rest of ROS 14 point negative Physical Exam General: No acute distress, Other (drowsy) HEENT: Atraumatic, PERRLA, EOMI Lungs: Clear to auscultation, Normal air movement Heart: S1S2, RRR, no thrills, no rubs, no gallops, no murmurs Cardiovascular: S1, S2 Breasts: Normal, Rt breast nml w/o mass, Lt breast nml w/o mass, Nipples normal Abdomen: Normal bowel sounds, Soft, No tenderness, No masses Rectal Exam: not examined PELVIC: Nml ext genitalia Extremities: No clubbing, No cyanosis, No edema, Normal pulses, No tenderness/ swelling Skin: No rashes, No breakdown, No significant lesion Neuro: Normal gait, Normal speech, Strength at 5/5 X4 ext, Normal tone, Sensation intact, Cranial nerves 3-12 NL, Reflexes 2+ Psych/Mental Status: Mental status NL, Mood NL Vitals Vitals Vital Signs Date Time Temp Pulse Resp B/P (MAP) Pulse Ox O2 Delivery O2 Flow Rate FiO2 05/29/18 14:45 63 16 134/85 (101) 99 05/29/18 13:29 Room Air 05/29/18 12:25 99.0 99.0 Labs Labs Laboratory Tests Test 05/29/18 12:20 05/29/18 13:20 05/29/18 13:44 Urine Collection Type Unknown Urine Color Yellow Urine Clarity Cloudy Urine pH 5.0 Urine Specific [place] <=1.005 Urine Protein Negative mg/dL (NEG-TRACE) Urine Glucose (UA) Negative mg/dL (NEG) Urine Ketones (Stick) Negative mg/dL (NEG) Urine Blood Negative (NEG) Urine Nitrite Negative (NEG) Urine Bilirubin Negative (NEG) Urine Urobilinogen Dipstick 0.2 mg/dL (0.2 mg/dL) Urine Leukocyte Esterase Negative (NEG) Urine RBC Rare /HPF (0-2) Urine WBC Occ /HPF (0-4) Urine Squamous Epithelial Cells None /LPF Urine Bacteria Few /HPF (0-FEW) White Blood Count 8.9 x10^3/uL (4.0-11.0) Red Blood Count 4.38 x10^6/uL (3.50-5.40) Hemoglobin 11.2 g/dL (12.0-15.5) Hematocrit 34.2 % (36.0-47.0) Mean Corpuscular Volume 78 fL (79-100) Mean Corpuscular Hemoglobin 26 pg (25-35) Mean Corpuscular Hemoglobin Concent 33 g/dL (31-37) Red Cell Distribution Width 22.1 % (11.5-14.5) Platelet Count 244 x10^3/uL (140-400) Neutrophils (%) (Auto) 70 % (31-73) Lymphocytes (%) (Auto) 22 % (24-48) Monocytes (%) (Auto) 7 % (0-9) Eosinophils (%) (Auto) 0 % (0-3) Basophils (%) (Auto) 0 % (0-3) Neutrophils # (Auto) 6.2 x10^3uL (1.8-7.7) Lymphocytes # (Auto) 2.0 x10^3/uL (1.0-4.8) Monocytes # (Auto) 0.6 x10^3/uL (0.0-1.1) Eosinophils # (Auto) 0.0 x10^3/uL (0.0-0.7) Basophils # (Auto) 0.0 x10^3/uL (0.0-0.2) Platelet Estimate Adequate (ADEQUATE) Hypochromasia Slight Anisocytosis Mod Ovalocytes Few Sodium Level 138 mmol/L (136-145) Potassium Level 3.7 mmol/L (3.5-5.1) Chloride Level 103 mmol/L (98-107) Carbon Dioxide Level 24 mmol/L (21-32) Anion Gap 11 (6-14) Blood Urea Nitrogen 14 mg/dL (7-20) Creatinine 0.8 mg/dL (0.6-1.0) Estimated GFR (Cockcroft-Gault) 97.7 BUN/Creatinine Ratio 18 (6-20) Glucose Level 92 mg/dL (70-99) Calcium Level 10.3 mg/dL (8.5-10.1) Total Bilirubin 0.7 mg/dL (0.2-1.0) Aspartate Amino Transf (AST/SGOT) 22 U/L (15-37) Alanine Aminotransferase (ALT/SGPT) 83 U/L (14-59) Alkaline Phosphatase 118 U/L (46-116) Total Protein 9.0 g/dL (6.4-8.2) Albumin 4.3 g/dL (3.4-5.0) Albumin/Globulin Ratio 0.9 (1.0-1.7) Lipase 171 U/L (73-393) Stool Occult Blood Negative (NEG) Laboratory Tests Test 05/29/18 12:20 05/29/18 13:20 05/29/18 13:44 Urine Collection Type Unknown Urine Color Yellow Urine Clarity Cloudy Urine pH 5.0 Urine Specific [place] <=1.005 Urine Protein Negative mg/dL (NEG-TRACE) Urine Glucose (UA) Negative mg/dL (NEG) Urine Ketones (Stick) Negative mg/dL (NEG) Urine Blood Negative (NEG) Urine Nitrite Negative (NEG) Urine Bilirubin Negative (NEG) Urine Urobilinogen Dipstick 0.2 mg/dL (0.2 mg/dL) Urine Leukocyte Esterase Negative (NEG) Urine RBC Rare /HPF (0-2) Urine WBC Occ /HPF (0-4) Urine Squamous Epithelial Cells None /LPF Urine Bacteria Few /HPF (0-FEW) White Blood Count 8.9 x10^3/uL (4.0-11.0) Red Blood Count 4.38 x10^6/uL (3.50-5.40) Hemoglobin 11.2 g/dL (12.0-15.5) Hematocrit 34.2 % (36.0-47.0) Mean Corpuscular Volume 78 fL (79-100) Mean Corpuscular Hemoglobin 26 pg (25-35) Mean Corpuscular Hemoglobin Concent 33 g/dL (31-37) Red Cell Distribution Width 22.1 % (11.5-14.5) Platelet Count 244 x10^3/uL (140-400) Neutrophils (%) (Auto) 70 % (31-73) Lymphocytes (%) (Auto) 22 % (24-48) Monocytes (%) (Auto) 7 % (0-9) Eosinophils (%) (Auto) 0 % (0-3) Basophils (%) (Auto) 0 % (0-3) Neutrophils # (Auto) 6.2 x10^3uL (1.8-7.7) Lymphocytes # (Auto) 2.0 x10^3/uL (1.0-4.8) Monocytes # (Auto) 0.6 x10^3/uL (0.0-1.1) Eosinophils # (Auto) 0.0 x10^3/uL (0.0-0.7) Basophils # (Auto) 0.0 x10^3/uL (0.0-0.2) Platelet Estimate Adequate (ADEQUATE) Hypochromasia Slight Anisocytosis Mod Ovalocytes Few Sodium Level 138 mmol/L (136-145) Potassium Level 3.7 mmol/L (3.5-5.1) Chloride Level 103 mmol/L (98-107) Carbon Dioxide Level 24 mmol/L (21-32) Anion Gap 11 (6-14) Blood Urea Nitrogen 14 mg/dL (7-20) Creatinine 0.8 mg/dL (0.6-1.0) Estimated GFR (Cockcroft-Gault) 97.7 BUN/Creatinine Ratio 18 (6-20) Glucose Level 92 mg/dL (70-99) Calcium Level 10.3 mg/dL (8.5-10.1) Total Bilirubin 0.7 mg/dL (0.2-1.0) Aspartate Amino Transf (AST/SGOT) 22 U/L (15-37) Alanine Aminotransferase (ALT/SGPT) 83 U/L (14-59) Alkaline Phosphatase 118 U/L (46-116) Total Protein 9.0 g/dL (6.4-8.2) Albumin 4.3 g/dL (3.4-5.0) Albumin/Globulin Ratio 0.9 (1.0-1.7) Lipase 171 U/L (73-393) Stool Occult Blood Negative (NEG) VTE Prophylaxis Ordered VTE Prophylaxis Devices: Yes VTE Pharmacological Prophylaxi: Yes Assessment/Plan Assessment/Plan Abdominal pain, negative workup - history of pancreatitis in the past-pancreas is normal for this CAT scan/admission Hypercalcemia secondary to dehydration GI losses, recently - POOR PO Elevated LFTs FOBT negative Narcotic dependence, narcotic tolerance Anemia of chronic disease Plan: IV fluid to address hypercalcemia Recheck calcium tomorrow I did order intact PTH just in case hyperparathyroidism GI consulted for the above Okay for liquid diet then ADA T I have reconciled home meds, but I did have to make gabapentin when necessary because of the drowsiness instead of scheduled dose Watch out for too much narcotics Decrease fentanyl to 25 mics from to 50 mcgs Seen at MARCIE ROSADO MD May 29, 2018 16:46
[2018-05-29] MEDS: IV NORMAL SALINE 1000ML BAG 1,000 ML IV SCH (18:42)
[2018-05-29] MEDS: ALPRAZolam 1 MG TABLET PO PRN (19:05)
[2018-05-29 19:15] VITALS: BP 110/77
[2018-05-29] MEDS: SUCRALFATE 1 GM TABLET. PO SCH (20:54)
[2018-05-29] MEDS: TEMAZEPAM 15 MG CAPSULE PO PRN (20:54)
[2018-05-29] MEDS ORDERED: GABAPENTIN 300 MG CAPSULE. PO PRN (21:00)
[2018-05-29] MEDS ORDERED: GABAPENTIN 300 MG CAPSULE. PO SCH (21:00)
[2018-05-29 22:54] VITALS: BP 101/69
[2018-05-30] VITALS (9 sets, daily range): BP systolic 94–110; BP diastolic 63–79
[2018-05-30] MEDS: fentaNYL PF VIAL 100 MCG/2 ML VIAL IV PRN ×10 (00:43→23:44)
[2018-05-30] MEDS: IV NORMAL SALINE 1000ML BAG 1,000 ML IV SCH ×2 (00:43→12:48)
[2018-05-30 05:15] LABS: BASO % 0 % (0-3); EOS # 0.1 x10^3/uL (0.0-0.7); EOS % 1 % (0-3); HEMATOCRIT 31.6 % (36.0-47.0); HEMOGLOBIN 10.2 g/dL (12.0-15.5); LYMPH # 2.5 x10^3/uL (1.0-4.8); LYMPH % 35 % (24-48); MEAN CORPUSCULAR HEMOGLOBIN 26 pg (25-35); MEAN CORPUSCULAR HGB CONC 32 g/dL (31-37); MEAN CORPUSCULAR VOLUME 80 fL (79-100); MONO # 0.7 x10^3/uL (0.0-1.1); MONO % 10 % (0-9); NEUT # 3.7 x10^3uL (1.8-7.7); NEUT % 53 % (31-73); PLATELET COUNT 212 x10^3/uL (140-400); RED BLOOD COUNT 3.94 x10^6/uL (3.50-5.40); RED CELL DISTRIBUTION WIDTH 22.5 % (11.5-14.5)
[2018-05-30 06:04] LABS: CALCIUM 9.5 mg/dL (8.5-10.1); CREATININE 0.9 mg/dL (0.6-1.0); GFR 85.2
[2018-05-30 07:02] LABS: FECAL OB PT NEGATIVE (NEG)
[2018-05-30] MEDS: PANTOPRAZOLE 40 MG TABLET.DR. PO SCH (07:26)
[2018-05-30] MEDS: SUCRALFATE 1 GM TABLET. PO SCH ×2 (07:27→21:47)
[2018-05-30] MEDS: CITALOPRAM 10 MG TABLET. PO SCH (09:05)
[2018-05-30] MEDS: FERROUS SULFATE 325 MG TABLET. PO SCH (09:05)
[2018-05-30] MEDS: VITAMIN B12,B9,B6 COMPLEX 1 TABLET. PO SCH (09:05)
[2018-05-30] MEDS: ALPRAZolam 1 MG TABLET PO PRN ×2 (09:05→17:17)
--- NOTE | 2018-05-30 11:18 | PDOC ---
PROGRESS NOTES Chief Complaint Chief Complaint Abdominal pain Hypoglycemia CHF GERD Peptic Ulcer disease Anemia NOS Anxiety Depression Schizophrenia History of Present Illness History of Present Illness Pt seen and examined pt exhibited hypoglycemia this AM that was quickly corrected No acute findings on CT Pt is resting NAD DW RN Vitals Vitals Vital Signs Date Time Temp Pulse Resp B/P (MAP) Pulse Ox O2 Delivery O2 Flow Rate FiO2 05/30/18 11:00 99 Room Air 05/30/18 07:00 97.4 61 16 101/65 (77) 97.4 Physical Exam General: No acute distress, Other (drowsy) Lungs: Clear Abdomen: Normal bowel sounds, Soft, No tenderness, No masses Extremities: No clubbing, No cyanosis, No edema, Normal pulses, No tenderness/ swelling Skin: No rashes, No breakdown, No significant lesion Labs LABS Laboratory Tests Test 05/29/18 12:20 05/29/18 13:20 05/29/18 13:44 05/30/18 04:00 Urine Collection Type Unknown Urine Color Yellow Urine Clarity Cloudy Urine pH 5.0 Urine Specific [place] <=1.005 Urine Protein Negative mg/dL (NEG-TRACE) Urine Glucose (UA) Negative mg/dL (NEG) Urine Ketones (Stick) Negative mg/dL (NEG) Urine Blood Negative (NEG) Urine Nitrite Negative (NEG) Urine Bilirubin Negative (NEG) Urine Urobilinogen Dipstick 0.2 mg/dL (0.2 mg/dL) Urine Leukocyte Esterase Negative (NEG) Urine RBC Rare /HPF (0-2) Urine WBC Occ /HPF (0-4) Urine Squamous Epithelial Cells None /LPF Urine Bacteria Few /HPF (0-FEW) White Blood Count 8.9 x10^3/uL (4.0-11.0) 7.0 x10^3/uL (4.0-11.0) Red Blood Count 4.38 x10^6/uL (3.50-5.40) 3.94 x10^6/uL (3.50-5.40) Hemoglobin 11.2 g/dL (12.0-15.5) 10.2 g/dL (12.0-15.5) Hematocrit 34.2 % (36.0-47.0) 31.6 % (36.0-47.0) Mean Corpuscular Volume 78 fL (79-100) 80 fL (79-100) Mean Corpuscular Hemoglobin 26 pg (25-35) 26 pg (25-35) Mean Corpuscular Hemoglobin Concent 33 g/dL (31-37) 32 g/dL (31-37) Red Cell Distribution Width 22.1 % (11.5-14.5) 22.5 % (11.5-14.5) Platelet Count 244 x10^3/uL (140-400) 212 x10^3/uL (140-400) Neutrophils (%) (Auto) 70 % (31-73) 53 % (31-73) Lymphocytes (%) (Auto) 22 % (24-48) 35 % (24-48) Monocytes (%) (Auto) 7 % (0-9) 10 % (0-9) Eosinophils (%) (Auto) 0 % (0-3) 1 % (0-3) Basophils (%) (Auto) 0 % (0-3) 0 % (0-3) Neutrophils # (Auto) 6.2 x10^3uL (1.8-7.7) 3.7 x10^3uL (1.8-7.7) Lymphocytes # (Auto) 2.0 x10^3/uL (1.0-4.8) 2.5 x10^3/uL (1.0-4.8) Monocytes # (Auto) 0.6 x10^3/uL (0.0-1.1) 0.7 x10^3/uL (0.0-1.1) Eosinophils # (Auto) 0.0 x10^3/uL (0.0-0.7) 0.1 x10^3/uL (0.0-0.7) Basophils # (Auto) 0.0 x10^3/uL (0.0-0.2) 0.0 x10^3/uL (0.0-0.2) Platelet Estimate Adequate (ADEQUATE) Hypochromasia Slight Anisocytosis Mod Ovalocytes Few Sodium Level 138 mmol/L (136-145) 145 mmol/L (136-145) Potassium Level 3.7 mmol/L (3.5-5.1) 3.0 mmol/L (3.5-5.1) Chloride Level 103 mmol/L (98-107) 108 mmol/L (98-107) Carbon Dioxide Level 24 mmol/L (21-32) 24 mmol/L (21-32) Anion Gap 11 (6-14) 13 (6-14) Blood Urea Nitrogen 14 mg/dL (7-20) 13 mg/dL (7-20) Creatinine 0.8 mg/dL (0.6-1.0) 0.9 mg/dL (0.6-1.0) Estimated GFR (Cockcroft-Gault) 97.7 85.2 BUN/Creatinine Ratio 18 (6-20) Glucose Level 92 mg/dL (70-99) 14 mg/dL (70-99) Calcium Level 10.3 mg/dL (8.5-10.1) 9.5 mg/dL (8.5-10.1) Total Bilirubin 0.7 mg/dL (0.2-1.0) Aspartate Amino Transf (AST/SGOT) 22 U/L (15-37) Alanine Aminotransferase (ALT/SGPT) 83 U/L (14-59) Alkaline Phosphatase 118 U/L (46-116) Total Protein 9.0 g/dL (6.4-8.2) Albumin 4.3 g/dL (3.4-5.0) Albumin/Globulin Ratio 0.9 (1.0-1.7) Lipase 171 U/L (73-393) Stool Occult Blood Negative (NEG) Test 05/30/18 06:00 05/30/18 06:10 05/30/18 07:30 Stool Occult Blood Negative (NEG) Glucose (Fingerstick) 78 mg/dL (70-99) Glucose Level 89 mg/dL (70-99) Review of Systems Review of Systems pt co abd pain no SOB no N/V/D Assessment and Plan Assessmemt and Plan Assessment: Abdominal pain Hypoglycemia CHF GERD Peptic Ulcer disease Anemia NOS Anxiety Depression Schizophrenia Plan: glycemic control pain meds PTOT labs Fluids home meds Comment Review of Relevant I have reviewed the following items vero (where applicable) has been applied. Labs Laboratory Tests Test 05/29/18 12:20 05/29/18 13:20 05/29/18 13:44 05/30/18 04:00 Urine Collection Type Unknown Urine Color Yellow Urine Clarity Cloudy Urine pH 5.0 Urine Specific [place] <=1.005 Urine Protein Negative mg/dL (NEG-TRACE) Urine Glucose (UA) Negative mg/dL (NEG) Urine Ketones (Stick) Negative mg/dL (NEG) Urine Blood Negative (NEG) Urine Nitrite Negative (NEG) Urine Bilirubin Negative (NEG) Urine Urobilinogen Dipstick 0.2 mg/dL (0.2 mg/dL) Urine Leukocyte Esterase Negative (NEG) Urine RBC Rare /HPF (0-2) Urine WBC Occ /HPF (0-4) Urine Squamous Epithelial Cells None /LPF Urine Bacteria Few /HPF (0-FEW) White Blood Count 8.9 x10^3/uL (4.0-11.0) 7.0 x10^3/uL (4.0-11.0) Red Blood Count 4.38 x10^6/uL (3.50-5.40) 3.94 x10^6/uL (3.50-5.40) Hemoglobin 11.2 g/dL (12.0-15.5) 10.2 g/dL (12.0-15.5) Hematocrit 34.2 % (36.0-47.0) 31.6 % (36.0-47.0) Mean Corpuscular Volume 78 fL (79-100) 80 fL (79-100) Mean Corpuscular Hemoglobin 26 pg (25-35) 26 pg (25-35) Mean Corpuscular Hemoglobin Concent 33 g/dL (31-37) 32 g/dL (31-37) Red Cell Distribution Width 22.1 % (11.5-14.5) 22.5 % (11.5-14.5) Platelet Count 244 x10^3/uL (140-400) 212 x10^3/uL (140-400) Neutrophils (%) (Auto) 70 % (31-73) 53 % (31-73) Lymphocytes (%) (Auto) 22 % (24-48) 35 % (24-48) Monocytes (%) (Auto) 7 % (0-9) 10 % (0-9) Eosinophils (%) (Auto) 0 % (0-3) 1 % (0-3) Basophils (%) (Auto) 0 % (0-3) 0 % (0-3) Neutrophils # (Auto) 6.2 x10^3uL (1.8-7.7) 3.7 x10^3uL (1.8-7.7) Lymphocytes # (Auto) 2.0 x10^3/uL (1.0-4.8) 2.5 x10^3/uL (1.0-4.8) Monocytes # (Auto) 0.6 x10^3/uL (0.0-1.1) 0.7 x10^3/uL (0.0-1.1) Eosinophils # (Auto) 0.0 x10^3/uL (0.0-0.7) 0.1 x10^3/uL (0.0-0.7) Basophils # (Auto) 0.0 x10^3/uL (0.0-0.2) 0.0 x10^3/uL (0.0-0.2) Platelet Estimate Adequate (ADEQUATE) Hypochromasia Slight Anisocytosis Mod Ovalocytes Few Sodium Level 138 mmol/L (136-145) 145 mmol/L (136-145) Potassium Level 3.7 mmol/L (3.5-5.1) 3.0 mmol/L (3.5-5.1) Chloride Level 103 mmol/L (98-107) 108 mmol/L (98-107) Carbon Dioxide Level 24 mmol/L (21-32) 24 mmol/L (21-32) Anion Gap 11 (6-14) 13 (6-14) Blood Urea Nitrogen 14 mg/dL (7-20) 13 mg/dL (7-20) Creatinine 0.8 mg/dL (0.6-1.0) 0.9 mg/dL (0.6-1.0) Estimated GFR (Cockcroft-Gault) 97.7 85.2 BUN/Creatinine Ratio 18 (6-20) Glucose Level 92 mg/dL (70-99) 14 mg/dL (70-99) Calcium Level 10.3 mg/dL (8.5-10.1) 9.5 mg/dL (8.5-10.1) Total Bilirubin 0.7 mg/dL (0.2-1.0) Aspartate Amino Transf (AST/SGOT) 22 U/L (15-37) Alanine Aminotransferase (ALT/SGPT) 83 U/L (14-59) Alkaline Phosphatase 118 U/L (46-116) Total Protein 9.0 g/dL (6.4-8.2) Albumin 4.3 g/dL (3.4-5.0) Albumin/Globulin Ratio 0.9 (1.0-1.7) Lipase 171 U/L (73-393) Stool Occult Blood Negative (NEG) Test 05/30/18 06:00 05/30/18 06:10 05/30/18 07:30 Stool Occult Blood Negative (NEG) Glucose (Fingerstick) 78 mg/dL (70-99) Glucose Level 89 mg/dL (70-99) Laboratory Tests Test 05/29/18 12:20 05/29/18 13:20 05/29/18 13:44 05/30/18 04:00 Urine Collection Type Unknown Urine Color Yellow Urine Clarity Cloudy Urine pH 5.0 Urine Specific [place] <=1.005 Urine Protein Negative mg/dL (NEG-TRACE) Urine Glucose (UA) Negative mg/dL (NEG) Urine Ketones (Stick) Negative mg/dL (NEG) Urine Blood Negative (NEG) Urine Nitrite Negative (NEG) Urine Bilirubin Negative (NEG) Urine Urobilinogen Dipstick 0.2 mg/dL (0.2 mg/dL) Urine Leukocyte Esterase Negative (NEG) Urine RBC Rare /HPF (0-2) Urine WBC Occ /HPF (0-4) Urine Squamous Epithelial Cells None /LPF Urine Bacteria Few /HPF (0-FEW) White Blood Count 8.9 x10^3/uL (4.0-11.0) 7.0 x10^3/uL (4.0-11.0) Red Blood Count 4.38 x10^6/uL (3.50-5.40) 3.94 x10^6/uL (3.50-5.40) Hemoglobin 11.2 g/dL (12.0-15.5) 10.2 g/dL (12.0-15.5) Hematocrit 34.2 % (36.0-47.0) 31.6 % (36.0-47.0) Mean Corpuscular Volume 78 fL (79-100) 80 fL (79-100) Mean Corpuscular Hemoglobin 26 pg (25-35) 26 pg (25-35) Mean Corpuscular Hemoglobin Concent 33 g/dL (31-37) 32 g/dL (31-37) Red Cell Distribution Width 22.1 % (11.5-14.5) 22.5 % (11.5-14.5) Platelet Count 244 x10^3/uL (140-400) 212 x10^3/uL (140-400) Neutrophils (%) (Auto) 70 % (31-73) 53 % (31-73) Lymphocytes (%) (Auto) 22 % (24-48) 35 % (24-48) Monocytes (%) (Auto) 7 % (0-9) 10 % (0-9) Eosinophils (%) (Auto) 0 % (0-3) 1 % (0-3) Basophils (%) (Auto) 0 % (0-3) 0 % (0-3) Neutrophils # (Auto) 6.2 x10^3uL (1.8-7.7) 3.7 x10^3uL (1.8-7.7) Lymphocytes # (Auto) 2.0 x10^3/uL (1.0-4.8) 2.5 x10^3/uL (1.0-4.8) Monocytes # (Auto) 0.6 x10^3/uL (0.0-1.1) 0.7 x10^3/uL (0.0-1.1) Eosinophils # (Auto) 0.0 x10^3/uL (0.0-0.7) 0.1 x10^3/uL (0.0-0.7) Basophils # (Auto) 0.0 x10^3/uL (0.0-0.2) 0.0 x10^3/uL (0.0-0.2) Platelet Estimate Adequate (ADEQUATE) Hypochromasia Slight Anisocytosis Mod Ovalocytes Few Sodium Level 138 mmol/L (136-145) 145 mmol/L (136-145) Potassium Level 3.7 mmol/L (3.5-5.1) 3.0 mmol/L (3.5-5.1) Chloride Level 103 mmol/L (98-107) 108 mmol/L (98-107) Carbon Dioxide Level 24 mmol/L (21-32) 24 mmol/L (21-32) Anion Gap 11 (6-14) 13 (6-14) Blood Urea Nitrogen 14 mg/dL (7-20) 13 mg/dL (7-20) Creatinine 0.8 mg/dL (0.6-1.0) 0.9 mg/dL (0.6-1.0) Estimated GFR (Cockcroft-Gault) 97.7 85.2 BUN/Creatinine Ratio 18 (6-20) Glucose Level 92 mg/dL (70-99) 14 mg/dL (70-99) Calcium Level 10.3 mg/dL (8.5-10.1) 9.5 mg/dL (8.5-10.1) Total Bilirubin 0.7 mg/dL (0.2-1.0) Aspartate Amino Transf (AST/SGOT) 22 U/L (15-37) Alanine Aminotransferase (ALT/SGPT) 83 U/L (14-59) Alkaline Phosphatase 118 U/L (46-116) Total Protein 9.0 g/dL (6.4-8.2) Albumin 4.3 g/dL (3.4-5.0) Albumin/Globulin Ratio 0.9 (1.0-1.7) Lipase 171 U/L (73-393) Stool Occult Blood Negative (NEG) Test 05/30/18 06:00 05/30/18 06:10 05/30/18 07:30 Stool Occult Blood Negative (NEG) Glucose (Fingerstick) 78 mg/dL (70-99) Glucose Level 89 mg/dL (70-99) Medications Current Medications Fentanyl Citrate (Fentanyl 2ml Vial) 50 mcg PRN Q30MIN PRN IV SEVERE PAIN Last administered on 05/29/18at 17:00; Start 05/29/18 at 13:15; Stop 05/29/18 at 17:01 ; Status DC Sodium Chloride 1,000 ml @ 1,000 mls/hr Q1H IV Last administered on 05/29/18at 13:30; Start 05/29/18 at 13:05; Stop 05/29/18 at 14:04; Status DC Ondansetron HCl (Zofran) 4 mg 1X ONCE IV Last administered on 05/29/18at 13:28 ; Start 05/29/18 at 13:15; Stop 05/29/18 at 13:16; Status DC Iohexol (Omnipaque 300 Mg/ml) 75 ml 1X ONCE IV Last administered on 05/29/18at 14:37; Start 05/29/18 at 14:30; Stop 05/29/18 at 14:31; Status DC Info (CONTRAST GIVEN -- Rx MONITORING) 1 each PRN DAILY PRN MC SEE COMMENTS; Start 05/29/18 at 14:30; Stop 05/31/18 at 14:29 Sodium Chloride 1,000 ml @ 100 mls/hr Q10H IV Last administered on 05/30/18at 00:43; Start 05/29/18 at 15:37; Stop 05/30/18 at 15:36 Fentanyl Citrate (Fentanyl 2ml Vial) 50 mcg PRN Q2HR PRN IV PAIN; Start at 16:30; Stop 05/29/18 at 16:41; Status DC Zolpidem Tartrate (Ambien) 5 mg PRN QHS PRN PO INSOMNIA; Start 05/29/18 at 16: 30; Stop 05/29/18 at 16:41; Status DC Ondansetron HCl (Zofran) 4 mg PRN Q6HRS PRN IV NAUSEA/VOMITING; Start 05/29/18 at 16:30 Ondansetron HCl (Zofran Odt) 4 mg PRN Q6HRS PRN PO NAUSEA/VOMITING 1ST CHOICE; Start 05/29/18 at 16:30 Oxycodone/ Acetaminophen (Percocet 5/325) 1 tab PRN Q4HRS PRN PO PAIN; Start at 16:30 Oxycodone/ Acetaminophen (Percocet 10/325) 1 tab PRN Q4HRS PRN PO SEVERE pain; Start 05/29/18 at 16:30; Stop 05/29/18 at 16:41; Status DC Alprazolam (Xanax) 1 mg PRN BID PRN PO ANXIETY / AGITATION Last administered on 05/30/18at 09:05; Start 05/29/18 at 16:30 Citalopram Hydrobromide (CeleXA) 10 mg DAILY PO Last administered on 05/30/18at 09:05; Start 05/30/18 at 09:00 Vitamin B Complex (Folbic Tablet) 1 tab DAILY PO Last administered on at 09:05; Start 05/30/18 at 09:00 Ferrous Sulfate (Feosol) 325 mg DAILY PO Last administered on 05/30/18at 09:05; Start 05/30/18 at 09:00 Promethazine HCl (Phenergan Syrup) 6.25 mg PRN TID PRN PO NAUSEA 2ND CHOICE; Start 05/29/18 at 16:30 Temazepam (Restoril) 30 mg PRN QHS PRN PO SLEEP Last administered on 05/29/18at 20:54; Start 05/29/18 at 21:00 Albuterol Sulfate (Ventolin Neb Soln) 2.5 mg PRN Q6HRS PRN NEB SHORTNESS OF BREATH; Start 05/29/18 at 16:45 Gabapentin (Neurontin) 300 mg TID PO ; Start 05/29/18 at 21:00; Stop 05/29/18 at 21:00; Status DC Pantoprazole Sodium (Protonix) 40 mg DAILYAC PO Last administered on 05/30/18at 07:26; Start 05/30/18 at 07:30 Sucralfate (Carafate) 1 gm BID PO Last administered on 05/30/18at 07:27; Start 05/29/18 at 21:00 Fentanyl Citrate (Fentanyl 2ml Vial) 25 mcg PRN Q2HR PRN IV PAIN Last administered on 05/29/18at 18:41; Start 05/29/18 at 16:45; Stop 05/29/18 at 19:31 ; Status DC Gabapentin (Neurontin) 300 mg PRN TID PRN PO nerve pain; Start 05/29/18 at 21: 00 Fentanyl Citrate (Fentanyl 2ml Vial) 50 mcg PRN Q2HR PRN IV PAIN Last administered on 05/30/18at 10:20; Start 05/29/18 at 19:45 Active Scripts Active Proair Hfa Inhaler (Albuterol Sulfate) 8.5 Gm Hfa.aer.ad 1 Puff INH PRN Q6HRS PRN Promethazine Hcl 6.25 Mg/5 Ml Syrup 5 Ml PO TID PRN Temazepam 15 Mg Capsule 1 Cap PO QHS Xanax (Alprazolam) 1 Mg Tablet 1 Tab PO BID PRN Gabapentin 300 Mg Capsule 300 Mg PO TID Ferrous Sulfate 325 Mg Tablet 1 Tab PO DAILY Folbic Tablet (Cyanocobalamin/Fa/Pyridoxine) 1 Each Tablet 1 Tab PO DAILY Carafate (Sucralfate) 1 Gm/10 Ml Oral.susp 1 Gm PO BID Reported Celexa (Citalopram Hydrobromide) 10 Mg Tablet 1 Tab PO DAILY Protonix (Pantoprazole Sodium) 20 Mg Tablet.dr 80 Mg PO DAILY Temazepam 30 Mg Capsule 1 Cap PO QHS Vitals/I & O Vital Sign - Last 24 Hours 05/29/18 05/29/18 05/29/18 05/29/18 12:25 12:45 13:29 13:45 Temp 99.0 99.0 Pulse 87 74 65 Resp 16 18 18 20 B/P (MAP) 122/77 (92) 128/84 (99) 127/92 (104) Pulse Ox 98 98 97 95 O2 Delivery Room Air Room Air 05/29/18 05/29/18 05/29/18 05/29/18 14:15 14:43 14:45 17:00 Pulse 65 63 Resp 16 20 16 20 B/P (MAP) 123/79 (94) 134/85 (101) Pulse Ox 98 100 99 05/29/18 05/29/18 05/29/18 05/29/18 18:41 19:15 19:21 19:55 Temp 97.9 97.9 Pulse 83 Resp 18 B/P (MAP) 110/77 (88) Pulse Ox 100 O2 Delivery Room Air Room Air Room Air Room Air 05/29/18 05/29/18 05/30/18 05/30/18 20:56 22:54 00:43 03:13 Temp 97.6 98.0 97.6 98.0 Pulse 64 59 Resp 18 18 20 20 B/P (MAP) 101/69 (80) 94/65 (75) Pulse Ox 100 99 99 99 O2 Delivery Room Air Room Air Room Air Room Air 05/30/18 05/30/18 05/30/18 05/30/18 04:49 04:59 05:30 07:00 Temp 97.4 97.4 Pulse 64 61 Resp 20 18 16 B/P (MAP) 103/65 (78) 101/65 (77) Pulse Ox 99 100 O2 Delivery Room Air Room Air Room Air 05/30/18 05/30/18 05/30/18 05/30/18 07:45 08:00 10:20 11:00 Pulse Ox 99 99 O2 Delivery Room Air Room Air Room Air Room Air Intake and Output 8/17/18 8/17/18 8/18/18 15:00 23:00 07:00 Intake Total 1200 ml 1894 ml Balance 1200 ml 1894 ml MARTHA FOY III DO May 30, 2018 11:18
[2018-05-30] MEDS ORDERED: POTASSIUM CHLORIDE 20 MEQ TABLET.ER. PO ONE (13:00)
--- NOTE | 2018-05-30 13:56 | PDOC ---
G I PROGRESS NOTE Reason for Follow-up Diarrhea/abd pain Subjective No improvement Physical Exam Lungs clear CV S1 S2 ABD +BS, soft, mild tenderness through out Review of Relevant I have reviewed the following items vero (where applicable) has been applied. Labs Laboratory Tests Test 05/29/18 12:20 05/29/18 13:20 05/29/18 13:44 05/30/18 04:00 Urine Collection Type Unknown Urine Color Yellow Urine Clarity Cloudy Urine pH 5.0 Urine Specific Tibbie <=1.005 Urine Protein Negative mg/dL (NEG-TRACE) Urine Glucose (UA) Negative mg/dL (NEG) Urine Ketones (Stick) Negative mg/dL (NEG) Urine Blood Negative (NEG) Urine Nitrite Negative (NEG) Urine Bilirubin Negative (NEG) Urine Urobilinogen Dipstick 0.2 mg/dL (0.2 mg/dL) Urine Leukocyte Esterase Negative (NEG) Urine RBC Rare /HPF (0-2) Urine WBC Occ /HPF (0-4) Urine Squamous Epithelial Cells None /LPF Urine Bacteria Few /HPF (0-FEW) White Blood Count 8.9 x10^3/uL (4.0-11.0) 7.0 x10^3/uL (4.0-11.0) Red Blood Count 4.38 x10^6/uL (3.50-5.40) 3.94 x10^6/uL (3.50-5.40) Hemoglobin 11.2 g/dL (12.0-15.5) 10.2 g/dL (12.0-15.5) Hematocrit 34.2 % (36.0-47.0) 31.6 % (36.0-47.0) Mean Corpuscular Volume 78 fL (79-100) 80 fL (79-100) Mean Corpuscular Hemoglobin 26 pg (25-35) 26 pg (25-35) Mean Corpuscular Hemoglobin Concent 33 g/dL (31-37) 32 g/dL (31-37) Red Cell Distribution Width 22.1 % (11.5-14.5) 22.5 % (11.5-14.5) Platelet Count 244 x10^3/uL (140-400) 212 x10^3/uL (140-400) Neutrophils (%) (Auto) 70 % (31-73) 53 % (31-73) Lymphocytes (%) (Auto) 22 % (24-48) 35 % (24-48) Monocytes (%) (Auto) 7 % (0-9) 10 % (0-9) Eosinophils (%) (Auto) 0 % (0-3) 1 % (0-3) Basophils (%) (Auto) 0 % (0-3) 0 % (0-3) Neutrophils # (Auto) 6.2 x10^3uL (1.8-7.7) 3.7 x10^3uL (1.8-7.7) Lymphocytes # (Auto) 2.0 x10^3/uL (1.0-4.8) 2.5 x10^3/uL (1.0-4.8) Monocytes # (Auto) 0.6 x10^3/uL (0.0-1.1) 0.7 x10^3/uL (0.0-1.1) Eosinophils # (Auto) 0.0 x10^3/uL (0.0-0.7) 0.1 x10^3/uL (0.0-0.7) Basophils # (Auto) 0.0 x10^3/uL (0.0-0.2) 0.0 x10^3/uL (0.0-0.2) Platelet Estimate Adequate (ADEQUATE) Hypochromasia Slight Anisocytosis Mod Ovalocytes Few Sodium Level 138 mmol/L (136-145) 145 mmol/L (136-145) Potassium Level 3.7 mmol/L (3.5-5.1) 3.0 mmol/L (3.5-5.1) Chloride Level 103 mmol/L (98-107) 108 mmol/L (98-107) Carbon Dioxide Level 24 mmol/L (21-32) 24 mmol/L (21-32) Anion Gap 11 (6-14) 13 (6-14) Blood Urea Nitrogen 14 mg/dL (7-20) 13 mg/dL (7-20) Creatinine 0.8 mg/dL (0.6-1.0) 0.9 mg/dL (0.6-1.0) Estimated GFR (Cockcroft-Gault) 97.7 85.2 BUN/Creatinine Ratio 18 (6-20) Glucose Level 92 mg/dL (70-99) 14 mg/dL (70-99) Calcium Level 10.3 mg/dL (8.5-10.1) 9.5 mg/dL (8.5-10.1) Total Bilirubin 0.7 mg/dL (0.2-1.0) Aspartate Amino Transf (AST/SGOT) 22 U/L (15-37) Alanine Aminotransferase (ALT/SGPT) 83 U/L (14-59) Alkaline Phosphatase 118 U/L (46-116) Total Protein 9.0 g/dL (6.4-8.2) Albumin 4.3 g/dL (3.4-5.0) Albumin/Globulin Ratio 0.9 (1.0-1.7) Lipase 171 U/L (73-393) Stool Occult Blood Negative (NEG) Test 05/30/18 06:00 05/30/18 06:10 05/30/18 07:30 Stool Occult Blood Negative (NEG) Glucose (Fingerstick) 78 mg/dL (70-99) Glucose Level 89 mg/dL (70-99) Laboratory Tests Test 05/30/18 04:00 05/30/18 06:00 05/30/18 06:10 05/30/18 07:30 White Blood Count 7.0 x10^3/uL (4.0-11.0) Red Blood Count 3.94 x10^6/uL (3.50-5.40) Hemoglobin 10.2 g/dL (12.0-15.5) Hematocrit 31.6 % (36.0-47.0) Mean Corpuscular Volume 80 fL (79-100) Mean Corpuscular Hemoglobin 26 pg (25-35) Mean Corpuscular Hemoglobin Concent 32 g/dL (31-37) Red Cell Distribution Width 22.5 % (11.5-14.5) Platelet Count 212 x10^3/uL (140-400) Neutrophils (%) (Auto) 53 % (31-73) Lymphocytes (%) (Auto) 35 % (24-48) Monocytes (%) (Auto) 10 % (0-9) Eosinophils (%) (Auto) 1 % (0-3) Basophils (%) (Auto) 0 % (0-3) Neutrophils # (Auto) 3.7 x10^3uL (1.8-7.7) Lymphocytes # (Auto) 2.5 x10^3/uL (1.0-4.8) Monocytes # (Auto) 0.7 x10^3/uL (0.0-1.1) Eosinophils # (Auto) 0.1 x10^3/uL (0.0-0.7) Basophils # (Auto) 0.0 x10^3/uL (0.0-0.2) Sodium Level 145 mmol/L (136-145) Potassium Level 3.0 mmol/L (3.5-5.1) Chloride Level 108 mmol/L (98-107) Carbon Dioxide Level 24 mmol/L (21-32) Anion Gap 13 (6-14) Blood Urea Nitrogen 13 mg/dL (7-20) Creatinine 0.9 mg/dL (0.6-1.0) Estimated GFR (Cockcroft-Gault) 85.2 Glucose Level 14 mg/dL (70-99) 89 mg/dL (70-99) Calcium Level 9.5 mg/dL (8.5-10.1) Stool Occult Blood Negative (NEG) Glucose (Fingerstick) 78 mg/dL (70-99) Medications Current Medications Fentanyl Citrate (Fentanyl 2ml Vial) 50 mcg PRN Q30MIN PRN IV SEVERE PAIN Last administered on 05/29/18at 17:00; Start 05/29/18 at 13:15; Stop 05/29/18 at 17:01 ; Status DC Sodium Chloride 1,000 ml @ 1,000 mls/hr Q1H IV Last administered on 05/29/18at 13:30; Start 05/29/18 at 13:05; Stop 05/29/18 at 14:04; Status DC Ondansetron HCl (Zofran) 4 mg 1X ONCE IV Last administered on 05/29/18at 13:28 ; Start 05/29/18 at 13:15; Stop 05/29/18 at 13:16; Status DC Iohexol (Omnipaque 300 Mg/ml) 75 ml 1X ONCE IV Last administered on 05/29/18at 14:37; Start 05/29/18 at 14:30; Stop 05/29/18 at 14:31; Status DC Info (CONTRAST GIVEN -- Rx MONITORING) 1 each PRN DAILY PRN MC SEE COMMENTS; Start 05/29/18 at 14:30; Stop 05/31/18 at 14:29 Sodium Chloride 1,000 ml @ 100 mls/hr Q10H IV Last administered on 05/30/18at 12:48; Start 05/29/18 at 15:37; Stop 05/30/18 at 15:36 Fentanyl Citrate (Fentanyl 2ml Vial) 50 mcg PRN Q2HR PRN IV PAIN; Start at 16:30; Stop 05/29/18 at 16:41; Status DC Zolpidem Tartrate (Ambien) 5 mg PRN QHS PRN PO INSOMNIA; Start 05/29/18 at 16: 30; Stop 05/29/18 at 16:41; Status DC Ondansetron HCl (Zofran) 4 mg PRN Q6HRS PRN IV NAUSEA/VOMITING; Start 05/29/18 at 16:30 Ondansetron HCl (Zofran Odt) 4 mg PRN Q6HRS PRN PO NAUSEA/VOMITING 1ST CHOICE; Start 05/29/18 at 16:30 Oxycodone/ Acetaminophen (Percocet 5/325) 1 tab PRN Q4HRS PRN PO PAIN; Start at 16:30 Oxycodone/ Acetaminophen (Percocet 10/325) 1 tab PRN Q4HRS PRN PO SEVERE pain; Start 05/29/18 at 16:30; Stop 05/29/18 at 16:41; Status DC Alprazolam (Xanax) 1 mg PRN BID PRN PO ANXIETY / AGITATION Last administered on 05/30/18at 09:05; Start 05/29/18 at 16:30 Citalopram Hydrobromide (CeleXA) 10 mg DAILY PO Last administered on 05/30/18at 09:05; Start 05/30/18 at 09:00 Vitamin B Complex (Folbic Tablet) 1 tab DAILY PO Last administered on at 09:05; Start 05/30/18 at 09:00 Ferrous Sulfate (Feosol) 325 mg DAILY PO Last administered on 05/30/18at 09:05; Start 05/30/18 at 09:00 Promethazine HCl (Phenergan Syrup) 6.25 mg PRN TID PRN PO NAUSEA 2ND CHOICE; Start 05/29/18 at 16:30 Temazepam (Restoril) 30 mg PRN QHS PRN PO SLEEP Last administered on 05/29/18at 20:54; Start 05/29/18 at 21:00 Albuterol Sulfate (Ventolin Neb Soln) 2.5 mg PRN Q6HRS PRN NEB SHORTNESS OF BREATH; Start 05/29/18 at 16:45 Gabapentin (Neurontin) 300 mg TID PO ; Start 05/29/18 at 21:00; Stop 05/29/18 at 21:00; Status DC Pantoprazole Sodium (Protonix) 40 mg DAILYAC PO Last administered on 05/30/18at 07:26; Start 05/30/18 at 07:30 Sucralfate (Carafate) 1 gm BID PO Last administered on 05/30/18at 07:27; Start 05/29/18 at 21:00 Fentanyl Citrate (Fentanyl 2ml Vial) 25 mcg PRN Q2HR PRN IV PAIN Last administered on 05/29/18at 18:41; Start 05/29/18 at 16:45; Stop 05/29/18 at 19:31 ; Status DC Gabapentin (Neurontin) 300 mg PRN TID PRN PO nerve pain; Start 05/29/18 at 21: 00 Fentanyl Citrate (Fentanyl 2ml Vial) 50 mcg PRN Q2HR PRN IV PAIN Last administered on 05/30/18at 12:52; Start 05/29/18 at 19:45 Potassium Chloride (Klor-Con) 40 meq 1X ONCE PO Last administered on at 12:49; Start 05/30/18 at 13:00; Stop 05/30/18 at 13:01; Status DC Active Scripts Active Proair Hfa Inhaler (Albuterol Sulfate) 8.5 Gm Hfa.aer.ad 1 Puff INH PRN Q6HRS PRN Promethazine Hcl 6.25 Mg/5 Ml Syrup 5 Ml PO TID PRN Temazepam 15 Mg Capsule 1 Cap PO QHS Xanax (Alprazolam) 1 Mg Tablet 1 Tab PO BID PRN Gabapentin 300 Mg Capsule 300 Mg PO TID Ferrous Sulfate 325 Mg Tablet 1 Tab PO DAILY Folbic Tablet (Cyanocobalamin/Fa/Pyridoxine) 1 Each Tablet 1 Tab PO DAILY Carafate (Sucralfate) 1 Gm/10 Ml Oral.susp 1 Gm PO BID Reported Celexa (Citalopram Hydrobromide) 10 Mg Tablet 1 Tab PO DAILY Protonix (Pantoprazole Sodium) 20 Mg Tablet.dr 80 Mg PO DAILY Temazepam 30 Mg Capsule 1 Cap PO QHS Vitals/I & O Vital Sign - Last 24 Hours 05/29/18 05/29/18 05/29/18 05/29/18 14:15 14:43 14:45 17:00 Pulse 65 63 Resp 16 20 16 20 B/P (MAP) 123/79 (94) 134/85 (101) Pulse Ox 98 100 99 05/29/18 05/29/18 05/29/18 05/29/18 18:41 19:15 19:21 19:55 Temp 97.9 97.9 Pulse 83 Resp 18 B/P (MAP) 110/77 (88) Pulse Ox 100 O2 Delivery Room Air Room Air Room Air Room Air 05/29/18 05/29/18 05/30/18 05/30/18 20:56 22:54 00:43 03:13 Temp 97.6 98.0 97.6 98.0 Pulse 64 59 Resp 18 18 20 20 B/P (MAP) 101/69 (80) 94/65 (75) Pulse Ox 100 99 99 99 O2 Delivery Room Air Room Air Room Air Room Air 05/30/18 05/30/18 05/30/18 05/30/18 04:49 04:59 05:30 07:00 Temp 97.4 97.4 Pulse 64 61 Resp 20 18 16 B/P (MAP) 103/65 (78) 101/65 (77) Pulse Ox 99 100 O2 Delivery Room Air Room Air Room Air 05/30/18 05/30/18 05/30/18 05/30/18 07:45 08:00 10:20 11:00 Pulse Ox 99 99 O2 Delivery Room Air Room Air Room Air Room Air 05/30/18 05/30/18 05/30/18 11:00 12:48 12:52 Temp 97.7 97.7 Pulse 70 68 Resp 16 B/P (MAP) 98/63 (75) 101/72 (82) Pulse Ox 98 O2 Delivery Room Air Room Air Intake and Output 05/29/18 05/29/18 05/30/18 15:00 23:00 07:00 Intake Total 1200 ml 1894 ml Balance 1200 ml 1894 ml Problem List Problems Medical Problems: (1) Abdominal pain Status: Acute Assessment Diarrhea- with rectal bleeding, differential includes: ischemic colitis, infectious colitis, new onset IBD, and/or colon cancer.. await stool studies , if unrevealing then colonoscopy may be needed LINH MILLER MD May 30, 2018 13:56
[2018-05-30] MEDS: TEMAZEPAM 15 MG CAPSULE PO PRN (21:47)
[2018-05-31 00:11] LABS: CALCIUM PTH 9.5 mg/dL (8.7-10.2); CREATININE PTH 0.84 mg/dL (0.57-1.00); PHOSPHORUS PTH 3.6 mg/dL (2.5-4.5); PTH INTACT 51 pg/mL (15-65)
[2018-05-31] MEDS: fentaNYL PF VIAL 100 MCG/2 ML VIAL IV PRN ×8 (02:06→22:14)
[2018-05-31 03:00] VITALS: BP 108/75
[2018-05-31] MEDS: oxyCODONE/APAP 5/325 1 TAB TABLET PO PRN ×2 (03:15→18:28)
[2018-05-31] MEDS: ALPRAZolam 1 MG TABLET PO PRN ×2 (05:09→17:12)
[2018-05-31] MEDS: PANTOPRAZOLE 40 MG TABLET.DR. PO SCH (05:09)
[2018-05-31 06:54] LABS: CREATININE 0.8 mg/dL (0.6-1.0); GFR 97.7; POTASSIUM 3.3 mmol/L (3.5-5.1)
[2018-05-31 07:00] VITALS: BP 109/65
[2018-05-31 07:05] LABS: BASO % 1 % (0-3); EOS # 0.1 x10^3/uL (0.0-0.7); EOS % 2 % (0-3); HEMATOCRIT 25.7 % (36.0-47.0); HEMOGLOBIN 8.3 g/dL (12.0-15.5); LYMPH % 44 % (24-48); MEAN CORPUSCULAR HEMOGLOBIN 26 pg (25-35); MEAN CORPUSCULAR HGB CONC 32 g/dL (31-37); MEAN CORPUSCULAR VOLUME 80 fL (79-100); MONO # 0.4 x10^3/uL (0.0-1.1); MONO % 9 % (0-9); NEUT % 44 % (31-73); PLATELET COUNT 169 x10^3/uL (140-400); RED CELL DISTRIBUTION WIDTH 21.5 % (11.5-14.5); WHITE BLOOD COUNT 4.5 x10^3/uL (4.0-11.0)
[2018-05-31] MEDS: SUCRALFATE 1 GM TABLET. PO SCH ×2 (08:14→20:04)
[2018-05-31] MEDS: FERROUS SULFATE 325 MG TABLET. PO SCH (08:14)
[2018-05-31] MEDS: VITAMIN B12,B9,B6 COMPLEX 1 TABLET. PO SCH (08:15)
[2018-05-31] MEDS: CITALOPRAM 10 MG TABLET. PO SCH (08:15)
[2018-05-31 11:00] VITALS: BP 117/81
--- NOTE | 2018-05-31 13:43 | PDOC ---
PROGRESS NOTES Chief Complaint Chief Complaint Abdominal pain Hypoglycemia CHF GERD Peptic Ulcer disease Anemia NOS Anxiety Depression Schizophrenia History of Present Illness History of Present Illness Pt seen and examined recent rectal bleeding awaiting stool studies DW RN Vitals Vitals Vital Signs Date Time Temp Pulse Resp B/P (MAP) Pulse Ox O2 Delivery O2 Flow Rate FiO2 05/31/18 12:22 Room Air 05/31/18 11:00 97.4 62 16 117/81 (93) 100 97.4 Physical Exam General: Alert, Oriented X3, Cooperative, No acute distress, Other (drowsy) Heart: Regular rate, Normal S1, Normal S2 Lungs: Clear Abdomen: Normal bowel sounds, Soft, No tenderness, No masses Extremities: No clubbing, No cyanosis, No edema, Normal pulses, No tenderness/ swelling Skin: No rashes, No breakdown, No significant lesion Labs LABS Laboratory Tests Test 05/31/18 06:20 White Blood Count 4.5 x10^3/uL (4.0-11.0) Red Blood Count 3.20 x10^6/uL (3.50-5.40) Hemoglobin 8.3 g/dL (12.0-15.5) Hematocrit 25.7 % (36.0-47.0) Mean Corpuscular Volume 80 fL (79-100) Mean Corpuscular Hemoglobin 26 pg (25-35) Mean Corpuscular Hemoglobin Concent 32 g/dL (31-37) Red Cell Distribution Width 21.5 % (11.5-14.5) Platelet Count 169 x10^3/uL (140-400) Neutrophils (%) (Auto) 44 % (31-73) Lymphocytes (%) (Auto) 44 % (24-48) Monocytes (%) (Auto) 9 % (0-9) Eosinophils (%) (Auto) 2 % (0-3) Basophils (%) (Auto) 1 % (0-3) Neutrophils # (Auto) 2.0 x10^3uL (1.8-7.7) Lymphocytes # (Auto) 2.0 x10^3/uL (1.0-4.8) Monocytes # (Auto) 0.4 x10^3/uL (0.0-1.1) Eosinophils # (Auto) 0.1 x10^3/uL (0.0-0.7) Basophils # (Auto) 0.0 x10^3/uL (0.0-0.2) Sodium Level 148 mmol/L (136-145) Potassium Level 3.3 mmol/L (3.5-5.1) Chloride Level 116 mmol/L (98-107) Carbon Dioxide Level 21 mmol/L (21-32) Anion Gap 11 (6-14) Blood Urea Nitrogen 7 mg/dL (7-20) Creatinine 0.8 mg/dL (0.6-1.0) Estimated GFR (Cockcroft-Gault) 97.7 Glucose Level 83 mg/dL (70-99) Calcium Level 8.0 mg/dL (8.5-10.1) Review of Systems Review of Systems no co MAYERS co abd pain Assessment and Plan Assessmemt and Plan Assessment: Abdominal pain Hypoglycemia CHF GERD Peptic Ulcer disease Anemia NOS Anxiety Depression Schizophrenia Plan: IV narcotics fluids labs home meds awaiting further GI input Comment Review of Relevant I have reviewed the following items vero (where applicable) has been applied. Labs Laboratory Tests Test 05/29/18 13:44 05/29/18 20:30 05/30/18 04:00 05/30/18 06:00 Stool Occult Blood Negative (NEG) Negative (NEG) Estimated GFR (Non- 89 (>59) EGFR 103 (>59) PTH (Intact) Specimen Description Comment (.) Parathyroid Hormone (Intact) 51 pg/mL (15-65) Calcium (PTH Intact) 9.5 mg/dL (8.7-10.2) Creatinine (PTH Intact) 0.84 mg/dL (0.57-1.00) Phosphorus (PTH Intact) 3.6 mg/dL (2.5-4.5) White Blood Count 7.0 x10^3/uL (4.0-11.0) Red Blood Count 3.94 x10^6/uL (3.50-5.40) Hemoglobin 10.2 g/dL (12.0-15.5) Hematocrit 31.6 % (36.0-47.0) Mean Corpuscular Volume 80 fL (79-100) Mean Corpuscular Hemoglobin 26 pg (25-35) Mean Corpuscular Hemoglobin Concent 32 g/dL (31-37) Red Cell Distribution Width 22.5 % (11.5-14.5) Platelet Count 212 x10^3/uL (140-400) Neutrophils (%) (Auto) 53 % (31-73) Lymphocytes (%) (Auto) 35 % (24-48) Monocytes (%) (Auto) 10 % (0-9) Eosinophils (%) (Auto) 1 % (0-3) Basophils (%) (Auto) 0 % (0-3) Neutrophils # (Auto) 3.7 x10^3uL (1.8-7.7) Lymphocytes # (Auto) 2.5 x10^3/uL (1.0-4.8) Monocytes # (Auto) 0.7 x10^3/uL (0.0-1.1) Eosinophils # (Auto) 0.1 x10^3/uL (0.0-0.7) Basophils # (Auto) 0.0 x10^3/uL (0.0-0.2) Sodium Level 145 mmol/L (136-145) Potassium Level 3.0 mmol/L (3.5-5.1) Chloride Level 108 mmol/L (98-107) Carbon Dioxide Level 24 mmol/L (21-32) Anion Gap 13 (6-14) Blood Urea Nitrogen 13 mg/dL (7-20) Creatinine 0.9 mg/dL (0.6-1.0) Estimated GFR (Cockcroft-Gault) 85.2 Glucose Level 14 mg/dL (70-99) Calcium Level 9.5 mg/dL (8.5-10.1) Clostridium difficile Toxin (PCR) Negative (Negative) Test 05/30/18 06:10 05/30/18 07:30 05/31/18 06:20 Glucose (Fingerstick) 78 mg/dL (70-99) Glucose Level 89 mg/dL (70-99) 83 mg/dL (70-99) White Blood Count 4.5 x10^3/uL (4.0-11.0) Red Blood Count 3.20 x10^6/uL (3.50-5.40) Hemoglobin 8.3 g/dL (12.0-15.5) Hematocrit 25.7 % (36.0-47.0) Mean Corpuscular Volume 80 fL (79-100) Mean Corpuscular Hemoglobin 26 pg (25-35) Mean Corpuscular Hemoglobin Concent 32 g/dL (31-37) Red Cell Distribution Width 21.5 % (11.5-14.5) Platelet Count 169 x10^3/uL (140-400) Neutrophils (%) (Auto) 44 % (31-73) Lymphocytes (%) (Auto) 44 % (24-48) Monocytes (%) (Auto) 9 % (0-9) Eosinophils (%) (Auto) 2 % (0-3) Basophils (%) (Auto) 1 % (0-3) Neutrophils # (Auto) 2.0 x10^3uL (1.8-7.7) Lymphocytes # (Auto) 2.0 x10^3/uL (1.0-4.8) Monocytes # (Auto) 0.4 x10^3/uL (0.0-1.1) Eosinophils # (Auto) 0.1 x10^3/uL (0.0-0.7) Basophils # (Auto) 0.0 x10^3/uL (0.0-0.2) Sodium Level 148 mmol/L (136-145) Potassium Level 3.3 mmol/L (3.5-5.1) Chloride Level 116 mmol/L (98-107) Carbon Dioxide Level 21 mmol/L (21-32) Anion Gap 11 (6-14) Blood Urea Nitrogen 7 mg/dL (7-20) Creatinine 0.8 mg/dL (0.6-1.0) Estimated GFR (Cockcroft-Gault) 97.7 Calcium Level 8.0 mg/dL (8.5-10.1) Laboratory Tests Test 05/31/18 06:20 White Blood Count 4.5 x10^3/uL (4.0-11.0) Red Blood Count 3.20 x10^6/uL (3.50-5.40) Hemoglobin 8.3 g/dL (12.0-15.5) Hematocrit 25.7 % (36.0-47.0) Mean Corpuscular Volume 80 fL (79-100) Mean Corpuscular Hemoglobin 26 pg (25-35) Mean Corpuscular Hemoglobin Concent 32 g/dL (31-37) Red Cell Distribution Width 21.5 % (11.5-14.5) Platelet Count 169 x10^3/uL (140-400) Neutrophils (%) (Auto) 44 % (31-73) Lymphocytes (%) (Auto) 44 % (24-48) Monocytes (%) (Auto) 9 % (0-9) Eosinophils (%) (Auto) 2 % (0-3) Basophils (%) (Auto) 1 % (0-3) Neutrophils # (Auto) 2.0 x10^3uL (1.8-7.7) Lymphocytes # (Auto) 2.0 x10^3/uL (1.0-4.8) Monocytes # (Auto) 0.4 x10^3/uL (0.0-1.1) Eosinophils # (Auto) 0.1 x10^3/uL (0.0-0.7) Basophils # (Auto) 0.0 x10^3/uL (0.0-0.2) Sodium Level 148 mmol/L (136-145) Potassium Level 3.3 mmol/L (3.5-5.1) Chloride Level 116 mmol/L (98-107) Carbon Dioxide Level 21 mmol/L (21-32) Anion Gap 11 (6-14) Blood Urea Nitrogen 7 mg/dL (7-20) Creatinine 0.8 mg/dL (0.6-1.0) Estimated GFR (Cockcroft-Gault) 97.7 Glucose Level 83 mg/dL (70-99) Calcium Level 8.0 mg/dL (8.5-10.1) Medications Current Medications Fentanyl Citrate (Fentanyl 2ml Vial) 50 mcg PRN Q30MIN PRN IV SEVERE PAIN Last administered on 05/29/18at 17:00; Start 05/29/18 at 13:15; Stop 05/29/18 at 17:01 ; Status DC Sodium Chloride 1,000 ml @ 1,000 mls/hr Q1H IV Last administered on 05/29/18at 13:30; Start 05/29/18 at 13:05; Stop 05/29/18 at 14:04; Status DC Ondansetron HCl (Zofran) 4 mg 1X ONCE IV Last administered on 05/29/18at 13:28 ; Start 05/29/18 at 13:15; Stop 05/29/18 at 13:16; Status DC Iohexol (Omnipaque 300 Mg/ml) 75 ml 1X ONCE IV Last administered on 05/29/18at 14:37; Start 05/29/18 at 14:30; Stop 05/29/18 at 14:31; Status DC Info (CONTRAST GIVEN -- Rx MONITORING) 1 each PRN DAILY PRN MC SEE COMMENTS; Start 05/29/18 at 14:30; Stop 05/31/18 at 14:29 Sodium Chloride 1,000 ml @ 100 mls/hr Q10H IV Last administered on 05/30/18at 12:48; Start 05/29/18 at 15:37; Stop 05/30/18 at 15:36; Status DC Fentanyl Citrate (Fentanyl 2ml Vial) 50 mcg PRN Q2HR PRN IV PAIN; Start at 16:30; Stop 05/29/18 at 16:41; Status DC Zolpidem Tartrate (Ambien) 5 mg PRN QHS PRN PO INSOMNIA; Start 05/29/18 at 16: 30; Stop 05/29/18 at 16:41; Status DC Ondansetron HCl (Zofran) 4 mg PRN Q6HRS PRN IV NAUSEA/VOMITING; Start 05/29/18 at 16:30 Ondansetron HCl (Zofran Odt) 4 mg PRN Q6HRS PRN PO NAUSEA/VOMITING 1ST CHOICE; Start 05/29/18 at 16:30 Oxycodone/ Acetaminophen (Percocet 5/325) 1 tab PRN Q4HRS PRN PO PAIN Last administered on 05/31/18at 03:15; Start 05/29/18 at 16:30 Oxycodone/ Acetaminophen (Percocet 10/325) 1 tab PRN Q4HRS PRN PO SEVERE pain; Start 05/29/18 at 16:30; Stop 05/29/18 at 16:41; Status DC Alprazolam (Xanax) 1 mg PRN BID PRN PO ANXIETY / AGITATION Last administered on 05/31/18at 05:09; Start 05/29/18 at 16:30 Citalopram Hydrobromide (CeleXA) 10 mg DAILY PO Last administered on 05/31/18at 08:15; Start 05/30/18 at 09:00 Vitamin B Complex (Folbic Tablet) 1 tab DAILY PO Last administered on at 08:15; Start 05/30/18 at 09:00 Ferrous Sulfate (Feosol) 325 mg DAILY PO Last administered on 05/31/18at 08:14; Start 05/30/18 at 09:00 Promethazine HCl (Phenergan Syrup) 6.25 mg PRN TID PRN PO NAUSEA 2ND CHOICE; Start 05/29/18 at 16:30 Temazepam (Restoril) 30 mg PRN QHS PRN PO SLEEP Last administered on 05/30/18at 21:47; Start 05/29/18 at 21:00 Albuterol Sulfate (Ventolin Neb Soln) 2.5 mg PRN Q6HRS PRN NEB SHORTNESS OF BREATH; Start 05/29/18 at 16:45 Gabapentin (Neurontin) 300 mg TID PO ; Start 05/29/18 at 21:00; Stop 05/29/18 at 21:00; Status DC Pantoprazole Sodium (Protonix) 40 mg DAILYAC PO Last administered on 05/31/18at 05:09; Start 05/30/18 at 07:30 Sucralfate (Carafate) 1 gm BID PO Last administered on 05/31/18at 08:14; Start 05/29/18 at 21:00 Fentanyl Citrate (Fentanyl 2ml Vial) 25 mcg PRN Q2HR PRN IV PAIN Last administered on 05/29/18at 18:41; Start 05/29/18 at 16:45; Stop 05/29/18 at 19:31 ; Status DC Gabapentin (Neurontin) 300 mg PRN TID PRN PO nerve pain; Start 05/29/18 at 21: 00 Fentanyl Citrate (Fentanyl 2ml Vial) 50 mcg PRN Q2HR PRN IV PAIN Last administered on 05/31/18at 12:22; Start 05/29/18 at 19:45 Potassium Chloride (Klor-Con) 40 meq 1X ONCE PO Last administered on at 12:49; Start 05/30/18 at 13:00; Stop 05/30/18 at 13:01; Status DC Active Scripts Active Proair Hfa Inhaler (Albuterol Sulfate) 8.5 Gm Hfa.aer.ad 1 Puff INH PRN Q6HRS PRN Promethazine Hcl 6.25 Mg/5 Ml Syrup 5 Ml PO TID PRN Temazepam 15 Mg Capsule 1 Cap PO QHS Xanax (Alprazolam) 1 Mg Tablet 1 Tab PO BID PRN Gabapentin 300 Mg Capsule 300 Mg PO TID Ferrous Sulfate 325 Mg Tablet 1 Tab PO DAILY Folbic Tablet (Cyanocobalamin/Fa/Pyridoxine) 1 Each Tablet 1 Tab PO DAILY Carafate (Sucralfate) 1 Gm/10 Ml Oral.susp 1 Gm PO BID Reported Celexa (Citalopram Hydrobromide) 10 Mg Tablet 1 Tab PO DAILY Protonix (Pantoprazole Sodium) 20 Mg Tablet.dr 80 Mg PO DAILY Temazepam 30 Mg Capsule 1 Cap PO QHS Vitals/I & O Vital Sign - Last 24 Hours 05/30/18 05/30/18 05/30/18 05/30/18 15:05 15:06 15:08 17:17 Temp 97.7 97.7 Pulse 84 Resp 20 B/P (MAP) 110/79 (89) Pulse Ox 97 O2 Delivery Room Air Room Air 05/30/18 05/30/18 05/30/18 05/30/18 17:20 19:00 19:45 19:45 Temp 98.5 98.5 Pulse 64 76 Resp 18 20 B/P (MAP) 106/72 (83) 99/63 (75) Pulse Ox 96 97 O2 Delivery Room Air Room Air 05/30/18 05/30/18 05/30/18 05/31/18 21:47 23:00 23:44 02:06 Pulse 70 Resp 18 18 18 B/P (MAP) 108/65 (79) Pulse Ox 97 99 97 97 O2 Delivery Room Air Room Air Room Air 05/31/18 05/31/18 05/31/18 05/31/18 03:00 03:15 04:20 05:10 Temp 98.5 98.5 Pulse 69 Resp 18 20 20 B/P (MAP) 108/75 (86) Pulse Ox 100 97 97 97 O2 Delivery Room Air Room Air Room Air 05/31/18 05/31/18 05/31/18 05/31/18 05:43 07:00 07:45 08:16 Temp 96.1 96.1 Pulse 61 Resp 18 16 B/P (MAP) 109/65 (80) Pulse Ox 100 97 O2 Delivery Room Air Room Air Room Air 05/31/18 05/31/18 05/31/1805/31/18 10:21 10:55 11:00 12:22 Temp 97.4 97.4 Pulse 62 Resp 16 B/P (MAP) 117/81 (93) Pulse Ox 97 100 O2 Delivery Room Air Room Air Room Air Room Air Intake and Output 05/30/18 05/30/18 05/31/18 15:00 23:00 07:00 Intake Total 250 ml 2220 ml Balance 250 ml 2220 ml MARTHA FOY III DO May 31, 2018 13:43
[2018-05-31 15:00] VITALS: BP 140/77
[2018-05-31] MEDS ORDERED: POTASSIUM CHLORIDE 20 MEQ TABLET.ER. PO ONE (18:00)
[2018-05-31 19:00] VITALS: BP 137/87
[2018-05-31] MEDS: TEMAZEPAM 15 MG CAPSULE PO PRN (20:04)
[2018-05-31 23:00] VITALS: BP 152/100
[2018-06-01] MEDS: fentaNYL PF VIAL 100 MCG/2 ML VIAL IV PRN ×4 (00:13→06:34)
[2018-06-01] MEDS: oxyCODONE/APAP 5/325 1 TAB TABLET PO PRN ×5 (00:14→20:46)
[2018-06-01 03:00] VITALS: BP 111/71
[2018-06-01 05:10] LABS: BASO % 1 % (0-3); EOS # 0.2 x10^3/uL (0.0-0.7); EOS % 5 % (0-3); HEMATOCRIT 28.1 % (36.0-47.0); HEMOGLOBIN 9.1 g/dL (12.0-15.5); LYMPH # 1.8 x10^3/uL (1.0-4.8); LYMPH % 37 % (24-48); MEAN CORPUSCULAR HEMOGLOBIN 26 pg (25-35); MEAN CORPUSCULAR HGB CONC 33 g/dL (31-37); MEAN CORPUSCULAR VOLUME 80 fL (79-100); MONO # 0.4 x10^3/uL (0.0-1.1); MONO % 9 % (0-9); NEUT # 2.4 x10^3uL (1.8-7.7); NEUT % 49 % (31-73); PLATELET COUNT 188 x10^3/uL (140-400); RED BLOOD COUNT 3.53 x10^6/uL (3.50-5.40); RED CELL DISTRIBUTION WIDTH 21.6 % (11.5-14.5); WHITE BLOOD COUNT 4.9 x10^3/uL (4.0-11.0)
[2018-06-01 05:42] LABS: CALCIUM 8.6 mg/dL (8.5-10.1); CREATININE 0.8 mg/dL (0.6-1.0); GFR 97.7; POTASSIUM 3.3 mmol/L (3.5-5.1)
[2018-06-01] MEDS: ALPRAZolam 1 MG TABLET PO PRN ×3 (06:30→19:02)
[2018-06-01] MEDS: PANTOPRAZOLE 40 MG TABLET.DR. PO SCH (06:31)
[2018-06-01] MEDS: SUCRALFATE 1 GM TABLET. PO SCH ×3 (06:39→16:53)
[2018-06-01 07:00] VITALS: BP 107/73
[2018-06-01] MEDS ORDERED: HALOPERIDOL LACTATE 5 MG/ML VIAL. IVP PRN (09:15)
[2018-06-01] MEDS ORDERED: diphenhydrAMINE 50 MG/ML VIAL IVP PRN (09:15)
[2018-06-01] MEDS: oxyCODONE IR 5 MG TABLET PO PRN ×3 (09:16→21:53)
--- NOTE | 2018-06-01 09:22 | PDOC ---
PROGRESS NOTES Chief Complaint Chief Complaint Abdominal pain with frequent diarrhea, and pain Hypoglycemia CHF, chronic diastolic GERD Peptic Ulcer disease Anemia NOS Anxiety d/o with Depression and insomnia Schizophrenia, complicated with anxiety d/o History of Present Illness History of Present Illness Pt standing in campos, demanding pain meds, unhappy with care, wants more IV Pain meds most options for pain reviewed, haldol recommended due to anxiety and pain and agitation. will increase PO meds, add long acting still having diarrhea, recent rectal bleeding "I woke up in a pool of blood" unsure of validity awaiting stool studies DW RN x2 GI team following Vitals Vitals Vital Signs Date Time Temp Pulse Resp B/P (MAP) Pulse Ox O2 Delivery O2 Flow Rate FiO2 06/01/18 07:00 97.9 69 16 107/73 (84) 100 Room Air 97.9 Physical Exam Physical Exam agitated General: Alert, Cooperative, moderate distress, Other (drowsy) Heart: Regular rate, Normal S1, Normal S2 Lungs: Clear Abdomen: Normal bowel sounds, Soft, No tenderness, No masses Extremities: No clubbing, No cyanosis, No edema, Normal pulses, No tenderness/ swelling Skin: No rashes, No breakdown, No significant lesion Labs LABS Laboratory Tests Test 06/01/18 04:10 White Blood Count 4.9 x10^3/uL (4.0-11.0) Red Blood Count 3.53 x10^6/uL (3.50-5.40) Hemoglobin 9.1 g/dL (12.0-15.5) Hematocrit 28.1 % (36.0-47.0) Mean Corpuscular Volume 80 fL (79-100) Mean Corpuscular Hemoglobin 26 pg (25-35) Mean Corpuscular Hemoglobin Concent 33 g/dL (31-37) Red Cell Distribution Width 21.6 % (11.5-14.5) Platelet Count 188 x10^3/uL (140-400) Neutrophils (%) (Auto) 49 % (31-73) Lymphocytes (%) (Auto) 37 % (24-48) Monocytes (%) (Auto) 9 % (0-9) Eosinophils (%) (Auto) 5 % (0-3) Basophils (%) (Auto) 1 % (0-3) Neutrophils # (Auto) 2.4 x10^3uL (1.8-7.7) Lymphocytes # (Auto) 1.8 x10^3/uL (1.0-4.8) Monocytes # (Auto) 0.4 x10^3/uL (0.0-1.1) Eosinophils # (Auto) 0.2 x10^3/uL (0.0-0.7) Basophils # (Auto) 0.0 x10^3/uL (0.0-0.2) Sodium Level 144 mmol/L (136-145) Potassium Level 3.3 mmol/L (3.5-5.1) Chloride Level 110 mmol/L (98-107) Carbon Dioxide Level 27 mmol/L (21-32) Anion Gap 7 (6-14) Blood Urea Nitrogen 3 mg/dL (7-20) Creatinine 0.8 mg/dL (0.6-1.0) Estimated GFR (Cockcroft-Gault) 97.7 Glucose Level 73 mg/dL (70-99) Calcium Level 8.6 mg/dL (8.5-10.1) Assessment and Plan Assessmemt and Plan Problems Medical Problems: (1) Abdominal pain Status: Acute Comment Review of Relevant I have reviewed the following items vero (where applicable) has been applied. Labs Laboratory Tests Test 05/31/18 06:20 06/01/18 04:10 White Blood Count 4.5 x10^3/uL (4.0-11.0) 4.9 x10^3/uL (4.0-11.0) Red Blood Count 3.20 x10^6/uL (3.50-5.40) 3.53 x10^6/uL (3.50-5.40) Hemoglobin 8.3 g/dL (12.0-15.5) 9.1 g/dL (12.0-15.5) Hematocrit 25.7 % (36.0-47.0) 28.1 % (36.0-47.0) Mean Corpuscular Volume 80 fL (79-100) 80 fL (79-100) Mean Corpuscular Hemoglobin 26 pg (25-35) 26 pg (25-35) Mean Corpuscular Hemoglobin Concent 32 g/dL (31-37) 33 g/dL (31-37) Red Cell Distribution Width 21.5 % (11.5-14.5) 21.6 % (11.5-14.5) Platelet Count 169 x10^3/uL (140-400) 188 x10^3/uL (140-400) Neutrophils (%) (Auto) 44 % (31-73) 49 % (31-73) Lymphocytes (%) (Auto) 44 % (24-48) 37 % (24-48) Monocytes (%) (Auto) 9 % (0-9) 9 % (0-9) Eosinophils (%) (Auto) 2 % (0-3) 5 % (0-3) Basophils (%) (Auto) 1 % (0-3) 1 % (0-3) Neutrophils # (Auto) 2.0 x10^3uL (1.8-7.7) 2.4 x10^3uL (1.8-7.7) Lymphocytes # (Auto) 2.0 x10^3/uL (1.0-4.8) 1.8 x10^3/uL (1.0-4.8) Monocytes # (Auto) 0.4 x10^3/uL (0.0-1.1) 0.4 x10^3/uL (0.0-1.1) Eosinophils # (Auto) 0.1 x10^3/uL (0.0-0.7) 0.2 x10^3/uL (0.0-0.7) Basophils # (Auto) 0.0 x10^3/uL (0.0-0.2) 0.0 x10^3/uL (0.0-0.2) Sodium Level 148 mmol/L (136-145) 144 mmol/L (136-145) Potassium Level 3.3 mmol/L (3.5-5.1) 3.3 mmol/L (3.5-5.1) Chloride Level 116 mmol/L (98-107) 110 mmol/L (98-107) Carbon Dioxide Level 21 mmol/L (21-32) 27 mmol/L (21-32) Anion Gap 11 (6-14) 7 (6-14) Blood Urea Nitrogen 7 mg/dL (7-20) 3 mg/dL (7-20) Creatinine 0.8 mg/dL (0.6-1.0) 0.8 mg/dL (0.6-1.0) Estimated GFR (Cockcroft-Gault) 97.7 97.7 Glucose Level 83 mg/dL (70-99) 73 mg/dL (70-99) Calcium Level 8.0 mg/dL (8.5-10.1) 8.6 mg/dL (8.5-10.1) Laboratory Tests Test 06/01/18 04:10 White Blood Count 4.9 x10^3/uL (4.0-11.0) Red Blood Count 3.53 x10^6/uL (3.50-5.40) Hemoglobin 9.1 g/dL (12.0-15.5) Hematocrit 28.1 % (36.0-47.0) Mean Corpuscular Volume 80 fL (79-100) Mean Corpuscular Hemoglobin 26 pg (25-35) Mean Corpuscular Hemoglobin Concent 33 g/dL (31-37) Red Cell Distribution Width 21.6 % (11.5-14.5) Platelet Count 188 x10^3/uL (140-400) Neutrophils (%) (Auto) 49 % (31-73) Lymphocytes (%) (Auto) 37 % (24-48) Monocytes (%) (Auto) 9 % (0-9) Eosinophils (%) (Auto) 5 % (0-3) Basophils (%) (Auto) 1 % (0-3) Neutrophils # (Auto) 2.4 x10^3uL (1.8-7.7) Lymphocytes # (Auto) 1.8 x10^3/uL (1.0-4.8) Monocytes # (Auto) 0.4 x10^3/uL (0.0-1.1) Eosinophils # (Auto) 0.2 x10^3/uL (0.0-0.7) Basophils # (Auto) 0.0 x10^3/uL (0.0-0.2) Sodium Level 144 mmol/L (136-145) Potassium Level 3.3 mmol/L (3.5-5.1) Chloride Level 110 mmol/L (98-107) Carbon Dioxide Level 27 mmol/L (21-32) Anion Gap 7 (6-14) Blood Urea Nitrogen 3 mg/dL (7-20) Creatinine 0.8 mg/dL (0.6-1.0) Estimated GFR (Cockcroft-Gault) 97.7 Glucose Level 73 mg/dL (70-99) Calcium Level 8.6 mg/dL (8.5-10.1) Medications Current Medications Fentanyl Citrate (Fentanyl 2ml Vial) 50 mcg PRN Q30MIN PRN IV SEVERE PAIN Last administered on 05/29/18at 17:00; Start 05/29/18 at 13:15; Stop 05/29/18 at 17:01 ; Status DC Sodium Chloride 1,000 ml @ 1,000 mls/hr Q1H IV Last administered on 05/29/18at 13:30; Start 05/29/18 at 13:05; Stop 05/29/18 at 14:04; Status DC Ondansetron HCl (Zofran) 4 mg 1X ONCE IV Last administered on 05/29/18at 13:28 ; Start 05/29/18 at 13:15; Stop 05/29/18 at 13:16; Status DC Iohexol (Omnipaque 300 Mg/ml) 75 ml 1X ONCE IV Last administered on 05/29/18at 14:37; Start 05/29/18 at 14:30; Stop 05/29/18 at 14:31; Status DC Info (CONTRAST GIVEN -- Rx MONITORING) 1 each PRN DAILY PRN MC SEE COMMENTS; Start 05/29/18 at 14:30; Stop 05/31/18 at 14:29; Status DC Sodium Chloride 1,000 ml @ 100 mls/hr Q10H IV Last administered on 05/30/18at 12:48; Start 05/29/18 at 15:37; Stop 05/30/18 at 15:36; Status DC Fentanyl Citrate (Fentanyl 2ml Vial) 50 mcg PRN Q2HR PRN IV PAIN; Start at 16:30; Stop 05/29/18 at 16:41; Status DC Zolpidem Tartrate (Ambien) 5 mg PRN QHS PRN PO INSOMNIA; Start 05/29/18 at 16: 30; Stop 05/29/18 at 16:41; Status DC Ondansetron HCl (Zofran) 4 mg PRN Q6HRS PRN IV NAUSEA/VOMITING; Start 05/29/18 at 16:30 Ondansetron HCl (Zofran Odt) 4 mg PRN Q6HRS PRN PO NAUSEA/VOMITING 1ST CHOICE; Start 05/29/18 at 16:30 Oxycodone/ Acetaminophen (Percocet 5/325) 1 tab PRN Q4HRS PRN PO PAIN Last administered on 06/01/18 06:31; Start 05/29/18 at 16:30 Oxycodone/ Acetaminophen (Percocet 10/325) 1 tab PRN Q4HRS PRN PO SEVERE pain; Start 05/29/18 at 16:30; Stop 05/29/18 at 16:41; Status DC Alprazolam (Xanax) 1 mg PRN BID PRN PO ANXIETY / AGITATION Last administered on 06/01/18 06:30; Start 05/29/18 at 16:30 Citalopram Hydrobromide (CeleXA) 10 mg DAILY PO Last administered on 05/31/18at 08:15; Start 05/30/18 at 09:00 Vitamin B Complex (Folbic Tablet) 1 tab DAILY PO Last administered on at 08:15; Start 05/30/18 at 09:00 Ferrous Sulfate (Feosol) 325 mg DAILY PO Last administered on 05/31/18 08:14; Start 05/30/18 at 09:00 Promethazine HCl (Phenergan Syrup) 6.25 mg PRN TID PRN PO NAUSEA 2ND CHOICE; Start 05/29/18 at 16:30 Temazepam (Restoril) 30 mg PRN QHS PRN PO SLEEP Last administered on 05/31/18at 20:04; Start 05/29/18 at 21:00 Albuterol Sulfate (Ventolin Neb Soln) 2.5 mg PRN Q6HRS PRN NEB SHORTNESS OF BREATH; Start 05/29/18 at 16:45 Gabapentin (Neurontin) 300 mg TID PO ; Start 05/29/18 at 21:00; Stop 05/29/18 at 21:00; Status DC Pantoprazole Sodium (Protonix) 40 mg DAILYAC PO Last administered on 06/01/18at 06:31; Start 05/30/18 at 07:30 Sucralfate (Carafate) 1 gm BID PO Last administered on 06/01/18at 06:39; Start 05/29/18 at 21:00 Fentanyl Citrate (Fentanyl 2ml Vial) 25 mcg PRN Q2HR PRN IV PAIN Last administered on 05/29/18at 18:41; Start 05/29/18 at 16:45; Stop 05/29/18 at 19:31 ; Status DC Gabapentin (Neurontin) 300 mg PRN TID PRN PO nerve pain; Start 05/29/18 at 21: 00 Fentanyl Citrate (Fentanyl 2ml Vial) 50 mcg PRN Q2HR PRN IV PAIN Last administered on 06/01/18at 06:34; Start 05/29/18 at 19:45; Stop 06/01/18 at 09:02 ; Status DC Potassium Chloride (Klor-Con) 40 meq 1X ONCE PO Last administered on at 12:49; Start 05/30/18 at 13:00; Stop 05/30/18 at 13:01; Status DC Potassium Chloride (Klor-Con) 40 meq 1X ONCE PO Last administered on at 17:49; Start 05/31/18 at 18:00; Stop 05/31/18 at 18:01; Status DC Potassium Chloride (Klor-Con) 40 meq 1X ONCE PO ; Start 06/01/18 at 09:30; Stop 06/01/18 at 09:31 Oxycodone HCl (Roxicodone) 10 mg PRN Q6HRS PRN PO PAIN; Start 06/01/18 at 09:00 Haloperidol Lactate (Haldol Inj) 5 mg PRN Q6HRS PRN IVP AGITATION; Start at 09:15 Diphenhydramine HCl (Benadryl) 25 mg PRN Q6HRS PRN IVP ITCHING; Start 06/01/18 at 09:15 Oxycodone HCl (OxyCONTIN) 10 mg Q12HR PO ; Start 06/01/18 at 09:30; Status UNV Active Scripts Active Proair Hfa Inhaler (Albuterol Sulfate) 8.5 Gm Hfa.aer.ad 1 Puff INH PRN Q6HRS PRN Promethazine Hcl 6.25 Mg/5 Ml Syrup 5 Ml PO TID PRN Temazepam 15 Mg Capsule 1 Cap PO QHS Xanax (Alprazolam) 1 Mg Tablet 1 Tab PO BID PRN Gabapentin 300 Mg Capsule 300 Mg PO TID Ferrous Sulfate 325 Mg Tablet 1 Tab PO DAILY Folbic Tablet (Cyanocobalamin/Fa/Pyridoxine) 1 Each Tablet 1 Tab PO DAILY Carafate (Sucralfate) 1 Gm/10 Ml Oral.susp 1 Gm PO BID Reported Celexa (Citalopram Hydrobromide) 10 Mg Tablet 1 Tab PO DAILY Protonix (Pantoprazole Sodium) 20 Mg Tablet.dr 80 Mg PO DAILY Temazepam 30 Mg Capsule 1 Cap PO QHS Vitals/I & O Vital Sign - Last 24 Hours 05/31/18 05/31/18 05/31/18 05/31/18 10:21 11:00 12:22 15:00 Temp 97.4 97.7 97.4 97.7 Pulse 62 78 Resp 16 16 B/P (MAP) 117/81 (93) 140/77 (98) Pulse Ox 100 96 O2 Delivery Room Air Room Air Room Air Room Air 05/31/18 05/31/18 05/31/18 05/31/18 17:13 18:28 19:00 20:05 Temp 97.6 97.6 Pulse 60 Resp 16 20 B/P (MAP) 137/87 (104) Pulse Ox 96 100 96 O2 Delivery Room Air Room Air Room Air Room Air 05/31/18 05/31/18 05/31/18 06/01/18 20:05 22:14 23:00 00:13 Temp 97.7 97.7 Pulse 65 Resp 20 16 18 B/P (MAP) 152/100 (117) Pulse Ox 93 93 O2 Delivery Room Air Room Air Room Air Room Air 06/01/18 06/01/18 06/01/18 06/01/18 00:14 01:15 02:22 02:58 Resp 18 20 18 Pulse Ox 93 93 O2 Delivery Room Air Room Air Room Air 06/01/18 06/01/18 06/01/18 06/01/18 03:00 04:28 05:00 06:31 Temp 97.9 97.9 Pulse 97 Resp 16 20 B/P (MAP) 111/71 (84) Pulse Ox 98 98 98 98 O2 Delivery Room Air Room Air Room Air Room Air 06/01/18 06/01/18 06:34 07:00 Temp 97.9 97.9 Pulse 69 Resp 18 16 B/P (MAP) 107/73 (84) Pulse Ox 98 100 O2 Delivery Room Air Room Air Intake and Output 05/31/18 05/31/18 06/01/18 15:01 23:01 07:01 Intake Total 1140 ml Balance 1140 ml DONTA CREWS MD Jun 01, 2018 09:22
[2018-06-01] MEDS: CITALOPRAM 10 MG TABLET. PO SCH (09:24)
[2018-06-01] MEDS: FERROUS SULFATE 325 MG TABLET. PO SCH (09:24)
[2018-06-01] MEDS: VITAMIN B12,B9,B6 COMPLEX 1 TABLET. PO SCH (09:24)
[2018-06-01] MEDS ORDERED: POTASSIUM CHLORIDE 20 MEQ TABLET.ER. PO ONE (09:30)
[2018-06-01] MEDS: oxyCODONE ER 10 MG TAB.ER.12H PO SCH ×2 (09:50→20:47)
[2018-06-01] MEDS ORDERED: fentaNYL PF VIAL 100 MCG/2 ML VIAL IV ONE (10:00)
--- NOTE | 2018-06-01 10:17 | PDOC ---
Subjective: Subjective: Seen walking in campos talking to mother. Went back into room, says she's not doing any better, had 15 stools yesterday, 3 overnight, then 5 today - "looks like dirty water." Tolerating liquids. Has pain from epigastrium down middle of abdomen to LLQ to left flank. Can't say what aggravates. Staff brought full liquid diet while I was in her room - says she can't drink milk or have yogurt. Wants to know if her diarrhea will ever go away, said she was told she'd have a colonoscopy tomorrow. Denies bleeding. Objective: Objective: Called by RN at 10:15, wondering about discharge. Says pt reports 3 stools since yesterday - none witnessed by staff. C Diff and fecal occult negative (x 2) this admission. Stool culture negative . Stool culture pending this admission, enterovirus ordered. Mildly prolonged GES 2014. H/o expl lap w/ adhesions. CT A/P this admission unrevealing. Colonoscopy 12/2016 w/ fair prep: normal. EGD 04/2018: s/p distal gastrectomy/Bilroth II anastomosis, negative for bleeding. On Sucralfate, iron, and PPI here. Vital Signs: Vital Signs Date Time Temp Pulse Resp B/P (MAP) Pulse Ox O2 Delivery O2 Flow Rate FiO2 06/01/18 09:51 Room Air 06/01/18 07:00 97.9 69 16 107/73 (84) 100 97.9 Labs: Laboratory Tests Test 06/01/18 04:10 White Blood Count 4.9 x10^3/uL Red Blood Count 3.53 x10^6/uL Hemoglobin 9.1 g/dL Hematocrit 28.1 % Mean Corpuscular Volume 80 fL Mean Corpuscular Hemoglobin 26 pg Mean Corpuscular Hemoglobin Concent 33 g/dL Red Cell Distribution Width 21.6 % Platelet Count 188 x10^3/uL Neutrophils (%) (Auto) 49 % Lymphocytes (%) (Auto) 37 % Monocytes (%) (Auto) 9 % Eosinophils (%) (Auto) 5 % Basophils (%) (Auto) 1 % Neutrophils # (Auto) 2.4 x10^3uL Lymphocytes # (Auto) 1.8 x10^3/uL Monocytes # (Auto) 0.4 x10^3/uL Eosinophils # (Auto) 0.2 x10^3/uL Basophils # (Auto) 0.0 x10^3/uL Sodium Level 144 mmol/L Potassium Level 3.3 mmol/L Chloride Level 110 mmol/L Carbon Dioxide Level 27 mmol/L Anion Gap 7 Blood Urea Nitrogen 3 mg/dL Creatinine 0.8 mg/dL Estimated GFR (Cockcroft-Gault) 97.7 Glucose Level 73 mg/dL Calcium Level 8.6 mg/dL PE: GEN: NAD, standing up LUNGS: CTAB HEART: RRR ABD: NABS, soft, does not seem tender NEURO/PSYCH: A & O 3 A/P: Diarrhea, abd pain Chronic anemia S/p Billroth II -- Stool tests pending, await these. Encouraged her to show staff when she has diarrhea. Recent colonoscopy ok. Additional recs per Dr. Vicente. ?TYRONE Henley Jun 01, 2018 10:17
[2018-06-01 11:00] VITALS: BP 136/89
[2018-06-01 15:00] VITALS: BP 114/72
[2018-06-01 19:00] VITALS: BP 101/60
[2018-06-01] MEDS: TEMAZEPAM 15 MG CAPSULE PO PRN (20:46)
[2018-06-01 23:00] VITALS: BP 105/60
[2018-06-02] MEDS: ALPRAZolam 1 MG TABLET PO PRN ×2 (01:15→08:20)
[2018-06-02] MEDS: oxyCODONE/APAP 5/325 1 TAB TABLET PO PRN ×2 (01:15→06:13)
[2018-06-02 03:00] VITALS: BP 111/65
[2018-06-02] MEDS: oxyCODONE IR 5 MG TABLET PO PRN ×2 (03:35→09:33)
[2018-06-02 05:04] LABS: BASO % 0 % (0-3); EOS # 0.2 x10^3/uL (0.0-0.7); EOS % 5 % (0-3); HEMATOCRIT 30.1 % (36.0-47.0); HEMOGLOBIN 9.9 g/dL (12.0-15.5); LYMPH # 1.7 x10^3/uL (1.0-4.8); LYMPH % 39 % (24-48); MEAN CORPUSCULAR HEMOGLOBIN 26 pg (25-35); MEAN CORPUSCULAR HGB CONC 33 g/dL (31-37); MEAN CORPUSCULAR VOLUME 80 fL (79-100); MONO # 0.4 x10^3/uL (0.0-1.1); MONO % 8 % (0-9); NEUT # 2.1 x10^3uL (1.8-7.7); NEUT % 47 % (31-73); PLATELET COUNT 212 x10^3/uL (140-400); RED BLOOD COUNT 3.76 x10^6/uL (3.50-5.40); WHITE BLOOD COUNT 4.4 x10^3/uL (4.0-11.0)
[2018-06-02 05:31] LABS: CALCIUM 8.9 mg/dL (8.5-10.1); CREATININE 0.8 mg/dL (0.6-1.0); GFR 97.7; POTASSIUM 3.2 mmol/L (3.5-5.1)
[2018-06-02] MEDS: SUCRALFATE 1 GM TABLET. PO SCH (06:12)
[2018-06-02] MEDS: PANTOPRAZOLE 40 MG TABLET.DR. PO SCH (06:12)
[2018-06-02 07:15] VITALS: BP 122/92
[2018-06-02] MEDS: FERROUS SULFATE 325 MG TABLET. PO SCH (08:20)
[2018-06-02] MEDS: VITAMIN B12,B9,B6 COMPLEX 1 TABLET. PO SCH (08:20)
[2018-06-02] MEDS: CITALOPRAM 10 MG TABLET. PO SCH (08:20)
[2018-06-02] MEDS: oxyCODONE ER 10 MG TAB.ER.12H PO SCH (09:33)
--- NOTE | 2018-06-02 12:13 | PDOC ---
Subjective: Subjective: Seen earlier when unable to use [employer] - prior to discharge. Tolerating PO, less diarrhea. Objective: Objective: RN says drug-seeking. Vital Signs: Vital Signs Date Time Temp Pulse Resp B/P (MAP) Pulse Ox O2 Delivery O2 Flow Rate FiO2 06/02/18 10:35 98 Room Air 06/02/18 07:15 97.9 70 16 122/92 (102) 97.9 Labs: Laboratory Tests Test 06/02/18 03:45 White Blood Count 4.4 x10^3/uL Red Blood Count 3.76 x10^6/uL Hemoglobin 9.9 g/dL Hematocrit 30.1 % Mean Corpuscular Volume 80 fL Mean Corpuscular Hemoglobin 26 pg Mean Corpuscular Hemoglobin Concent 33 g/dL Red Cell Distribution Width 22.0 % Platelet Count 212 x10^3/uL Neutrophils (%) (Auto) 47 % Lymphocytes (%) (Auto) 39 % Monocytes (%) (Auto) 8 % Eosinophils (%) (Auto) 5 % Basophils (%) (Auto) 0 % Neutrophils # (Auto) 2.1 x10^3uL Lymphocytes # (Auto) 1.7 x10^3/uL Monocytes # (Auto) 0.4 x10^3/uL Eosinophils # (Auto) 0.2 x10^3/uL Basophils # (Auto) 0.0 x10^3/uL Sodium Level 145 mmol/L Potassium Level 3.2 mmol/L Chloride Level 107 mmol/L Carbon Dioxide Level 29 mmol/L Anion Gap 9 Blood Urea Nitrogen 7 mg/dL Creatinine 0.8 mg/dL Estimated GFR (Cockcroft-Gault) 97.7 Glucose Level 77 mg/dL Calcium Level 8.9 mg/dL FECAL WBC,GRAM STAIN Final WBCS OCCASIONAL STOOL CULTURE Final Final report STOOL CULT RES 1 Final Comment No Salmonella or Shigella recovered. CAMPY Preliminary Preliminary report CAMPY RES 1 Preliminary Comment No Campylobacter species isolated. Performed at: [facility], [place], [place] [id number] General Counselor: DIANNE Mora MD, Phone: [phone] SHIGA TOXIN PENDING PE: GEN: NAD LUNGS: CTAB HEART: RRR ABD: NABS, S/ND/NT NEURO/PSYCH: A & O 3 A/P: Diarrhea, abd pain - better -- DC per primary. TYRONE JONES Jun 02, 2018 12:13
== END 2018-06-02 10:35 | disposition home or self-care (01) | DRG 641 ==
LOC: ER 12:06 → 4 NORTH 15:36
PROVIDERS: ADMIT Internal Medicine; ATTEND Internal Medicine
DX: E86.0 Dehydration (principal); F11.20 Opioid dependence, uncomplicated; I50.32 Chronic diastolic (congestive) heart failure; R10.9 Unspecified abdominal pain; R19.7 Diarrhea, unspecified; Z90.710 Acquired absence of both cervix and uterus; K27.9 Peptic ulcer, site unspecified, unspecified as acute or chronic, without hemorrhage or perforation; D63.8 Anemia in other chronic diseases classified elsewhere; E16.2 Hypoglycemia, unspecified; E83.52 Hypercalcemia; F20.9 Schizophrenia, unspecified; F32.9 Major depressive disorder, single episode, unspecified; F41.0 Panic disorder [episodic paroxysmal anxiety]; G47.00 Insomnia, unspecified; K21.9 Gastro-esophageal reflux disease without esophagitis; K31.84 Gastroparesis; Z87.11 Personal history of peptic ulcer disease
CPT/HCPCS: 36415; 74177; 80048; 80053; 81001; 82274; 82947; 82962; 83690; 83970; 85025; 87045; 87205; 87324; 96361; 96374; 96375; 96376; J1630; J2405; J3010; J7030; Q9967; 99285-25

== ENCOUNTER 2018-06-03 23:51 | Emergency (ER) | payer SELFPAY ==
[~2018-06-03] VITALS: Ht 165.1 cm; Wt 65.8 kg
[2018-06-04] MEDS ORDERED: HALOPERIDOL LACTATE 5 MG/ML VIAL. IM ONE (00:30)
[2018-06-04] MEDS ORDERED: GABAPENTIN 300 MG CAPSULE. PO ONE (00:30)
[2018-06-04] MEDS ORDERED: oxyCODONE IR 5 MG TABLET PO ONE (00:30)
[2018-06-04 00:32] LABS: BILIRUBIN,URINE NEGATIVE (NEG); CLARITY,URINE CLOUDY; COLOR,URINE YELLOW; NITRITE,URINE NEGATIVE (NEG); PROTEIN,URINE NEGATIVE (NEG-TRACE); UROBILINOGEN,URINE 0.2 mg/dL (0.2 mg/dL)
--- NOTE | 2018-06-04 00:36 | PHYS DOC ---
Past Medical History Past Medical History: CHF, GERD, P.U.D., Other Additional Past Medical Histor: panic attacks, schizophrenia w/suicidal ideation, ulcer, GASTROPERESIS, Past Surgical History: Cholecystectomy, , Hysterectomy, Other Additional Past Surgical Histo: ulcer,GOITER REMOVED FROM NECK Alcohol Use: None Drug Use: None Adult General Chief Complaint Chief Complaint: LOWER EXTREMITY SWELLING HPI HPI Patient is a 37 year old female brought in by ambulance with complaint of lower extremity swelling as well as continued abdominal pain. 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 Apparently she says she has been taking the immediate release oxycodone she says she cannot take Tylenol because her LFTs were elevated she says she cannot take Motrin due to her previous history of ulcer. She says she could not fill the OxyContin prescription due to cost. Currently in the emergency room her primary complaint appears to be that of left lower extremity swelling as well as sharp shooting pain from the groin down into the ankle area. She does say that her abdomen still seems pretty swollen she is worried about that. She says she is having persistent diarrhea of note C. difficile testing was negative in the hospital. Apparently the patient did receive IV pain medication in the hospital and was according to notes frequently standing outside her room demanding IV pain medication. Review of Systems Review of Systems Constitutional:weaknesss Eyes: Denies change in visual acuity, redness, or eye pain [] HENT: Denies nasal congestion or sore throat [] : Denies dysuria or hematuria [] Neurologic: Denies headache, focal weakness or sensory changes [] Endocrine: Denies polyuria or polydipsia [] All other systems were reviewed and found to be within normal limits, except as documented in this note. Current Medications Current Medications Current Medications Medications (Trade) Dose Ordered Sig/Chung Start Time Stop Time Status Last Admin Dose Admin Gabapentin (Neurontin) 300 mg 1X ONCE 06/04/18 00:30 06/04/18 00:31 DC 06/04/18 00:42 300 MG Haloperidol Lactate (Haldol Inj) 5 mg 1X ONCE 06/04/18 00:30 06/04/18 00:31 DC Oxycodone HCl (Roxicodone) 10 mg 1X ONCE 06/04/18 00:30 06/04/18 00:31 DC 06/04/18 00:43 10 MG Allergies Allergies Allergies Coded Allergies Type Severity Reaction Last Updated Verified Metronidazole HCl Allergy Intermediate Hives 04/28/18 Yes butorphanol Allergy Intermediate Itching 04/28/18 Yes codeine Allergy Intermediate 04/28/18 Yes ketorolac Allergy Intermediate Rash 04/28/18 Yes metronidazole Allergy Intermediate Hives 04/28/18 Yes morphine Allergy Intermediate 04/28/18 Yes tramadol Allergy Intermediate Itching 04/28/18 Yes ibuprofen Adverse Reaction Intermediate patient does not take due to having history of ulcers 04/28/18 Yes Physical Exam Physical Exam Constitutional: Well developed, well nourished,anxious in mild disress HENT: Normocephalic, atraumatic, bilateral external ears normal, oropharynx moist, no oral exudates, nose normal. [] Eyes: PERRLA, EOMI, conjunctiva normal, no discharge. [] Neck: Normal range of motion, no tenderness, supple, no stridor. [] Cardiovascular:Heart rate regular rhythm, no murmur [] Lungs & Thorax: Bilateral breath sounds clear to auscultation [] Abdomen: Bowel sounds normal, soft, there is diffuse tenderness but when patient is distracted the tenderness appears to resolve there is no rebound or guarding there is a ventral incision with no hernia palpated. Skin: Warm, dry, no erythema, no rash. [] Back: No tenderness, no CVA tenderness. [] Extremities: There is tenderness to palpation of the left leg from the knee to the ankle pulses are present there is mild asymmetry of some lower extremity edema approximately 1+ bilaterally but maybe a little more on the left Neurologic: Alert and oriented X 3, normal motor function, normal sensory function, no focal deficits noted. [] Psychologic:affect is odd, mood anxious. Current Patient Data Vital Signs Vital Signs Date Time Temp Pulse Resp B/P (MAP) Pulse Ox O2 Delivery O2 Flow Rate FiO2 06/04/18 00:48 95 16 148/93 (111) 99 Room Air 06/03/18 23:51 98.5 98.5 Lab Values Laboratory Tests Test 06/04/18 00:05 06/04/18 01:10 Urine Collection Type Unknown Urine Color Yellow Urine Clarity Cloudy Urine pH 5.0 Urine Specific [place] <=1.005 Urine Protein Negative mg/dL (NEG-TRACE) Urine Glucose (UA) Negative mg/dL (NEG) Urine Ketones (Stick) Negative mg/dL (NEG) Urine Blood Negative (NEG) Urine Nitrite Negative (NEG) Urine Bilirubin Negative (NEG) Urine Urobilinogen Dipstick 0.2 mg/dL (0.2 mg/dL) Urine Leukocyte Esterase Negative (NEG) Urine RBC 0 /HPF (0-2) Urine WBC Occ /HPF (0-4) Urine Squamous Epithelial Cells Occ /LPF Urine Bacteria 0 /HPF (0-FEW) Urine Mucus Mod /LPF Urine Opiates Screen Neg (NEG) Urine Methadone Screen Neg (NEG) Urine Barbiturates Neg (NEG) Urine Phencyclidine Screen Neg (NEG) Urine Amphetamine/Methamphetamine Neg (NEG) Urine Benzodiazepines Screen Neg (NEG) Urine Cocaine Screen Neg (NEG) Urine Cannabinoids Screen Neg (NEG) Urine Ethyl Alcohol Neg (NEG) White Blood Count 7.3 x10^3/uL (4.0-11.0) Red Blood Count 3.19 x10^6/uL (3.50-5.40) L Hemoglobin 8.5 g/dL (12.0-15.5) L Hematocrit 25.3 % (36.0-47.0) L Mean Corpuscular Volume 79 fL (79-100) Mean Corpuscular Hemoglobin 27 pg (25-35) Mean Corpuscular Hemoglobin Concent 34 g/dL (31-37) Red Cell Distribution Width 22.2 % (11.5-14.5) H Platelet Count 190 x10^3/uL (140-400) Neutrophils (%) (Auto) 64 % (31-73) Lymphocytes (%) (Auto) 28 % (24-48) Monocytes (%) (Auto) 6 % (0-9) Eosinophils (%) (Auto) 1 % (0-3) Basophils (%) (Auto) 0 % (0-3) Neutrophils # (Auto) 4.7 x10^3uL (1.8-7.7) Lymphocytes # (Auto) 2.1 x10^3/uL (1.0-4.8) Monocytes # (Auto) 0.4 x10^3/uL (0.0-1.1) Eosinophils # (Auto) 0.1 x10^3/uL (0.0-0.7) Basophils # (Auto) 0.0 x10^3/uL (0.0-0.2) Platelet Estimate Pending Maternal Serum HCG Beta Subunit 1 mIU/mL (0-5) Sodium Level 142 mmol/L (136-145) Potassium Level 3.6 mmol/L (3.5-5.1) Chloride Level 107 mmol/L (98-107) Carbon Dioxide Level 26 mmol/L (21-32) Anion Gap 9 (6-14) Blood Urea Nitrogen 19 mg/dL (7-20) Creatinine 1.3 mg/dL (0.6-1.0) H Estimated GFR (Cockcroft-Gault) 55.8 BUN/Creatinine Ratio 15 (6-20) Glucose Level 109 mg/dL (70-99) H Calcium Level 9.1 mg/dL (8.5-10.1) Total Bilirubin 0.3 mg/dL (0.2-1.0) Aspartate Amino Transferase (AST) 26 U/L (15-37) Alanine Aminotransferase (ALT) 58 U/L (14-59) Alkaline Phosphatase 101 U/L (46-116) Total Protein 6.7 g/dL (6.4-8.2) Albumin 3.6 g/dL (3.4-5.0) Albumin/Globulin Ratio 1.2 (1.0-1.7) Lipase 96 U/L (73-393) Ethyl Alcohol Level < 10 mg/dL (0-10) Laboratory Tests 06/04/18 01:10 Laboratory Tests 06/04/18 01:10 EKG EKG [] Radiology/Procedures Radiology/Procedures [] Impressions: IMPRESSION: 1. No thrombus identified in deep venous system of the left lower extremity. 2. There are some prominent lymph nodes in the left groin with thickened cortex. Could be reactive in nature but follow-up could be obtained to ensure that this resolves to exclude neoplastic causes. Electronically signed by: Pilo Burns MD (06/04/2018 1:25 AM) [facility] Course & Med Decision Making Course & Med Decision Making Pertinent Labs and Imaging studies reviewed. (See chart for details) This is a 37-year-old female with a long past medical history to include schizophrenia gastroparesis Billroth surgery for a perforated ulcer several years back intractable abdominal pain status post multiple admissions including an admission last week with a negative CT abdomen and pelvis fairly reassuring lab work overall a negative C. difficile test and frequent demanding IV pain medication just discharged yesterday now re-presenting with complaint of left leg pain and swelling and shooting pain from the abdomen down to the left leg. I think is reasonable to rule out a DVT as the patient was just in the hospital and does have some mild asymmetry on her exam she does have tenderness on the abdominal exam that patient is distractible from. Plan to check basic lab work I did speak with her that we would not be giving IV narcotics in the emergency room I offered to treat her pain with gabapentin and oxycodone and haldol. given her recent history and recent negative CT imaging I highly doubt that there is anything surgical going on. she declined the haldol. Patient did express some frustration throughout the emergency room visit about her perception that her pain was not being appropriately addressed. I did attempt to address her pain and what I felt was a reasonable manner with gabapentin as well as oral narcotic pain medication. I did specifically mention to her that I did not think IV narcotics were going to be a good idea in this situation is she did get IV narcotics for a few days recently and it has not helped because she is back in the ER requesting more pain medication. She did tell me that she was unable to fill her prescription due to cost and that she threw that out, however I reviewed [facility] and she did recently fill 30 tablets of 10 mg OxyContin's after her discharge from the hospital. I did print out the [employer] pdf and I also did provide that her as proof of her recent filled narcotic prescription, contradicting directly her initial staement to me. In light of all the above fairly stable lab work negative ultrasound for DVT for which she is appropriate for outpatient management and advised her to follow-up with primary care within next few days for reevaluation. Amelia Disclaimer Amelia Disclaimer This electronic medical record was generated, in whole or in part, using a voice recognition dictation system. Departure Departure Impression: Primary Impression: Drug-seeking behavior Additional Impression: Edema Disposition: 01 HOME, SELF-CARE Condition: STABLE Referrals: NO PCP (PCP) Scripts Ondansetron Hcl (ZOFRAN) 4 Mg Tablet 4 MG PO PRN TID PRN for NAUSEA/VOMITING, #15 nausea/vomiting Prov: SLICK VANN MD 06/04/18 Problem Qualifiers SLICK VANN MD Jun 04, 2018 00:36
[2018-06-04 00:38] LABS: AMPHETAMINE/METHAMPHETAMINE NEG (NEG); BARBITURATES NEG (NEG); BENZODIAZEPINES NEG (NEG); CANNABINOIDS NEG (NEG); COCAINE NEG (NEG); METHADONE NEG (NEG); OPIATES NEG (NEG); PHENCYCLIDINE NEG (NEG)
[2018-06-04 00:45] LABS: BACTERIA,URINE 0 /HPF (0-FEW); RBC,URINE 0 /HPF (0-2); SQUAMOUS EPITHELIAL CELL,UR OCC /LPF; WBC,URINE OCC /HPF (0-4)
[2018-06-04 00:48] VITALS: BP 148/93
[2018-06-04 01:24] LABS: BASO % 0 % (0-3); EOS # 0.1 x10^3/uL (0.0-0.7); EOS % 1 % (0-3); HEMATOCRIT 25.3 % (36.0-47.0); HEMOGLOBIN 8.5 g/dL (12.0-15.5); LYMPH # 2.1 x10^3/uL (1.0-4.8); LYMPH % 28 % (24-48); MEAN CORPUSCULAR HEMOGLOBIN 27 pg (25-35); MEAN CORPUSCULAR HGB CONC 34 g/dL (31-37); MEAN CORPUSCULAR VOLUME 79 fL (79-100); MONO # 0.4 x10^3/uL (0.0-1.1); MONO % 6 % (0-9); NEUT # 4.7 x10^3uL (1.8-7.7); NEUT % 64 % (31-73); PLATELET COUNT 190 x10^3/uL (140-400); RED BLOOD COUNT 3.19 x10^6/uL (3.50-5.40); RED CELL DISTRIBUTION WIDTH 22.2 % (11.5-14.5); WHITE BLOOD COUNT 7.3 x10^3/uL (4.0-11.0)
--- NOTE | 2018-06-04 01:28 | RAD ---
INDICATION: Left leg pain and swelling COMPARISON: None. TECHNIQUE: Grayscale, color and doppler ultrasound images were obtained of the left lower extremity venous vasculature. LEFT: No thrombus identified in the common femoral vein, femoral vein, popliteal vein or visualized calf veins. IMPRESSION: 1. No thrombus identified in deep venous system of the left lower extremity. 2. There are some prominent lymph nodes in the left groin with thickened cortex. Could be reactive in nature but follow-up could be obtained to ensure that this resolves to exclude neoplastic causes. Electronically signed by: Pilo Burns MD (06/04/2018 1:25 AM) [facility]
[2018-06-04 01:32] LABS: CALCIUM 9.1 mg/dL (8.5-10.1); CREATININE 1.3 mg/dL (0.6-1.0); GFR 55.8; POTASSIUM 3.6 mmol/L (3.5-5.1)
[2018-06-04 01:36] LABS: ALBUMIN 3.6 g/dL (3.4-5.0); ALBUMIN/GLOBULIN RATIO 1.2 (1.0-1.7); TOTAL BILIRUBIN 0.3 mg/dL (0.2-1.0); TOTAL PROTEIN 6.7 g/dL (6.4-8.2)
[2018-06-04] MEDS ORDERED: ONDA4TAB7 PO (03:06)
[2018-06-04 05:01] LABS: PLT ESTIMATE ADEQUATE (ADEQUATE)
[2018-06-04 05:02] LABS: ANISOCYTOSIS MOD; POLYCHROMASIA SLIGHT
== END 2018-06-04 03:25 | disposition home or self-care (01) ==
LOC: ER 23:51
DX: R60.0 Localized edema (principal); Z76.5 Malingerer [conscious simulation]; G89.29 Other chronic pain; F20.9 Schizophrenia, unspecified; K21.9 Gastro-esophageal reflux disease without esophagitis; Z86.79 Personal history of other diseases of the circulatory system; Z90.710 Acquired absence of both cervix and uterus; Z90.49 Acquired absence of other specified parts of digestive tract; Z98.890 Other specified postprocedural states; Z88.5 Allergy status to narcotic agent; Z88.6 Allergy status to analgesic agent; Z88.8 Allergy status to other drugs, medicaments and biological substances
CPT/HCPCS: 36415; 80053; 80307; 81001; 83690; 84702; 85025; 93971; 99285; G0480; J1630; G0479